=== PATIENT | female | born 1935 | race Caucasian/White ===

== ENCOUNTER 2016-08-30 08:39 | Inpatient (IN) | payer OTHER ==
[2016-08-05 13:52] VITALS: BMI 28.0
--- NOTE | 2016-08-05 14:31 | PAT Medication Instructions ---
Service Date Aug 05, 2016. Current Home Medication List Acetaminophen (Tylenol), 1,000 MG PO Q8 PRN for Pain Ascorbic Acid (Vitamin C *), 500 MG PO QPM Aspirin (Aspirin Ec), 81 MG PO QAM Biotin (Biotin), 1 CAP PO QAM PRN for prn Calcium/Vitamin D ([place] 500 Plus D), 1 TAB PO QPM Cholecalciferol (Vitamin D), 2,000 INTER.UNIT PO QAM Fish Oil ([place]-3), 1 CAP PO QAM Losartan Potassium (Cozaar), 25 MG PO QPM Metoprolol Succinate (Toprol Xl), 25 MG PO QAM Nitroglycerin (Nitrostat), 0.4 MG UT PRN Omeprazole (Prilosec), 20 MG PO QPM Ranitidine (Zantac), 150 MG PO HS Rosuvastatin Calcium (Crestor), 30 MG PO HS Medication Instructions For Your Scheduled Surgery - Continue as directed: Nitroglycerin (Nitrostat), 0.4 MG UT PRN - Hold the following medications 2 weeks prior to surgery: Fish Oil ([place]-3), 1 CAP PO QAM Biotin (Biotin), 1 CAP PO QAM PRN for prn - Hold the following medications the morning of surgery: Cholecalciferol (Vitamin D), 2,000 INTER.UNIT PO QAM - Take the following medications the morning of surgery with a sip of water: Metoprolol Succinate (Toprol Xl), 25 MG PO QAM Aspirin (Aspirin Ec), 81 MG PO QAM Acetaminophen (Tylenol), 1,000 MG PO Q8 PRN for Pain (may take if needed up to 4 hours prior to surgery) - Take the following medications as scheduled the night before surgery: Omeprazole (Prilosec), 20 MG PO QPM Ranitidine (Zantac), 150 MG PO HS Rosuvastatin Calcium (Crestor), 30 MG PO HS Calcium/Vitamin D ([place] 500 Plus D), 1 TAB PO QPM Ascorbic Acid (Vitamin C *), 500 MG PO QPM Acetaminophen (Tylenol), 1,000 MG PO Q8 PRN for Pain - Do not take the following medications the night before surgery: Losartan Potassium (Cozaar), 25 MG PO QPM If you have any questions please call us at [phone] (Bridgett Beebe PA-C ) or [phone] or [phone]
[2016-08-05 14:43] LABS: BASO % 0.6 %; BASO ABS # 0.04 K/uL (0-0.2); COMPLETE YES; EOS % 2.3 %; HEMATOCRIT 39.1 % (37-47); IG% 0.1 %; LYMPH % 23.9 %; LYMPH ABS # 1.64 K/uL (1.2-3.4); MEAN CELL VOLUME 90.5 fL (80-100); MEAN CORPUSCULAR HEMOGLOBIN 29.9 pg (25-34); MONO % 7.3 %; NEUT % 65.8 %; PLATELET COUNT 185 K/uL (130-400); RED BLOOD COUNT 4.32 M/uL (4.2-5.4); WHITE BLOOD COUNT 6.87 K/uL (4.8-10.8)
--- NOTE | 2016-08-05 15:02 | DIAGNOSTIC IMAGING REPORT ---
CHEST PREADMISSION(PA/LAT) CLINICAL HISTORY: Preoperative chest COMPARISON STUDY: 08/09/2015 FINDINGS: The cardiac and mediastinal contours remain stable. There are postsurgical changes of midline sternotomy. There is aortic tortuosity. There is no overt failure. There is no lobar consolidation. There is mild interstitial thickening. The patient is hyperinflated.[ IMPRESSION: Hyperinflation and mild interstitial thickening. No evidence of acute parenchymal consolidation. Electronically signed by: Cullen Jameson M.D. 08/05/2016 3:00 PM Dictated Date/Time: 08/05/2016 2:59 PM
[2016-08-05 15:06] LABS: INR 1.1 (0.9-1.1); PARTIAL THROMBOPLASTIN RATIO 1.1; PROTHROMBIN TIME (PATIENT) 11.6 SECONDS (9.0-12.0)
[2016-08-05 15:11] LABS: BUN/CREATININE RATIO 16.7 (10-20); CALCIUM 8.7 mg/dl (8.5-10.1); CREATININE 0.73 mg/dl (0.60-1.20); POTASSIUM 3.6 mmol/L (3.5-5.1)
--- NOTE | 2016-08-23 00:58 | HISTORY & PHYSICAL EXAMINATION ---
DATE OF ADMISSION: 08/30/2016 CHIEF COMPLAINT: Right hip and leg pain. HISTORY OF PRESENT ILLNESS: The patient is a 81-year-old very active female who is well known to me from a previous knee replacement surgery done in July of last year on the left knee. She has a remote history of right knee replacement done [place] [address] Monet. She sustained a fracture of her distal femur, had a retrograde nail placed in 2006. She has gone on to heal the fracture. Over the past several years, she has developed increased pain and discomfort in the right leg. She has got pain around the distal hardware as well as up around her groin. She is having more and more difficulty walking. She has got bilateral groin and thigh pain. She is having difficulty maintaining an active lifestyle. Her x-rays revealed advanced right hip degenerative joint disease and she would like to have her hip replaced. Unfortunately, we are going to need to take this nail out to do a hip replacement. PAST MEDICAL HISTORY: Significant for: 1. Coronary artery disease status post [place]. 2. Hypertension. 3. Gastroesophageal reflux disease. 4. Mild obesity, BMI 28.5. PAST SURGICAL HISTORY: Includes: 1. Open heart surgery done at [facility]. 2. Right knee replacement done on 10/17/2005. 3. Right retrograde IM nail done on 10/15/2006. 4. Left total hip replacement done 08/13/[address] Monet. 5. Left total knee replacement done by myself 08/22/2015. ALLERGIES: SULFA. CURRENT MEDICINES: Include: 1. Ranitidine 150 mg. 2. Crestor 10 mg. 3. Pantoprazole 40 mg a day. 4. Chlorthalidone 12.5 mg a day. 5. Losartan 50 mg a day. 6. Metoprolol 25 mg a day. 7. Omeprazole 20 mg a day. 8. Vitamin D. 9. Fish oil. 10. Calcium. 11. Aspirin 81 mg a day. SOCIAL HISTORY: A 81-year-old white female. The patient lives by herself. She does not smoke. FAMILY HISTORY: Noncontributory. REVIEW OF SYSTEMS: Negative for diabetes, neurologic problems, vascular problems, bleeding disorders. Denies any chest pain, no shortness of breath. No history of DVT or PE. She did have cardiac bypass surgery done 11 years ago and had no problems from this. PHYSICAL EXAMINATION: GENERAL: Reveals a pleasant elderly female. Looks to be in good health. HEENT: Benign. NECK: Supple, no lymphadenopathy. LUNGS: Clear to auscultation. HEART: Regular rate and rhythm. ABDOMEN: Soft, nontender, nondistended. EXTREMITIES: Grossly neurovascularly intact except as follows: Examination of the right lower extremity reveals the patient walks with the use of a cane. Her leg lengths clinically appear pretty equal. She has got stiffness and pain with hip internal rotation. She does have some tenderness laterally over the IT band distally in the area of the helical blade. No significant knee effusion. She has pain with hip motion. X-RAYS: X-rays of the right hip and femur were reviewed, showed advanced right hip DJD. Fairly concentric disease with significant osteophytes of the femoral head and acetabulum. She has got a retrograde nail in place with a healed femur fracture. No signs of loosening of the total knee replacement. ASSESSMENT: A 81-year-old white female status post multiple joint replacements with advanced right hip degenerative joint disease after previous total knee replacement on that side and subsequent retrograde nail for fracture. Her fracture has healed. I do think the majority of her symptoms are coming from her hip arthritis as well as due to the prominent hardware distally around this nail. PLAN: We talked about treatment. She would like to have her hip replaced. We are going to take her to the operating room and do an IM nail removal through the knee joint. We will have to close this up and then reposition her and do a total hip replacement. Risks and benefits of this procedure were explained to the patient including but not limited to DVT, PE, , infection, neurological injury, vascular injury, bleeding problem, pain, limited range of motion, stiffness, failure to relieve her symptoms, incomplete relief of symptoms, need for further surgery in the future, fracture, leg length inequality, nerve palsy, dislocation, etc. The patient understands and desires to proceed. Informed consent was obtained. As far as discharge plans, I believe she is planning to be discharged to home. She is going to have some family come and stay with her, similar to what she did with her knee replacement a year ago. She will use [facility]. I will see her back 2 weeks postop. DAWSOND
[2016-08-30] VITALS (8 sets, daily range): BP systolic 107–172; BP diastolic 54–82; PULSE 63–74; TEMP 35.4–36.7; O2SAT 95–100; Ht 162.6 cm; Wt 75.3 kg
[~2016-08-30] VITALS: Ht 162.6 cm; Wt 75.3 kg
[~2016-08-30 08:39] MED LIST: ACET-1256 PO; ACETAMINOPHEN 500 MG TAB PO SCH; ASCA500 PO; ASPI81TA28 PO; BIOT1CAP8 PO; BUPIVACAINE 0.5 % 5 MG/1 ML PF 10ML VIAL ONE; CALC500C70 PO; CEFAZOLIN 2000 MG/60 ML D5W 60 ML IV SCH; CHOL100010 PO; FAMOTIDINE 20 MG TAB PO SCH; GABAPENTIN 300 MG CAP PO SCH; LACTATED RINGER'S 1000ML 1,000 ML IV SCH; LOSA50TA6 PO; METO25TA3 PO; METOCLOPRAMIDE HCL 10 MG TAB PO SCH; NTRGSL/4 UT; OMEG10007 PO; PRLSR20 PO; ROSU20TA PO; SCOPOLAMINE 1.5 MG TDSY TD SCH; TRANEXAMIC ACID INJ 1,000 MG in SODIUM CHLORIDE 0.9% 100ML 100 ML IV SCH; ZNTT/150 PO
[2016-08-30] MEDS: LACTATED RINGER'S 1000ML 1,000 ML IV SCH ×2 (09:30→16:34)
[2016-08-30] MEDS ORDERED: MIDAZOLAM HCL 1 MG/ML 2ML VIAL ONE (09:47)
[2016-08-30] MEDS ORDERED: MoRPHine SULFATE PF 1 MG/ML 10 ML AMP/VIAL ONE (09:47)
--- NOTE | 2016-08-30 10:58 | History & Physical Bridge Note ---
H&P Re-Evaluation Bridge Note: I have examined the patient, reviewed the History & Physical and in the interval since the performance of the History & Physical I have noted the following changes of clinical significance: No changes noted
[2016-08-30] MEDS ORDERED: PROPOFOL IV EMULSION 10 MG/ML 20 ML VIAL IV ONE ×3 (12:22→14:09)
[2016-08-30] MEDS ORDERED: PHENYLEPHRINE HCL INJ 10 MG/ML VIAL ONE (12:41)
[2016-08-30] MEDS ORDERED: EpHEDrine SULFATE INJ 50 MG/ML AMP ONE (12:41)
--- NOTE | 2016-08-30 13:42 | DIAGNOSTIC IMAGING REPORT ---
INTRAOPERATIVE RIGHT FEMUR SINGLE VIEW CLINICAL HISTORY: Hardware removal COMPARISON: Outside radiograph dated July 29, 2016 DISCUSSION: 7 seconds of fluoroscopic time was utilized. A single fluoroscopic spot image was obtained. This demonstrates an intramedullary right femoral tessy IMPRESSION: Intraoperative localizing radiograph as described above. Electronically signed by: Cullen Jaemson M.D. 08/30/2016 1:41 PM Dictated Date/Time: 08/30/2016 1:39 PM
[2016-08-30] MEDS ORDERED: BUPIVACAINE/EPINEPHRINE 0.5% MPF 1:200,000 30 ML VIAL INJ ONE (14:50)
[2016-08-30] MEDS ORDERED: BACITRACIN 50000 UNIT VIAL IR ONE (14:50)
--- NOTE | 2016-08-30 15:07 | [facility] Post Operative Brief Note ---
Immediate Operative Summary Operative Date Aug 30, 2016. Pre-Operative Diagnosis Advanced Right Hip Degenerative Joint Disease, Symptomatic Hardware Right Femur Post-Operative Diagnosis Advanced Right Hip Degenerative Joint Disease, Symptomatic Hardware Right Femur Procedure(s) Performed Right Total Hip Arthroplasty-Uncemented, Right Femur Hardware Removal Surgeon Dr. Awad Do All Operator Surgeon(s) Daniel Serrano PA-C Estimated Blood Loss 300ml Findings Right Hip DJD + Sx Hardware Fluids (cc crystalloids) 1700 cc Specimens A: Explanted Hardware Right Femur B: Right Femoral Head Anesthesia Spinal Complication(s) None Disposition Recovery Room / PACU
[2016-08-30] MEDS ORDERED: MoRPHine SULFATE 2 MG/ML CARP IV PRN (15:15)
[2016-08-30] MEDS ORDERED: EpHEDrine SULFATE INJ 50 MG/ML AMP IV PRN ×2 (15:15→16:15)
[2016-08-30] MEDS ORDERED: NITROGLYCERIN 0.4 MG SL PER TAB CHARGE UT PRN (15:15)
[2016-08-30] MEDS ORDERED: NALOXONE HCL 0.4 MG/1 ML VIAL/CARP IV PRN ×2 (15:15→16:15)
[2016-08-30] MEDS ORDERED: PROMETHAZINE HCL INJ 12.5 MG in SODIUM CHLORIDE 0.9% 50ML 50 ML IV PRN ×2 (15:15→21:45)
[2016-08-30] MEDS ORDERED: BISACODYL 10 MG SUPP PR PRN (15:15)
[2016-08-30] MEDS ORDERED: ZOLPIDEM TARTRATE 5 MG TAB PO PRN (15:15)
[2016-08-30] MEDS ORDERED: MAGNESIUM HYDROXIDE SUSP 30 ML UDC PO PRN (15:15)
[2016-08-30] MEDS ORDERED: TRAMADOL HCL 50 MG TAB PO PRN (15:15)
[2016-08-30] MEDS ORDERED: DiphenhydrAMINE HCL 50 MG/ML VIAL IV PRN ×2 (15:15→16:15)
[2016-08-30] MEDS ORDERED: ALUMINUM/MAGNESIUM/SIMETH (MAALOX MAX) 30 ML UDC PO PRN (15:15)
[2016-08-30] MEDS ORDERED: NON-FORMULARY MEDICATION (Biotin 1 CAP) PO PRN (15:15)
[2016-08-30] MEDS ORDERED: FLUMAZENIL 0.1 MG/1 ML 10 ML VIAL IV PRN (15:15)
[2016-08-30] MEDS ORDERED: ONDANSETRON INJ 2 MG/ML 2 ML VIAL IV PRN ×2 (15:15→21:45)
[2016-08-30] MEDS ORDERED: ATROPINE SULFATE 0.1 MG/ML 5ML SYR IV PRN (15:15)
[2016-08-30] MEDS ORDERED: HydrALAZINE HCL 20 MG/ML VIAL ONE (15:26)
[2016-08-30 15:31] LABS: HEMATOCRIT 36.3 % (37-47)
[2016-08-30] MEDS ORDERED: HydrALAZINE HCL 20 MG/ML VIAL IV. PRN ×2 (15:45→16:15)
[2016-08-30] MEDS ORDERED: LACTATED RINGER'S 1000ML 500 ML IV PRN (16:02)
[2016-08-30] MEDS ORDERED: NALOXONE HCL INJ 0.08 MG in SYRINGE 1.8 ML IV PRN (16:02)
[2016-08-30] MEDS ORDERED: SODIUM CHLORIDE 0.9% 1000ML 1,000 ML IV PRN (16:02)
[2016-08-30] MEDS ORDERED: NALOXONE HCL INJ 1 MG in SODIUM CHLORIDE 0.9% 1000ML 1,000 ML IV PRN (16:02)
[2016-08-30] MEDS ORDERED: NALBUPHINE HCL INJ 10 MG/ML AMP IV PRN (16:15)
[2016-08-30] MEDS ORDERED: DC INTRASPINAL MORPHINE SCH (16:15)
[2016-08-30] MEDS ORDERED: MoRPHine SULFATE PF 1 MG/ML 10 ML AMP/VIAL EPI PRN ×2 (16:15→21:45)
[2016-08-30] MEDS ORDERED: NO NARCOTICS OR SEDATIVES SCH (16:15)
--- NOTE | 2016-08-30 16:26 | DIAGNOSTIC IMAGING REPORT ---
AP PELVIS, CROSSTABLE LATERAL RIGHT HIP History: Right total hip arthroplasty. Degenerative arthritis. Postop. FINDINGS: The patient is status post a right total hip arthroplasty. The hardware is intact. No fracture or dislocation. Skin magdy are in place. Evidence for an old left total hip arthroplasty IMPRESSION: Right total hip arthroplasty. No evidence for hardware complication Electronically signed by: Noam Finch M.D. 08/30/2016 4:25 PM Dictated Date/Time: 08/30/2016 4:24 PM
--- NOTE | 2016-08-30 16:57 | Anesthesiology Progress Note ---
Anesthesia Post Op Note Date & Time Aug 30, 2016 at 16:57 Vital Signs Pain Intensity: 0 Vital Signs Past 12 Hours Date Time Temp Pulse Resp B/P Pulse Ox O2 Delivery O2 Flow Rate FiO2 08/30/16 16:30 61 11 152/58 94 Nasal Cannula 2 161/50 08/30/16 16:20 63 14 135/57 96 Nasal Cannula 2 157/50 08/30/16 16:10 63 20 176/74 94 Nasal Cannula 2 184/60 08/30/16 16:00 58 14 182/74 95 Nasal Cannula 2 184/61 08/30/16 15:50 58 14 185/73 85 Nasal Cannula 2 193/62 08/30/16 15:40 59 23 186/81 91 Nasal Cannula 2 189/66 08/30/16 15:30 64 16 201/86 95 Nasal Cannula 2 214/84 08/30/16 15:20 59 19 203/92 96 Nasal Cannula 2 08/30/16 15:11 36.0 56 10 184/80 96 Nasal Cannula 2 08/30/16 09:09 36.5 67 20 172/82 97 Room Air Notes Mental Status: alert / awake / arousable, participated in evaluation Pt Amnestic to Procedure: Yes Nausea / Vomiting: adequately controlled Pain: adequately controlled Airway Patency, RR, SpO2: stable & adequate BP & HR: stable & adequate Hydration State: stable & adequate Neuraxial Anesthesia: was administered, sensory block is resolving Anesthetic Complications: no major complications apparent
[2016-08-30] MEDS: D5W AND 1/2NSS + 20MEQ KCL 1,000 ML IV SCH (19:07)
[2016-08-30] MEDS: FERROUS GLUCONATE 324 MG TAB PO SCH (19:07)
--- NOTE | 2016-08-30 19:23 | Medical Consult ---
Consultation Date of Consultation: Aug 30, 2016. Attending Physician: Yobani Awad M.D. Reason for Consultation: Medical Management History of Present Illness Ms. Martinez is a 81 y/o female with PMHx of CAD with AL and S/P CABG x 4 (1998) , AAA and B/L Iliac Aneurysms, GERD, HLD, and HTN who is S/P R SONYA. Hospitalists consulted for medical management. Patient is drowsy but easily alert to verbal stimuli. Only complaint is of fatigue and intermittent dizziness since her was complete. She denies pain at the surgical site. Has not passed gas. She reports she follows regularly with database technician. Per notes, patient with significant hypertension during procedure and BPs rather variable. Byers catheter in place. She denies fever/chills, CP, SOB, N/V, abdominal pain, constipation/diarrhea. Family History Hypertension Social History Smoking Status: Former Smoker Smokeless Tobacco Use: No Alcohol Use: none Drug Use: none Marital Status: Allergies Coded Allergies: Lisinopril (Unverified Adverse Reaction, Unknown, NAUSEA VOMITING, 08/30/16) Sulfasalazine (Verified Adverse Reaction, Unknown, NAUSEA-COULDN'T EAT, 08/30/16) Current Inpatient Medications Current Inpatient Medications Medications (Trade) Dose Ordered Sig/Eliceo Route Start Time Stop Time Status Last Admin Dose Admin Miscellaneous 1 ea 1 ea Q72H N/A 09/02/16 06:00 09/02/16 06:01 Tranexamic Acid/ Sodium Chloride (Cyklokapron Inj/ Nss 100ml) 110 ml @ 660 mls/hr TODAY@0600 IV 08/30/16 06:00 08/30/16 23:59 08/30/16 11:28 660 MLS/HR Naloxone HCl (Narcan Inj) 0.2 mg Q2M PRN IV 08/30/16 15:15 08/30/16 20:15 Flumazenil 0.2 mg 0.2 mg Q2M PRN IV 08/30/16 15:15 08/30/16 20:15 Promethazine HCl/ Sodium Chloride (Phenergan Inj/ Nss 50ml) 50.5 ml @ 202 mls/hr ONE PRN IV 08/30/16 15:15 08/30/16 20:15 Ephedrine Sulfate (EpHEDrine SULFATE INJ) 5 mg Q5M PRN IV 08/30/16 15:15 08/30/16 20:15 Atropine Sulfate 0.5 mg 0.5 mg Q1M PRN IV 08/30/16 15:15 08/30/16 20:15 Potassium Chloride/Dextrose/ Sod Cl (D5W And 1/2nss + 20meq KCl) 1,000 ml @ 100 mls/hr Q10H IV 08/30/16 18:30 08/31/16 15:06 08/30/16 19:07 100 MLS/HR Ketorolac Tromethamine (Toradol Inj) 15 mg Q6H IV. 08/31/16 07:00 09/02/16 01:01 Morphine Sulfate (MoRPHine SULFATE INJ) 2 mg Q1H PRN IV 08/30/16 15:15 09/13/16 15:14 Future hold Acetaminophen (Tylenol Tab) 1,000 mg Q8H PO 08/30/16 22:00 09/29/16 15:14 Magnesium Hydroxide (Milk Of Magnesia Susp) 30 ml Q6H PRN PO 08/30/16 15:15 09/29/16 15:14 Bisacodyl (Dulcolax Supp) 10 mg DAILY PRN ND 08/30/16 15:15 09/29/16 15:14 Docusate Sodium (coLACE CAP) 100 mg BID PO 08/30/16 21:00 09/29/16 20:59 Diphenhydramine HCl (Benadryl Cap) 25 mg Q8H PRN PO 08/30/16 15:15 09/29/16 15:14 Future hold Diphenhydramine HCl (Benadryl Inj) 25 mg Q8H PRN IV 08/30/16 15:15 09/29/16 15:14 Future hold Al Hydrox/Mg Hydrox/Simethicone (Maalox Max Susp) 15 ml Q4H PRN PO 08/30/16 15:15 09/29/16 15:14 Zolpidem Tartrate (Ambien Tab) 5 mg HSZ PRN PO 08/30/16 15:15 09/29/16 15:14 Future hold Multivitamins (Multivitamin Tab) 1 tab QAM PO 08/31/16 09:00 09/30/16 08:59 Ondansetron HCl (Zofran Inj) 4 mg Q6H PRN IV 08/30/16 15:15 09/29/16 15:14 Future hold Metoclopramide HCl (Reglan Inj) 10 mg Q6H PRN IV 08/30/16 15:15 09/29/16 15:14 Future hold Ferrous Gluconate (Ferrous Gluconate Tab) 324 mg TIDM PO 08/30/16 18:00 09/29/16 17:59 08/30/16 19:07 324 MG Aspirin (Ecotrin Tab) 325 mg BID PO 08/30/16 21:00 09/29/16 20:59 Tramadol HCl 1 TABLET FOR PAIN RATING... Q4H PRN PO 08/30/16 15:15 09/29/16 15:14 Future hold Cefazolin Sodium 1000 mg/Dextrose 55 ml @ 100 mls/hr Q8H IV 08/30/16 20:00 08/31/16 04:32 Tranexamic Acid/ Sodium Chloride (Cyklokapron Inj/ Nss 100ml) 110 ml @ 660 mls/hr ONE ONCE IV 08/30/16 21:00 08/30/16 21:09 Ascorbic Acid (Vitamin C Tab) 500 mg QPM PO 08/30/16 21:00 09/29/16 20:59 Calcium/Vitamin D (Caltrate Plus Tab) 1 tab QPM PO 08/30/16 21:00 09/29/16 20:59 Cholecalciferol (Vitamin D Tab) 2,000 inter.unit QAM PO 08/31/16 09:00 09/30/16 08:59 Losartan Potassium (coZAAR TAB) 25 mg QPM PO 08/30/16 21:00 09/29/16 20:59 Metoprolol Succinate (Toprol Xl Tab) 25 mg QAM PO 08/31/16 09:00 09/30/16 08:59 Nitroglycerin (Nitrostat Tab) 0.4 mg UD PRN UT 08/30/16 15:15 09/29/16 15:14 Ranitidine HCl (zANTac TAB) 150 mg HS PO 08/30/16 21:00 09/29/16 20:59 Rosuvastatin Calcium (Crestor Tab) 30 mg HS PO 08/30/16 21:00 09/29/16 20:59 Pantoprazole Sodium (Protonix Tab) 40 mg QPM PO 08/30/16 21:00 09/29/16 20:59 Naloxone HCl (Narcan Inj) 0.1 mg UD PRN IV 08/30/16 16:15 08/31/16 06:30 Diphenhydramine HCl (Benadryl Inj) 25 mg Q6H PRN IV 08/30/16 16:15 08/31/16 06:30 Nalbuphine HCl 5 mg 5 mg Q10M PRN IV 08/30/16 16:15 08/31/16 06:30 Naloxone HCl/ Sodium Chloride (Narcan Inj/Nss 1000ml) 1,002.5 ml @ 50 mls/hr Q20H3M PRN IV 08/30/16 16:02 08/31/16 06:30 Miscellaneous Information 1 ea 1 ea UD N/A 08/30/16 16:15 08/31/16 06:30 Naloxone HCl 0.08 mg/Syringe 2 ml @ 1 mls/min Q2M PRN IV 08/30/16 16:02 08/31/16 06:30 Lactated Ringer's (Lr 1000ml) 500 ml @ 999 mls/hr Q31M PRN IV 08/30/16 16:02 08/31/16 06:30 Ephedrine Sulfate (EpHEDrine SULFATE INJ) 10 mg Q5M PRN IV 08/30/16 16:15 08/31/16 06:30 Morphine Sulfate TODAY PRN EPI 08/30/16 16:15 08/31/16 06:30 Sodium Chloride (Nss 1000ml) 1,000 ml @ 15 mls/hr Q24H PRN IV 08/30/16 16:02 08/31/16 06:30 Hydralazine HCl (HydrALAZINE INJ) 4 mg UD PRN IV. 08/30/16 16:15 08/30/16 20:15 Miscellaneous Information (Dc Intraspinal Morphine) 0.2 ea TODAY@0630 N/A 08/31/16 06:30 08/31/16 06:31 Review of Systems Constitutional: + fatigue, No chills, No fever Eyes: No worsening of vision ENT: No nasal symptoms, No sore throat, No trouble swallowing Respiratory: No cough, No shortness of breath Cardiovascular: No chest pain, No palpitations Abdomen: No constipation, No diarrhea, No nausea, No pain, No vomiting Neurologic: No numbness/tingling, No weakness Hematologic / Lymphatic: No abnormal bleeding/bruising Integumentary: No rash Physical Exam Date Time Temp Pulse Resp B/P Pulse Ox O2 Delivery O2 Flow Rate FiO2 08/30/16 18:15 36.1 66 18 142/66 98 Nasal Cannula 2.0 08/30/16 17:45 35.4 68 16 133/64 95 Nasal Cannula 3.0 08/30/16 17:41 96 Nasal Cannula 3.0 08/30/16 17:34 95 Nasal Cannula 3.0 08/30/16 17:34 36.5 16 168/64 95 Nasal Cannula 3.0 08/30/16 17:00 64 15 141/54 96 Nasal Cannula 2 Arterial Line 08/30/16 16:45 36.3 61 17 150/62 96 Nasal Cannula 2 Arterial Line 08/30/16 16:30 61 11 152/58 94 Nasal Cannula 2 161/50 08/30/16 16:20 63 14 135/57 96 Nasal Cannula 2 157/50 08/30/16 16:10 63 20 176/74 94 Nasal Cannula 2 184/60 08/30/16 16:00 58 14 182/74 95 Nasal Cannula 2 184/61 08/30/16 15:50 58 14 185/73 85 Nasal Cannula 2 193/62 08/30/16 15:40 59 23 186/81 91 Nasal Cannula 2 189/66 08/30/16 15:30 64 16 201/86 95 Nasal Cannula 2 214/84 08/30/16 15:20 59 19 203/92 96 Nasal Cannula 2 08/30/16 15:11 36.0 56 10 184/80 96 Nasal Cannula 2 08/30/16 09:09 36.5 67 20 172/82 97 Room Air General Appearance: WD/WN, no apparent distress Head: normocephalic, atraumatic Eyes: PERRL, sclerae normal ENT: hearing grossly normal Neck: supple, no JVD, trachea midline Respiratory/Chest: lungs clear, normal breath sounds, no respiratory distress, no accessory muscle use Cardiovascular: regular rate, rhythm, no gallop, no murmur Abdomen/GI: normal bowel sounds, non tender, soft Extremities/Musculoskelatal: no pedal edema, + pertinent finding (R leg with surgical dressing at hip and leg in SG wrap that is clean/dry/intact) Neurologic/Psych: no motor/sensory deficits (lower extremities bilat), alert, oriented x 3 Skin: normal color, warm/dry Laboratory Results Last 24 Hours Test 08/30/16 09:39 08/30/16 15:22 08/30/16 16:06 Bedside Glucose 83 mg/dl 145 mg/dl Hemoglobin 11.8 g/dL Hematocrit 36.3 % Assessment & Plan Ms. Martinez is a 81 y/o female with PMHx of CAD with AL and S/P CABG x 4 (1998) , AAA and B/L Iliac Aneurysms, GERD, HLD, and HTN who is S/P R SONYA. S/P R SONYA: POD #0 - Pain Management, IVF, DVT prophylaxis, PT/OT per primary - DVT Prophylaxis - ASA 325 mg BID HTN/CAD with AL and S/P CABG x 4: - ASA per primary for DVT proph - Metoprolol 25 mg daily - Losartan 50 mg daily - Nitro 0.4 mg SL PRN GERD: - Ranitidine 150 mg daily - Pantoprazole 40 mg daily HLD: - Crestor 30 mg daily Assessment and Plan Attending Addendum: I have physically seen and examined this patient, have directed their medical care, have supervised the PA's activity, and agree with the H&P as noted above, with the following changes: NONE. The patient is seen postoperatively right total arthroplasty by Dr. Awad earlier today, is medically stable. She reports her pain is adequately controlled. The patient denies chest pain, palpitations, shortness of breath, cough, lower extremity swelling, vision change, hearing change, sore throat, fevers, chills, sweats, weight change, fatigue, nausea, vomiting, abdominal pain, pelvic pain, blood in urine or stool, dysuria, urinary frequency or urgency, lightheadedness , dizziness, headache, memory loss, rash, abnormal bruising or bleeding, night sweats, or allergy symptoms. The review of systems is otherwise negative other than for that already noted above, and at least 10 systems have been reviewed. The patient is awake, well-developed and adequately nourished, alert and oriented 3, normocephalic and atraumatic, lying in bed and in no acute distress. HEENT--PERRL, EOMI, mucous membranes and oropharynx moist. Neck--supple, no JVD or bruits, thyroid normal, trachea midline, no adenopathy. Heart--normal S1 and S2, no extra beats, no murmurs, rubs or gallops. Lungs--clear bilaterally with good air movement, no respiratory distress, no accessory muscle use. Abdomen--normal bowel sounds and soft, nontender and nondistended, no hernias or masses, no organomegaly. Extremities--no cyanosis, clubbing or edema. There are good distal pulses b/l. Dermatologic--normal skin turgor, normal color, warm and dry, no abnormal lymph nodes, no rash. Neurologic--cranial nerves II through XII grossly intact, motor and sensory examination normal. Rheumatologic--right hip wrapped. Psychiatric--normal affect. Assessment and Plan: Status post right total hip arthroplasty--seen postoperatively is medically stable. CAD/hypertension/history of AL/status post CABG--blood pressure was transiently elevated temperature procedure. Under better control at this point. Continue her usual metoprolol succinate dosing. If her pressure would increase again would give additional metoprolol succinate 25 mg by mouth at that time.
[2016-08-30] MEDS ORDERED: TRANEXAMIC ACID INJ 1,000 MG in SODIUM CHLORIDE 0.9% 100ML 100 ML IV ONE (21:00)
[2016-08-30] MEDS: CEFAZOLIN IV 1,000 MG in DEXTROSE 5% 50ML 50 ML IV SCH (21:09)
[2016-08-30] MEDS: DOCUSATE SODIUM 100 MG CAP PO SCH (21:10)
[2016-08-30] MEDS: CALCIUM 600MG + VIT D 400 IU TAB PO SCH (21:10)
[2016-08-30] MEDS: LOSARTAN POTASSIUM 25 MG TAB PO SCH (21:11)
[2016-08-30] MEDS: ASPIRIN 325 MG ECTAB PO SCH (21:12)
[2016-08-30] MEDS: ROSUVASTATIN CALCIUM 10 MG TAB PO SCH (21:12)
[2016-08-30] MEDS: ASCORBIC ACID 500 MG TAB PO SCH (21:13)
[2016-08-30] MEDS: PANTOprazole SOD 40 MG TAB PO SCH (21:13)
[2016-08-30] MEDS: ACETAMINOPHEN 500 MG TAB PO SCH (21:14)
[2016-08-30] MEDS: RANITIDINE HCL 150 MG TAB PO SCH (21:14)
[2016-08-30] MEDS ORDERED: METOCLOPRAMIDE HCL INJ 20 MG in SODIUM CHLORIDE 0.9% 50ML 50 ML IV PRN (21:45)
[2016-08-31] VITALS (16 sets, daily range): BP systolic 103–114; BP diastolic 52–63; PULSE 69–81; TEMP 36.3–37; O2SAT 91–100
[2016-08-31] MEDS: D5W AND 1/2NSS + 20MEQ KCL 1,000 ML IV SCH ×2 (03:37→13:26)
[2016-08-31] MEDS: CEFAZOLIN IV 1,000 MG in DEXTROSE 5% 50ML 50 ML IV SCH (03:37)
[2016-08-31] MEDS: KETOROLAC TROMETHAMINE 15 MG/ML VIAL IV. SCH ×3 (06:07→20:41)
[2016-08-31] MEDS: ACETAMINOPHEN 500 MG TAB PO SCH ×3 (06:07→20:53)
[2016-08-31 06:13] LABS: BASO % 0.1 %; BASO ABS # 0.01 K/uL (0-0.2); COMPLETE YES; EOS % 0.2 %; HEMATOCRIT 32.6 % (37-47); IG% 0.1 %; LYMPH % 8.2 %; LYMPH ABS # 0.74 K/uL (1.2-3.4); MEAN CELL VOLUME 91.8 fL (80-100); MEAN CORPUSCULAR HEMOGLOBIN 29.3 pg (25-34); MEAN CORPUSCULAR HGB CONC 31.9 g/dl (32-36); MEAN PLATELET VOLUME 10.5 fL (7.4-10.4); MONO % 7.9 %; NEUT % 83.5 %; PLATELET COUNT 144 K/uL (130-400); RED BLOOD COUNT 3.55 M/uL (4.2-5.4); WHITE BLOOD COUNT 8.99 K/uL (4.8-10.8)
[2016-08-31] MEDS ORDERED: DC INTRASPINAL MORPHINE SCH (06:30)
[2016-08-31 06:31] LABS: BUN/CREATININE RATIO 12.2 (10-20); CREATININE 0.81 mg/dl (0.60-1.20); POTASSIUM 4.3 mmol/L (3.5-5.1)
--- NOTE | 2016-08-31 08:35 | PROGRESS NOTE ---
DATE: 08/31/2016 DATE: 08/31/2016. SUBJECTIVE: A 81-year-old white female postop day 1 from right femur IM nail removal and total hip replacement. She is doing pretty well. Mostly just kind of having pain in her knee cap area. She has gotten up and around and walked and doing reasonably well. No chest pain or shortness of breath. Not feeling dizzy or lightheaded. OBJECTIVE: VITAL SIGNS: Temperature is 36.6. Vital signs stable. PHYSICAL EXAMINATION: GENERAL: Reveals a pleasant elderly female. She is sitting up in bed, looks pretty comfortable. LUNGS: Clear to auscultation. HEART: Has a regular rate and rhythm. ABDOMEN: Soft, nontender, nondistended. EXTREMITY EXAMINATION: Grossly neurovascularly intact except as follows: Examination of the right lower extremity reveals the dressing to be clean, dry and intact. Just a trace bit of bloody drainage around her knee area. She can dorsiflex and plantarflex her foot appropriately. She is neurologically intact. Hip is located. LABORATORY DATA: Hemoglobin 10.4, hematocrit 32.6. Electrolytes are stable. ASSESSMENT: A 81-year-old white female postop day 1 from right femur retrograde IM nail removal and total hip replacement. She is doing quite well considering the significance of her surgery. Pain is controlled. PLAN: 1. DVT prophylaxis including thigh-high TEDs, SCDs, and aspirin twice a day. 2. PT/OT. Weightbearing as tolerated. Right total hip protocol. We will also work on knee motion. 3. Pain control. Doing pretty well with current pain regimen. 4. Disposition. She is hoping to be discharged to home. She has got family that is going to come and stay with her and help. She will benefit from some home health.
[2016-08-31] MEDS ORDERED: PANTOprazole SOD 40 MG TAB PO SCH (09:00)
[2016-08-31] MEDS: CHOLECALCIFEROL 1000 INTER.UNIT TAB PO SCH (09:19)
[2016-08-31] MEDS: MULTIVITAMIN TAB PO SCH (09:20)
[2016-08-31] MEDS: ASPIRIN 325 MG ECTAB PO SCH ×2 (09:20→20:43)
[2016-08-31] MEDS: DOCUSATE SODIUM 100 MG CAP PO SCH ×2 (09:20→20:43)
[2016-08-31] MEDS: METOPROLOL SUCC 25MG EXT REL TAB PO SCH (09:20)
[2016-08-31] MEDS: FERROUS GLUCONATE 324 MG TAB PO SCH ×3 (09:20→18:30)
[2016-08-31] MEDS: ONDANSETRON INJ 2 MG/ML 2 ML VIAL IV PRN (10:05)
[2016-08-31] MEDS: METOCLOPRAMIDE HCL INJ 5 MG/ML 2 ML VIAL IV PRN (13:25)
[2016-08-31] MEDS: CALCIUM 600MG + VIT D 400 IU TAB PO SCH (20:41)
[2016-08-31] MEDS: PANTOprazole SOD 40 MG TAB PO SCH (20:42)
[2016-08-31] MEDS: ASCORBIC ACID 500 MG TAB PO SCH (20:42)
[2016-08-31] MEDS: ROSUVASTATIN CALCIUM 10 MG TAB PO SCH (20:43)
[2016-08-31] MEDS: LOSARTAN POTASSIUM 25 MG TAB PO SCH (20:48)
[2016-08-31] MEDS: RANITIDINE HCL 150 MG TAB PO SCH (20:49)
[2016-09-01] MEDS: KETOROLAC TROMETHAMINE 15 MG/ML VIAL IV. SCH ×4 (00:56→18:37)
[2016-09-01] MEDS: ACETAMINOPHEN 500 MG TAB PO SCH ×3 (05:11→21:33)
[2016-09-01 07:09] VITALS: BP 119/65; PULSE 73; TEMP 36.8; O2SAT 93
--- NOTE | 2016-09-01 08:25 | PROGRESS NOTE ---
DATE: 09/01/2016 SUBJECTIVE: A 81-year-old white female postop day 2 from a right femur IM nail removal and total hip replacement. She is doing pretty well. She is doing better today. Pain has improved. Still has some knee pain. No chest pain or shortness of breath. Not feeling dizzy or lightheaded. Did have some nausea yesterday, but improved today. OBJECTIVE: VITAL SIGNS: Temperature 36.8. Vital signs stable. PHYSICAL EXAMINATION: GENERAL: Reveals a healthy, pleasant elderly female. Today she was in the bathroom cleaning up when I saw her today. LUNGS: Clear to auscultation. HEART: Has a regular rate and rhythm. ABDOMEN: Soft, nontender, nondistended. EXTREMITIES: Grossly neurovascularly intact except as follows: Examination of the right hip and leg reveals all incisions to be well approximated. There is some bloody drainage from the anterior knee incision. Her knee bends well. She can do a straight leg raise. Calf is soft and supple. She is neurologically intact. ASSESSMENT: A 81-year-old white female postoperative day 2 from intramedullary nail removal through the knee and total hip replacement. She is doing quite well considering everything. A little bit of bloody drainage, which is normal. PLAN: 1. DVT prophylaxis including thigh-high TEDs, SCDs, and aspirin twice a day. 2. PT/OT. Weightbearing as tolerated. Right total hip and total knee protocol. 3. Pain control, doing well with current pain regimen. 4. Routine wound care. 5. Disposition: She is planning to be discharged to home with some home health once medically stable. We need to observe her today and hopefully get her home tomorrow if things look good.
[2016-09-01] MEDS: FERROUS GLUCONATE 324 MG TAB PO SCH ×3 (08:30→17:48)
[2016-09-01 09:28] VITALS: BP 116/72; PULSE 77
[2016-09-01] MEDS: METOPROLOL SUCC 25MG EXT REL TAB PO SCH (09:33)
[2016-09-01] MEDS: ASPIRIN 325 MG ECTAB PO SCH ×2 (09:33→21:32)
[2016-09-01] MEDS: CHOLECALCIFEROL 1000 INTER.UNIT TAB PO SCH (09:33)
[2016-09-01] MEDS: MULTIVITAMIN TAB PO SCH (09:33)
[2016-09-01] MEDS: DOCUSATE SODIUM 100 MG CAP PO SCH ×2 (09:33→21:32)
[2016-09-01] MEDS ORDERED: ULT50X PO (13:59)
[2016-09-01] MEDS ORDERED: ASPEC325 PO (13:59)
[2016-09-01] MEDS ORDERED: ACET-1138 PO (13:59)
[2016-09-01] MEDS ORDERED: FRRG PO (13:59)
--- NOTE | 2016-09-01 14:02 | Discharge Instructions ---
Discharge Instructions Admission Reason for Admission: Right Hip Degenerative Joint Disease, Bursitis Discharge Discharge Diagnosis / Problem: Right HIp Replacement; IM Nail removal right femur Discharge Goals Goal(s): Decrease discomfort, Improve function, Increase independence, Improve disease control, Therapeutic intervention Activity Recommendations Activity Limitations: per Instructions/Follow-up section Weightbearing Status: Right weightbearing . Instructions / Follow-Up Instructions / Follow-Up ACTIVITY RECOMMENDATIONS: Physical Therapy: * Aggressive physical therapy is not usually needed. You will learn to take care of yourself safely and walk. * Follow the "Hip Precautions Instructions." * In some cases, the social worker psychiatric at the hospital will arrange to have a therapist come to your house for the first couple of weeks to help you learn these skills. * You need to practice on your own or with the help of a family member as needed. * When you learn these skills, most of the therapy can be done on your own. Home Exercise: * You were shown a series of exercises in the hospital. Do these exercises three to four times each day including the exercises you were shown in physical therapy. Walking: * Get up and walk several times each day. For the first four weeks, try not to stand or walk for more than one hour at a time. If you do stand or walk for more than one hour, you will not hurt anything, but your leg will likely swell. * As you feel comfortable, you may change from the walker or crutches to a cane and then to independent walking. MEDICATIONS: New Medicine: * You will likely be taking one or more of these medicines: 1. Tramadol - Take, as directed, when you need it, every four to six hours to control your pain. 2. Iron Sulfate - Take three times each day for the month after surgery to help you replace the blood lost during surgery. 3. Aspirin - Thins your blood to lessen the chance of forming a blood clot. * The most common side effects of pain medicine and iron are nausea and constipation. If nausea or constipation is too much of a problem or if you have any questions about your new medicines or doses, call [facility] at [phone]. We will try to help you manage these issues. VERY IMPORTANT TO READ AND REVIEW" Pain: * The immediate post-operative period after hip replacement surgery is often quite painful. * You are given a prescription for pain medicine. You should take it, as directed, when you need it, especially before physical therapy and before going to bed. Pain that interferes with sleep is very common and can last several months. * You will likely need pain medicine for the first two to four weeks. It will not stop all of the pain. The pain will lessen and as you feel better, you may change to milder pain medicine such as Tylenol. * The most common side effects of pain medicine are nausea and constipation, so don't take more than you need. SPECIAL CARE INSTRUCTIONS: TEDs/Elastic Stockings: * The white elastic stockings help limit swelling and prevent blood clots from forming in your legs. The more you wear them, the more they work. * Wear them for six weeks. Prevention of Infection: * Take antibiotics one hour before any dental cleaning, dental work, urological procedure, gastrointestinal procedure or any invasive surgery in order to prevent your new joint from getting infected. * You may get the antibiotics from the doctor performing the procedure or you may call our office at before and we will call in a prescription to the pharmacy of your choice. Things to Watch For: * Drainage from the incision site that occurs more than one week after your surgery. * Severely increased leg pain or swelling. * Increased redness at the incision site. * Fever above 102 degrees Fahrenheit. * Unusual chest pain or shortness of breath. * Unusual pain or burning with urination. Call [facility] at with any of the above problems or if you have any questions about your medicines or recovery. FOLLOW UP VISIT: Make an appointment to see your doctor for approximately two weeks after surgery for a progress check and staple removal by calling the office at . Current Hospital Diet Patient's current hospital diet: Regular Diet Discharge Diet Recommended Diet: Regular Diet Procedures Procedures Performed: Right Total Hip Arthroplasty-Uncemented, Right Femur Hardware Removal Pending Studies Studies pending at discharge: no Medical Emergencies . Who to Call and When: Medical Emergencies: If at any time you feel your situation is an emergency, please call [phone] immediately. . Non-Emergent Contact Non-Emergency issues call your: Surgeon . "Provider Documentation" section prepared by Yobani Awad. VTE Core Measure Inpt VTE Proph given/why not?: Other Anticoagulation, T.E.D. Stockings, SCD's
[2016-09-01 15:21] VITALS: BP 111/56; PULSE 79; TEMP 36.9; O2SAT 95
[2016-09-01] MEDS: ONDANSETRON INJ 2 MG/ML 2 ML VIAL IV PRN (19:51)
[2016-09-01 21:29] VITALS: BP 169/72; PULSE 86
[2016-09-01] MEDS: LOSARTAN POTASSIUM 25 MG TAB PO SCH (21:31)
[2016-09-01] MEDS: ROSUVASTATIN CALCIUM 10 MG TAB PO SCH (21:31)
[2016-09-01] MEDS: PANTOprazole SOD 40 MG TAB PO SCH (21:32)
[2016-09-01] MEDS: ASCORBIC ACID 500 MG TAB PO SCH (21:32)
[2016-09-01] MEDS: CALCIUM 600MG + VIT D 400 IU TAB PO SCH (21:32)
[2016-09-01] MEDS: RANITIDINE HCL 150 MG TAB PO SCH (21:32)
[2016-09-01] MEDS: METOCLOPRAMIDE HCL INJ 5 MG/ML 2 ML VIAL IV PRN (21:35)
[2016-09-01 23:01] VITALS: BP 143/75; PULSE 85; TEMP 36.8; O2SAT 91
[2016-09-02] MEDS: KETOROLAC TROMETHAMINE 15 MG/ML VIAL IV. SCH (01:55)
[2016-09-02] MEDS: ACETAMINOPHEN 500 MG TAB PO SCH (05:52)
[2016-09-02 06:25] VITALS: BP 131/72; PULSE 77; TEMP 36.9; O2SAT 96
--- NOTE | 2016-09-02 07:01 | OPERATIVE REPORT ---
DATE OF OPERATION: 08/30/2016 SURGEON: Yobani Awad MD. CHILI MAKER: JAVY Dhillon. PREOPERATIVE DIAGNOSES: 1. Right hip degenerative joint disease. 2. Symptomatic retained hardware in the right femur status post previous retrograde intramedullary nailing. POSTOPERATIVE DIAGNOSES: Same. PROCEDURE PERFORMED: 1. Right femoral shaft IM nail removal/hardware removal. 2. Right uncemented total hip arthroplasty. COMPLICATIONS: None. ESTIMATED BLOOD LOSS: 300 mL FLUID REPLACEMENT: 1700 mL crystalloid fluid replacement. ANESTHESIA: Spinal. DRAINS: None. SPECIMENS: Right femoral head sent for pathology. OPERATIVE INDICATIONS: The patient is a 81-year-old fairly active, spry female who has had a long history of orthopedic problems. She has had both of her knees replaced and her left hip replaced. She sustained a fall after her right knee replacement and underwent a retrograde nailing about 9 years ago. This hardware has always bothered her, particularly on the lateral side of the knee. Over the years, she developed increased pain, discomfort and significant arthritis in her right hip. It has become more debilitated and she elected to proceed with hip replacement. The hardware was in the way of placing the hip replacement and in addition it was symptomatic, so we elected to remove it. OPERATIVE FINDINGS: Operative findings were advanced right hip DJD. She had extensive grade 4 disease throughout her hip joint. She had osteophytes anterior and posteriorly around the acetabulum. A very stiff hip. She had eburnated acetabulum as well as femoral head. From the hardware standpoint, the IM nail was sticking out in the intercondylar notch area. The helical blade was very prominent on the IT band. OPERATIVE PROCEDURE: The patient was taken to the operating room and placed on the operating table in supine position. All contact areas were appropriately padded. IV antibiotics were provided by anesthesia team. A spinal anesthetic had been implemented in the holding area. Byers catheter was placed in sterile fashion. A bump was placed under the right hip. The right hip and leg were then prepped and draped in usual sterile fashion. Attention was first drawn to the hardware removal. A longitudinal incision was made over the knee using the distal portion of the incision for the knee replacement. Sharp dissection was carried through the subcutaneous tissues down to the level of the extensor mechanism. A medial parapatellar arthrotomy incision was made. I did have to dissect subperiosteally to adequately expose the distal femur and mobilize the patella to get desired exposure. The IM nail was identified. I then used a screwdriver to remove the end cap. I then threaded in the extraction device. I then went to removing the distal interlocking screws laterally. About a 5 cm incision was made laterally in the area of the distal interlocking devices. Sharp dissection was carried out through the subcutaneous tissues down to the level of the IT band. The IT band was incised longitudinally. I then identified the helical blade. The extraction device was threaded into the helical blade and it was removed by hand without difficulty. I then identified the distal interlocking screw. I cleaned it off all soft tissues and removed this as well. Attention was then drawn to the proximal interlocking screw. Fluoroscopy was brought in. I identified the location of the proximal interlocking screw. Incision was made. I bluntly dissected through the quad muscle and then cleaned the screw off all soft tissues. I removed the screw without incident. I then used the slaphammer device to remove the IM nail through the intercondylar notch area without difficulty. Great care was taken throughout the procedure to protect the polyethylene. Once this was complete, I irrigated all wounds extensively. I did inject locally with about 30 mL of 0.5% Marcaine with epinephrine. The extensor mechanism was then closed with #1 Vicryl suture in a [id number]-on-wefta fashion. The IT band was closed with #1 Vicryl suture in a running fashion. The subcutaneous tissues of all wounds were then closed with 2-0 Dexon suture in a buried interrupted fashion. Skin was closed with 3-0 nylon suture in a horizontal mattress fashion. The drapes were then taken down and attention then drawn to hip replacement. The patient was then placed in the left lateral decubitus position. An axillary roll was placed. Stulberg hip positioner was used for positioning. The right hip was then reprepped and redraped with entire new setup. A posterolateral approach to the hip was then performed through a curvilinear incision centered over the greater trochanter. Sharp dissection was carried through the subcutaneous tissues down to the level of the IT band and gluteal fascia. The IT band and gluteal fascia were incised longitudinally in line with the skin incision. The underlying greater trochanteric bursa was excised. The piriformis and external rotators were tagged and taken off the posterior aspect of the femur. Posterior capsulotomy was then performed leaving a large flap for later repair. The hip was very stiff hip with extensive osteophytes around the acetabulum. 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 I did a complete capsular release. I extended the incision to get rid of all of the soft tissues that may have been hindering the dislocation. I then very carefully dislocated the hip without difficulty. Femoral neck osteotomy cut was made with the final cut about 5 mm above the lesser trochanter. Femoral head was removed and sent for pathology. The femur was retracted anteriorly. Attention was then drawn to the acetabulum. The acetabulum labrum was excised. There were extensive osteophytes around the acetabulum. I then began reaming the acetabulum beginning with a 47 and progressing up to a 53. A 54 mm Biomet G7 acetabular shell was then placed in about 40 degrees of lateral opening and 20 degrees of anteversion. It was fixed with a single 35 mm 6.5 cancellous screw. A large osteophyte anteriorly was removed. I did initially place a screw posteriorly, but I could not get it to sit below the cup and there was very poor purchase, so we discarded it. A trial liner was placed. Attention was then drawn to the femur. The proximal femur was entered with cookie cutter, followed by canal finder and lateralizing reamer. Sequential reaming of the femur was then performed beginning with a size 10 and progressing up to a 16. I then broached beginning with a size 12 small and progressing up to 16.5 large broach. The calcar reamer was used to smoothen off the calcar. We got good fit. I trialed the hip and the -2/36 mm articular ball provided full stability and full extension and external rotation, flexion to 90 degrees, internal rotation to 60 degrees. I did end up placing a gallo very inferior and posterior to maximize stability in flexion. Of note, the leg lengths seemed appropriate. I was fully aware that her neck length on the other side was a -3.5. Attention was then drawn toward placing these components. All trial components were removed. An apex hole eliminator was placed. Highly cross-linked polyethylene liner with a gallo placed inferior and posterior was placed. I then placed the 16.5 mm DePuy 8-inch Solution stem. I did ream part way down the canal with 16.5 reamer as it was extremely tight initially. We used an 8-inch stem due to the interlocking screw and I wanted to make sure we bypassed this with the implant isthmus fixation. This did sit down well with the implant ending up being about 1 mm proud. A -2/36 mm metal articular ball was placed. Hip was located and once again found to be stable. Attention was then drawn toward closing. The wound was irrigated with copious amounts of pulsatile lavage solution. I did inject locally with an additional 30 mL of 0.5% Marcaine with epinephrine. The posterior capsule and external rotators were repaired through drill holes and the posterior trochanter with #2 Ti-Cron suture. The IT band and gluteal fascia were then closed with #1 PDS suture in running fashion. The subcutaneous tissues were then closed with 2 layers with the deep layer with #1 Vicryl suture and the superficial layer with 2-0 Dexon suture in a buried interrupted fashion. The skin was closed with skin magdy. Leg was then cleaned and dried, and a sterile dressing composed of Xeroform, 4 x 4's, sterile ABD pad, and foam tape was applied. I then did place Xeroform over the incisions around the knee site, followed by 4 x 4's, followed by ABD pad and sterile cast padding and Wilmer bandage. The patient was then transferred to the recovery room in stable condition. The patient tolerated the procedure well with no complications. All needle and sponge counts were correct at the end of the operation. I attest to the content of the Intraoperative Record and any orders documented therein. Any exceptions are noted below. JESÚS
[2016-09-02] MEDS: FERROUS GLUCONATE 324 MG TAB PO SCH (07:28)
[2016-09-02] MEDS: DOCUSATE SODIUM 100 MG CAP PO SCH (07:29)
[2016-09-02] MEDS: ASPIRIN 325 MG ECTAB PO SCH (07:29)
[2016-09-02] MEDS: CHOLECALCIFEROL 1000 INTER.UNIT TAB PO SCH (07:29)
[2016-09-02] MEDS: MULTIVITAMIN TAB PO SCH (07:29)
[2016-09-02] MEDS: METOPROLOL SUCC 25MG EXT REL TAB PO SCH (07:29)
--- NOTE | 2016-09-02 07:39 | Anesthesiology Progress Note ---
Anesthesia Post Op Note Date & Time Sep 02, 2016 at 07:39 Vital Signs Pain Intensity: 0.0 Vital Signs Past 12 Hours Date Time Temp Pulse Resp B/P Pulse Ox O2 Delivery O2 Flow Rate FiO2 09/02/16 06:25 36.9 77 18 131/72 96 Room Air 09/01/16 23:01 36.8 85 18 143/75 91 Room Air 09/01/16 21:29 86 169/72 09/01/16 19:50 Room Air Notes Mental Status: alert / awake / arousable, participated in evaluation Pt Amnestic to Procedure: Yes Nausea / Vomiting: adequately controlled Pain: adequately controlled Airway Patency, RR, SpO2: stable & adequate BP & HR: stable & adequate Hydration State: stable & adequate Neuraxial Anesthesia: was administered, sensory block resolved Anesthetic Complications: no major complications apparent
[2016-09-02 08:12] VITALS: BP 140/70; PULSE 77; TEMP 36.9; O2SAT 95
[2016-09-02 08:30] VITALS: O2SAT 95
--- NOTE | 2016-09-02 08:37 | PROGRESS NOTE ---
DATE: 09/02/2016 SUBJECTIVE: This is a 81-year-old white female postop day #3 from right femoral nail removal and total hip replacement. She is doing well. She is not complaining of any significant pain today. No chest pain or shortness of breath. Not feeling dizzy or lightheaded. OBJECTIVE: VITAL SIGNS: Temperature 36.9. Vital signs stable. GENERAL: Physical examination reveals a pleasant elderly female. She is sitting up in bed and looks comfortable. LUNGS: Clear to auscultation. HEART: Regular rate and rhythm. ABDOMEN: Soft, nontender, and nondistended. EXTREMITIES: Grossly neurovascularly intact except as follows. Examination of the right lower extremity reveals all incisions to be well approximated. Just a trace bit of bloody drainage around the knee incision. She can do a straight leg raise. She is neurologically intact. ASSESSMENT: This is a 81-year-old white female postop day #3 from right femur IM nail removal and total hip replacement, doing well. Pain is improved. PLAN: 1. DVT prophylaxis including thigh-high TEDs, SCDs, and aspirin twice a day. 2. PT/OT. She can weightbear as tolerated. Right total hip protocol. 3. Pain control, doing pretty well with current pain regimen. We are going to limit narcotics to avoid issues with confusion as much as possible. 4. Disposition: Plan to discharge to home with some home health today if does okay in therapy. MTDD
[2016-10-28] MEDS ORDERED: ASPI81TA28 PO (18:16)
[2016-12-27] MEDS ORDERED: CEPH500C2 PO (08:55)
[2016-12-27] MEDS ORDERED: ASPI325T39 PO (08:55)
[2016-12-27] MEDS ORDERED: BIOTCAP2 PO (08:55)
[2017-03-06] MEDS ORDERED: MISCCAP80 PO (07:35)
[2017-03-06] MEDS ORDERED: CPR500 PO (07:35)
== END 2016-09-02 09:33 | disposition home health service (06) | DRG 470 ==
LOC: ENRESERVDT → ENRESERVTM → C.ACU 08:39 → C.3E 09:05
PROVIDERS: ADMIT Orthopaedic Surgery Sports Medicine; ATTEND Orthopaedic Surgery Sports Medicine
PROC: 0SR90JA Replacement of Right Hip Joint with Synthetic Substitute, Uncemented, Open Approach (ICD-10-PCS; principal; 2016-08-30 11:00)
PROC: 0SP904Z Removal of Internal Fixation Device from Right Hip Joint, Open Approach (ICD-10-PCS; 2016-08-30 11:00)
DX: M16.11 Unilateral primary osteoarthritis, right hip (principal); K21.9 Gastro-esophageal reflux disease without esophagitis; I25.10 Atherosclerotic heart disease of native coronary artery without angina pectoris; I25.2 Old myocardial infarction; E66.9 Obesity, unspecified; Z68.28 Body mass index [BMI] 28.0-28.9, adult; Z88.2 Allergy status to sulfonamides; Z79.82 Long term (current) use of aspirin; I10 Essential (primary) hypertension; E78.5 Hyperlipidemia, unspecified; Z96.653 Presence of artificial knee joint, bilateral; Z96.642 Presence of left artificial hip joint; Z95.1 Presence of aortocoronary bypass graft; Z87.891 Personal history of nicotine dependence

== ENCOUNTER → 2016-09-19 | Outpatient (CLI) | payer OTHER ==
[~2016-09-19] MED LIST changes: +ACET-1138 PO; -ACETAMINOPHEN 500 MG TAB PO SCH; +ASPEC325 PO; +ASPI325T39 PO; +BIOTCAP2 PO; -BUPIVACAINE 0.5 % 5 MG/1 ML PF 10ML VIAL ONE; -CEFAZOLIN 2000 MG/60 ML D5W 60 ML IV SCH; +CEPH-571 PO; +CEPH500C2 PO; +CPR500 PO; -FAMOTIDINE 20 MG TAB PO SCH; +FRRG PO; -GABAPENTIN 300 MG CAP PO SCH; +KFL500HP PO; -LACTATED RINGER'S 1000ML 1,000 ML IV SCH; -METOCLOPRAMIDE HCL 10 MG TAB PO SCH; +MISCCAP80 PO; -SCOPOLAMINE 1.5 MG TDSY TD SCH; +TRAM-453 PO; -TRANEXAMIC ACID INJ 1,000 MG in SODIUM CHLORIDE 0.9% 100ML 100 ML IV SCH; +ULT50X PO
[2016-09-19 17:43] LABS: ALB/GLOB RATIO 0.7 (0.9-2); ALT/SGPT 11 U/L (12-78); AST/SGOT 11 U/L (15-37); BLOOD UREA NITROGEN 6 mg/dl (7-18); BUN/CREATININE RATIO 7.4 (10-20); CALCIUM 8.6 mg/dl (8.5-10.1); CARBON DIOXIDE 31 mmol/L (21-32); CHLORIDE 100 mmol/L (98-107); CHOLESTEROL 91 mg/dl (0-200); CHOLESTEROL/HDL RATIO 2.6; CREATININE 0.79 mg/dl (0.60-1.20); GLUCOSE 101 mg/dl (70-99); HDL CHOLESTEROL 35 mg/dl; LDL CHOLESTEROL CALCULATED 40 mg/dl; POTASSIUM 3.4 mmol/L (3.5-5.1); SODIUM 139 mmol/L (136-145); TRIGLYCERIDES 80 mg/dl (0-150); VERY LOW DENSITY LIPOPROT CALC 16 mg/dl
[2016-09-19 17:52] LABS: ALKALINE PHOSPHATASE 110 U/L (45-117); THYROID STIMULATING HORMONE 0.762 uIu/ml (0.300-4.500)
[2016-09-19 18:25] LABS: BASO % 0.5 %; BASO ABS # 0.04 K/uL (0-0.2); COMPLETE YES; EOS % 1.2 %; HEMATOCRIT 33.5 % (37-47); LYMPH % 15.4 %; LYMPH ABS # 1.14 K/uL (1.2-3.4); MEAN CELL VOLUME 91.5 fL (80-100); MEAN CORPUSCULAR HGB CONC 31.6 g/dl (32-36); MEAN PLATELET VOLUME 9.6 fL (7.4-10.4); MONO % 9.7 %; NEUT % 73.2 %; PLATELET COUNT 399 K/uL (130-400); RED BLOOD COUNT 3.66 M/uL (4.2-5.4); WHITE BLOOD COUNT 7.42 K/uL (4.8-10.8)
[2016-09-20 06:13] LABS: ESTIMATED AVERAGE GLUCOSE 126 mg/dl; HA1C FLAG Normal (Normal)
--- NOTE | 2016-09-25 10:43 | CODING QUERY MEDICAL NECESSITY ---
SUPPORTING DIAGNOSIS NEEDED A supporting diagnosis is required for the test/procedure performed on this patient in order for us to be reimbursed by the patient's insurance. Please provide a supporting diagnosis for the following test/procedure listed below next to the test name along with your signature. *If there is no additional diagnosis for this patient that would support the following test/procedure please document that below next to the test/procedure. Test(s)/Procedure(s) that require a supporting diagnosis: DOS 09/19 * Hba1c DIAGNOSIS: * Vitamin D DIAGNOSIS: * TSH DIAGNOSIS: * Lipids DIAGNOSIS: Provider Signature: Date: Thank you Tracie Munoz Health Information Management Once completed, please kindly fax back to [phone] For questions please call [phone]
== END | disposition home or self-care (01) ==
LOC: C.LABBC 13:43
PROVIDERS: ATTEND Internal Medicine
DX: M85.80 Other specified disorders of bone density and structure, unspecified site (principal); E11.9 Type 2 diabetes mellitus without complications; I10 Essential (primary) hypertension; E78.5 Hyperlipidemia, unspecified

== ENCOUNTER → 2016-09-26 | Outpatient (CLI) | payer OTHER ==
[2016-09-26 14:41] LABS: URINE APPEARANCE CLEAR (CLEAR); URINE BILIRUBIN NEG (NEG); URINE COLOR YELLOW; URINE EPITHELIAL CELL AUTO >30 /lpf (0-5); URINE NITRITE NEG (NEG); URINE PH 6.5 (4.5-7.5); URINE SPECIFIC GRAVITY 1.017 (1.000-1.030); UROBILINOGEN NEG (NEG)
[2016-09-26 14:45] LABS: MANUAL MICROSCOPIC REQUIRED? NO; REVIEW REQ? YES
== END | disposition home or self-care (01) ==
LOC: C.LABBC 11:52
PROVIDERS: ATTEND Internal Medicine
DX: N39.0 Urinary tract infection, site not specified (principal)

== ENCOUNTER → 2016-10-25 | Outpatient (CLI) | payer OTHER ==
[2016-10-25 14:56] LABS: BASO % 0.3 %; BASO ABS # 0.02 K/uL (0-0.2); COMPLETE YES; EOS % 3.7 %; HEMATOCRIT 39.1 % (37-47); IG% 0.1 %; LYMPH % 27.8 %; LYMPH ABS # 1.89 K/uL (1.2-3.4); MEAN CELL VOLUME 87.5 fL (80-100); MEAN CORPUSCULAR HEMOGLOBIN 27.3 pg (25-34); MEAN CORPUSCULAR HGB CONC 31.2 g/dl (32-36); MEAN PLATELET VOLUME 10.4 fL (7.4-10.4); MONO % 9.6 %; NEUT % 58.5 %; PLATELET COUNT 259 K/uL (130-400); RED BLOOD COUNT 4.47 M/uL (4.2-5.4)
== END | disposition home or self-care (01) ==
LOC: C.LABBC 11:16
PROVIDERS: ATTEND Orthopaedic Surgery Sports Medicine
DX: Z01.812 Encounter for preprocedural laboratory examination (principal)

== ENCOUNTER 2016-10-29 08:24 | Day surgery (SDC) | payer OTHER ==
--- NOTE | 2016-10-28 02:29 | HISTORY & PHYSICAL EXAMINATION ---
DATE OF ADMISSION: 10/29/2016 CHIEF COMPLAINT: Persistent right knee drainage after knee and hip surgery. HISTORY OF PRESENT ILLNESS: The patient is a 81-year-old female who is a long-term patient of mine, who is now 2 months out from right femur hardware removal through the knee and subsequent total hip replacement, done all at the same time. She has done quite well from this but she has had some persistent drainage from the anterior aspect of her right knee wound. We talked to her over the past month about trying to go back and wash this out and close it, but she has really refused. She has now accepted the fact that it is not going to stop. She has got some small punctate areas on the front of her knee that drained some serous fluid. She has no significant pain. No fevers. No redness. No purulent drainage. PAST MEDICAL HISTORY: Significant for: 1. Coronary artery disease status post [place]. 2. Hypertension. 3. Gastroesophageal reflux disease. PAST SURGICAL HISTORY: Previous surgeries include: 1. Open heart surgery done at [facility]. 2. Right knee replacement done 10/17/2005. 3. Right retrograde IM nail, done for a distal femur fracture 10/15/2006. 4. Left total hip replacement done 08/13/2006. 5. Left total knee replacement done 08/22/2014. 6. Right femur IM nail removal and subsequent total hip replacement done 08/30/2016. ALLERGIES: SULFA. CURRENT MEDICINES: Include: 1. Ranitidine 150 mg once a day. 2. Crestor 10 mg a day. 3. Pantoprazole 40 mg a day. 4. Chlorthalidone 12.5 mg a day. 5. Losartan 50 mg. 6. Metoprolol 25 mg. 7. Omeprazole 20 mg a day. 8. Vitamin D. 9. Fish oil. 10. Calcium. 11. Aspirin 81 mg a day. 12. Keflex 500 mg 3 times a day. SOCIAL HISTORY: A 81-year-old white female. She is . Her is quite ill. He is on hospice care and this is driving a lot of her decisions right now. She does not smoke. FAMILY HISTORY: Noncontributory. REVIEW OF SYSTEMS: Negative for diabetes, neurologic problems, vascular problems, bleeding disorders. Denies any chest pain or shortness of breath. No history of DVT or PE. She had coronary artery bypass surgery 11 years ago without any residual symptoms. PHYSICAL EXAMINATION: GENERAL: This is a pleasant elderly female. She looks quite healthy. HEENT: Benign. NECK: Supple. No lymphadenopathy. LUNGS: Clear to auscultation. HEART: Has a regular rate and rhythm. ABDOMEN: Soft, nontender, nondistended. EXTREMITIES: Grossly neurovascularly intact except as follows. Examination of the right lower extremity reveals the patient walks quite well. Examination of her hip wound is completely benign. She has got no pain with hip motion. Examination of the right knee reveals fairly minimal swelling. She does have a little bit of fluid in the prepatellar bursa with 2 small punctate areas in the upper part of the wound which continued to drain some serous fluid. It is all very yellow serous fluid. There is no major significant knee effusion. Range of motion is 0-110. She has got good straight leg raise. LABORATORY DATA: All the laboratory results reveal a white blood cell count of 6.80. Her hemoglobin is 12.2. Hematocrit is 39.1. C-reactive protein is less than 0.29. Sed rate is 13. ASSESSMENT: A 81-year-old white female, now 2 months out from right femur hardware removal through the knee and total hip replacement with persistent draining right knee wound. This really just looks like bursitis which has a bit of a sinus tract. I think it is unlikely this communicates with the knee joint, especially considering the benign nature of this, the appearance of the fluid, the normal sed rate and C-reactive protein just 2 months after major surgery. Unfortunately, I do not think this is going to heal up without surgical intervention either. PLAN: We talked to the patient once again and she has finally consented to proceed with open excision of these tracts and closure and I\T\D. The only way she would do this is if we did as an outpatient. She is caring for her who is on hospice care and apparently could pass away any day. We will do that. We will likely put her on some antibiotics for about 2 weeks postop and hopefully, we can get this to heal up. I do not think it communicates the knee joint but that is always a possibility. The risks and benefits of I\T\D and closure were explained to the patient and she understands and desires to proceed. Informed consent was obtained. I may put her in a knee immobilizer for the first 2 weeks afterwards to get the wound healed as she is not really compliant as far as limited knee motion. JESÚS
[2016-10-28 17:46] VITALS: BMI 28.0
[~2016-10-29] VITALS: Ht 162.6 cm; Wt 75.3 kg
[~2016-10-29 08:24] MED LIST changes: -ACET-1256 PO; -ASPEC325 PO; -ASPI325T39 PO; +ATROPINE SULFATE 0.1 MG/ML 5ML SYR IV PRN; -BIOT1CAP8 PO; -BIOTCAP2 PO; +BUPIVACAINE 0.25% 30 ML VIAL ONE; +BUPIVACAINE 0.5 % 5 MG/1 ML PF 10ML VIAL ONE; +CEFAZOLIN 2000 MG/60 ML D5W 60 ML IV SCH; -CEPH-571 PO; -CEPH500C2 PO; -CPR500 PO; +EpHEDrine SULFATE INJ 50 MG/ML AMP IV PRN; +HYDROmorphone INJ 1 MG/ML SYR IV PRN; -KFL500HP PO; +LACTATED RINGER'S 1000ML 1,000 ML IV SCH; +LACTATED RINGER'S 1000ML IV SCH; -MISCCAP80 PO; +ONDANSETRON INJ 2 MG/ML 2 ML VIAL IV PRN; +SCOPOLAMINE 1.5 MG TDSY TD SCH; -TRAM-453 PO; -ULT50X PO
[2016-10-29] MEDS ORDERED: ACET-1256 PO (09:02)
[2016-10-29] MEDS ORDERED: ASPI325T39 PO ×2 (09:04→12:09)
[2016-10-29] MEDS ORDERED: KFL500HP PO (09:09)
[2016-10-29 09:17] VITALS: BP 174/73; PULSE 71; TEMP 36.8; O2SAT 94; Ht 162.6 cm; Wt 75.3 kg
[2016-10-29] MEDS: BACITRACIN 50000 UNIT VIAL ONE ×2 (09:52→11:59)
[2016-10-29] MEDS ORDERED: FENTANYL CITRATE INJ 50 MCG/1 ML 2 ML VIAL ONE (09:56)
[2016-10-29] MEDS ORDERED: MIDAZOLAM HCL 1 MG/ML 2ML VIAL ONE (09:56)
[2016-10-29] MEDS ORDERED: PROPOFOL IV EMULSION 10 MG/ML 20 ML VIAL IV ONE (10:00)
[2016-10-29] MEDS ORDERED: NURSING VERBAL MED ORDER ONE (10:00)
[2016-10-29] MEDS ORDERED: LIDOCAINE HCL 2% 2 ML VIAL (20MG/ML) ONE (10:00)
[2016-10-29] MEDS ORDERED: ONDANSETRON INJ 2 MG/ML 2 ML VIAL ONE (10:00)
[2016-10-29] MEDS ORDERED: EpHEDrine SULFATE 50MG/5ML SYR ONE (11:27)
[2016-10-29] MEDS ORDERED: DEXAMETHASONE SOD INJ 4 MG/ML VIAL ONE (11:27)
[2016-10-29] MEDS ORDERED: SODIUM CHLORIDE 0.9% 1000ML 1,000 ML IV SCH (12:02)
[2016-10-29] MEDS ORDERED: TRAM-453 PO (12:09)
[2016-10-29] MEDS ORDERED: CEPH-571 PO (12:09)
--- NOTE | 2016-10-29 12:11 | Discharge Instructions ---
Discharge Instructions Date of Service Oct 29, 2016. Admission Reason for Admission: Right Knee Infection Discharge Discharge Diagnosis / Problem: RIGHT KNEE, DRAINING WOUND Discharge Goals Goal(s): Therapeutic intervention Activity Recommendations Activity Limitations: per Instructions/Follow-up section Weightbearing Status: Right weightbearing (as tolerated) . Instructions / Follow-Up Instructions / Follow-Up MEDICATIONS: * Resume previous medications unless instructed otherwise by your surgeon. * Always take pain medication on a full stomach or with food to avoid upset stomach. * Do not drink alcohol or drive while taking narcotics. * Ibuprofen or Tylenol may be taken if narcotic not needed. SPECIAL CARE INSTRUCTIONS: __ None __ Keep extremity elevated and iced x 48 hours; apply ice 20-30 minutes 8-10 times/day. May remove at night. __ Crutches __ May discard when able _X_ Brace MUCH POSSIBLE. LIMIT KNEE BENDING __ 24 hrs/day __ Remove at night _X_ Dressing __ Maintain until seen in office, may shower with plastic over site _X_ Remove dressings in 3 days and then may shower __ Cover incisions with band-aids after showering __ Do not remove steri-strips Call physician if chills or temperature rises above 102 degrees or pain unrelieved by prescribed pain medications. Office [phone] follow up in 2 weeks Current Hospital Diet Patient's current hospital diet: Discharge Diet Recommended Diet: Regular Diet Procedures Procedures Performed: Incision and Drainage Right Total Knee Replacement Pending Studies Studies pending at discharge: no Laboratory Results Hemoglobin A1c Test 09/19/16 13:45 Range/Units Estimated Average Glucose 126 mg/dl Hemoglobin A1c 6.0 H 4.5-5.6 % Lipid Panel Test 09/19/16 13:45 Range/Units Triglycerides Level 80 0-150 mg/dl Cholesterol Level 91 0-200 mg/dl HDL Cholesterol 35 mg/dl Cholesterol/HDL Ratio 2.6 LDL Cholesterol, Calculated 40 mg/dl Medical Emergencies . Who to Call and When: Medical Emergencies: If at any time you feel your situation is an emergency, please call 911 immediately. . Non-Emergent Contact Non-Emergency issues call your: Primary Care Provider, Surgeon . "Provider Documentation" section prepared by Daniel Serrano. VTE Core Measure Inpt VTE Proph given/why not?: Other Anticoagulation (aspirin 325mg bid )
[2016-10-29] MEDS ORDERED: TRAMADOL HCL 50 MG TAB PO PRN (12:15)
[2016-10-29] MEDS: FENTANYL CITRATE INJ 50 MCG/1 ML 2 ML VIAL IV PRN ×2 (12:23→12:30)
--- NOTE | 2016-10-29 12:43 | Anesthesiology Progress Note ---
Anesthesia Post Op Note Date & Time Oct 29, 2016 at 12:43 Vital Signs Pain Intensity: 3 Vital Signs Past 12 Hours Date Time Temp Pulse Resp B/P Pulse Ox O2 Delivery O2 Flow Rate FiO2 10/29/16 12:40 66 14 168/80 95 Nasal Cannula 2 10/29/16 12:30 68 14 162/95 94 Nasal Cannula 2 10/29/16 12:20 71 16 152/97 100 Mask 10 10/29/16 12:10 70 12 172/70 100 Mask 10 10/29/16 12:02 36.4 72 16 149/106 100 Mask 10 10/29/16 09:17 36.8 71 20 174/73 94 Room Air Notes Mental Status: alert / awake / arousable, participated in evaluation Pt Amnestic to Procedure: Yes Nausea / Vomiting: adequately controlled Pain: adequately controlled Airway Patency, RR, SpO2: stable & adequate BP & HR: stable & adequate Hydration State: stable & adequate Anesthetic Complications: no major complications apparent
[2016-10-29 12:55] VITALS: BP 187/76; PULSE 69; TEMP 36.9; O2SAT 99
[2016-10-29 13:25] VITALS: BP 142/65; PULSE 64; TEMP 36.7; O2SAT 92
[2016-10-29 14:00] VITALS: BP 132/62; PULSE 69; TEMP 36.7; O2SAT 93
[2016-10-29 14:55] VITALS: BP 155/70; PULSE 68; TEMP 36.6; O2SAT 92
[2016-10-29] MEDS ORDERED: CEFAZOLIN 1000MG/55 ML D5W 55 ML IV SCH (15:00)
--- NOTE | 2016-10-29 15:58 | [facility] Post Operative Brief Note ---
Immediate Operative Summary Operative Date Oct 29, 2016. Pre-Operative Diagnosis Draining pre-patellar burstitis Post-Operative Diagnosis same with communication to knee joint Procedure(s) Performed Incision and Drainage Right Total Knee Replacement Surgeon Dr Yobani Awad Food Services Director Surgeon(s) Tommy Umaña Pa-C Estimated Blood Loss 20ml Findings Draining knee wound with communication to knee joint. Specimens none Anesthesia General Complication(s) None Disposition Recovery Room / PACU
[2016-10-29] MEDS ORDERED: CHECK SCOPOLAMINE PATCH PLACEMENT SCH (16:00)
--- NOTE | 2016-10-30 00:08 | OPERATIVE REPORT ---
DATE OF OPERATION: 10/29/2016 SURGEON: Yobani Awad MD DE ICER ELEMENT WINDER: JAVY Dhillon. PREOPERATIVE DIAGNOSIS: Right draining knee wound/prepatellar bursitis, status post IM nail removal. POSTOPERATIVE DIAGNOSIS: Right draining prepatellar/knee wound, status post IM nailing with communication to the knee joint. PROCEDURE PERFORMED: Irrigation and debridement of right prepatellar bursa and knee joint. COMPLICATIONS: None. ESTIMATED BLOOD LOSS: 20 mL. FLUID REPLACEMENT: 800 mL fluid replacement. TOURNIQUET TIME: 60 minutes at 300 mmHg. ANESTHESIA: General. SPECIMENS: None. OPERATIVE INDICATIONS: The patient is a 81-year-old white female who is now 2 months out from a retrograde IM nail removal and subsequent total hip replacement done at the same time for severe hip arthritis after a previous IM nailing. She did well but always had some chronic swelling and a little bit of drainage from this knee wound. It decreased weekly, but over the past month has not changed. We have talked to her on several occasions about taking her back and washing this out but she has really refused to do that due to her being terminally ill and on hospice care. In light of this, we have been watching this. It has been decreasing in amount but persistent. There were some small pinpoint areas of the superior aspect of the wound, too specifically, which drained some serous fluid. It looked to be just coming from the prepatellar bursa. We did a workup which showed a normal sed rate of 13 and C-reactive protein < 0.29 as well as a normal white blood cell count. I do not think there was not any significant risk of infection and I felt this was just a draining prepatellar bursa wound. The patient has now resigned to the fact that it was not going to close up on its own and has elected to proceed with surgical treatment. Of note, her just last evening and she was once again adamant about not staying overnight and attending to his needs. OPERATIVE FINDINGS: Operative findings revealed a benign appearing prepatellar bursa with some very benign appearing serous fluid. On further extensive evaluation over the medial side of the wound, there was some slight dehiscence of the parapatellar arthrotomy incision and some communication with the knee joint. There was no purulence, but just benign appearing serous fluid. No cultures were obtained and no specimen was obtained as I did not think there was much of a risk of infection on initial presentation and the fact that this was open and likely any specimen would be a contaminated culture wound. OPERATIVE PROCEDURE: The patient taken to the operating room, identified and placed on the operating table in supine position. All contact areas were appropriately padded. IV antibiotics were provided by the anesthesia team. A general anesthetic was implemented. A right thigh tourniquet was then placed and the right lower extremity was then prepped and draped in the usual sterile fashion. The right leg was elevated but not exsanguinated. The tourniquet was placed at 300 mmHg. I then ellipsed the 2 pinpoint areas of open drainage from the anterior knee incision and extended this distally. There was one further area distally, where it looked like there was some suture reaction and I excised this as well. I opened this up and it was a very benign appearing serous fluid and there was actually not much present to the point that I almost canceled her surgery today. I irrigated this and on further exploration medially, I did find an area where there was dehiscence of the medial capsular incision and with the knee joint. In light of this, we opened up the entire incision and I irrigated extensively. I used a rongeur to debride the prepatellar bursa as well as a curette. I did irrigate inside the knee joint itself without making a much larger incision. I then irrigated the entire wound including the knee joint with Hibiclens in 3 separate instillations. The fluid was left in the knee joint for a total of 2 minutes each time. I then irrigated extensively. I did place two #1 Vicryl sutures through the medial parapatellar arthrotomy incision. The tourniquet was then let down for a tourniquet time of 16 minutes. Hemostasis was assured with use of electrocautery. I then closed the skin with 3-0 nylon sutures in a vertical mattress fashion. The knee was then cleaned and dried and a sterile dressing composed of Xeroform, 4 x 4's, ABD pad, and Wilmer bandage and knee immobilizer were applied. The patient was then brought out of general anesthesia and transferred to the recovery room in stable condition. The patient tolerated the procedure well with no complication. ADDENDUM: I did not do a large open incision in this patient, although there clearly is high likelihood there is some degree of infection despite the benign appearance. I had promised her that she would be able to go home tonight and attend to her 's needs. Although not optimal, I felt this was the only appropriate way to go at this point and we will have to observe her over time and see how this wound heals. I think there is significant likelihood we might have to come back and wash this out or do alternative treatments. I attest to the content of the Intraoperative Record and any orders documented therein. Any exceptions are noted below. JESÚS
[2016-12-27] MEDS ORDERED: BIOTCAP2 PO (08:55)
[2016-12-27] MEDS ORDERED: ASPI325T39 PO (08:55)
[2016-12-27] MEDS ORDERED: CEPH500C2 PO (08:55)
[2017-03-06] MEDS ORDERED: CPR500 PO (07:35)
[2017-03-06] MEDS ORDERED: MISCCAP80 PO (07:35)
== END 2016-10-29 15:05 | disposition home or self-care (01) ==
LOC: C.ACU 08:24
PROVIDERS: ATTEND Orthopaedic Surgery Sports Medicine
DX: M70.41 Prepatellar bursitis, right knee (principal); T81.32XA Disruption of internal operation (surgical) wound, not elsewhere classified, initial encounter; Y83.8 Other surgical procedures as the cause of abnormal reaction of the patient, or of later complication, without mention of misadventure at the time of the procedure; I25.10 Atherosclerotic heart disease of native coronary artery without angina pectoris; I10 Essential (primary) hypertension; I25.2 Old myocardial infarction; Z96.642 Presence of left artificial hip joint

== ENCOUNTER → 2017-01-14 | Day surgery (SDC) | payer OTHER ==
[2016-12-27 08:57] VITALS: Ht 162.6 cm; Wt 72.3 kg
[~2017-01-14] VITALS: Ht 162.6 cm; Wt 72.3 kg
[~2017-01-14] MED LIST changes: +500ML BSS 0.3ML EPI 1:1000PF IRRIG ONE; -ACET-1138 PO; +ACET-1256 PO; +ACETAMINOPHEN 325 MG TAB PO PRN; +AMVISC PLUS 0.8ML SYRINGE INT OCU ONE; +ASPI325T39 PO; -ASPI81TA28 PO; +BIOTCAP2 PO; +BSS FLUSH ONE; -BUPIVACAINE 0.25% 30 ML VIAL ONE; -BUPIVACAINE 0.5 % 5 MG/1 ML PF 10ML VIAL ONE; -CEFAZOLIN 2000 MG/60 ML D5W 60 ML IV SCH; +CEPH500C2 PO; +CPR500 PO; -EpHEDrine SULFATE INJ 50 MG/ML AMP IV PRN; +EpINEphrine INJ 1MG/ML AMP 1 MG/ML AMP ONE; -FRRG PO; -HYDROmorphone INJ 1 MG/ML SYR IV PRN; -LACTATED RINGER'S 1000ML 1,000 ML IV SCH; +LACTATED RINGER'S 1000ML 500 ML IV SCH; -LACTATED RINGER'S 1000ML IV SCH; +LIDOCAINE 3.5% OPH GEL PER APPLICATION CHARGE ONE; +LIDOCAINE HCL 1% MPF 2 ML VIAL ONE; +MIDAZOLAM HCL 1 MG/ML 2ML VIAL ONE; +MISCCAP80 PO; +OCUCOAT 1 ML SOLN IO ONE; -ONDANSETRON INJ 2 MG/ML 2 ML VIAL IV PRN; +PHENYLEPHRINE HCL 2.5% OP SOLN PER DROP CHARGE OPL SCH; +POVIDONE-IODINE OP SOLN 30 ML BTL ONE; +PROPARACAINE 0.5% OP SOLN PER DROP CHARGE OPL SCH; -SCOPOLAMINE 1.5 MG TDSY TD SCH; +TOBRAMYCIN/DEXAMETHASONE OPH OINT PER APPLN CHARGE ONE
[2017-01-14] MEDS: TROPICAMIDE 1% OP SOLN PER DROP CHARGE OPL SCH ×2 (06:57→07:02)
[2017-01-14] MEDS: CYCLOPENTOLATE HCL 1% OP SOLN PER DROP CHARGE OPL SCH ×2 (06:58→07:03)
[2017-01-14] MEDS: KETOROLAC 0.5% OP SOLN PER DROP CHARGE OPL SCH ×2 (06:59→07:04)
[2017-01-14] MEDS: GATIFLOXACIN OP SOLN PER DROP CHARGE OPL SCH ×2 (07:00→07:10)
--- NOTE | 2017-01-14 08:11 | Discharge Instructions-SurgCtr ---
Discharge Instructions Date of Service Jan 14, 2017. Visit Reason for Visit: Cataract Left Eye Discharge Discharge Diagnosis / Problem: cataract Discharge Goals Goal(s): Improve function Activity Recommendations Activity Limitations: per Instructions/Follow-up section Anesthesia . Post Anesthesia Instructions: If you have had General Anesthesia or IV Sedation: * Do not drive today. * Resume driving when surgeon permits. * Do not make important decisions or sign legal documents today. * Call surgeon for: 1. Temperature elevations greater than 101 degrees F. 2. Uncontrollable pain. 3. Excessive bleeding. 4. Persistent nausea and vomiting. 5. Medication intolerance (nausea, vomiting or rash). * For nausea and vomiting use only clear liquids such as: tea, soda, bouillon until nausea subsides, then gradually increase diet as tolerated. * If you have any concerns or questions, call your surgeon's office. If physician is unavailable and it is an emergency, call 911 or go to the nearest emergency room. . Instructions / Follow-Up Instructions / Follow-Up ACTIVITY RECOMMENDATIONS: * No strenuous lifting, jogging or running for 4 days * No swimming or yard work for 1 week. * Limited bending is permitted, such as putting on shoes. RETURN TO SCHOOL/WORK: No work until seen by physician in office. MEDICATIONS: Resume previous medications unless instructed otherwise by your surgeon. This includes eye drops for glaucoma. Zymaxid/Gatifloxacin (amaro cap) - one drop every 2 hours until bedtime Nevanac/Ilevro/Prolensa/Ketorolac (peraels cap) - one drop every 4 hours until bedtime Prednisolone (white/pink cap, SHAKE WELL) - one drop every 2 hours until bedtime Starting tomorrow - all 3 drops every 4 hours until seen in the office Optive drops - as needed for discomfort SPECIAL CARE INSTRUCTIONS: * Wear eyeshield when sleeping, for four nights. * You may wear your own glasses or sunglasses while awake. * You may read or watch TV * You may shower and wash your face, but be gentle around the eye and pat dry. * Blurry vision and mild irritation are normal. * Call office if pain is more severe or vision becomes dark at . FOLLOW UP VISIT: Follow-up with Dr Edmonds tomorrow. Diet Recommendations Home Diet: resume previous diet Procedures Procedures Performed: Left Cataract Phacoemulsification With Intraocular Lens Implant Pending Studies Studies pending at discharge: no Medical Emergencies . Who to Call and When: Medical Emergencies: If at any time you feel your situation is an emergency, please call 911 immediately. . Non-Emergent Contact Non-Emergency issues call your: Marketing Manager . . "Provider Documentation" section prepared by Alejandro Edmonds. .
--- NOTE | 2017-01-14 08:12 | [facility] Operative Report ---
Operative Report Date of Service Jan 14, 2017. Operative Report 1. PREOPERATIVE DIAGNOSIS: Cataract of the left eye. 2. POSTOPERATIVE DIAGNOSIS: Same. 3. PROCEDURE: Phacoemulsification with intraocular lens implantation of the left eye. SURGEON: Dr. Alejandro Edmonds. ANESTHESIA: Topical Lidocaine gel, 1% Non- Preserved intracameral Lidocaine, and monitored intravenous sedation. INDICATIONS FOR THE PROCEDURE: The patient is a 81 - year-old female with a history of cataract of the left eye causing significant visual impairment. The details of the proposed procedure were explained to the patient who asked appropriate questions and following discussion of all risks, benefits and alternatives agreed to have the procedure done. 4. OPERATION AND FINDINGS: DESCRIPTION OF PROCEDURE: After informed consent was obtained, the patient was brought to the Operating Room at the [facility]. The patient was placed in a supine position and then the left eye was prepped and draped in the usual sterile fashion for intraocular surgery. A drop of topical Lidocaine gel was placed in the operative eye. A wire lid speculum was then placed in the fornices. A corneal paracentesis was then created temporally. The Non-Preserved Lidocaine was then instilled into the anterior chamber. The anterior chamber was then pressurized with viscoelastic. A 2.0 mm clear corneal incision was then created temporally. A cystotome was inserted into the anterior chamber and used to create a tear in the anterior lens capsule. This capsular tear was then used to create a small flap and the flap was dragged in a counterclockwise direction in order to create a continuous curvilinear capsulorrhexis. Hydrodissection was accomplished with balanced salt solution. Phacoemulsification of the lens nucleus was then performed in a standard [id number] technique. The phaco time was 25 seconds with an average power of 15 %. The remaining cortical material was removed using irrigation aspiration. The capsular bag was then filled with viscoelastic. A [employer]ch [employer] Lomb MI60L +22.0 diopters lens was then loaded into the injector and injected into the capsular bag. The remaining viscoelastic was removed with the irrigation aspiration handpiece. The wound was hydrated and then checked and found to be watertight. The intraocular pressure was checked and found to be adequate. The wire lid speculum was removed and the patient's face was cleaned and dried. TobraDex ointment was placed in the inferior fornix. The patient was discharged to the Recovery Room having tolerated the procedure well. There were no complications. The patient will be seen tomorrow in the office for follow-up. I attest to the content of the Intraoperative Record and any orders documented therein. Any exceptions are noted below.
[2017-01-14 08:13] VITALS: TEMP 36.7
[2017-01-14 08:40] VITALS: BP 152/69; PULSE 66; O2SAT 95
--- NOTE | 2017-01-14 09:05 | Anesthesia Progress Nt - [facility] ---
Anesthesia Post Op Note Date & Time Jan 14, 2017 at 09:05 Vital Signs Pain Intensity: 0 Vital Signs Past 12 Hours Date Time Temp Pulse Resp B/P (MAP) Pulse Ox O2 Delivery O2 Flow Rate FiO2 01/14/17 08:40 66 20 152/69 (96) 95 Room Air 01/14/17 08:13 36.7 62 16 165/72 (103) 100 Room Air 01/14/17 06:48 36.7 67 16 181/80 (113) 96 Room Air Notes Mental Status: alert / awake / arousable, participated in evaluation Pt Amnestic to Procedure: Yes Nausea / Vomiting: adequately controlled Pain: adequately controlled Airway Patency, RR, SpO2: stable & adequate BP & HR: stable & adequate Hydration State: stable & adequate Anesthetic Complications: no major complications apparent
== END | disposition home or self-care (01) ==
LOC: X.SURG 06:24
PROVIDERS: ATTEND Ophthalmology
DX: H26.9 Unspecified cataract (principal); I25.10 Atherosclerotic heart disease of native coronary artery without angina pectoris; Z95.1 Presence of aortocoronary bypass graft; I71.4 Abdominal aortic aneurysm, without rupture; I72.3 Aneurysm of iliac artery; I65.29 Occlusion and stenosis of unspecified carotid artery; I10 Essential (primary) hypertension; E78.5 Hyperlipidemia, unspecified; E11.9 Type 2 diabetes mellitus without complications; K21.9 Gastro-esophageal reflux disease without esophagitis; I47.1 Supraventricular tachycardia; M85.80 Other specified disorders of bone density and structure, unspecified site; Z87.891 Personal history of nicotine dependence; Z79.82 Long term (current) use of aspirin; Z79.899 Other long term (current) drug therapy

== ENCOUNTER → 2017-02-17 | Outpatient (CLI) | payer OTHER ==
[~2017-02-17] MED LIST changes: -500ML BSS 0.3ML EPI 1:1000PF IRRIG ONE; -ACETAMINOPHEN 325 MG TAB PO PRN; -AMVISC PLUS 0.8ML SYRINGE INT OCU ONE; -ATROPINE SULFATE 0.1 MG/ML 5ML SYR IV PRN; -BSS FLUSH ONE; -EpINEphrine INJ 1MG/ML AMP 1 MG/ML AMP ONE; -LACTATED RINGER'S 1000ML 500 ML IV SCH; -LIDOCAINE 3.5% OPH GEL PER APPLICATION CHARGE ONE; -LIDOCAINE HCL 1% MPF 2 ML VIAL ONE; -MIDAZOLAM HCL 1 MG/ML 2ML VIAL ONE; -OCUCOAT 1 ML SOLN IO ONE; -PHENYLEPHRINE HCL 2.5% OP SOLN PER DROP CHARGE OPL SCH; -POVIDONE-IODINE OP SOLN 30 ML BTL ONE; -PROPARACAINE 0.5% OP SOLN PER DROP CHARGE OPL SCH; -TOBRAMYCIN/DEXAMETHASONE OPH OINT PER APPLN CHARGE ONE
[2017-02-17 11:11] LABS: HEMATOCRIT 39.3 % (37-47); MEAN CELL VOLUME 86.4 fL (80-100); MEAN CORPUSCULAR HEMOGLOBIN 26.6 pg (25-34); MEAN CORPUSCULAR HGB CONC 30.8 g/dl (32-36); PLATELET COUNT 254 K/uL (130-400); RED BLOOD COUNT 4.55 M/uL (4.2-5.4)
== END | disposition home or self-care (01) ==
LOC: C.LABBC 08:38
PROVIDERS: ATTEND Orthopaedic Surgery Sports Medicine
DX: T81.31XD Disruption of external operation (surgical) wound, not elsewhere classified, subsequent encounter (principal); X58.XXXA Exposure to other specified factors, initial encounter

== ENCOUNTER → 2017-03-13 | Outpatient (CLI) | payer OTHER ==
[~2017-03-13] MED LIST changes: -CEPH500C2 PO
[2017-03-13 11:18] LABS: BASO % 0.2 %; BASO ABS # 0.02 K/uL (0-0.2); EOS % 1.3 %; IG% 0.4 %; LYMPH % 19.6 %; LYMPH ABS # 1.62 K/uL (1.2-3.4); MEAN CELL VOLUME 83.9 fL (80-100); MEAN CORPUSCULAR HEMOGLOBIN 27.4 pg (25-34); MEAN PLATELET VOLUME 9.1 fL (7.4-10.4); MONO % 7.8 %; NEUT % 70.7 %; PLATELET COUNT 335 K/uL (130-400); RED BLOOD COUNT 4.41 M/uL (4.2-5.4); WHITE BLOOD COUNT 8.25 K/uL (4.8-10.8)
[2017-03-13 12:55] LABS: COMPLETE YES; MEAN CORPUSCULAR HGB CONC 32.7 g/dl (32-36)
== END | disposition home or self-care (01) ==
LOC: C.LABBC 10:12
PROVIDERS: ATTEND Orthopaedic Surgery
DX: M25.569 Pain in unspecified knee (principal); Z96.659 Presence of unspecified artificial knee joint

== ENCOUNTER → 2017-04-29 | Day surgery (SDC) | payer OTHER ==
[2017-03-06 07:36] VITALS: Ht 162.6 cm; Wt 72.3 kg
[~2017-04-29] VITALS: Ht 162.6 cm; Wt 72.3 kg
[~2017-04-29] MED LIST changes: +CYCLOPENTOLATE HCL 1% OP SOLN PER DROP CHARGE OPR SCH; +GATIFLOXACIN OP SOLN PER DROP CHARGE OPR SCH; +KETOROLAC 0.5% OP SOLN PER DROP CHARGE OPR SCH; +LACTATED RINGER'S 1000ML 500 ML IV SCH; +PHENYLEPHRINE HCL 2.5% OP SOLN PER DROP CHARGE OPR SCH; +PROPARACAINE 0.5% OP SOLN PER DROP CHARGE OPR SCH; +SODIUM CHLORIDE 0.9% 500ML IV SCH; +TROPICAMIDE 1% OP SOLN PER DROP CHARGE OPR SCH
== END | disposition home or self-care (01) ==
LOC: EDSTATUS 09:00 → C.PAT 15:46
PROVIDERS: ATTEND Ophthalmology
DX: H26.9 Unspecified cataract (principal); Z53.9 Procedure and treatment not carried out, unspecified reason

== ENCOUNTER → 2017-07-17 | Outpatient (CLI) | payer OTHER ==
[~2017-07-17] MED LIST changes: -CYCLOPENTOLATE HCL 1% OP SOLN PER DROP CHARGE OPR SCH; -GATIFLOXACIN OP SOLN PER DROP CHARGE OPR SCH; -KETOROLAC 0.5% OP SOLN PER DROP CHARGE OPR SCH; -LACTATED RINGER'S 1000ML 500 ML IV SCH; -PHENYLEPHRINE HCL 2.5% OP SOLN PER DROP CHARGE OPR SCH; -PROPARACAINE 0.5% OP SOLN PER DROP CHARGE OPR SCH; -SODIUM CHLORIDE 0.9% 500ML IV SCH; -TROPICAMIDE 1% OP SOLN PER DROP CHARGE OPR SCH
[2017-07-17 11:18] LABS: BASO % 0.3 %; BASO ABS # 0.03 K/uL (0-0.2); COMPLETE YES; EOS % 1.2 %; HEMATOCRIT 32.5 % (37-47); IG% 0.3 %; LYMPH ABS # 1.15 K/uL (1.2-3.4); MEAN CELL VOLUME 82.9 fL (80-100); MEAN CORPUSCULAR HGB CONC 30.2 g/dl (32-36); MEAN PLATELET VOLUME 9.2 fL (7.4-10.4); MONO % 9.6 %; NEUT % 78.6 %; PLATELET COUNT 436 K/uL (130-400); RED BLOOD COUNT 3.92 M/uL (4.2-5.4)
[2017-07-17 13:50] LABS: BLOOD UREA NITROGEN 8 mg/dl (7-18); BUN/CREATININE RATIO 10.2 (10-20); C-REACTIVE PROTEIN 3.96 mg/dl (0-0.29); CALCIUM 8.3 mg/dl (8.5-10.1); CARBON DIOXIDE 30 mmol/L (21-32); CHLORIDE 96 mmol/L (98-107); CREATININE 0.76 mg/dl (0.60-1.20); GLUCOSE 109 mg/dl (70-99); POTASSIUM 3.2 mmol/L (3.5-5.1); SODIUM 133 mmol/L (136-145)
== END ==
LOC: C.LABBC 09:08
PROVIDERS: ATTEND Internal Medicine Interventional Cardiology
DX: E78.5 Hyperlipidemia, unspecified (principal)

== ENCOUNTER → 2017-08-19 | Outpatient (CLI) | payer OTHER ==
[2017-08-19 14:24] LABS: HEMATOCRIT 33.9 % (37-47); HEMOGLOBIN 10.4 g/dL (12.0-16.0); MEAN CELL VOLUME 82.9 fL (80-100); MEAN CORPUSCULAR HEMOGLOBIN 25.4 pg (25-34); MEAN CORPUSCULAR HGB CONC 30.7 g/dl (32-36); MEAN PLATELET VOLUME 9.4 fL (7.4-10.4); PLATELET COUNT 334 K/uL (130-400); RED CELL DISTRIBUTION WIDTH CV 18.2 % (11.5-14.5); RED CELL DISTRIBUTION WIDTH SD 55.3 fL (36.4-46.3); WHITE BLOOD COUNT 6.87 K/uL (4.8-10.8)
[2017-08-19 15:18] LABS: BLOOD UREA NITROGEN 11 mg/dl (7-18); CALCIUM 8.8 mg/dl (8.5-10.1); CARBON DIOXIDE 30 mmol/L (21-32); CREATININE 0.81 mg/dl (0.60-1.20); GLUCOSE 99 mg/dl (70-99); POTASSIUM 3.3 mmol/L (3.5-5.1); SODIUM 134 mmol/L (136-145)
== END | disposition home or self-care (01) ==
LOC: C.LABBC 11:23
PROVIDERS: ATTEND Family Medicine Adult Medicine
DX: T84.59XA Infection and inflammatory reaction due to other internal joint prosthesis, initial encounter (principal); Z79.2 Long term (current) use of antibiotics; X58.XXXA Exposure to other specified factors, initial encounter

== ENCOUNTER → 2017-08-26 | Outpatient (CLI) | payer OTHER ==
[2017-08-26 16:57] LABS: BASO % 0.6 %; BASO ABS # 0.04 K/uL (0-0.2); EOS % 2.3 %; EOS ABS # 0.16 K/uL (0-0.5); HEMATOCRIT 35.6 % (37-47); HEMOGLOBIN 10.8 g/dL (12.0-16.0); IG# 0.01 K/uL (0.00-0.02); LYMPH % 19.6 %; LYMPH ABS # 1.39 K/uL (1.2-3.4); MEAN CORPUSCULAR HEMOGLOBIN 25.5 pg (25-34); MEAN CORPUSCULAR HGB CONC 30.3 g/dl (32-36); MEAN PLATELET VOLUME 9.6 fL (7.4-10.4); MONO % 9.2 %; MONO ABS # 0.65 K/uL (0.11-0.59); NEUT % 68.2 %; NEUT ABS # 4.83 K/uL (1.4-6.5); PLATELET COUNT 375 K/uL (130-400); RED CELL DISTRIBUTION WIDTH CV 18.5 % (11.5-14.5); RED CELL DISTRIBUTION WIDTH SD 56.7 fL (36.4-46.3); WHITE BLOOD COUNT 7.08 K/uL (4.8-10.8)
[2017-08-26 17:12] LABS: BLOOD UREA NITROGEN 14 mg/dl (7-18); CALCIUM 9.1 mg/dl (8.5-10.1); CARBON DIOXIDE 31 mmol/L (21-32); CREATININE 0.79 mg/dl (0.60-1.20); GLUCOSE 162 mg/dl (70-99); POTASSIUM 3.9 mmol/L (3.5-5.1); SODIUM 135 mmol/L (136-145)
== END | disposition home or self-care (01) ==
LOC: C.LABBC 14:51
PROVIDERS: ATTEND Family Medicine Adult Medicine
DX: T84.59XA Infection and inflammatory reaction due to other internal joint prosthesis, initial encounter (principal); Y84.9 Medical procedure, unspecified as the cause of abnormal reaction of the patient, or of later complication, without mention of misadventure at the time of the procedure; Z79.2 Long term (current) use of antibiotics

== ENCOUNTER → 2017-09-19 | Outpatient (CLI) | payer OTHER ==
[~2017-09-19] MED LIST changes: -METO25TA3 PO; +METO25TA4 PO; +RANI150T85 PO; -ZNTT/150 PO
--- NOTE | 2017-09-19 13:54 | DIAGNOSTIC IMAGING REPORT ---
RIGHT KNEE CT CT DOSE: HISTORY: RT KNEE EVAL FOR DRAINAGE CATHETER TECHNIQUE: Multiaxial CT images of the right knee were performed and reformatted in the sagittal and coronal plane without the use of contrast. A dose lowering technique was utilized adhering to the principles of ALARA. COMPARISON: None. FINDINGS: There is a right total knee arthroplasty. The hardware appears intact. No acute fracture or dislocation. Old, healed distal right femur fracture. Lucency within the shaft of the distal femur consistent with removal of a prior intramedullary tessy. There is a 5.3 x 5.0 x 3.2 cm gas and fluid collection within the proximal pretibial soft tissues. This abuts the anterior surface of the proximal tibia. This is consistent with an abscess. There is also focal area of cortical destruction within the anterior cortex of the medial tibial plateau best seen on axial image 163. The area of erosion measures 1.7 cm. Therefore, this is consistent with an osteomyelitis. The abscess collection extends to this area of osteomyelitis. Additional areas of periprosthetic lucency at the medial tibial plateau likely due to extension of the infection. There is also a 1.2 cm focus of periprosthetic lucency at the lateral tibial plateau. Moderate to large joint effusion. IMPRESSION: 1. A 5.3 x 5.0 x 3.2 cm abscess within the proximal pretibial soft tissues. 2. Focal area of cortical destruction at the anterior aspect of the medial tibial plateau. The abscess abuts this area of cortical erosion, therefore, this is consistent with osteomyelitis. Additional areas of periprosthetic lucency at the medial and lateral tibial plateau are also likely secondary to an infection of the hardware/osteomyelitis. 3. Moderate to large joint effusion. This is concerning for a septic joint effusion. 4. These finds were called/faxed to the referring physician's office. Electronically signed by: Noam Finch M.D. 09/19/2017 1:52 PM Dictated Date/Time: 09/19/2017 1:40 PM
--- NOTE | 2017-10-10 10:49 | CODING QUERY NO DIAGNOSIS ---
TREATMENT RENDERED WITHOUT A DIAGNOSIS To promote full compliance with coding requirements relating to patient care, physician participation is requested in all cases of sustainability project manager uncertainty. Please assist us with providing a diagnosis/symptom for the test(s) below: A diagnosis/symptom was not documented on your Order. A valid diagnosis/symptom is required to bill all insurances. Please remember that we are unable to code a diagnosis of rule out, probable, possible, questionable, or suspected. Tests/Procedure(s) that require a diagnosis: * CT LOWER EXTREMITY DIAGNOSIS: * DOS: 09/19/17 * Invalid diagnosis code provided on order. Provider Signature: Date: Thank you Karina Mcgregor Health Information Management Once completed, please kindly fax back to [phone] For questions please call [phone]
== END | disposition home or self-care (01) ==
LOC: C.CTS 13:15
PROVIDERS: ATTEND Internal Medicine Infectious Disease
DX: T84.59XA Infection and inflammatory reaction due to other internal joint prosthesis, initial encounter (principal); M86.661 Other chronic osteomyelitis, right tibia and fibula; X58.XXXA Exposure to other specified factors, initial encounter

== ENCOUNTER → 2017-10-10 | Outpatient (CLI) | payer OTHER ==
[2017-10-10 16:55] LABS: BASO % 0.5 %; BASO ABS # 0.04 K/uL (0-0.2); EOS % 2.3 %; EOS ABS # 0.17 K/uL (0-0.5); HEMATOCRIT 35.3 % (37-47); HEMOGLOBIN 10.6 g/dL (12.0-16.0); IG# 0.01 K/uL (0.00-0.02); LYMPH % 19.6 %; LYMPH ABS # 1.44 K/uL (1.2-3.4); MEAN CELL VOLUME 84.2 fL (80-100); MEAN CORPUSCULAR HEMOGLOBIN 25.3 pg (25-34); MEAN PLATELET VOLUME 9.7 fL (7.4-10.4); MONO % 7.5 %; MONO ABS # 0.55 K/uL (0.11-0.59); NEUT ABS # 5.15 K/uL (1.4-6.5); PLATELET COUNT 434 K/uL (130-400); RED CELL DISTRIBUTION WIDTH CV 18.1 % (11.5-14.5); RED CELL DISTRIBUTION WIDTH SD 56.1 fL (36.4-46.3); WHITE BLOOD COUNT 7.36 K/uL (4.8-10.8)
[2017-10-10 17:11] LABS: BLOOD UREA NITROGEN 14 mg/dl (7-18); CALCIUM 8.8 mg/dl (8.5-10.1); CARBON DIOXIDE 28 mmol/L (21-32); CREATININE 0.79 mg/dl (0.60-1.20); GLUCOSE 125 mg/dl (70-99); SODIUM 133 mmol/L (136-145)
== END | disposition home or self-care (01) ==
LOC: C.LABBC 13:35
PROVIDERS: ATTEND Family Medicine Adult Medicine
DX: T84.59XA Infection and inflammatory reaction due to other internal joint prosthesis, initial encounter (principal); A49.01 Methicillin susceptible Staphylococcus aureus infection, unspecified site; X58.XXXA Exposure to other specified factors, initial encounter; D64.9 Anemia, unspecified; E87.6 Hypokalemia

== ENCOUNTER → 2017-11-07 | Outpatient (CLI) | payer OTHER ==
[~2017-11-07] MED LIST changes: +ASCO1CAP3 PO; +FERR1TAB23 PO; +POTA-639 PO; +TRAM-10 PO
[2017-11-07 13:43] LABS: BASO % 0.3 %; BASO ABS # 0.02 K/uL (0-0.2); EOS ABS # 0.15 K/uL (0-0.5); HEMATOCRIT 36.5 % (37-47); HEMOGLOBIN 11.2 g/dL (12.0-16.0); IG# 0.02 K/uL (0.00-0.02); LYMPH ABS # 1.77 K/uL (1.2-3.4); MEAN CELL VOLUME 84.7 fL (80-100); MEAN CORPUSCULAR HGB CONC 30.7 g/dl (32-36); MEAN PLATELET VOLUME 9.4 fL (7.4-10.4); MONO % 6.9 %; MONO ABS # 0.51 K/uL (0.11-0.59); NEUT % 66.5 %; NEUT ABS # 4.91 K/uL (1.4-6.5); PLATELET COUNT 413 K/uL (130-400); RED CELL DISTRIBUTION WIDTH CV 17.1 % (11.5-14.5); RED CELL DISTRIBUTION WIDTH SD 53.2 fL (36.4-46.3); WHITE BLOOD COUNT 7.38 K/uL (4.8-10.8)
[2017-11-07 14:01] LABS: BLOOD UREA NITROGEN 16 mg/dl (7-18); CARBON DIOXIDE 27 mmol/L (21-32); CREATININE 0.96 mg/dl (0.60-1.20); GLUCOSE 154 mg/dl (70-99); POTASSIUM 4.6 mmol/L (3.5-5.1); SODIUM 135 mmol/L (136-145)
--- NOTE | 2017-11-28 09:11 | CODING QUERY NO DIAGNOSIS ---
TREATMENT RENDERED WITHOUT A DIAGNOSIS To promote full compliance with coding requirements relating to patient care, physician participation is requested in all cases of clinical coder uncertainty. Please assist us with providing a diagnosis/symptom for the test(s) below: A diagnosis/symptom was not documented on your Order. A valid diagnosis/symptom is required to bill all insurances. Please remember that we are unable to code a diagnosis of rule out, probable, possible, questionable, or suspected. Tests that require a diagnosis: * CBC W/AUTO DIFF DIAGNOSIS: * SED RATE AUTOMATED DIAGNOSIS: * C-REACTIVE PROTEIN DIAGNOSIS: * BMP DIAGNOSIS: DATE OF SERVICE: 11/07/17 Provider Signature: Date: Thank you Tr Charles [facility] Information Management Once completed, please kindly fax back to [phone] For questions please call [phone]
== END | disposition home or self-care (01) ==
LOC: C.LABBC 11:01
PROVIDERS: ATTEND Orthopaedic Surgery
DX: Z96.651 Presence of right artificial knee joint (principal)

== ENCOUNTER → 2017-12-01 | Outpatient (CLI) | payer OTHER ==
[~2017-12-01] MED LIST changes: -ASCO1CAP3 PO; -FERR1TAB23 PO; -POTA-639 PO; -TRAM-10 PO
--- NOTE | 2017-12-01 17:25 | DIAGNOSTIC IMAGING REPORT ---
STERNUM MIN 2 VIEWS CLINICAL HISTORY: R29.6 Fall in elderly patient trauma. Pain. COMPARISON STUDY: 08/05/2016 FINDINGS: Findings of a prior median sternotomy. No evidence for acute bony pathology. Alignment is anatomic. Lungs are grossly clear. IMPRESSION: Stable postoperative changes of the sternum consistent with a prior median sternotomy. No acute posttraumatic abnormality. The above report was generated using voice recognition software. It may contain grammatical, syntax or spelling errors. Electronically signed by: Hernandez Childs M.D. 12/01/2017 5:24 PM Dictated Date/Time: 12/01/2017 5:23 PM
--- NOTE | 2017-12-01 17:26 | DIAGNOSTIC IMAGING REPORT ---
R HIP UNILATERAL 2 VIEWS HISTORY: 82 years-old Female R29.6 Fall in elderly patient acute right hip pain status post fall COMPARISON: Pelvis and right upper radiograph 08/30/2016 TECHNIQUE: 2 views of the right hip FINDINGS: Right hip arthroplasty in satisfactory alignment. The bones appear moderately demineralized. Heterotopic ossifications about the right hip are noted. No acute fracture or dislocation. Arterial calcifications are noted. Moderate stool volume of the rectosigmoid. IMPRESSION: No acute fracture or dislocation. The above report was generated using voice recognition software. It may contain grammatical, syntax or spelling errors. Electronically signed by: Salvador Callejas M.D. 12/01/2017 5:25 PM Dictated Date/Time: 12/01/2017 5:23 PM
--- NOTE | 2017-12-01 17:28 | DIAGNOSTIC IMAGING REPORT ---
R RIBS UNILATERAL WITH PA CHEST CLINICAL HISTORY: R29.6 Fall in elderly patient trauma. Pain. COMPARISON STUDY: None FINDINGS: Nondisplaced cortical fracture anterior right seventh and eighth ribs. All remaining ribs are unremarkable. No evidence of pneumothorax. IMPRESSION: Nondisplaced cortical fractures right seventh and eighth ribs. No evidence for pneumothorax. The above report was generated using voice recognition software. It may contain grammatical, syntax or spelling errors. Electronically signed by: Hernandez Childs M.D. 12/01/2017 5:27 PM Dictated Date/Time: 12/01/2017 5:24 PM
== END | disposition home or self-care (01) ==
LOC: C.RAD 16:23
PROVIDERS: ATTEND Family Medicine Adult Medicine
DX: R29.6 Repeated falls (principal); S22.41XA Multiple fractures of ribs, right side, initial encounter for closed fracture; W19.XXXA Unspecified fall, initial encounter

== ENCOUNTER → 2018-02-23 | Outpatient (CLI) | payer OTHER ==
[~2018-02-23] MED LIST changes: -ASCA500 PO; +ASCO1CAP3 PO; -BIOTCAP2 PO; -CALC500C70 PO; -CHOL100010 PO; +CIPR1TAB11 PO; -CPR500 PO; +FERR1TAB23 PO; -OMEG10007 PO; +POTA-639 PO; +TRAM-10 PO
== END | disposition home or self-care (01) ==
LOC: C.MAMM 10:58
PROVIDERS: ATTEND Physician Assistant Medical
DX: M81.0 Age-related osteoporosis without current pathological fracture (principal)

== ENCOUNTER 2018-11-05 15:54 | Inpatient (IN) ==
[2018-11-05 17:16] LABS: Basophils # (auto) 0.01 K/uL (0-0.2); Basophils % (auto) 0.1 %; Eosinophils % (auto) 1.2 %; Hematocrit (blood only) 41.2 % (37-47); Hemoglobin 13.2 g/dL (12.0-16.0); Immature Granulocytes # (auto) 0.01 K/uL (0.00-0.02); Immature Granulocytes % (auto) 0.1 %; Lymphocytes # (auto) 1.86 K/uL (1.2-3.4); Lymphocytes % (auto) 21.7 %; Mean Corpuscular Volume 86.6 fL (80-100); Mean Platelet Volume 9.5 fL (7.4-10.4); Monocytes # (auto) 0.69 K/uL (0.11-0.59); Monocytes % (auto) 8.1 %; Neutrophils # (auto) 5.89 K/uL (1.4-6.5); Neutrophils % (auto) 68.8 %; Platelet Count 275 K/uL (130-400); RDW Coefficient of Variation 15.8 % (11.5-14.5); Red Blood Count 4.76 M/uL (4.2-5.4); White Blood Count 8.56 K/uL (4.8-10.8)
[2018-11-05 17:36] LABS: Albumin Level 3.2 gm/dl (3.4-5.0); BUN Creatinine Ratio 12.2 (10-20); Calcium 8.6 mg/dl (8.5-10.1); Creatinine Clr Calc Pharmacy 42.6 ml/min; Est GFR (African American) 65.9; Est GFR (Non-African American) 56.9; Potassium 3.7 mmol/L (3.5-5.1)
--- NOTE | 2018-11-05 17:43 | XRay Report ---
XR chest 1V portable CLINICAL HISTORY: Atypical chest pain COMPARISON STUDY: 11/05/2018 FINDINGS: The cardiac and mediastinal contours remain stable. There are postsurgical changes of a mid line sternotomy. There is aortic tortuosity/ectasia. There is no failure. There is no lobar consolida tion. There are minor basilar atelectatic changes. Underlying emphysema is suspected.[ IMPRESSION: Minor basilar atelectatic change. No acute findings. Electronically signed by: Cullen Jameson M.D. 11/05/2018 5:41 PM
[2018-11-05 18:02] LABS: Albumin Globulin Ratio 0.7 (0.9-2); Bilirubin,Total 0.4 mg/dl (0.2-1); Globulin 4.3 gm/dl (2.5-4.0); Total Protein 7.5 gm/dl (6.4-8.2); Troponin I 0.199 ng/ml (0-0.045)
[2018-11-05] MEDS ORDERED: ASPIRIN CHEW 324 MG PO STA (18:09)
[2018-11-05] MEDS ORDERED: ASPIRIN 81 MG CHEW ONE (18:14)
--- NOTE | 2018-11-05 19:25 | History & Physical Report ---
Date of Service November 05, 2018 Assessment & Plan (1) Atypical chest pain: Patient has known history coronary disease with revascularization carries risk factors. She typically takes Crestor metoprolol losartan and aspirin. She is loaded with full 325 aspirin on presentation. She does have elevation of troponin however no acute current of injury on her EKG or signs of ischemia. She will have troponins trended as well as EKGs be on a heart monitor and have an echocardiogram. She will cardiology consultation. She is not seen about any cardiology in the past but has seen what sounds to be [facility] cardiology for 1 visit but does not wish to return to them and wishes to keep her care to [facility] system she sees Dr. Sandeep Lerma. 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 Awad as an outpatient (3) Hypothyroidism: Patient will be on Synthroid 25 mg a day. 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 (5) DVT prophylaxis: Heparin will be used utilized for DVT prevention History of Present Illness Primary Care Provider: Sandeep Lerma MD [place] an 83-year-old female who 1 day prior to admission developed an hour of substernal chest pain rating to her mid shoulder blades. This was at rest. It was associate with lightheadedness type of feeling. It may radiate slightly towards her right shoulder. She had no associated nausea. After the pain abated she then walked to the restroom and she noted she was profoundly short of breath but did not note this prior to that. She then rested throughout the day called her primary care provider who saw her today she had complete resolution of all of her symptoms today and had no reproduction of dyspnea on exertion but laboratory work by her outpatient provider showed a troponin is be 0.2. She is recommended to be referred to the ER where she was seen she had no acute changes on her EKG and her troponin was confirmed to be 0.199. She is recommended for intake to the consideration of this being unstable angina. Patient is a previous history of revascularization many years ago and she is quit smoking also many years ago. She also is known to have a abdominal aortic aneurysms which are being watched. Patient denotes taking all of her typical medications which include a beta- sebastien and an ARB She is being treated for chronic knee infection for many prosthesis, followed by Dr. Awad, who is on Keflex therapy daily. She also is on chronic suppressive therapy for C. difficile with vancomycin twice a day. Her knee drains purulent material every day. She has been resistant to undergo yet another surgery on her knee which she would need to have an antibiotic spacer and then after a few months the prosthesis replaced Allergies Allergy/AdvReac Type Severity Reaction Status Date / Time lisinopril AdvReac Unknown NAUSEA Verified 11/05/18 18:07 VOMITING sulfasalazine AdvReac Unknown NAUSEA-COULDN'T Verified 11/05/18 18:07 EAT Home Medications Home Medications Medication Instructions Recorded Confirmed Type ascorbic acid (vitamin C) [Vitamin 500 mg PO DAILY 11/05/18 11/05/18 History C] aspirin 81 mg PO DAILY 11/05/18 11/05/18 History cephalexin 500 mg PO TID 11/05/18 11/05/18 History cholecalciferol (vitamin D3) 1,000 unit PO DAILY 11/05/18 11/05/18 History [Vitamin D3] levothyroxine 25 mcg PO DAILY 11/05/18 11/05/18 History losartan 50 mg PO DAILY 11/05/18 11/05/18 History metoprolol succinate 25 mg PO DAILY 11/05/18 11/05/18 History omeprazole 20 mg PO DAILY 11/05/18 11/05/18 History ranitidine HCl 150 mg PO DAILY 11/05/18 11/05/18 History rosuvastatin 30 mg PO DAILY 11/05/18 11/05/18 History tolterodine 2 mg PO DAILY 11/05/18 11/05/18 History vancomycin 125 mg PO BID 11/05/18 11/05/18 History Past Med/Surg History Medical History Abdominal aneurysm Heart attack Chronic infection of knee Clostridium 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 Hypertension Surgical History History of quadruple bypass History of knee surgery Social History Preferred Language: Setswana Communication Ability: Effective Merchandise Director Required: No Beliefs That Will Affect Care: None Current Living Situation: Family Current Living Situation Comment: with Yunier reid Other Information That Helps Us Care for You: No Feels Safe at Home: Yes Safety Concerns: Feels Safe At This Time Smoking Status: Former smoker Hx Alcohol Use: No Hx Substance Use: No Review of Systems ROS: well nourished well developed. No double vision blurry vision No problems with speech or swallowing No palpitations, patient had chest pain as mentioned in HPI No Wheezing dyspnea on exertion as mentioned in HPI No abdominal pain nausea vomiting diarrhea changes in appetite or weight No burning urine urine frequency or changes in color No focal joint pain or muscle pain No skin rashes or oral lesions No unusual bruising or bleeding No focused back pain or numbness or loss of strength No changes in memory or confusion Physical Exam Vital Signs (Past 24 Hours): Last Vital Signs Temp 36.6 C 11/05/18 15:57 Pulse 83 11/05/18 17:42 Resp 17 11/05/18 17:42 BP 134/71 11/05/18 17:42 Pulse Ox 96 11/05/18 17:42 The patient appeared well nourished and normally developed. Vital signs as documented. She is in absolutely no distress today Head exam is unremarkable. normocephalic, atraumatic Neck is without jugular venous distension, thyromegaly, or lymphademopathy Lungs are clear to auscultation and percussion. Cardiac exam reveals Rhythm is regular. Right upper sternal border murmur is heard consistent with a likely aortic murmur Abdominal exam reveals normal bowel sounds, no masses, no organomegaly no abdominal bruits or pulsatile masses Extremities are nonedematous and both pedal pulses are present Neurologic exam is A&Ox3, no focal deficits, strength is equal bilateral Psychologically seems neither anxious or depressed Skin is warm Dry without bruises or lesions Results & Data ECG Additional Comments: Normal sinus rhythm without any ST or T wave changes that are new
[2018-11-05] MEDS ORDERED: MoRPHine SULFATE 2 MG/ML CARP IV PRN (19:39)
[2018-11-05] MEDS ORDERED: NITROGLYCERIN SL 0.4 MG/TAB TAB SL PRN (19:39)
[2018-11-05] MEDS ORDERED: ACETAMINOPHEN 325 MG TAB PO PRN (19:39)
[2018-11-05] MEDS ORDERED: ONDANSETRON INJ 2 MG/ML 2 ML VIAL IV PRN (19:39)
[2018-11-05 20:23] LABS: INR 1.1 (0.9-1.1)
[2018-11-05] MEDS: cephALEXin 500 MG CAP PO SCH (21:11)
[2018-11-05] MEDS: RASPBERRY SYRUP 5 ML UDP PO SCH (21:12)
[2018-11-05] MEDS: VANCOMYCIN HCL 125 MG/2.5ML SOLN PO SCH (21:12)
[2018-11-05] MEDS ORDERED: TOLTERODINE TARTRATE LA 2 MG CAPCR PO SCH (21:30)
[2018-11-05] MEDS ORDERED: ROSUVASTATIN CALCIUM 10 MG TAB PO SCH (21:30)
[2018-11-05] MEDS: HEPARIN SOD 5,000 UNIT/0.5 ML VIAL SQ SCH (22:15)
--- NOTE | 2018-11-06 00:48 | Emergency Department Note ---
Entered by Tasha Yepez acting as a scribe for History of Present Illness General Chief complaint: Cardiac Assessment Stated complaint: CHEST PAIN YESTERDAY FOR 1 HOUR- CARDIAC HX Time Seen by Provider: 11/05/18 16:57 Source: patient Mode of arrival: ambulatory Limitations: no limitations History of Present Illness Provider complaint: chest pain Onset (ago): day(s) (yesterday) Location: chest and right Radiation: other (right shoulder) Pain Consistency: + other (episode) Maximum Pain Intensity: 0 Quality: + other (pressure) Associated symptoms: + shortness of breath and + other (lightheaded); no cough, no diaphoresis, no fever/chills and no nausea/vomiting The patient is an 83 year old white female with a history of an MA, abdominal aneurysms, knee surgery and a quadruple bypass who presents to the ER with complaints of an episode of chest pain that occurred at 1000 yesterday. The patient reports that the pain is located on the right side of her chest and radiated to her right shoulder. She describes the pain as a �pressure� and states that she did have an associated shortness of breath as well. She notes that the episode lasted an hour. She reports that she does take a daily 81 mg aspirin but denies taking any Plavix. She states that the episode occurred while walking but that walking did not exacerbate the pressure. She denies any nausea or vomiting but notes she was lightheaded. She denies any diaphoresis. She also denies missing any medication doses. She denies a history of blood clots. She admits to being a former smoker. She denies any coughs, fevers or chills. She states that she was evaluated by her PCP earlier today where she had blood work done and was referred to the ER. Home Medications Home Medications Medication Instructions Recorded Confirmed Type ascorbic acid (vitamin C) [Vitamin 500 mg PO DAILY 11/05/18 11/05/18 History C] aspirin 81 mg PO DAILY 11/05/18 11/05/18 History cephalexin 500 mg PO TID 11/05/18 11/05/18 History cholecalciferol (vitamin D3) 1,000 unit PO DAILY 11/05/18 11/05/18 History [Vitamin D3] levothyroxine 25 mcg PO DAILY 11/05/18 11/05/18 History losartan 50 mg PO DAILY 11/05/18 11/05/18 History metoprolol succinate 25 mg PO DAILY 11/05/18 11/05/18 History omeprazole 20 mg PO DAILY 11/05/18 11/05/18 History ranitidine HCl 150 mg PO DAILY 11/05/18 11/05/18 History rosuvastatin 30 mg PO DAILY 11/05/18 11/05/18 History tolterodine 2 mg PO DAILY 11/05/18 11/05/18 History vancomycin 125 mg PO BID 11/05/18 11/05/18 History Allergies Allergy/AdvReac Type Severity Reaction Status Date / Time lisinopril AdvReac Unknown NAUSEA Verified 11/05/18 18:07 VOMITING sulfasalazine AdvReac Unknown NAUSEA-COULDN'T Verified 11/05/18 18:07 EAT Past Med/Surg History Medical History Abdominal aneurysm Heart attack Chronic infection of knee Clostridium 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 Hypertension Surgical History History of quadruple bypass History of knee surgery Social History Preferred Language: Slovak Communication Ability: Effective Floor Polisher Required: No Beliefs That Will Affect Care: None Current Living Situation: Family Current Living Situation Comment: with dtr, Yunier Other Information That Helps Us Care for You: No Feels Safe at Home: Yes Safety Concerns: Feels Safe At This Time Smoking Status: Former smoker Hx Alcohol Use: No Hx Substance Use: No Review of Systems See HPI for pertinent positives & negatives. and A total of 10 systems reviewed and were otherwise negative Physical Exam Vital Signs Vital Signs - 24 hr 11/05/18 15:57 11/05/18 17:04 11/05/18 17:09 Temperature 36.6 C Temperature Source Oral Sepsis Recent Fever Within 48 Hours No Sepsis New/Unexplained Change in Mental Status No Sepsis Action Taken by Nursing No Action Required Pulse Rate 99 H 103 H Pulse Rate from SpO2 Sensor 84 Respiratory Rate 17 19 Respiratory Effort / Characteristics Respiratory Depth Blood Pressure 114/65 155/80 H Blood Pressure [Right Arm] Blood Pressure Mean 81 105 Blood Pressure Mean [Right Arm] Blood Pressure Position Sitting Pulse Oximetry 95 97 97 Oxygen Delivery Method Room Air Room Air Oxygen Delivery Method [Right Hand] 11/05/18 17:17 11/05/18 17:30 11/05/18 17:31 Temperature Temperature Source Sepsis Recent Fever Within 48 Hours Sepsis New/Unexplained Change in Mental Status Sepsis Action Taken by Nursing Pulse Rate 93 H 82 83 Pulse Rate from SpO2 Sensor 90 84 82 Respiratory Rate 34 H 18 15 Respiratory Effort / Characteristics Respiratory Depth Blood Pressure 146/117 H Blood Pressure [Right Arm] Blood Pressure Mean 126 Blood Pressure Mean [Right Arm] Blood Pressure Position Pulse Oximetry 96 97 96 Oxygen Delivery Method Oxygen Delivery Method [Right Hand] 11/05/18 17:42 11/05/18 19:10 11/05/18 20:00 Temperature Temperature Source Sepsis Recent Fever Within 48 Hours Sepsis New/Unexplained Change in Mental Status Sepsis Action Taken by Nursing Pulse Rate 83 Pulse Rate from SpO2 Sensor 82 Respiratory Rate 17 Respiratory Effort / Characteristics Respiratory Depth Blood Pressure 134/71 Blood Pressure [Right Arm] Blood Pressure Mean 92 Blood Pressure Mean [Right Arm] Blood Pressure Position Pulse Oximetry 96 Oxygen Delivery Method Room Air Oxygen Delivery Method [Right Hand] Room Air 11/05/18 23:08 Temperature 36.8 C Temperature Source Oral Sepsis Recent Fever Within 48 Hours Sepsis New/Unexplained Change in Mental Status Sepsis Action Taken by Nursing Pulse Rate Pulse Rate from SpO2 Sensor Respiratory Rate 18 Respiratory Effort / Characteristics Non-Labored Spontaneous Respiratory Depth Normal Blood Pressure Blood Pressure [Right Arm] 150/72 H Blood Pressure Mean Blood Pressure Mean [Right Arm] 98 Blood Pressure Position Pulse Oximetry 96 Oxygen Delivery Method Room Air Oxygen Delivery Method [Right Hand] GENERAL: Well appearing, well nourished, NAD, non-toxic. EYE EXAM: Normal conjunctiva. PERRL, no anisocoria and EOM's grossly intact w/o pain. OROPHARYNX: Moist MM. NECK: Supple, no nuchal rigidity, no adenopathy, non-tender. No signs of meningismus. CHEST: Midline sternotomy scar over the chest. LUNGS: Clear to auscultation. Normal chest wall mechanics. HEART: NSR, no MRG. ABDOMEN: Abdomen soft, non-tender, normo-active bowel sounds, no masses, no rebound or guarding. BACK: No CVA TTP. SKIN: No rashes and no bruising. UPPER EXTREMITIES: Upper extremities are grossly normal. LOWER EXTREMITIES: No pitting edema. No calf pain. Negative Marcia's sign. NEURO EXAM: A and O x3. GCS 15. Moves all 4 extremities on command w/o issue. Course 1708: Past medical records reviewed. The patient was evaluated in room A11B, and a complete history and physical examination were performed. 1824: I reviewed the patient's case with Dr. Vines - [facility] Hospitalist. He will evaluate the patient for further management. Administered Medications Cephalexin HCl (Keflex) 500 mg PO TID JOSE Stop: 12/05/18 20:59 Last Admin: 11/05/18 21:11 Dose: 500 mg Documented by: [id number] Heparin Sodium (Porcine) (Heparin Sodium (Porcine)) 5,000 units SQ Q12 JOSE Stop: 12/05/18 21:44 Last Admin: 11/05/18 22:15 Dose: 5,000 units Documented by: [id number] Cosigned by: [id number] Ranitidine HCl (Zantac) 150 mg PO HS JOSE Stop: 12/05/18 21:29 Last Admin: 11/05/18 21:44 Dose: 150 mg Documented by: [id number] Raspberry (Raspberry) 5 ml PO BID JOSE Stop: 11/19/18 20:59 Last Admin: 11/05/18 21:12 Dose: 5 ml Documented by: [id number] Rosuvastatin Calcium (Crestor) 30 mg PO HS JOSE Stop: 12/05/18 21:29 Last Admin: 11/05/18 21:44 Dose: 30 mg Documented by: [id number] Tolterodine Tartrate (Detrol La) 2 mg PO HS JOSE Stop: 12/05/18 21:29 Last Admin: 11/05/18 21:44 Dose: 2 mg Documented by: [id number] Vancomycin HCl (Vancomycin Hcl) 125 mg PO BID JOSE Stop: 11/15/18 20:59 Last Admin: 11/05/18 21:12 Dose: 125 mg Documented by: [id number] Discontinued Medications Aspirin (Aspirin) 324 mg PO NOW STA Stop: 11/05/18 18:10 Last Admin: 11/05/18 18:17 Dose: 324 mg Documented by: [id number] Aspirin (Aspirin Chew) Confirm Administered Dose 324 mg .ROUTE .STK-MED ONE Stop: 11/05/18 18:15 Last Admin: 11/05/18 18:17 Dose: Not Given Documented by: [id number] Medical Decision Making Medical Records Attestation: I reviewed the patient's medical records. Home Medications Current Medication List: was personally reviewed by me Laboratory Data Attestation: I reviewed the patient's lab results. Result diagrams: 11/05/18 17:06 11/05/18 17:06 Lab Results 11/05/18 11/05/18 11/05/18 Range/Units 17:06 17:06 17:06 WBC 8.56 (4.8-10.8) K/uL RBC 4.76 (4.2-5.4) M/uL Hgb 13.2 (12.0-16.0) g/dL Hct 41.2 (37-47) % MCV 86.6 (80-100) fL MCH 27.7 (25-34) pg MCHC 32.0 (32-36) g/dL RDW Std Deviation 51.0 H (36.4-46.3) fL RDW Coeff of Elif 15.8 H (11.5-14.5) % Plt Count 275 (130-400) K/uL MPV 9.5 (7.4-10.4) fL Immature Gran % (Auto) 0.1 % Neut % (Auto) 68.8 % Lymph % (Auto) 21.7 % [place] % (Auto) 8.1 % Eos % (Auto) 1.2 % Baso % (Auto) 0.1 % Immature Gran # (Auto) 0.01 (0.00-0.02) K/uL Neut # (Auto) 5.89 (1.4-6.5) K/uL Lymph # (Auto) 1.86 (1.2-3.4) K/uL [place] # (Auto) 0.69 H (0.11-0.59) K/uL Eos # (Auto) 0.10 (0-0.5) K/uL Baso # (Auto) 0.01 (0-0.2) K/uL PT 11.0 (9.0-12.0) Seconds INR 1.1 (0.9-1.1) Sodium 134 L (136-145) mmol/L Potassium 3.7 (3.5-5.1) mmol/L Chloride 101 (98-107) mmol/L Carbon Dioxide 28 (21-32) mmol/L Anion Gap 5.0 (3-11) BUN 12 (7-18) mg/dl Creatinine 0.94 (0.6-1.2) mg/dl Est Cr Clr Drug Dosing 42.6 ml/min Est GFR ( Amer) 65.9 Est GFR (Non-Af Amer) 56.9 BUN/Creatinine Ratio 12.2 (10-20) Glucose 95 (70-99) mg/dl Calcium 8.6 (8.5-10.1) mg/dl Phosphorus 3.0 (2.5-4.9) mg/dl Magnesium 2.0 (1.8-2.4) mg/dl Total Bilirubin 0.4 (0.2-1) mg/dl AST 14 L (15-37) U/L ALT 12 (12-78) U/L Alkaline Phosphatase 82 (45-117) U/L Troponin I 0.199 H* (0-0.045) ng/ml Total Protein 7.5 (6.4-8.2) gm/dl Albumin 3.2 L (3.4-5.0) gm/dl Globulin 4.3 H (2.5-4.0) gm/dl Albumin/Globulin Ratio 0.7 L (0.9-2) Lipase 170 (73-393) U/L Imaging Data Radiologist's Impression: Radiology results as stated below per my review and the radiologist's interpretation: XR chest 1V portable CLINICAL HISTORY: Atypical chest pain COMPARISON STUDY: 11/05/2018 FINDINGS: The cardiac and mediastinal contours remain stable. There are postsurgical changes of a midline sternotomy. There is aortic tortuosity /ectasia. There is no failure. There is no lobar consolidation. There are minor basilar atelectatic changes. Underlying emphysema is suspected.[ IMPRESSION: Minor basilar atelectatic change. No acute findings. Electronically signed by: Cullen Jameson M.D. 11/05/2018 5:41 PM ECG Data Attestation: I personally reviewed and interpreted this ECG as follows: Indication: chest pain Rate (beats per minute): 83 Rhythm: normal sinus Findings: + other (wide QRS), + LBBB, + Q waves (Anterior) and + T-wave inversion (high lateral) Comparison ECG Date: from (05-AUG-2016) Change: the following changes noted (ST depressions in inferior leads have improved) Blood Pressure Blood Pressure Findings: Normal blood pressure Blood Pressure Disposition: did not require urgent referral MDM Narrative The patient is an 83 year old white female with a history of an MA, abdominal aneurysms, knee surgery and a quadruple bypass who presents to the ER with complaints of an episode of chest pain that occurred at 1000 yesterday. Differential diagnosis includes but is not limited to: GERD, esophageal spasm, cholecystitis, acute coronary syndrome, myocardial infarction, pericarditis, pulmonary embolus, aortic dissection, pneumonia, pneumothorax, and musculoskeletal, and shingles. Patient was seen and evaluated the bedside. The patient states that she did have an episode of chest pain lasting 1 hour yesterday that was right-sided pressure-like with radiation to the right shoulder blade. Patient did a blood work completed along with EKG troponin and chest x-ray. Chest x-ray unremarkable. The patient does have a cardiac history significant for quadruple bypass approximately 20 years prior the patient is a former smoker last smoked prior to her CABG over 20 years ago. Patient has no acute complaints of chest pain. The patient did later relate that she did have blood work completed at an outpatient appointments and was referred here for an elevated troponin. Patient was given the rest of a full dose aspirin. The patient again has had no active chest pain and compared to her old EKG I do not notice any acute ischemic changes. In light of the patient's lack of current chest pain or EKG changes I do not believe that she requires emergent catheterization of the heart at this time. I did speak with the on-call hospitalist who agreed to further evaluate treat the patient. Patient was admitted to the medicine service. Impression & Plan Atypical chest pain Discharge Plan Visit Data *Final* Discharge Date/Time: 11/05/18 19:10 Chief Complaint: Cardiac Assessment Stated Complaint: CHEST PAIN YESTERDAY FOR 1 HOUR- CARDIAC HX ED Provider: Mendez Robles Discharge Problem: Atypical chest pain Patient Disposition: Admitted As Inpatient Discharge Instructions Interventions: ED Discharge Assessment Last Done: 11/05/18 19:10 The scribe's documentation has been prepared under my direction and personally reviewed by me in its entirety. I confirm that the note above accurately re flects all work, treatment, procedures, and medical decision making performed by me.
[2018-11-06] MEDS ORDERED: LEVOTHYROXINE SODIUM 25 MCG TABLET PO SCH (06:30)
[2018-11-06 07:18] LABS: BUN Creatinine Ratio 12.1 (10-20); Calcium 8.2 mg/dl (8.5-10.1); Creatinine Clr Calc Pharmacy 48.1 ml/min; Est GFR (African American) 76.6; Est GFR (Non-African American) 66.1; Potassium 3.8 mmol/L (3.5-5.1)
[2018-11-06 07:28] LABS: Troponin I 0.2 ng/ml (0-0.045)
[2018-11-06] MEDS ORDERED: LOSARTAN POTASSIUM 50 MG TAB PO SCH (09:00)
[2018-11-06] MEDS ORDERED: ASPIRIN 325 MG ECTAB PO SCH (09:00)
[2018-11-06] MEDS ORDERED: METOPROLOL SUCC 25MG EXT REL TAB PO SCH (09:00)
[2018-11-06] MEDS ORDERED: ROSUVASTATIN CALCIUM 10 MG TAB PO SCH (09:00)
[2018-11-06] MEDS ORDERED: TOLTERODINE TARTRATE LA 2 MG CAPCR PO SCH (09:00)
[2018-11-06] MEDS ORDERED: PANTOprazole 40 MG TAB PO SCH (09:00)
[2018-11-06] MEDS: HEPARIN SOD 5,000 UNIT/0.5 ML VIAL SQ SCH (09:14)
[2018-11-06] MEDS: cephALEXin 500 MG CAP PO SCH ×2 (09:15→14:42)
[2018-11-06] MEDS: VANCOMYCIN HCL 125 MG/2.5ML SOLN PO SCH (09:16)
[2018-11-06] MEDS: RASPBERRY SYRUP 5 ML UDP PO SCH (09:16)
--- NOTE | 2018-11-06 13:16 | Cardiology Consultation ---
Date of Consultation November 06, 2018 Assessment & Plan (1) Atypical chest pain: She has not had angina in the past. She does have minimally elevated troponins but did not rule in for myocardial infarction. Her chest pain in general however is atypical be in that it was on the right side and has not persisted despite exerting herself. No obvious wall motion abnormalities on echo however RV systolic function is a bit reduced. Consider formal evaluation for pulmonary embolus given smoldering troponin levels and right-sided chest discomfort with dyspnea with exertion. This was discussed with Dr. Tam of the hospitalist service. If no pulmonary embolism, would recommend outpatient myocardial perfusion study as this study is not available until next week and she has not had symptoms for 48 hours. In case CAD is playing a role, metoprolol succinate was increased to 50 mg daily. (2) Elevated troponin: Etiology uncertain. She did not rule in for myocardial infarction. Levels are holding steady rather than dropping. Consider workup for pulmonary embolism as above. Otherwise, outpatient myocardial perfusion study as she has been asymptomatic. Metoprolol succinate has been adjusted. Would avoid cardiac catheterization unless she becomes hemodynamically unstable or has evidence of STEMI or large ME given the fact that she has chronically infected right knee with purulent fluid draining. (3) CAD (coronary artery disease), [place] coronary artery: Multivessel CAD status post CABG x4 in 1998. Symptoms as above, not definitively angina. Continue aspirin, but 81 mg is sufficient from a cardiac perspective. Continue high-intensity statin therapy and beta-sebastien. (4) Dyspnea on exertion: She appears euvolemic. Symptoms have completely resolved. Plan as above. Disposition: She would like to follow-up in the cardiology office. Cardiology office will contact her with time and date appointment. If no pulmonary embolism, myocardial perfusion study can be done as an outpatient. Plan of care discussed with primary hospitalist, Dr. Tam. Thank you for allowing me to participate in the care of your patient. Please call for any other questions or concerns. Sincerely, Ariel Norris M.D. History of Present Illness Reason for Consultation: Chest pain with elevated troponin. Question stress test. Requesting Physician: Dr. Booth Attending Physician: Mehdi Paulson History of Present Illness Mrs. Martinez is a very pleasant 83-year-old female with a history significant for CAD status post CABG x4 in 1998, dyslipidemia, hypertension, AAA and bilateral iliac artery aneurysms (followed by Dr. Osborne), and chronic left knee infection who presented to [facility] with right-sided chest pressure. In 1998, she underwent cardiac catheterization after being told that she had a myocardial infarction. She had not had any anginal symptoms. This was arranged from the outpatient setting. She eventually underwent CABG x4 in 1998 at [facility], consisting of WHELAN to LAD, left radial artery to OM1 and sequentially to OM2, and JONATAN to mid RCA. She has not required cardiac catheterization since then. Although she does not exercise, she is very active. She was feeling her usual self 2 days ago while sitting on a couch. She had just finished a cup of tea and developed a right-sided chest pressure that radiated to her right back. There was no other radiation. There was no associated shortness of breath at that time. She continued to rest and her pain eventually subsided after approximately 1 hour. She then went into her bedroom to fix up her room and upon completion was walking down the hallway and noted dyspnea. She once again rested and her symptoms eventually resolved. She did not have any shortness of breath at rest, orthopnea, or PND. She also felt nausea at some point that afternoon. When she woke up yesterday, she felt well and was able to perform her usual activities but she checked with her PCP who advised herTo come to the emergency department given her symptoms and troponin level of 0.2. She remains symptom free. She denies syncope, near-syncope, palpitations, edema. She does have bilateral lower extremity varicose veins and used to wear support stockings but no longer does so. She has a chronic right knee infection which drains purulent fluid on a daily basis. She denies melena, hematochezia, hematuria, fevers, diarrhea, vomiting, or stroke-like symptoms. Review of systems: As above. Review of systems otherwise negative/unremarkable. Social history: She smokes approximately 40 pack years but quit in 1998. Rare alcohol. No drugs. . Her daughter lives with her. She has 2 daughters and 1 son. She has grandchildren and great grandchildren. She is unaccompanied. Family history: Father had CAD diagnosed at the age of 67. Brother with CAD at the age of 80. Another brother with CAD. Daughter had ME and CABG at age of 39. Allergies Allergy/AdvReac Type Severity Reaction Status Date / Time lisinopril AdvReac Unknown NAUSEA Verified 11/05/18 18:07 VOMITING sulfasalazine AdvReac Unknown NAUSEA-COULDN'T Verified 11/05/18 18:07 EAT Home Medications Home Medications Medication Instructions Recorded Confirmed Type ascorbic acid (vitamin C) [Vitamin 500 mg PO DAILY 11/05/18 11/05/18 History C] aspirin 81 mg PO DAILY 11/05/18 11/05/18 History cephalexin 500 mg PO TID 11/05/18 11/05/18 History cholecalciferol (vitamin D3) 1,000 unit PO DAILY 11/05/18 11/05/18 History [Vitamin D3] levothyroxine 25 mcg PO DAILY 11/05/18 11/05/18 History losartan 50 mg PO DAILY 11/05/18 11/05/18 History metoprolol succinate 25 mg PO DAILY 11/05/18 11/05/18 History omeprazole 20 mg PO DAILY 11/05/18 11/05/18 History ranitidine HCl 150 mg PO DAILY 11/05/18 11/05/18 History rosuvastatin 30 mg PO DAILY 11/05/18 11/05/18 History tolterodine 2 mg PO DAILY 11/05/18 11/05/18 History vancomycin 125 mg PO BID 11/05/18 11/05/18 History Patient History Medical History Abdominal aneurysm Heart attack Chronic infection of knee Clostridium 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 Hypertension Surgical History History of quadruple bypass History of knee surgery Social History Preferred Language: Italian Communication Ability: Effective Scientific Laboratory Supervisor Required: No Beliefs That Will Affect Care: None Current Living Situation: Family Current Living Situation Comment: with Yunier reid Other Information That Helps Us Care for You: No Feels Safe at Home: Yes Safety Concerns: Feels Safe At This Time Smoking Status: Former smoker Hx Alcohol Use: No Hx Substance Use: No Physical Exam Vital Signs (Past 24 Hours): Last Vital Signs Temp 36.6 C 11/06/18 12:01 Pulse 73 11/06/18 12:01 Resp 16 11/06/18 12:01 BP 106/68 11/06/18 12:01 Pulse Ox 97 11/06/18 12:01 Physical Exam: Gen.: No acute distress. Alert and oriented. HEENT: Anicteric sclera. Neck: No JVD. No bruits. Normal carotid upstrokes bilaterally. Cardiac: PMI was nondisplaced. No ventricular heave. Regular. Normal S1-S2. No murmurs, rubs, or gallops. Pulmonary: Clear to auscultation bilaterally without wheezes, rales, or rhonchi. Abdomen: Soft, nontender, nondistended, with normoactive bowel sounds. No bruits noted. Extremities: 2+ right radial pulse. Left radial artery status post resection. 1+ posterior tibialis pulses bilaterally. No edema or cyanosis. Bilateral lower extremity varicose veins. Psychiatric: Affect appears appropriate. Chest: Nontender to palpation. Results & Data Laboratory Results Laboratory Results - last 24 hr 11/05/18 11/05/18 11/05/18 17:06 17:06 17:06 WBC 8.56 RBC 4.76 Hgb 13.2 Hct 41.2 MCV 86.6 MCH 27.7 MCHC 32.0 RDW Std Deviation 51.0 H RDW Coeff of Elif 15.8 H Plt Count 275 MPV 9.5 Immature Gran % (Auto) 0.1 Neut % (Auto) 68.8 Lymph % (Auto) 21.7 Dent % (Auto) 8.1 Eos % (Auto) 1.2 Baso % (Auto) 0.1 Immature Gran # (Auto) 0.01 Neut # (Auto) 5.89 Lymph # (Auto) 1.86 Dent # (Auto) 0.69 H Eos # (Auto) 0.10 Baso # (Auto) 0.01 PT 11.0 INR 1.1 Sodium 134 L Potassium 3.7 Chloride 101 Carbon Dioxide 28 Anion Gap 5.0 BUN 12 Creatinine 0.94 Est Cr Clr Drug Dosing 42.6 Est GFR ( Amer) 65.9 Est GFR (Non-Af Amer) 56.9 BUN/Creatinine Ratio 12.2 Glucose 95 Calcium 8.6 Phosphorus 3.0 Magnesium 2.0 Total Bilirubin 0.4 AST 14 L ALT 12 Alkaline Phosphatase 82 Troponin I 0.199 H* Total Protein 7.5 Albumin 3.2 L Globulin 4.3 H Albumin/Globulin Ratio 0.7 L Lipase 170 11/06/18 11/06/18 00:33 06:17 WBC RBC Hgb Hct MCV MCH MCHC RDW Std Deviation RDW Coeff of Elif Plt Count MPV Immature Gran % (Auto) Neut % (Auto) Lymph % (Auto) Dent % (Auto) Eos % (Auto) Baso % (Auto) Immature Gran # (Auto) Neut # (Auto) Lymph # (Auto) Dent # (Auto) Eos # (Auto) Baso # (Auto) PT INR Sodium 138 Potassium 3.8 Chloride 104 Carbon Dioxide 30 Anion Gap 4.0 BUN 10 Creatinine 0.83 Est Cr Clr Drug Dosing 48.1 Est GFR ( Amer) 76.6 Est GFR (Non-Af Amer) 66.1 BUN/Creatinine Ratio 12.1 Glucose 81 Calcium 8.2 L Phosphorus Magnesium Total Bilirubin AST ALT Alkaline Phosphatase Troponin I 0.215 H* 0.200 H* Total Protein Albumin Globulin Albumin/Globulin Ratio Lipase Diagnostic Findings Telemetry personally reviewed: Sinus rhythm. No arrhythmia. ECGs personally reviewed: ECG 11/05/2018: SinusRhythm 83 bpm. LBBB. ECG 11/06/2018: Sinus rhythm 69 bpm. LBBB. Echo 11/06/2018: Normal LV size with low-normal systolic function. Estimated EF 50-55%. Normal wall motion. Moderate LVH. Mildly reduced RV systolic function. Sclerotic aortic valve. Mild MR. RVSP 24. Medications Administered Current Inpatient Medications Acetaminophen (Tylenol) 650 mg PO Q4H PRN PRN Reason: Pain or Fever Stop: 12/05/18 19:38 Aspirin (Ecotrin) 325 mg PO QAM [facility] Stop: 12/06/18 08:59 Last Admin: 11/06/18 09:13 Dose: 325 mg Documented by: Cephalexin HCl (Keflex) 500 mg PO TID [facility] Stop: 12/05/18 20:59 Last Admin: 11/06/18 09:15 Dose: 500 mg Documented by: Heparin Sodium (Porcine) (Heparin Sodium (Porcine)) 5,000 units SQ Q12 [facility] Stop: 12/05/18 21:44 Last Admin: 11/06/18 09:14 Dose: 5,000 units Documented by: Levothyroxine Sodium (Synthroid) 25 mcg PO DAILYBB [facility] Stop: 12/06/18 06:29 Last Admin: 11/06/18 05:56 Dose: 25 mcg Documented by: Losartan Potassium (Cozaar) 50 mg PO DAILY [facility] Stop: 12/06/18 08:59 Last Admin: 11/06/18 09:13 Dose: 50 mg Documented by: Metoprolol Succinate (Toprol Xl) 50 mg PO DAILY [facility] Stop: 12/07/18 08:59 Morphine Sulfate (Morphine Sulfate) 2 mg IV Q30M PRN PRN Reason: Chest Pain Stop: 11/19/18 19:38 Nitroglycerin (Nitrostat) 0.4 mg SL UD PRN PRN Reason: Chest Pain Stop: 12/05/18 19:38 Ondansetron HCl (Zofran) 4 mg IV Q6H PRN PRN Reason: Nausea Stop: 12/05/18 19:38 Pantoprazole Sodium (Protonix) 40 mg PO DAILY [facility] Stop: 12/06/18 08:59 Last Admin: 11/06/18 09:16 Dose: 40 mg Documented by: Ranitidine HCl (Zantac) 150 mg PO [facility] Stop: 12/05/18 21:29 Last Admin: 11/05/18 21:44 Dose: 150 mg Documented by: Raspberry (Raspberry) 5 ml PO BID [facility] Stop: 11/19/18 20:59 Last Admin: 11/06/18 09:16 Dose: 5 ml Documented by: Rosuvastatin Calcium (Crestor) 30 mg PO [facility] Stop: 12/05/18 21:29 Last Admin: 11/05/18 21:44 Dose: 30 mg Documented by: Tolterodine Tartrate (Detrol La) 2 mg PO [facility] Stop: 12/05/18 21:29 Last Admin: 11/05/18 21:44 Dose: 2 mg Documented by: Vancomycin HCl (Vancomycin Hcl) 125 mg PO BID [facility] Stop: 11/15/18 20:59 Last Admin: 11/06/18 09:16 Dose: 125 mg Documented by:
[2018-11-07] MEDS ORDERED: METOPROLOL SUCC 50MG EXT REL TAB PO SCH (09:00)
--- NOTE | 2018-11-13 11:17 | Discharge Summary ---
Date of Service November 06, 2018 Admission HPI Per Admitting Provider Godfrey an 83-year-old female who 1 day prior to admission developed an hour of substernal chest pain rating to her mid shoulder blades. This was at rest. It was associate with lightheadedness type of feeling. It may radiate slightly towards her right shoulder. She had no associated nausea. After the pain abated she then walked to the restroom and she noted she was profoundly short of breath but did not note this prior to that. She then rested throughout the day called her primary care provider who saw her today she had complete resolution of all of her symptoms today and had no reproduction of dyspnea on exertion but laboratory work by her outpatient provider showed a troponin is be 0.2. She is recommended to be referred to the ER where she was seen she had no acute changes on her EKG and her troponin was confirmed to be 0.199. She is recommended for intake to the consideration of this being unstable angina. Patient is a previous history of revascularization many years ago and she is quit smoking also many years ago. She also is known to have a abdominal aortic aneurysms which are being watched. Patient denotes taking all of her typical medications which include a beta- sebastien and an ARB She is being treated for chronic knee infection for many prosthesis, followed by Dr. Awad, who is on Keflex therapy daily. She also is on chronic suppressive therapy for C. difficile with vancomycin twice a day. Her knee drains purulent material every day. She has been resistant to undergo yet another surgery on her knee which she would need to have an antibiotic spacer and then after a few months the prosthesis replaced Principal Diagnosis Chest pain Discharge Exam The patient appeared well nourished and normally developed. Vital signs as documented. No distress Head exam is unremarkable. normocephalic, atraumatic Neck is without jugular venous distension, thyromegaly, or lymphademopathy Lungs are clear to auscultation and percussion. Cardiac exam reveals Rhythm is regular. Right upper sternal border murmur is heard. Abdominal exam reveals normal bowel sounds, no masses, no organomegaly no abdominal bruits or pulsatile masses Extremities are nonedematous and both pedal pulses are present Neurologic exam is A&Ox3, no focal deficits, strength is equal bilateral Skin is warm Dry without bruises or lesions Discharge Data Allergies Allergy/AdvReac Type Severity Reaction Status Date / Time lisinopril AdvReac Unknown NAUSEA Verified 11/09/18 03:28 VOMITING sulfasalazine AdvReac Unknown NAUSEA-COULDN'T Verified 11/09/18 03:28 EAT Consultations 11/05/18 18:32 ED Decision to Admit Stat 11/05/18 19:56 Consult Cardiology Routine Hospital Course (1) Atypical chest pain: Patient has known history coronary disease with revascularization carries risk factors. She typically takes Crestor metoprolol losartan and aspirin. She is loaded with full 325 aspirin on presentation. She does have elevation of troponin however no acute current of injury on her EKG or signs of ischemia. She will have troponins trended as well as EKGs be on a heart monitor and have an echocardiogram. She will cardiology consultation. She is not seen about any cardiology in the past but has seen what sounds to be [facility] cardiology for 1 visit but does not wish to return to them and wishes to keep her care to [facility] system she sees Dr. Sandeep Lerma. D/W Cardiology: No angina in the past. Minimally elevated troponins but did not rule in for myocardial infarction. Her chest pain in general however is atypical. Cardio asked about a possible pulmonary embolus workup: but patient presentation makes this unlikely. no need for further workup. Will have patient f/u with PCP. medication adjustments noted on discharge instructions (2) Chronic infection of knee: Patient is a chronic infection of her knee with purulent drainage daily she will remain on Keflex as ordered by Dr. Awad as an outpatient (3) Hypothyroidism: Patient will be on Synthroid 25 mg a day. 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 (5) DVT prophylaxis: Heparin will be used utilized for DVT prevention Total Time Total Time Spent Total Time Spent (In Minutes): 32 Total Time Includes: Examination of the Patient, Discharge Planning and Medication Reconciliation Discharge Plan Discharge Items Patient Disposition: Home - Self-Care Reason For Visit: CHEST PAIN,ELEVATED TROPONIN Discharge Diagnosis: Chest pain Discharge Goals: Decrease discomfort Activity: Resume your previous activity Non-emergency contact: Primary Care Provider Call non-emergency contact if: your symptoms worsen Follow-up/Referrals: Sandeep Lerma MD [Primary Care Provider] - Diet: Heart Healthy Addtl Provider Instructions: myocardial perfusion study can be done as an outpatient. Will have you followup with [facility] and PCP Prescriptions: New nitroglycerin [Nitrostat] 0.4 mg Tablet, Sublingual 0.4 mg sublingual UD PRN (Reason: chest pain) Qty: 10 RF: 0 Continued tolterodine 2 mg capsule,extended release 24hr 2 mg PO DAILY RF: 0 vancomycin 125 mg capsule 125 mg PO BID RF: 0 levothyroxine 25 mcg tablet 25 mcg PO DAILY RF: 0 cephalexin 500 mg capsule 500 mg PO TID RF: 0 omeprazole 20 mg capsule,delayed release(DR/EC) 20 mg PO DAILY RF: 0 rosuvastatin 20 mg tablet 30 mg PO DAILY RF: 0 losartan 50 mg tablet 50 mg PO DAILY RF: 0 aspirin 81 mg Tablet,Delayed Release (Dr/Ec) 81 mg PO DAILY RF: 0 ascorbic acid (vitamin C) [Vitamin C] 500 mg Tablet 500 mg PO DAILY RF: 0 ranitidine HCl 150 mg Tablet 150 mg PO DAILY RF: 0 cholecalciferol (vitamin D3) [Vitamin D3] 1,000 unit Capsule 1,000 unit PO DAILY RF: 0 No Action metoprolol succinate 50 mg Tablet Extended Release 24 Hr 50 mg PO DAILY Qty: 30 RF: 0 isosorbide mononitrate 30 mg Tablet Extended Release 24 Hr 30 mg PO QAM Qty: 30 RF: 0 Stand-Alone Forms: [facility] Discharge Orders: Discharge Order (Routine); Ordered 11/06/18 Ordered By: Mehdi Paulson Admission Data Admit Date/Time: 11/05/18 18:37 Attending Provider: Mehdi Paulson Admit Provider: Dale Booth Primary Care Provider: Sandeep Lerma Other Providers: Maik Norris Service: Telemetry Other Interventions: Discharge Summary Assessment (RN) Last Done: 11/06/18 17:56 DC Date/Time DO NOT enter until pt leaves facility: 11/06/18 18:19
== END 2018-11-06 18:19 | disposition home or self-care (01) | DRG 303 ==
LOC: ED 15:54 → SUATTDRO 18:37 → 2S 18:37

== ENCOUNTER 2018-11-09 03:15 | Inpatient (IN) ==
[2018-11-09 03:43] LABS: Basophils # (auto) 0.03 K/uL (0-0.2); Basophils % (auto) 0.4 %; Eosinophils # (auto) 0.31 K/uL (0-0.5); Eosinophils % (auto) 3.9 %; Hematocrit (blood only) 39.6 % (37-47); Hemoglobin 12.7 g/dL (12.0-16.0); Immature Granulocytes # (auto) 0.01 K/uL (0.00-0.02); Immature Granulocytes % (auto) 0.1 %; Lymphocytes % (auto) 29.2 %; Mean Corpuscular Hgb Conc 32.1 g/dL (32-36); Mean Corpuscular Volume 85.5 fL (80-100); Mean Platelet Volume 9.5 fL (7.4-10.4); Monocytes # (auto) 0.61 K/uL (0.11-0.59); Monocytes % (auto) 7.8 %; Neutrophils # (auto) 4.61 K/uL (1.4-6.5); Neutrophils % (auto) 58.6 %; Platelet Count 256 K/uL (130-400); RDW Coefficient of Variation 15.9 % (11.5-14.5); RDW Standard Deviation 49.7 fL (36.4-46.3); Red Blood Count 4.63 M/uL (4.2-5.4); White Blood Count 7.87 K/uL (4.8-10.8)
[2018-11-09 03:55] LABS: INR 1.1 (0.9-1.1); Prothrombin Time 11.1 Seconds (9.0-12.0)
[2018-11-09 04:11] LABS: Albumin Level 2.7 gm/dl (3.4-5.0); BUN Creatinine Ratio 16.6 (10-20); Calcium 8.5 mg/dl (8.5-10.1); Creatinine Clr Calc Pharmacy 40.4 ml/min; Est GFR (African American) 61.9; Est GFR (Non-African American) 53.4; Potassium 4.4 mmol/L (3.5-5.1)
[2018-11-09 04:25] LABS: Albumin Globulin Ratio 0.6 (0.9-2); Bilirubin,Total 0.2 mg/dl (0.2-1); Globulin 4.2 gm/dl (2.5-4.0); Total Protein 6.9 gm/dl (6.4-8.2); Troponin I 0.437 ng/ml (0-0.045)
[2018-11-09] MEDS ORDERED: Heparin IV Standard *NO* Bolus IV ONE ×2 (04:31→06:21)
[2018-11-09] MEDS ORDERED: HEPARIN 25000 UNIT/500 ML D5W IV ONE (04:54)
--- NOTE | 2018-11-09 05:21 | History & Physical Report ---
Date of Service November 09, 2018 Assessment & Plan (1) Chest pain: Patient with atypical description of chest pain. Concern for waking her from sleep, troponin elevated from prior. EKG with axis change when compared to prior. Presently no CP -Admit to PCU -Trend troponin -Continue ASA, Metoprolol, Losartan, Crestor -Heparin gtt -Cardiology consultation - appreciate assistance with this case -Continue Omeprazole - ?GI component as well (2) Elevated troponin: As above. (3) Hypertension: Blood pressure well controlled -Continue metoprolol -Continue Losartan -Continue to monitor (4) Hyperlipidemia: Chronic. -Continue Crestor (5) Hypothyroid: Chronic. -Continue Synthroid (6) Clostridium 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: -Continue PO Vancomycin -Enteric precautions (7) Chronic infection of knee: No evidence of sepsis. Presence of infection may preclude cardiac cath -Continue Keflex (8) Abdominal aneurysm: Being followed by Dr. Osborne F/E/N - Heplock. Monitor electrolytes and replete as needed. NPO for now Ppx - Heparin gtt Code - Full Dispo - Admit to PCU History of Present Illness Chief Complaint: CP Primary Care Provider: Sandeep Lerma MD Genny Martinez is an 83yo female with history of CAD s/p CABG x 4V in 1998 (at [facility], consisting of WHELAN to LAD, left radial artery to OM1 and sequentially to OM2, and JONATAN to mid RCA) , AAA and bilateral iliac artery aneurysms on surveillance with Dr. Osborne, [facility], HTN and chronic right knee infection. She was recently admitted to [facility] with right sided chest pressure. Patient with mild elevation in troponin during that hospital stay. Not strongly believed to be ACS. She was discharged home in stable condition with instruction to followup for an outpatient myocardial perfusion study. Patient returns today with central chest burning that woke her from sleep at 02:05. This feeling was similar to before, however, now more intense. 7/10 in severity. Associated with palpitations. She took Nitro x 3 with improvement to 0/10. No SOB, diaphoresis or sweating. Patient had some minor lightheadedness while in the ER. Presently CP free. ER Course: Heparin gtt Allergies Allergy/AdvReac Type Severity Reaction Status Date / Time lisinopril AdvReac Unknown NAUSEA Verified 11/09/18 03:28 VOMITING sulfasalazine AdvReac Unknown NAUSEA-COULDN'T Verified 11/09/18 03:28 EAT Home Medications Home Medications Medication Instructions Recorded Confirmed Type ascorbic acid (vitamin C) [Vitamin 500 mg PO DAILY 11/05/18 11/09/18 History C] aspirin 81 mg PO DAILY 11/05/18 11/09/18 History cephalexin 500 mg PO TID 11/05/18 11/09/18 History cholecalciferol (vitamin D3) 1,000 unit PO DAILY 11/05/18 11/09/18 History [Vitamin D3] levothyroxine 25 mcg PO DAILY 11/05/18 11/09/18 History losartan 50 mg PO DAILY 11/05/18 11/09/18 History metoprolol succinate 25 mg PO DAILY 11/05/18 11/09/18 History omeprazole 20 mg PO DAILY 11/05/18 11/09/18 History ranitidine HCl 150 mg PO DAILY 11/05/18 11/09/18 History rosuvastatin 30 mg PO DAILY 11/05/18 11/09/18 History tolterodine 2 mg PO DAILY 11/05/18 11/09/18 History vancomycin 125 mg PO BID 11/05/18 11/09/18 History nitroglycerin [Nitrostat] 0.4 mg SUBLINGUAL UD PRN #10 tab 11/06/18 11/09/18 Rx Past Med/Surg History Medical History Abdominal aneurysm Heart attack CAD (coronary artery disease) Hypothyroid Chronic infection of knee Clostridium 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 Hypertension Surgical History History of quadruple bypass History of knee surgery Family History Other Family history non-contributory Social History Preferred Language: Prydeinig Beliefs That Will Affect Care: None Current Living Situation: Family Current Living Situation Comment: with dtr, Yunier Feels Safe at Home: Yes Smoking Status: Former smoker Hx Alcohol Use: No Hx Substance Use: No Review of Systems All systems reviewed & are unremarkable except as noted in HPI & below Physical Exam Vital Signs (Past 24 Hours): Last Vital Signs Temp 36.6 C 11/09/18 03:21 Pulse 71 11/09/18 05:01 Resp 16 11/09/18 05:01 BP 100/63 11/09/18 05:01 Pulse Ox 97 11/09/18 05:01 Physical Exam: General: patient resting comfortably, NAD, non-toxic in appearance, AA&O x 4 Skin: warm, dry, intact, no rashes or lesions HEENT: NC/AT, PERRL, EOMI, anicteric sclera, conjunctiva without injection, external ear normal to inspection and nontender, nares patent, moist mucus membranes, dentition intact, no oropharyngeal lesions, neck supple, trachea midline, no LAD, no thyromegaly, no JVD Heart: +S1/S2, regular, no m/r/g Lungs: equal air entry bilaterally, no rales/rhonchi/wheezes Abd: +BS, soft, NT/ND, no masses/organomegaly/ascites Ext: warm, 2+ pulses in UE/LE bilaterally, no clubbing/cyanosis or edema, right knee with well healed surgical scar, open area on medial and lateral aspect of the knee with yellow purulent drainage Neuro: nonfocal, patient AA&O x 4, speech intact, no facial droop, moving all extremities on command with equal strength 5/5 Results & Data Laboratory Results Lab Results 11/09/18 11/09/18 11/09/18 Range/Units 03:33 03:33 03:33 WBC 7.87 (4.8-10.8) K/uL RBC 4.63 (4.2-5.4) M/uL Hgb 12.7 (12.0-16.0) g/dL Hct 39.6 (37-47) % MCV 85.5 (80-100) fL MCH 27.4 (25-34) pg MCHC 32.1 (32-36) g/dL RDW Std Deviation 49.7 H (36.4-46.3) fL RDW Coeff of Elif 15.9 H (11.5-14.5) % Plt Count 256 (130-400) K/uL MPV 9.5 (7.4-10.4) fL Immature Gran % (Auto) 0.1 % Neut % (Auto) 58.6 % Lymph % (Auto) 29.2 % [place] % (Auto) 7.8 % Eos % (Auto) 3.9 % Baso % (Auto) 0.4 % Immature Gran # (Auto) 0.01 (0.00-0.02) K/uL Neut # (Auto) 4.61 (1.4-6.5) K/uL Lymph # (Auto) 2.30 (1.2-3.4) K/uL [place] # (Auto) 0.61 H (0.11-0.59) K/uL Eos # (Auto) 0.31 (0-0.5) K/uL Baso # (Auto) 0.03 (0-0.2) K/uL PT 11.1 (9.0-12.0) Seconds INR 1.1 (0.9-1.1) APTT 28.0 (21.0-31.0) Seconds PTT Ratio 1.0 Sodium 136 (136-145) mmol/L Potassium 4.4 (3.5-5.1) mmol/L Chloride 104 (98-107) mmol/L Carbon Dioxide 29 (21-32) mmol/L Anion Gap 3.0 (3-11) BUN 16 (7-18) mg/dl Creatinine 0.99 (0.6-1.2) mg/dl Est Cr Clr Drug Dosing 40.4 ml/min Est GFR ( Amer) 61.9 Est GFR (Non-Af Amer) 53.4 BUN/Creatinine Ratio 16.6 (10-20) Glucose 113 H (70-99) mg/dl Calcium 8.5 (8.5-10.1) mg/dl Total Bilirubin 0.2 (0.2-1) mg/dl AST 14 L (15-37) U/L ALT 10 L (12-78) U/L Alkaline Phosphatase 90 (45-117) U/L Troponin I 0.437 H* (0-0.045) ng/ml Total Protein 6.9 (6.4-8.2) gm/dl Albumin 2.7 L (3.4-5.0) gm/dl Globulin 4.2 H (2.5-4.0) gm/dl Albumin/Globulin Ratio 0.6 L (0.9-2) Diagnostic Findings CXR - s/p sternotomy. No acute process ECG Additional Comments: The study shows NSR at 84bpm, normal axis, LBBB which was present before, QTc prolonged at 501, no acute ST-T wave changes Code Status & VTE Plan Code Status FULL VTE Prophylaxis Plan VTE Prophylaxis will be ordered: Yes (1) Hypothyroid Hypothyroidism type: acquired Qualified Code(s): E03.9 - Hypothyroidism, unspecified (2) Hypertension Hypertension type: essential hypertension Qualified Code(s): I10 - Essential (primary) hypertension (3) Chest pain Chest pain type: unspecified Qualified Code(s): R07.9 - Chest pain, unspecified (4) Hyperlipidemia Hyperlipidemia type: unspecified Qualified Code(s): E78.5 - Hyperlipidemia, unspecified
[2018-11-09] MEDS ORDERED: DOCUSATE SODIUM 100 MG CAP PO PRN (06:21)
[2018-11-09] MEDS ORDERED: ONDANSETRON INJ 2 MG/ML 2 ML VIAL IV PRN (06:21)
[2018-11-09] MEDS ORDERED: ACETAMINOPHEN 325 MG TAB PO PRN (06:21)
[2018-11-09] MEDS ORDERED: POLYETHYLENE (MIRALAX) 17 GM PACK PO PRN (06:21)
[2018-11-09] MEDS ORDERED: NITROGLYCERIN SL 0.4 MG/TAB TAB SL PRN (06:21)
[2018-11-09] MEDS ORDERED: ALUMINUM/MAGNESIUM SUSP 30 ML UDC PO PRN (06:21)
--- NOTE | 2018-11-09 06:48 | Emergency Department Note ---
Entered by Neal Ziegler acting as a scribe for Amaris Yen DO History of Present Illness General Chief complaint: Chest Pain Stated complaint: CHEST PAIN AROUND 2AM-TOOK 3 NITRO Time Seen by Provider: 11/09/18 03:37 Source: patient History of Present Illness Onset (ago): hour(s) 2 Location: chest Pain Consistency: + intermittent Quality: + burning Exacerbated By: + medication (nitro) Associated symptoms: + denies other symptoms (sweating, abdominal pain); no nausea/vomiting and no shortness of breath The patient is an 83 year old female who presents to the Emergency Room with complaints of now resolved burning to her chest that occurred 2 hours ago. The patient states she woke in the night to a burning sensation in her chest. She reports she had a similar episode a few days ago that caused her to stay in the hospital, and this episode is sharper then her past one. The patient notes she was admitted overnight for observation when she developed her symptoms last. She states she found nitro tablets at home and took three of them. The patient reports this alleviated most of her symptoms but she still feels slightly off. She notes a history of open heart surgery, and the past few days is the first time she had chest pain since her surgery. The patient states she also denies nausea, vomiting, sweating, abdominal pain, and SOB. Home Medications Home Medications Medication Instructions Recorded Confirmed Type ascorbic acid (vitamin C) [Vitamin 500 mg PO DAILY 11/05/18 11/09/18 History C] aspirin 81 mg PO DAILY 11/05/18 11/09/18 History cephalexin 500 mg PO TID 11/05/18 11/09/18 History cholecalciferol (vitamin D3) 1,000 unit PO DAILY 11/05/18 11/09/18 History [Vitamin D3] levothyroxine 25 mcg PO DAILY 11/05/18 11/09/18 History losartan 50 mg PO DAILY 11/05/18 11/09/18 History metoprolol succinate 25 mg PO DAILY 11/05/18 11/09/18 History omeprazole 20 mg PO DAILY 11/05/18 11/09/18 History ranitidine HCl 150 mg PO DAILY 11/05/18 11/09/18 History rosuvastatin 30 mg PO DAILY 11/05/18 11/09/18 History tolterodine 2 mg PO DAILY 11/05/18 11/09/18 History vancomycin 125 mg PO BID 11/05/18 11/09/18 History nitroglycerin [Nitrostat] 0.4 mg SUBLINGUAL UD PRN #10 tab 11/06/18 11/09/18 Rx Allergies Allergy/AdvReac Type Severity Reaction Status Date / Time lisinopril AdvReac Unknown NAUSEA Verified 11/09/18 03:28 VOMITING sulfasalazine AdvReac Unknown NAUSEA-COULDN'T Verified 11/09/18 03:28 EAT Past Med/Surg History Medical History Abdominal aneurysm Heart attack Chronic infection of knee Clostridium 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 Hypertension Surgical History History of quadruple bypass History of knee surgery Family History Other Family history non-contributory Social History Preferred Language: [place] Beliefs That Will Affect Care: None Current Living Situation: Family Current Living Situation Comment: with dtr, [place] Feels Safe at Home: Yes Smoking Status: Former smoker Hx Alcohol Use: No Hx Substance Use: No Review of Systems See HPI for pertinent positives & negatives. and A total of 10 systems reviewed and were otherwise negative Physical Exam Vital Signs Vital Signs - 24 hr 11/09/18 03:21 11/09/18 03:25 11/09/18 03:31 Temperature 36.6 C Temperature Source Oral Sepsis Recent Fever Within 48 Hours No Sepsis Action Taken by Nursing No Action Required Pulse Rate 78 79 81 Pulse Rate from SpO2 Sensor 79 81 Respiratory Rate 18 20 20 Respiratory Effort / Characteristics Respiratory Depth Normal Respiratory Pattern Blood Pressure 167/101 H 144/86 H 90/64 L Blood Pressure [Left Arm] Blood Pressure Mean 123 105 72 Blood Pressure Mean [Left Arm] Blood Pressure Position [Left Arm] Pulse Oximetry 95 98 96 Oxygen Delivery Method Room Air 11/09/18 03:37 11/09/18 03:43 11/09/18 04:01 Temperature Temperature Source Sepsis Recent Fever Within 48 Hours Sepsis Action Taken by Nursing Pulse Rate 79 73 Pulse Rate from SpO2 Sensor 72 Respiratory Rate 20 17 Respiratory Effort / Characteristics Non-Labored Spontaneous Respiratory Depth Normal Respiratory Pattern Blood Pressure 112/68 Blood Pressure [Left Arm] Blood Pressure Mean 82 Blood Pressure Mean [Left Arm] Blood Pressure Position [Left Arm] Pulse Oximetry 95 96 Oxygen Delivery Method Room Air 11/09/18 04:30 11/09/18 05:01 11/09/18 05:30 Temperature Temperature Source Sepsis Recent Fever Within 48 Hours Sepsis Action Taken by Nursing Pulse Rate 69 71 68 Pulse Rate from SpO2 Sensor 69 72 67 Respiratory Rate 15 16 24 Respiratory Effort / Characteristics Respiratory Depth Respiratory Pattern Blood Pressure 142/71 H 100/63 117/65 Blood Pressure [Left Arm] Blood Pressure Mean 94 75 82 Blood Pressure Mean [Left Arm] Blood Pressure Position [Left Arm] Pulse Oximetry 96 97 95 Oxygen Delivery Method Room Air 11/09/18 06:21 Temperature 36.6 C Temperature Source Oral Sepsis Recent Fever Within 48 Hours Sepsis Action Taken by Nursing Pulse Rate Pulse Rate from SpO2 Sensor Respiratory Rate 18 Respiratory Effort / Characteristics Non-Labored Respiratory Depth Normal Respiratory Pattern Regular Blood Pressure Blood Pressure [Left Arm] 122/72 Blood Pressure Mean Blood Pressure Mean [Left Arm] 88 Blood Pressure Position [Left Arm] Sitting Pulse Oximetry 93 Oxygen Delivery Method Room Air HEENT: Head - normocephalic and atraumatic Pupils are equal, round, and reactive to light. Extraocular eye muscles are intact, and sclera are anicteric. Nose - moist nasal mucosa without discharge. Mouth - moist buccal mucosa. Oropharynx is nonerythematous and there is no tonsillar exudate or edema noted. Neck: Supple; no JVD, nuchal rigidity, cervical lymphadenopathy. Heart: Regular rate and rhythm. There is a normal S1 and S2 with no murmurs, clicks, or gallops appreciated. Lungs: Clear to auscultation bilaterally with no wheezes, rales, or rhonchi. Abdomen: Soft, completely nontender, nondistended, with good bowel sounds. There are no palpable pulsatile masses or hepatosplenomegaly. There is no guarding, rigidity, or rebound noted. Extremities: No evidence of cyanosis, clubbing, or edema. There are easily palpable peripheral pulses. Wound on the right proximal gagnon. Skin: warm and dry with good turgor and no rashes. Course 0344: The patient was evaluated in room A11B. A complete history and physical examination were performed. Nursing notes and previous electronic medical records were reviewed. IV lock was established and labs were drawn as above. A twelve-lead EKG was obtained as described above. The patient was observed on the cardiac cath technologist and pulse oximeter. A chest x-ray was performed. 0401: The patient's daughter informed me the patient's troponin was elevated last time she was here which was just a couple of days ago. I also discussed the findings with her. She verbalized agreement to a hospitalist evaluation and the treatment plan. The patient will be evaluated for further management and care. 0430: I reviewed the patient's case with Dr. Awad, [facility] Hospitalist. She will evaluate the patient for further management. 0431: Ordered Heparin Sodium/Dextrose 1 ea IV 0500: Heparin Sodium/Dextrose 25,000 units in 500 mls @ 21 mls/hr IV Administered Medications Discontinued Medications Heparin Sodium/Dextrose () 1 ea IV ONE ONE; Protocol Stop: 11/09/18 04:32 Last Admin: 11/09/18 05:00 Dose: Not Given Documented by: [id number] Heparin Sodium/Dextrose (Heparin Sodium/Dextrose) Confirm Administered Dose 25,000 units IV .STK-MED ONE Stop: 11/09/18 04:55 Last Admin: 11/09/18 04:59 Dose: 1,050 units Documented by: [id number] Cosigned by: [id number] Medical Decision Making Differential Diagnosis Differential Diagnosis includes:ACS, STEMI, GERD Medical Records Attestation: I reviewed the patient's medical records. Home Medications Current Medication List: was personally reviewed by me Laboratory Data Attestation: I reviewed the patient's lab results. Result diagrams: 11/09/18 03:33 11/09/18 03:33 Lab Results 11/09/18 11/09/18 11/09/18 Range/Units 03:33 03:33 03:33 WBC 7.87 (4.8-10.8) K/uL RBC 4.63 (4.2-5.4) M/uL Hgb 12.7 (12.0-16.0) g/dL Hct 39.6 (37-47) % MCV 85.5 (80-100) fL MCH 27.4 (25-34) pg MCHC 32.1 (32-36) g/dL RDW Std Deviation 49.7 H (36.4-46.3) fL RDW Coeff of Elif 15.9 H (11.5-14.5) % Plt Count 256 (130-400) K/uL MPV 9.5 (7.4-10.4) fL Immature Gran % (Auto) 0.1 % Neut % (Auto) 58.6 % Lymph % (Auto) 29.2 % [place] % (Auto) 7.8 % Eos % (Auto) 3.9 % Baso % (Auto) 0.4 % Immature Gran # (Auto) 0.01 (0.00-0.02) K/uL Neut # (Auto) 4.61 (1.4-6.5) K/uL Lymph # (Auto) 2.30 (1.2-3.4) K/uL [place] # (Auto) 0.61 H (0.11-0.59) K/uL Eos # (Auto) 0.31 (0-0.5) K/uL Baso # (Auto) 0.03 (0-0.2) K/uL PT 11.1 (9.0-12.0) Seconds INR 1.1 (0.9-1.1) APTT 28.0 (21.0-31.0) Seconds PTT Ratio 1.0 Sodium 136 (136-145) mmol/L Potassium 4.4 (3.5-5.1) mmol/L Chloride 104 (98-107) mmol/L Carbon Dioxide 29 (21-32) mmol/L Anion Gap 3.0 (3-11) BUN 16 (7-18) mg/dl Creatinine 0.99 (0.6-1.2) mg/dl Est Cr Clr Drug Dosing 40.4 ml/min Est GFR ( Amer) 61.9 Est GFR (Non-Af Amer) 53.4 BUN/Creatinine Ratio 16.6 (10-20) Glucose 113 H (70-99) mg/dl Calcium 8.5 (8.5-10.1) mg/dl Total Bilirubin 0.2 (0.2-1) mg/dl AST 14 L (15-37) U/L ALT 10 L (12-78) U/L Alkaline Phosphatase 90 (45-117) U/L Troponin I 0.437 H* (0-0.045) ng/ml Total Protein 6.9 (6.4-8.2) gm/dl Albumin 2.7 L (3.4-5.0) gm/dl Globulin 4.2 H (2.5-4.0) gm/dl Albumin/Globulin Ratio 0.6 L (0.9-2) Imaging Data Attestation: I personally reviewed and interpreted this imaging study as follows: My Impression: XR chest 1V portable: when compared to 11/05/18, the x-ray is unchanged. Sternotomy wires are in place. No cardiomegaly. ECG Data Attestation: I personally reviewed and interpreted this ECG as follows: Indication: chest pain Rate (beats per minute): 84 Rhythm: normal sinus Findings: + T-wave inversion (Inferiorly and laterally); no PAC, no PVC and no ectopy Comparison ECG Date: from (11/06/18) Change: the following changes noted (TWI are new) Blood Pressure Blood Pressure Findings: Normal blood pressure Blood Pressure Disposition: did not require urgent referral MDM Narrative The patient is an 83 year old female who presents to the Emergency Room with complaints of now resolved burning to her chest that occurred 2 hours ago. The patient had just been admitted to the hospital earlier this week with an episode of chest pain and shortness of breath. At that time, she was evaluated by cardiology. This persistently elevated troponin that was not elevating were decreasing. They were not convinced that she had suffered a myocardial infarction. 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 The patient felt well at the time of discharge but unfortunately awoke this morning with a burning sensation in her chest that was relieved with nitroglycerin. The patient does have an elevated troponin. She was treated w ith IV heparin drip. The chest pain did not return while she was here in the emergency department. I discussed the case with the [facility] Hospitalist and they will evaluate for further management. Impression & Plan Acute non-ST elevation myocardial infarction (NSTEMI) Critical Care Time I have personally spent greater than 45 minutes of critical care time in the direct management of this patient. This includes bedside care, interpretation of diagnostic studies, and testing, discussion with consultants, patient, and family members, and other required patient management activities. This 45 minutes is in excess of all separately billable procedures. Critical Care Time: Yes Total Critical Care Time: 45 Discharge Plan Visit Data *Final* Discharge Date/Time: 11/09/18 05:35 Chief Complaint: Chest Pain Stated Complaint: CHEST PAIN AROUND 2AM-TOOK 3 NITRO ED Provider: Amaris Yen Discharge Problem: Acute non-ST elevation myocardial infarction (NSTEMI) Patient Disposition: Admitted As Inpatient Discharge Instructions Interventions: ED Discharge Assessment Last Done: 11/09/18 05:35 The scribe's documentation has been prepared under my direction and personally reviewed by me in its entirety. I confirm that the note above accurately reflects all work, treatment, procedures, and medical decision making performed by me.
[2018-11-09] MEDS: Heparin Adult STANDARD Wt-Based Dextrose 5% 25,000 units/500 mL IV SCH ×2 (06:51→13:42)
--- NOTE | 2018-11-09 07:16 | XRay Report ---
SINGLE VIEW CHEST CLINICAL HISTORY: Atypical chest pain. FINDINGS: An AP, portable, upright chest radiograph is compared to study dated 11/05/2018. The examina tion is degraded by portable technique and patient rotation. The patient is status post midline dixon otomy. The heart is enlarged and there is atherosclerotic calcification of the thoracic aorta. The pu lmonary vasculature is noncongested. Emphysematous change and chronic interstitial thickening are sim ilar to previous. There is mild bibasilar scarring/atelectasis. No airspace consolidation or large pl eural effusion is identified. No pneumothorax is seen. The skeletal structures are osteopenic. The [facility] thorax is grossly intact. IMPRESSION: Cardiomegaly and emphysema with no acute cardiopulmonary abnormality. Electronically signed by: Yoan Buenrostro M.D. 11/09/2018 7:14 AM
[2018-11-09 07:22] LABS: Magnesium 2.2 mg/dl (1.8-2.4); Phosphorus 3.3 mg/dl (2.5-4.9); Troponin I 0.401 ng/ml (0-0.045)
[2018-11-09] MEDS: cephALEXin 500 MG CAP PO SCH ×3 (08:13→20:07)
[2018-11-09] MEDS: RASPBERRY SYRUP 5 ML UDP PO SCH ×2 (08:14→20:07)
[2018-11-09] MEDS: VANCOMYCIN HCL 125 MG/2.5ML SOLN PO SCH ×2 (08:14→20:07)
[2018-11-09] MEDS: TOLTERODINE TARTRATE LA 2 MG CAPCR PO SCH (08:15)
[2018-11-09] MEDS: ASPIRIN 81 MG ECTAB PO SCH (08:15)
[2018-11-09] MEDS: ROSUVASTATIN CALCIUM 20 MG TAB PO SCH (08:15)
[2018-11-09] MEDS: LOSARTAN POTASSIUM 50 MG TAB PO SCH (08:15)
[2018-11-09] MEDS: LEVOTHYROXINE SODIUM 25 MCG TABLET PO SCH (08:15)
[2018-11-09] MEDS: PANTOprazole 40 MG TAB PO SCH (08:16)
[2018-11-09] MEDS ORDERED: METOPROLOL SUCC 25MG EXT REL TAB PO SCH (09:00)
[2018-11-09] MEDS ORDERED: OPTIRAY 320 125ml IV PRN (10:55)
[2018-11-09] MEDS: ISOSORBIDE MONO EXTENDED REL 30 MG TABCR PO SCH (11:08)
--- NOTE | 2018-11-09 11:28 | CT Scan Report ---
CHEST CTA for PULMONARY ARTERIES CT DOSE: 315.77 mGy.cm HISTORY: Atypical chest pain. Short of breath. TECHNIQUE: Multiaxial CT images of the chest were performed following the intravenous administration of contrast to evaluate the pulmonary arteries. Maximal intensity projection images were also obtaine d. A dose lowering technique was utilized adhering to the principles of ALARA. COMPARISON STUDY: None. FINDINGS: The heart is mildly enlarged. No pleural or pericardial effusions. Small saccular aneurysm at the inferior aspect of the aortic arch measuring 9 mm. Otherwise, the thoracic aorta is normal in caliber with no evidence for dissection. Mild calcified plaque within the aortic arch. The majority o f the bilateral lower lobe and right middle lobe segmental and subsegmental pulmonary arteries are no ndiagnostic due to the respiratory motion artifact. Remaining pulmonary arteries show no filling defe cts to suggest pulmonary embolus. The visualized liver and spleen are unremarkable. No mediastinal or hilar lymphadenopathy. Normal esophagus. There are poststernotomy changes. No pneumothorax. The cent ral airways are patent. There is respiratory motion artifact which partially secures the lungs. Mild emphysema. A few bibasilar linear densities favor scarring or atelectasis. No focal lung consolidatio ns to suggest pneumonia. Linear and irregular densities within the right middle lobe and right upper lobe anteriorly also favors scarring. IMPRESSION: 1. No evidence for pulmonary embolus with limitations as described above. 2. Mild emphysema. 3. Mild cardiomegaly. 4. Poststernotomy changes. 5. A few scarlike densities seen anteriorly within the right middle lobe and right upper lobe. 6. 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 Electronically signed by: Noam Finch M.D. 11/09/2018 11:27 AM
--- NOTE | 2018-11-09 13:36 | Cardiology Consultation ---
Date of Consultation November 09, 2018 Assessment & Plan (1) Chest pain: Her pain is atypical that it occurs on the right side, however she does have low level troponin elevation. Troponin elevation is not diagnostic of myocardial infarction. After discussion with Interventional Cardiology, it was recommended that with her chest pain, documented CAD, and elevated troponin, medical therapy be optimized given her chronic right knee infection with purulent drainage. Unfortunately, her medications were not adjusted on discharge and therefore she did not fail medical therapy. Once again recommend increasing metoprolol succinate to 50 mg daily. Recommend also initiating isosorbide mononitrate 30 mg daily. We discussed this together that we may need to continue to titrate medications to see if we can improve her quality of life. (2) Elevated troponin: Mildly elevated troponin levels but not diagnostic of myocardial infarction. Continue aspirin 81 mg daily. Optimize medical therapy as above. Would avoid PCI given chronic right knee pain, unless symptoms are refractory to medical therapy or she has hemodynamic instability due to ischemic heart disease. (3) CAD (coronary artery disease), [place] coronary artery: Multivessel CAD status post CABG x4 in 1998. Her right-sided chest discomfort may represent angina. Continue aspirin 81 mg daily. Continue high- intensity statin therapy. Titrate beta-sebastien and initiate nitrate therapy as above. Medical therapy recommended at this time given chronic right knee infection with purulent drainage. Recommend outpatient myocardial perfusion s cherelledy, but would first like to optimize medical therapy to improve her symptoms. It would not be unlikely to find that 1 or more of her prior grafts have failed since 1998. (4) Dyspnea on exertion: This may be related to ischemic heart disease. Titrating medications as above. She appears euvolemic. (5) Hypertension: Blood pressure has been reasonably controlled. Titrating medications as above. Disposition: Plan of care communicated with Dr. Obed Bang of the primary hospitalist service. I will be away from the hospital tomorrow. Please contact Dr. Knapp, covering sketch maker, for any questions or concerns. History of Present Illness Reason for Consultation: Chest pain Requesting Physician: Dr. Lavon Awad Attending Physician: Pawel Valdivia DO History of Present Illness Mrs. Martinez is a very pleasant 83-year-old female with a history significant for CAD status post CABG x4 in 1998, dyslipidemia, hypertension, AAA and bilateral iliac artery aneurysms (followed by Dr. Osborne), and chronic left knee infection who presented to [facility] with right-sided chest pressure. In 1998, she underwent cardiac catheterization after being told that she had a myocardial infarction. She had not had any anginal symptoms. This was arranged from the outpatient setting. She eventually underwent CABG x4 in 1998 at [facility], consisting of WHELAN to LAD, left radial artery to OM1 and sequentially to OM2, and JONATAN to mid RCA. She has not required cardiac catheterization since then. She was recently hospitalized on 11/05/2018 to 11/06/2018 with right-sided chest pain. She had troponins approximately 0.2 that appeared to linger near that level. It was recommended that her metoprolol be increased from 25 mg once daily to metoprolol succinate 50 mg once daily. Medical therapy was recommended for her atypical chest discomfort which may represent angina given the fact that she has chronic right knee infection with purulent drainage. An outpatient myocardial perfusion study was being arranged for the cardiology office. Unfortunately, on discharge, her metoprolol succinate was not adjusted and therefore she did not take the increased dose. She was awakened at approximately 2:00 a.m. this morning with right-sided chest discomfort. It was more severe than her most recent episode. She took 3 nitroglycerin tablets and her pain subsided, lasting in total approximately 20- 25 minutes. Her troponin was found to be 0.437. She has not had any further chest discomfort. She denies shortness of breath, syncope, near-syncope, palpitations, edema. The chest pain did not radiate. Since her discharge on 11/06/2018, she had been active throughout her house and did not have recurrent symptoms until 2:00 a.m. this morning while laying in bed. She does recall prior to her last hospitalization that she was dyspnea with exertion while cleaning up her yd. Review of systems: As above. Review of systems otherwise negative/unremarkable. Social history: She smokes approximately 40 pack years but quit in 1998. Rare alcohol. No drugs. . Her daughter lives with her. She has 2 daughters and 1 son. She has grandchildren and great grandchildren. She is unaccompanied. Family history: Father had CAD diagnosed at the age of 67. Brother with CAD at the age of 80. Another brother with CAD. Daughter had [place] and CABG at age of 39. Allergies Allergy/AdvReac Type Severity Reaction Status Date / Time lisinopril AdvReac Unknown NAUSEA Verified 11/09/18 03:28 VOMITING sulfasalazine AdvReac Unknown NAUSEA-COULDN'T Verified 11/09/18 03:28 EAT Home Medications Home Medications Medication Instructions Recorded Confirmed Type ascorbic acid (vitamin C) [Vitamin 500 mg PO DAILY 11/05/18 11/09/18 History C] aspirin 81 mg PO DAILY 11/05/18 11/09/18 History cephalexin 500 mg PO TID 11/05/18 11/09/18 History cholecalciferol (vitamin D3) 1,000 unit PO DAILY 11/05/18 11/09/18 History [Vitamin D3] levothyroxine 25 mcg PO DAILY 11/05/18 11/09/18 History losartan 50 mg PO DAILY 11/05/18 11/09/18 History metoprolol succinate 25 mg PO DAILY 11/05/18 11/09/18 History omeprazole 20 mg PO DAILY 11/05/18 11/09/18 History ranitidine HCl 150 mg PO DAILY 11/05/18 11/09/18 History rosuvastatin 30 mg PO DAILY 11/05/18 11/09/18 History tolterodine 2 mg PO DAILY 11/05/18 11/09/18 History vancomycin 125 mg PO BID 11/05/18 11/09/18 History nitroglycerin [Nitrostat] 0.4 mg SUBLINGUAL UD PRN #10 tab 11/06/18 11/09/18 Rx Patient History Medical History Abdominal aneurysm Heart attack CAD (coronary artery disease) Hypothyroid Chronic infection of knee Clostridium 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 Hypertension Surgical History History of quadruple bypass History of knee surgery Family History Other Family history non-contributory Social History Preferred Language: Somali Communication Ability: Effective Vamp Creaser Required: No Beliefs That Will Affect Care: None Current Living Situation: Family Current Living Situation Comment: with [email or web address] Other Information That Helps Us Care for You: No Feels Safe at Home: Yes Safety Concerns: Feels Safe At This Time Smoking Status: Former smoker Hx Alcohol Use: No Hx Substance Use: No Physical Exam Vital Signs (Past 24 Hours): Last Vital Signs Temp 36.5 C 11/09/18 11:21 Pulse 71 11/09/18 11:21 Resp 16 11/09/18 11:21 BP 144/69 H 11/09/18 11:21 Pulse Ox 97 11/09/18 11:21 Physical Exam: Gen.: No acute distress. Alert and oriented. HEENT: Anicteric sclera. Neck: No JVD. No bruits. Normal carotid upstrokes bilaterally. Cardiac: PMI was nondisplaced. No ventricular heave. Regular. Normal S1-S2. 1/6 systolic ejection murmur at right upper sternal border. No rubs, or gallops. Pulmonary: Clear to auscultation bilaterally without wheezes, rales, or rhonchi. Abdomen: Soft, nontender, nondistended, with normoactive bowel sounds. No bruits noted. Extremities: 2+ right radial pulse. Left radial artery status post resection. 1+ posterior tibialis pulses bilaterally. No edema or cyanosis. Bilateral lower extremity varicose veins. Psychiatric: Affect appears appropriate. Chest: Nontender to palpation. Results & Data Laboratory Results Laboratory Results - last 24 hr 11/09/18 11/09/18 11/09/18 03:33 03:33 03:33 WBC 7.87 RBC 4.63 Hgb 12.7 Hct 39.6 MCV 85.5 MCH 27.4 MCHC 32.1 RDW Std Deviation 49.7 H RDW Coeff of Elif 15.9 H Plt Count 256 MPV 9.5 Immature Gran % (Auto) 0.1 Neut % (Auto) 58.6 Lymph % (Auto) 29.2 [place] % (Auto) 7.8 Eos % (Auto) 3.9 Baso % (Auto) 0.4 Immature Gran # (Auto) 0.01 Neut # (Auto) 4.61 Lymph # (Auto) 2.30 [place] # (Auto) 0.61 H Eos # (Auto) 0.31 Baso # (Auto) 0.03 PT 11.1 INR 1.1 APTT 28.0 PTT Ratio 1.0 Sodium 136 Potassium 4.4 Chloride 104 Carbon Dioxide 29 Anion Gap 3.0 BUN 16 Creatinine 0.99 Est Cr Clr Drug Dosing 40.4 Est GFR ( Amer) 61.9 Est GFR (Non-Af Amer) 53.4 BUN/Creatinine Ratio 16.6 Glucose 113 H Calcium 8.5 Phosphorus Magnesium Total Bilirubin 0.2 AST 14 L ALT 10 L Alkaline Phosphatase 90 Troponin I 0.437 H* Total Protein 6.9 Albumin 2.7 L Globulin 4.2 H Albumin/Globulin Ratio 0.6 L 11/09/18 06:34 WBC RBC Hgb Hct MCV MCH MCHC RDW Std Deviation RDW Coeff of Elif Plt Count MPV Immature Gran % (Auto) Neut % (Auto) Lymph % (Auto) [place] % (Auto) Eos % (Auto) Baso % (Auto) Immature Gran # (Auto) Neut # (Auto) Lymph # (Auto) [place] # (Auto) Eos # (Auto) Baso # (Auto) PT INR APTT PTT Ratio Sodium Potassium Chloride Carbon Dioxide Anion Gap BUN Creatinine Est Cr Clr Drug Dosing Est GFR ( Amer) Est GFR (Non-Af Amer) BUN/Creatinine Ratio Glucose Calcium Phosphorus 3.3 Magnesium 2.2 Total Bilirubin AST ALT Alkaline Phosphatase Troponin I 0.401 H* Total Protein Albumin Globulin Albumin/Globulin Ratio Diagnostic Findings telemetry personally reviewed: No arrhythmia. Sinus rhythm. ECG personally reviewed: ECG 11/09/2018: NSR 84 bpm. LBBB. Echo 11/06/2018: Normal LV size, low-normal systolic function. EF 50-55%. No definite wall motion abnormalities. Moderate concentric LVH. Mildly reduced RV systolic function. Sclerotic aortic valve. Mild MR. RVSP 24. CTA 11/09/2018: No PE, however majority of bilateral lobe and right middle lobe segmental and subsegmental pulmonary arteries are nondiagnostic due to respiratory motion artifact. Mild emphysema. Medications Administered Current Inpatient Medications Acetaminophen (Tylenol) 650 mg PO Q4H PRN PRN Reason: Pain or Fever Stop: 12/09/18 06:20 Al Hydrox/Mg Hydrox/Simethicone (Maalox) 15 ml PO Q6H PRN PRN Reason: Heartburn Stop: 12/09/18 06:20 Aspirin (Ecotrin Ectab) 81 mg PO DAILY [facility] Stop: 12/09/18 08:59 Last Admin: 11/09/18 08:15 Dose: 81 mg Documented by: Cephalexin HCl (Keflex) 500 mg PO TID [facility]; Protocol Stop: 12/21/18 08:59 Last Admin: 11/09/18 13:36 Dose: 500 mg Documented by: Docusate Sodium (Colace) 100 mg PO BID PRN PRN Reason: Constipation Stop: 12/09/18 06:20 Heparin Sodium/Dextrose (Heparin Sodium/Dextrose) 25,000 units in 500 mls @ 21 mls/hr IV .[id number] [facility]; Protocol Stop: 12/09/18 04:59 Last Admin: 11/09/18 06:51 Dose: Not Given Documented by: Ioversol (Optiray 320 125ml) 120 ml IV ONCE PRN PRN Reason: Interaction Checking Stop: 11/13/18 10:54 Last Admin: 11/09/18 10:57 Dose: 120 ml Documented by: Isosorbide Mononitrate (Imdur Extended Rel) 30 mg PO QAM [facility] Stop: 12/09/18 09:59 Last Admin: 11/09/18 11:08 Dose: 30 mg Documented by: Levothyroxine Sodium (Synthroid) 25 mcg PO DAILYBB [facility] Stop: 12/09/18 06:29 Last Admin: 11/09/18 08:15 Dose: 25 mcg Documented by: Losartan Potassium (Cozaar) 50 mg PO DAILY [facility] Stop: 12/09/18 08:59 Last Admin: 11/09/18 08:15 Dose: 50 mg Documented by: Metoprolol Succinate (Toprol Xl) 50 mg PO DAILY [facility] Stop: 12/10/18 08:59 Nitroglycerin (Nitrostat) 0.4 mg SL UD PRN PRN Reason: chest pain Stop: 12/09/18 06:20 Ondansetron HCl (Zofran) 4 mg IV Q6H PRN PRN Reason: Nausea Stop: 12/09/18 06:20 Pantoprazole Sodium (Protonix) 40 mg PO DAILY [facility] Stop: 12/09/18 08:59 Last Admin: 11/09/18 08:16 Dose: 40 mg Documented by: Polyethylene Glycol (Miralax Powder Packet) 17 gm PO DAILY PRN PRN Reason: Constipation Stop: 12/09/18 06:20 Ranitidine HCl (Zantac) 150 mg PO DAILY [facility] Stop: 12/09/18 08:59 Last Admin: 11/09/18 08:14 Dose: 150 mg Documented by: Raspberry (Raspberry) 5 ml PO BID [facility] Stop: 11/23/18 08:59 Last Admin: 11/09/18 08:14 Dose: 5 ml Documented by: Rosuvastatin Calcium (Crestor) 30 mg PO DAILY [facility] Stop: 12/09/18 08:59 Last Admin: 11/09/18 08:15 Dose: 30 mg Documented by: Tolterodine Tartrate (Detrol La) 2 mg PO DAILY [facility] Stop: 12/09/18 08:59 Last Admin: 11/09/18 08:15 Dose: 2 mg Documented by: Vancomycin HCl (Vancomycin Hcl) 125 mg PO BID [facility]; Protocol Stop: 12/09/18 08:59 Last Admin: 11/09/18 08:14 Dose: 125 mg Documented by: (1) Chest pain Chest pain type: unspecified Qualified Code(s): R07.9 - Chest pain, unspecified
[2018-11-09 13:37] LABS: Partial Thromboplastin Ratio 2.1
--- NOTE | 2018-11-09 16:03 | Family Medicine Progress Note ---
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 Concern for waking her from sleep, troponin elevated from prior. EKG with axis change when compared to riki or. Resolved with nitro x 3 (at home). Chest pain in the setting of elevated troponin and h/o CAD -Multivessel CAD status post CABG x4 in 1998 -anginal v GERD v PE (in setting of elev d dimer) -15Apr: CT for PE neg for embolus -Monitored on tele, no events. Hemodynamically stable -troponin elevated from previous admission: 0.2 --> 0.437 on adm, then 0.401 -Continue ASA, Losartan, Crestor -Heparin gtt -Cardiology consultation - medical management given smoldering RKA infection -increase metoprolol to 50mg daily, add isosorbide mononitrate 30mg dailly. -Continue Omeprazole - ?GI component as well -myocardial perfusion study in AM #Hypertension: -Blood pressure well controlled -Continue metoprolol -Continue Losartan -Continue to monitor #Hyperlipidemia: -Continue Crestor #Hypothyroid: -Continue Synthroid #Clostridium 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: -Continue PO Vancomycin -Enteric precautions #Chronic infection of knee: -No evidence of sepsis however infection precludes cardiac cath. ?Contributory to heart strain/myocardial demand? -Gram stain, culture pending -Continue Keflex, wound care #Abdominal aneurysm: - 15Apr chest CT: 9 mm saccular aneurysm at the inferior aspect of the aortic ar ch -Being followed by Dr. Osborne #Overactive bladder -continue tolteridine FEN/GI: Heplock. Monitor electrolytes and replete as needed. NPO after midnite await nuclear stress tomorrow. DVT ppx: heparin gtt CODE STATUS: FULL DISPO: Tele (2) Hyperlipidemia: (3) Hypertension: (4) Dyspnea on exertion: (5) CAD (coronary artery disease), [place] coronary artery: (6) Elevated troponin: (7) DVT prophylaxis: (8) Hypothyroidism: (9) Chronic infection of knee: (10) Atypical chest pain: (11) History of quadruple bypass: (12) History of knee surgery: (13) Abdominal aneurysm: Supervising Physician Co-Signing Physician Notes I personally examined the patient and verified all logan points of history and exam, discussed case, and agree with decision making with Dr Bang. Burning substernal that woke her from sleep. No other notable symptoms Vitals noted, in general she is awake and alert no distress. HEENT normocephalic atraumatic mucous members moist. Breathing is unlabored no accessory muscle use good effort. Skin shows no rashes no pallor or icterus Chest painher symptoms seem most characteristic of GERD. That certainly would not explain her troponin, but given her long-standing coronary disease it is possible that she runs with a mild degree of troponin elevation. CT chest to rule out PE, nuclear medicine stress test to assess for unstable angina. If both of these are negative, then modifications commiserate with GERD management. CT chest shows PE, anticoagulated. If nuc med stress test shows reversible defect, then likely med modification for coronary disease, as a cath would likely be of last resort given her chronic knee infection. Otherwise as above Subjective Seen at bedside this am. Comfortable, denies any chest pain this AM or since admission. States she tolerates ambulation with no difficulty or chest pain. States her right knee infection is stable, no increase in pain, denies fevers or chills. Review of Systems All systems reviewed & are unremarkable except as noted in HPI & below Physical Exam Vital Signs (Past 24 Hours): Last Vital Signs Temp 36.5 C 11/09/18 15:28 Pulse 72 11/09/18 15:28 Resp 18 11/09/18 15:28 BP 99/57 L 11/09/18 15:28 Pulse Ox 94 11/09/18 15:28 Physical Exam: Vitals noted as above and within normal limits . GENERAL: Awake, alert to person, place, and time, nontoxic-appearing, in no distress HENT: Normocephalic, atraumatic. Mucus membranes appear moist. EYES: Normal conjunctiva. Sclera non-icteric. EOMI. NECK: Supple. Full range of motion. RESPIRATORY: Clear to auscultation. Normal work of breathing. CARDIAC: Regular rate, normal rhythm. Extremities warm and well perfused, 2+ radial pulses bilaterally; 2+ posterior tibialis pulses bilaterally. CHEST: post sternotomy scar. Nontender to palpation. ABDOMEN: Soft, non-distended. No tenderness to palpation in all four quadrants. No rebound or guarding. No masses. Bowel sounds are normal. LOWER EXTREMITIES: Inspection of legs reveal RLE >> LLE, TKA scars in tact, on right knee arthroscopy incisional sites draining yellow, foul smelling fluid. They are non-tender. No edema. No discoloration. NEURO: No focal gross focal motor deficits noted. Sensation in tact. CN II-XII grossly in tact. SKIN: Rash not present. No jaundice noted. Significant lesions as above. PSYCH: Appropriate mood and affect. Cooperative. Exam as done by Glenna Bang MD, Drug Abuse Counselor. Results & Data Laboratory Results 11/09/18 11/09/18 11/09/18 Range/Units 13:03 06:34 03:33 WBC (4.8-10.8) K/uL RBC (4.2-5.4) M/uL Hgb (12.0-16.0) g/dL Hct (37-47) % MCV (80-100) fL MCH (25-34) pg MCHC (32-36) g/dL RDW Std Deviation (36.4-46.3) fL RDW Coeff of Elif (11.5-14.5) % Plt Count (130-400) K/uL MPV (7.4-10.4) fL Immature Gran % (Auto) % Neut % (Auto) % Lymph % (Auto) % [place] % (Auto) % Eos % (Auto) % Baso % (Auto) % Immature Gran # (Auto) (0.00-0.02) K/uL Neut # (Auto) (1.4-6.5) K/uL Lymph # (Auto) (1.2-3.4) K/uL [place] # (Auto) (0.11-0.59) K/uL Eos # (Auto) (0-0.5) K/uL Baso # (Auto) (0-0.2) K/uL PT (9.0-12.0) Seconds INR (0.9-1.1) APTT 56.0 H* (21.0-31.0) Seconds PTT Ratio 2.1 Sodium 136 (136-145) mmol/L Potassium 4.4 (3.5-5.1) mmol/L Chloride 104 (98-107) mmol/L Carbon Dioxide 29 (21-32) mmol/L Anion Gap 3.0 (3-11) BUN 16 (7-18) mg/dl Creatinine 0.99 (0.6-1.2) mg/dl Est Cr Clr Drug Dosing 40.4 ml/min Est GFR ( Amer) 61.9 Est GFR (Non-Af Amer) 53.4 BUN/Creatinine Ratio 16.6 (10-20) Glucose 113 H (70-99) mg/dl Calcium 8.5 (8.5-10.1) mg/dl Phosphorus 3.3 (2.5-4.9) mg/dl Magnesium 2.2 (1.8-2.4) mg/dl Total Bilirubin 0.2 (0.2-1) mg/dl AST 14 L (15-37) U/L ALT 10 L (12-78) U/L Alkaline Phosphatase 90 (45-117) U/L Troponin I 0.401 H* 0.437 H* (0-0.045) ng/ml Total Protein 6.9 (6.4-8.2) gm/dl Albumin 2.7 L (3.4-5.0) gm/dl Globulin 4.2 H (2.5-4.0) gm/dl Albumin/Globulin Ratio 0.6 L (0.9-2) 11/09/18 11/09/18 Range/Units 03:33 03:33 WBC 7.87 (4.8-10.8) K/uL RBC 4.63 (4.2-5.4) M/uL Hgb 12.7 (12.0-16.0) g/dL Hct 39.6 (37-47) % MCV 85.5 (80-100) fL MCH 27.4 (25-34) pg MCHC 32.1 (32-36) g/dL RDW Std Deviation 49.7 H (36.4-46.3) fL RDW Coeff of Elif 15.9 H (11.5-14.5) % Plt Count 256 (130-400) K/uL MPV 9.5 (7.4-10.4) fL Immature Gran % (Auto) 0.1 % Neut % (Auto) 58.6 % Lymph % (Auto) 29.2 % [place] % (Auto) 7.8 % Eos % (Auto) 3.9 % Baso % (Auto) 0.4 % Immature Gran # (Auto) 0.01 (0.00-0.02) K/uL Neut # (Auto) 4.61 (1.4-6.5) K/uL Lymph # (Auto) 2.30 (1.2-3.4) K/uL [place] # (Auto) 0.61 H (0.11-0.59) K/uL Eos # (Auto) 0.31 (0-0.5) K/uL Baso # (Auto) 0.03 (0-0.2) K/uL PT 11.1 (9.0-12.0) Seconds INR 1.1 (0.9-1.1) APTT 28.0 (21.0-31.0) Seconds PTT Ratio 1.0 Sodium (136-145) mmol/L Potassium (3.5-5.1) mmol/L Chloride (98-107) mmol/L Carbon Dioxide (21-32) mmol/L Anion Gap (3-11) BUN (7-18) mg/dl Creatinine (0.6-1.2) mg/dl Est Cr Clr Drug Dosing ml/min Est GFR ( Amer) Est GFR (Non-Af Amer) BUN/Creatinine Ratio (10-20) Glucose (70-99) mg/dl Calcium (8.5-10.1) mg/dl Phosphorus (2.5-4.9) mg/dl Magnesium (1.8-2.4) mg/dl Total Bilirubin (0.2-1) mg/dl AST (15-37) U/L ALT (12-78) U/L Alkaline Phosphatase (45-117) U/L Troponin I (0-0.045) ng/ml Total Protein (6.4-8.2) gm/dl Albumin (3.4-5.0) gm/dl Globulin (2.5-4.0) gm/dl Albumin/Globulin Ratio (0.9-2) Medications Administered Current Inpatient Medications Acetaminophen (Tylenol) 650 mg PO Q4H PRN PRN Reason: Pain or Fever Stop: 12/09/18 06:20 Al Hydrox/Mg Hydrox/Simethicone (Maalox) 15 ml PO Q6H PRN PRN Reason: Heartburn Stop: 12/09/18 06:20 Aspirin (Ecotrin Ectab) 81 mg PO DAILY [facility] Stop: 12/09/18 08:59 Last Admin: 11/09/18 08:15 Dose: 81 mg Documented by: Cephalexin HCl (Keflex) 500 mg PO TID [facility]; Protocol Stop: 12/21/18 08:59 Last Admin: 11/09/18 13:36 Dose: 500 mg Documented by: Docusate Sodium (Colace) 100 mg PO BID PRN PRN Reason: Constipation Stop: 12/09/18 06:20 Heparin Sodium/Dextrose (Heparin Sodium/Dextrose) 25,000 units in 500 mls @ 21 mls/hr IV .[id number] [facility]; Protocol Stop: 12/09/18 04:59 Last Titration: 11/09/18 15:02 Dose: 1,050 units/hr, 21 mls/hr Documented by: Ioversol (Optiray 320 125ml) 120 ml IV ONCE PRN PRN Reason: Interaction Checking Stop: 11/13/18 10:54 Last Admin: 11/09/18 10:57 Dose: 120 ml Documented by: Isosorbide Mononitrate (Imdur Extended Rel) 30 mg PO QAM [facility] Stop: 12/09/18 09:59 Last Admin: 11/09/18 11:08 Dose: 30 mg Documented by: [facility]: 12/09/18 06:29 Last Admin: 11/09/18 08:15 Dose: 25 mcg Documented by: Losartan Potassium (Cozaar) 50 mg PO DAILY [facility] Stop: 12/09/18 08:59 Last Admin: 11/09/18 08:15 Dose: 50 mg Documented by: Metoprolol Succinate (Toprol Xl) 50 mg PO DAILY [facility] Stop: 12/10/18 08:59 Nitroglycerin (Nitrostat) 0.4 mg SL UD PRN PRN Reason: chest pain Stop: 12/09/18 06:20 Ondansetron HCl (Zofran) 4 mg IV Q6H PRN PRN Reason: Nausea Stop: 12/09/18 06:20 Pantoprazole Sodium (Protonix) 40 mg PO DAILY [facility] Stop: 12/09/18 08:59 Last Admin: 11/09/18 08:16 Dose: 40 mg Documented by: Polyethylene Glycol (Miralax Powder Packet) 17 gm PO DAILY PRN PRN Reason: Constipation Stop: 12/09/18 06:20 Ranitidine HCl (Zantac) 150 mg PO DAILY [facility] Stop: 12/09/18 08:59 Last Admin: 11/09/18 08:14 Dose: 150 mg Documented by: Raspberry (Raspberry) 5 ml PO BID [facility] Stop: 11/23/18 08:59 Last Admin: 11/09/18 08:14 Dose: 5 ml Documented by: Rosuvastatin Calcium (Crestor) 30 mg PO DAILY [facility] Stop: 12/09/18 08:59 Last Admin: 11/09/18 08:15 Dose: 30 mg Documented by: Tolterodine Tartrate (Detrol La) 2 mg PO DAILY [facility] Stop: 12/09/18 08:59 Last Admin: 11/09/18 08:15 Dose: 2 mg Documented by: Vancomycin HCl (Vancomycin Hcl) 125 mg PO BID [facility]; Protocol Stop: 12/09/18 08:59 Last Admin: 11/09/18 08:14 Dose: 125 mg Documented by: (1) Hyperlipidemia Hyperlipidemia type: unspecified Qualified Code(s): E78.5 - Hyperlipidemia, unspecified (2) Chest pain Chest pain type: unspecified Qualified Code(s): R07.9 - Chest pain, unspecified
[2018-11-10] MEDS: Heparin Adult STANDARD Wt-Based Dextrose 5% 25,000 units/500 mL IV SCH (00:39)
[2018-11-10] MEDS: LEVOTHYROXINE SODIUM 25 MCG TABLET PO SCH (06:32)
[2018-11-10 06:36] LABS: Basophils # (auto) 0.04 K/uL (0-0.2); Basophils % (auto) 0.6 %; Eosinophils # (auto) 0.24 K/uL (0-0.5); Eosinophils % (auto) 3.8 %; Hematocrit (blood only) 37.9 % (37-47); Hemoglobin 11.8 g/dL (12.0-16.0); Immature Granulocytes # (auto) 0.01 K/uL (0.00-0.02); Immature Granulocytes % (auto) 0.2 %; Lymphocytes # (auto) 2.06 K/uL (1.2-3.4); Lymphocytes % (auto) 32.8 %; Mean Corpuscular Hgb Conc 31.1 g/dL (32-36); Mean Corpuscular Volume 87.1 fL (80-100); Mean Platelet Volume 9.7 fL (7.4-10.4); Monocytes # (auto) 0.56 K/uL (0.11-0.59); Monocytes % (auto) 8.9 %; Neutrophils # (auto) 3.37 K/uL (1.4-6.5); Neutrophils % (auto) 53.7 %; Platelet Count 245 K/uL (130-400); RDW Standard Deviation 51.6 fL (36.4-46.3); Red Blood Count 4.35 M/uL (4.2-5.4); White Blood Count 6.28 K/uL (4.8-10.8)
[2018-11-10 06:57] LABS: Partial Thromboplastin Ratio 2.3
[2018-11-10 07:02] LABS: Calcium 8.2 mg/dl (8.5-10.1); Creatinine Clr Calc Pharmacy 41.5 ml/min; Est GFR (African American) 63.5; Est GFR (Non-African American) 54.8; Potassium 3.9 mmol/L (3.5-5.1)
[2018-11-10 07:06] LABS: Partial Thromboplastin Time 61.9 Seconds (21.0-31.0)
[2018-11-10 07:08] LABS: Troponin I 0.436 ng/ml (0-0.045)
[2018-11-10] MEDS ORDERED: METOPROLOL SUCC 50MG EXT REL TAB PO SCH (09:00)
[2018-11-10] MEDS ORDERED: REGADENOSON 0.4 MG/5 ML SYR IV ONE (10:02)
[2018-11-10] MEDS: PANTOprazole 40 MG TAB PO SCH (13:12)
[2018-11-10] MEDS: LOSARTAN POTASSIUM 50 MG TAB PO SCH (13:12)
[2018-11-10] MEDS: ISOSORBIDE MONO EXTENDED REL 30 MG TABCR PO SCH (13:12)
[2018-11-10] MEDS: ROSUVASTATIN CALCIUM 20 MG TAB PO SCH (13:13)
[2018-11-10] MEDS: TOLTERODINE TARTRATE LA 2 MG CAPCR PO SCH (13:14)
[2018-11-10] MEDS: ASPIRIN 81 MG ECTAB PO SCH (13:14)
[2018-11-10] MEDS: cephALEXin 500 MG CAP PO SCH ×2 (13:15→13:16)
[2018-11-10] MEDS: RASPBERRY SYRUP 5 ML UDP PO SCH (13:15)
[2018-11-10] MEDS: VANCOMYCIN HCL 125 MG/2.5ML SOLN PO SCH (13:15)
--- NOTE | 2018-11-10 18:09 | Discharge Summary ---
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 Osborne, HLP, HTN and chronic right knee infection. She was recently admitted to [facility] with right sided chest pressure. Patient with mild elevation in troponin during that hospital stay. Not strongly believed to be ACS. She was discharged home in stable condition with instruction to followup for an outpatient myocardial perfusion study. Patient returns today with central chest burning that woke her from sleep at 02:05. This feeling was similar to before, however, now more intense. 7/10 in severity. Associated with palpitations. She took Nitro x 3 with improvement to 0/10. No SOB, diaphoresis or sweating. Patient had some minor lightheadedness while in the ER. Presently CP free. ER Course: Heparin gtt Principal Diagnosis chest burning Discharge Exam Vitals noted as above and within normal limits . GENERAL: Awake, alert to person, place, and time, nontoxic-appearing, in no distress HENT: Normocephalic, atraumatic. Mucus membranes appear moist. EYES: Normal conjunctiva. Sclera non-icteric. EOMI. NECK: Supple. Full range of motion. RESPIRATORY: Clear to auscultation. Normal work of breathing. CARDIAC: Regular rate, normal rhythm. Extremities warm and well perfused, 2+ radial pulses bilaterally; 2+ posterior tibialis pulses bilaterally. CHEST: post sternotomy scar. Nontender to palpation. ABDOMEN: Soft, non-distended. No tenderness to palpation in all four quadrants. No rebound or guarding. No masses. Bowel sounds are normal. LOWER EXTREMITIES: Inspection of legs reveal RLE >> LLE, TKA scars in tact, on right knee arthroscopy incisional sites draining yellow, foul smelling fluid. They are non-tender. No edema. No discoloration. NEURO: No focal gross focal motor deficits noted. Sensation in tact. CN II-XII grossly in tact. SKIN: Rash not present. No jaundice noted. Significant lesions as above. PSYCH: Appropriate mood and affect. Cooperative. Exam as done by Glenna Bang MD, [facility] [employer]. 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 Concern for waking her from sleep, troponin elevated from prior. EKG with axis change when compared to prior. Resolved with nitro x 3 (at home). Given recurrence of symptoms, plan for nuclear stress test to be performed during this admission, however pretest probability is albeit low. Pt is also not a candidate for non urgent cardiac catheterization given ongoing right knee infection. See below. Chest pain in the setting of elevated troponin and h/o CAD -PMH sig for: Multivessel CAD status post CABG x4 in 1998 -anginal v GERD v PE (in setting of elev d dimer) -15Apr: CT for PE negative for embolus -Monitored on tele, no events. Hemodynamically stable -troponin elevated from previous admission: 0.2 --> 0.437 on adm, then 0.401 -Continue home ASA, Losartan, Crestor -Heparin gtt while here -Appreciate Cardiology recs - pt is not a candidate for cardiac catheterization at this time, optimize medical management given smoldering RKA infection -increase metoprolol to 50mg daily, add isosorbide mononitrate 30mg dailly. -Continue Omeprazole - ?GI component as well -myocardial perfusion study -- still awaiting official read, however will not change current management at this time, as above. To be followed up by cardiology in outpatient setting. #Hypertension: -Blood pressure well controlled -Continue metoprolol (as above) -Continue Losartan -Continue to monitor #Hyperlipidemia: -Continue Crestor #Hypothyroid: -Continue Synthroid #Clostridium 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: -Continue PO Vancomycin -Enteric precautions #Chronic infection of knee: -No evidence of sepsis however infection precludes cardiac cath. ?Contributory to heart strain/myocardial demand? -Gram stain, culture growing expected staph -Continue Keflex, wound care #Abdominal aneurysm: - 15Apr chest CT: 9 mm saccular aneurysm at the inferior aspect of the aortic arch -Being followed by Dr. Osborne #Overactive bladder -continue tolteridine (2) Hyperlipidemia: (3) Hypertension: (4) Dyspnea on exertion: (5) CAD (coronary artery disease), [place] coronary artery: (6) Elevated troponin: (7) DVT prophylaxis: (8) Hypothyroidism: (9) Chronic infection of knee: (10) Atypical chest pain: (11) History of quadruple bypass: (12) History of knee surgery: (13) Abdominal aneurysm: Total Time Total Time Spent Total Time Spent (In Minutes): Greater than 30 Discharge Plan Discharge Items Patient Disposition: Home - Self-Care Reason For Visit: CHEST PAIN Discharge Diagnosis: chest pain - see below Discharge Goals: Diagnostic testing Activity: Resume your previous activity Non-emergency contact: Primary Care Provider and Business Coordinator Call non-emergency contact if: you have any medication questions and your symptoms worsen Follow-up/Referrals: Sandeep Lerma MD [Primary Care Provider] - Diet: Regular and See below Addtl Provider Instructions: chest burning -your symptoms are most consistent with reflux/indigestion - especially with the way it was a burning sensation that woke you from sleep, and you haven't noticed new/worse shortness of breath with walking/exertion, or new/excess fatigue. because of the mild troponin elevation and your prior history of coronary disease we certainly felt it prudent to rule out "big and bad" issues that could cause your symptoms: -the CT of your chest showed no evidence of blood clots -your overall picture did not fit with a heart attack -the stress test is still waiting on being read by cardiology - but the main point of that would be to look for any major areas of compromised blood flow that could require intervention --> which is fairly unlikely. ---> once we've gotten the results of your stress test back, if it does not show any large areas of compromised blood flow, then we can pretty safely attribute your chest burning to reflux (both because that's what those symptoms fit the best with, and because we'll have effectively ruled out the other serious and concerning things that could potentially cause this picture), then if you have symptoms again, we'd recommend trying management for reflux (TUMS) prior to considering nitroglycerin (of course, if the symptoms were new/different or failed to get better, it would be quite reasonable to get checked out). if you're needing TUMS a lot, or the reflux isn't improving over a few weeks time, then it would definitely be worth talking more with Dr Lerma about management. ---> with a prior bypass surgery, it's pretty common to see small areas of compromised blood flow on stress testing, so if we're calling to let you know that, definitely don't be alarmed. mild troponin elevation -troponin is an enzyme that is pretty specific to heart muscle, and the fact that yours was (albeit quite mildly) elevated during the last two times to the hospital was why we definitely felt the need to evaluate symptoms more in depth. Dr Norris did think that with your prior heart history, and persistently mild elevation of troponin, that overall we could help your situation by taking strain off your heart more with adjustments in heart medications: -we've increased your metoprolol to 50mg daily - this will slow heart rate down and take workload off your heart in this way. more than likely you won't notice anything with the increase in the dose - but if you were, it would most likely be feeling weak/lightheaded or sluggish/fatigued. -we've also added isosorbide - a nitrate medicine that dilates blood vessels to help take strain off your heart. this can sometimes make people feel more lightheaded when they first stand up (so stay near the bed or chair when you first stand up until you're sure that's not happening to you) and to a lesser degree, sometimes people can get swelling in their feet/ankles. if this were to happen, hold off on taking the med until you talk more with Dr Lerma or Dr Norris. Prescriptions: New metoprolol succinate 50 mg Tablet Extended Release 24 Hr 50 mg PO DAILY Qty: 30 RF: 0 isosorbide mononitrate 30 mg Tablet Extended Release 24 Hr 30 mg PO QAM Qty: 30 RF: 0 Continued tolterodine 2 mg capsule,extended release 24hr 2 mg PO DAILY RF: 0 vancomycin 125 mg capsule 125 mg PO BID RF: 0 levothyroxine 25 mcg tablet 25 mcg PO DAILY RF: 0 cephalexin 500 mg capsule 500 mg PO TID RF: 0 omeprazole 20 mg capsule,delayed release(DR/EC) 20 mg PO DAILY RF: 0 rosuvastatin 20 mg tablet 30 mg PO DAILY RF: 0 losartan 50 mg tablet 50 mg PO DAILY RF: 0 aspirin 81 mg Tablet,Delayed Release (Dr/Ec) 81 mg PO DAILY RF: 0 ascorbic acid (vitamin C) [Vitamin C] 500 mg Tablet 500 mg PO DAILY RF: 0 ranitidine HCl 150 mg Tablet 150 mg PO DAILY RF: 0 cholecalciferol (vitamin D3) [Vitamin D3] 1,000 unit Capsule 1,000 unit PO DAILY RF: 0 nitroglycerin [Nitrostat] 0.4 mg Tablet, Sublingual 0.4 mg sublingual UD PRN (Reason: chest pain) Qty: 10 RF: 0 Discontinued metoprolol succinate 25 mg tablet extended release 24 hr 25 mg PO DAILY RF: 0 Stand-Alone Forms: Pending Sale To [facility] Discharge Orders: Discharge Order (Routine); Ordered 11/10/18 Ordered By: Pawel Valdivia Admission Data Admit Date/Time: 11/09/18 04:56 Attending Provider: Pawel Valdivia Admit Provider: Juana Awad Primary Care Provider: Sandeep Lerma Other Providers: Juana Awad ; Elvin Krishnamurthy ; Mack Lora ; Jr Matos ; Kael Knapp ; Robbin Keyes Jr ; Maik Norris ; Candida Sosa ; Latasha Dykes ; Mao Cam ; Mao English ; Arthur Mendez ; Mitesh Kevin Jennifer M. ; Jess Real Service: Telemetry Other Interventions: Discharge Summary Assessment (RN) Last Done: 11/10/18 19:33 DC Date/Time DO NOT enter until pt leaves facility: 11/10/18 19:15 Supervising Physician Co-Signing Physician Notes I personally examined the patient and verified all logan points of history and exam, discussed case, and agree with decision making with Dr Bang. Feeling better. No further burning. CT was negative. Stress test still pending interpretation. Cardiology input noted and appreciated. Extensive discussion with patient and over the phone with daughter, explaining the most likely that her symptoms are reflux related, that the stress test was not likely to be a significant life changing test as much as a route aide that hopefully would allow her to feel more reassured that she is not having angina she did not show significant areas of reversible ischemia. Given that she would be high risk for heart cath with her active knee infection, most likely even with a degree of reversible ischemia but management would be the most appropriate course of action anyway. They expressed understanding of this. Vitals noted, in general she is awake and alert pleasant no distress. HEENT normal cephalic atraumatic mucous members moist. Breathing is unlabored no accessory muscle use. Skin shows no rashes no pallor or icterus. Chest burningmost likely indigestion. She is already on a PPI and an H2. Discussed diet modifications, calcium carbonate as needed, follow-up with PCP. Certainly if this persists or does not resolve then an EGD could possibly be warranted but this seems unlikely, and certainly not warranted at this time. Coronary artery disease/elevated troponinnot entirely clear the etiology of her troponin elevation. Certainly she does not show anything consistent with an HI or unstable angina, unless her stress test comes back showing significant areas of reversible ischemia. Cardiology input appreciated, and meds were adjusted to take strain off of heart further, and she will have outpatient follow-up. Chronic knee infectionfinal culture and sensitivities are pending, ongoing suppressive cephalexin for now, the rest as per outpatient therapy. Stable for discharge to home. Resident Activity Tracking Resident Involvement: Resident Care Provided Care Provided: Adult Hospital Medicine
--- NOTE | 2018-11-11 17:09 | Myocardial Perfusion Study ---
Date of Service November 11, 2018 Myocardial Perfusion Study [facility] Myocardial Perfusion Study Report One day nuclear medicine technetium 99m Cardiolite myocardial perfusion scan Clinical history: This stress test is being performed chest pain syndrome in a patient with known coronary artery disease Comparison: None Technique: For the stress portion of the study, 33.4 mCi of technetium 99m Cardiolite IV was injected at 11:25 a.m. on November 10, 2018. Thirty minutes following the injection, imaging of the heart was performed in multiple projections. For the rest portion of the study, 10.9 mCi of technetium 99m Cardiolite was injected IV at 9:40 a.m. on November 10, 2018. One hour following the injection, imaging of the heart was performed in the same projections. Lexiscan administration: For the stress portion of the study, the patient received 0.4 mg of Lexiscan injected intravenously. The patient did not experience Lexiscan induced chest discomfort. There were no EKG changes. Following the study, patient is hemodynamically stable without complaints. Findings: The short axis, vertical long axis, and horizontal long axis images were reviewed in detail. There was normal myocardial perfusion at both stress and rest thus excluding a prior myocardial infarction or evidence of stress induced myocardial ischemia. The left ventricle demonstrates normal systolic function without wall motion abnormalities. The left ventricular ejection fraction is 58 %. Conclusions: 1. No scintigraphic evidence of a prior myocardial infarction or stress-induced myocardial ischemia. 2. No Lexiscan induced chest pain. 3. No Lexiscan induced EKG changes. 4. Normal left ventricular systolic function without wall motion abnormality. Left ventricular ejection fraction is 58 %.
== END 2018-11-10 19:15 | disposition home or self-care (01) | DRG 313 ==
LOC: ED 03:15 → SUATTDRO 04:56 → 2S 04:56

== ENCOUNTER 2020-08-15 10:35 | Inpatient (IN) ==
[2020-08-15] MEDS ORDERED: ACETAMINOPHEN 1,000 MG/100 ML VIAL IV STA (11:23)
[2020-08-15] MEDS ORDERED: DEXAMETHASONE SOD PHOSPHATE 10 MG in SYRINGE 0 ML IV STA (11:23)
[2020-08-15] MEDS ORDERED: ALBUT/IPRATROP 3MG/0.5MG NEB 3 ML VIAL NEB STA (11:23)
[2020-08-15] MEDS ORDERED: guaiFENesin 600 MG TABCR PO STA (11:23)
[2020-08-15] MEDS ORDERED: DEXAMETHASONE SOD INJ 10 MG/ML VIAL ONE (11:30)
[2020-08-15] MEDS ORDERED: FAMOTIDINE 20MG IV PUSH 20 MG/5 ML SYR IV STA (11:31)
[2020-08-15] MEDS ORDERED: ONDANSETRON INJ 2 MG/ML 2 ML VIAL IV STA (11:31)
[2020-08-15] MEDS ORDERED: ONDANSETRON INJ 2 MG/ML 2 ML VIAL ONE (11:31)
[2020-08-15 12:04] LABS: Base Excess VBG 2.5 mEq/L; Oxygen Saturation VBG 72.6 %; pH VBG 7.4 (7.36-7.41)
[2020-08-15 12:11] LABS: Basophils # (auto) 0.01 K/uL (0-0.2); Basophils % (auto) 0.1 %; Eosinophils # (auto) 0.01 K/uL (0-0.5); Eosinophils % (auto) 0.1 %; Hematocrit (blood only) 30.2 % (37-47); Hemoglobin 9.5 g/dL (12.0-16.0); Immature Granulocytes # (auto) 0.03 K/uL (0.00-0.02); Immature Granulocytes % (auto) 0.3 %; Lymphocytes # (auto) 0.81 K/uL (1.2-3.4); Lymphocytes % (auto) 9.1 %; Mean Corpuscular Hemoglobin 26.4 pg (25-34); Mean Corpuscular Hgb Conc 31.5 g/dL (32-36); Mean Corpuscular Volume 83.9 fL (80-100); Mean Platelet Volume 9.9 fL (7.4-10.4); Monocytes # (auto) 0.52 K/uL (0.11-0.59); Monocytes % (auto) 5.8 %; Neutrophils # (auto) 7.53 K/uL (1.4-6.5); Neutrophils % (auto) 84.6 %; Platelet Count 244 K/uL (130-400); RDW Coefficient of Variation 16.6 % (11.5-14.5); RDW Standard Deviation 50.7 fL (36.4-46.3); White Blood Count 8.91 K/uL (4.8-10.8)
--- NOTE | 2020-08-15 12:20 | Emergency Department Note ---
Impression & Plan Hypoxia, Acute exacerbation of CHF (congestive heart failure), Volume overload, Acute UTI ED Provider Note NAME: ERINN MALIN AGE: 85 SEX: F ARRIVES VIA: Ambulance INFORMANT: Patient, ED PROVIDER(S): Andres Chappell MD CHIEF COMPLAINT: Shortness of breath. PLAN: Disposition: Admit MEDICAL DECISION MAKING: The patient is a pleasant 85-year-old woman with a past medical history of COPD, iliac artery aneurysm and AAA, left bundle branch block, ulcerative colitis, hypertension, hyperlipidemia, CAD,, chronic right knee infection who is status post TKA removal with placement of antibiotic spacer approximately 1 week ago at [facility] who presents emergency department accompanied by her daughter with symptoms of nausea intermittent abdominal pain and shortness of breath over the past 48 hours where the patient reports improvement in symptoms when she moves her bowels but then her shortness of breath will recur. They deny fevers, chills, cough, congestion, diarrhea or constipation or urinary symptoms. She has a right Ropivicaine peripheral nerve block catheter and infusion pump. She receives 2g Ancef TID at home since her surgery. The patient is uncomfortable but no acute distress, afebrile with respiratory rate in the mid 20s with mild increased work of breathing and otherwise with stable vital signs. She was placed on nasal cannula by EMS for her mild work of breathing. Mild JVD. Diminished breath sounds at bases with scant intermittent wheeze. She does have 1+ bilateral lower extremity edema right greater than left. EKG with left bundle branch block, no sgarbossa criteria. Chest x-ray with pulmonary edema and bilateral pleural effusions with nonspecific bibasilar densities noted. WBC and platelets within normal limits. H/H 9.5/30.2 decreased from prior although in the setting of recent surgery. VBG unremarkable. Chemistry without metabolic acidosis. Lactate 1.8, within normal limits. Electrolytes without significant abnormalities. Troponin is elevated at 1.9 increased from previous suspected chronic elevations 0.2-0.4. BNP is also elevated at 25K consistent with the patient's overloaded status on exam. Procalcitonin is undetectable. Lipase is not elevated. UA with suspicion for infection with WBCs, positive leuk esterase and nitrite positive with minimal epithelial cells. COVID-19 PCR was negative. Flu and RSV PCR also negative. CTA of the chest was performed and was negative for PE though does redemonstrate previously seen bilateral pleural effusions with septal edema noted as well as dependent airspace opacities. CT of the abdomen pelvis comments on distended gallbladder with nonspecific gallbladder wall thickening and edema as well as mucosal hyperemia as well as pericholecystic stranding and fluid though likely related to suspected CHF and volume overload acute cholecystitis is not excluded. Also seen is a 4 mm calcification identified in the region of the ampulla which could be within the distal common bile duct or possibly the pancreatic duct. Choledocholithiasis is not excluded. However, given the patient's nonobstructive LFTs this is thought to be less likely. Note is also made of enlarged liver that is edematous with periportal edema that again is likely related to the patient's CHF with associated congestive hepatopathy. Note is made of moderate to severe left-sided hydronephrosis that is decreased from May 2020. Dilation of the abdominal aorta and iliac arteries are unchanged. Upon reevaluation the patient's abdomen was reexamined and there is no discrete tenderness of the upper abdomen/right upper quadrant. Formal gallbladder ultrasound was performed for further characterization. Tender gallbladder again noted with thickened and edematous wall and while sludge is appreciated there are no shadowing stones. Pericholecystic fluid is nonspecific and sonographic Charles sign was absent. Clinical suspicion is low particularly given upon reevaluation after creation of diuresis where she did urinate approximately 1400 cc the patient's shortness of breath did improve as well as her work of breathing her nausea and abdominal symptoms had resolved. CHF likely primary etiology to the patient's shortness of breath in setting of her recent surgery, in the setting of her CHF with systolic dysfunction with EF of 25%. Patient was initially given dose of Zosyn empirically for possibility of PNA given basilar densities and recent hospitalization and while gallbladder was further evaluated. Will also treat suspected UTI. Patient and daughter at bedside are agreeable with plan for admission. Case was discussed with Dr. Woo, [facility] hospitalist, who will evaluate the patient for admission. Triage Nursing notes reviewed and agree them. Additional history obtained from daughter at bedside. Prior medical records reviewed Vital Signs: reviewed and remarkable for hypoxia. Differential diagnosis: Reactive airway disease, pneumonia, pneumothorax, COPD, CHF, infections, cardiac ischemia, pulmonary embolism, musculoskeletal, gastrointestinal, as well as other pathologies. ER treatment provided: See below. Diagnostics interpreted by me: ECG: Normal sinus rhythm, 93 bpm, no ectopy. Left bundle branch block, no sgarbossa criteria. Similar to 11/09/2018. Cardiac Monitoring: An order for continuous cardiac monitoring was placed and demonstrated Normal sinus rhythm, 93 bpm, no ectopy. Laboratory studies: See below Imaging studies: XR chest 1V portable HISTORY: SEPSIS COMPARISON: Chest 12/17/2018. FINDINGS: No pneumothorax. There are small bilateral pleural effusions. There is perihilar interstitial/vascular thickening with bibasilar airspace opacities. The heart is enlarged. There are poststernotomy changes. A right PICC terminates at the distal SVC. IMPRESSION: 1. Cardiomegaly, pulmonary edema, and small bilateral pleural effusions. 2. Bibasilar densities are nonspecific but favor atelectasis. A superimposed pneumonia cannot be excluded. ACT 112: Negative or not required by law. CT ANGIOGRAM OF THE CHEST CLINICAL HISTORY: Shortness of breath. Recent surgery. Possible pulmonary embolism. COMPARISON STUDY: 11/09/2018, chest x-ray dated 08/15/2020 TECHNIQUE: Following the IV administration of mL of Optiray-320, CT angiogram of the thorax was performed from the thoracic inlet to the lung bases utilizing the pulmonary embolus protocol. Images are reviewed in the axial, sagittal, and coronal planes. IV contrast was administered without complication. MIP imaging was performed. A dose lowering technique was utilized adhering to the principles of ALARA. CT DOSE: FINDINGS: There is a 3 mm upper pole right renal calculus. There is reflux of contrast into the inferior vena cava and hepatic veins. There is a minimally enlarged precarinal lymph node, unchanged from the prior study. The heart is enlarged with coronary artery calcifications. There is a stable subcentimeter aneurysm arising from the undersurface of the aortic arch. There were no pulmonary artery filling defects to indicate acute pulmonary embolism. There are moderate bilateral pleural effusions. There are dependent airspace opacities, statistically representing compressive atelectatic change. There is mild pulmonary emphysema. There is mild interlobular septal edema. IMPRESSION: 1. No evidence of acute pulmonary embolism 2. Cardiomegaly with moderate bilateral pleural effusions and mild septal edema 3. Mild emphysema 4. Dependent airspace opacities likely representing compressive atelectatic change ACT 112: Negative or not required by law. --- CT SCAN OF THE ABDOMEN AND PELVIS WITH IV CONTRAST CLINICAL HISTORY: Generalized abdominal pain. Nausea. Dyspnea. COMPARISON STUDY: Abdominal CT dated 05/31/2020. TECHNIQUE: Following the IV administration of 120 cc of Optiray 320, CT scan of the abdomen and pelvis is performed from the lung bases to the proximal femora. Images are reviewed in the axial, sagittal, and coronal planes. IV contrast was administered without complication. A dose lowering technique was utilized adhering to the principles of ALARA. Examination is degraded by motion artifact, as well as by streak artifact from the arms which could not be elevated above the abdomen. CT DOSE: 1811.94 mGy.cm FINDINGS: Lung bases: Midline sternotomy wires are noted. The heart is enlarged and without pericardial effusion. The coronary arteries are densely calcified. There are small to moderate pleural effusions with associated consolidation. Liver: The contrast-enhanced liver is enlarged, measuring 20.3 cm in length. The liver is heterogeneous in attenuation. There is no intrahepatic biliary ductal dilatation. The Main portal veins are patent. Periportal edema is observed. The hepatic veins are not opacified. A focus of nonmasslike enhancement in the subcapsular left lobe seen on image #138 likely represents shunt vascularity. Gallbladder: The gallbladder is distended. The gallbladder wall is thickened and edematous with mucosal hyperemia. There is pericholecystic stranding and fluid. A 4 mm calcification is seen near the ampulla on image #203. A distal common bile duct stone is not excluded. Spleen: Normal in size and attenuation. Pancreas: Moderately atrophic and grossly unremarkable. Adrenal glands: Unremarkable. Kidneys: The contrast enhanced kidneys are atrophic. There is moderate to severe left-sided hydronephrosis. The left ureter is normal in caliber and this may represent a UPJ type obstruction. There is no right-sided hydronephrosis. The kidneys enhance symmetrically. There are least 2 nonobstructing right renal calculi which measure up to 4 mm. Abdominal vasculature: There is advanced atherosclerotic calcification of the abdominal aorta. There is diffuse aneurysmal dilatation of the abdominal aorta which measures up to 3.4 cm in diameter. There are bilobed iliac artery aneurysms which measure up to 3.9 cm on the right and 3.0 cm on the left. There is intervertebral dilatation of the internal iliac arteries which measure up to 1.5 cm. Bowel: There is no bowel obstruction. The appendix is not visualized. Peritoneum: There is no intraperitoneal free air. There is a small volume of abdominopelvic ascites. Lymphadenopathy: None. Pelvic viscera: Evaluation of the pelvis is significantly degraded by streak artifact from bilateral hip arthroplasties. The bladder, uterus, and adnexa are grossly unremarkable but not well evaluated. Skeletal structures: The skeletal structures are osteopenic. There is moderate to advanced lumbosacral spondylosis and mild scoliosis. No lytic or blastic lesions are seen. Bilateral hip arthroplasties are in place. Soft tissues: There is body wall edema. IMPRESSION: 1. Cardiomegaly with small to moderate bilateral pleural effusions. These are new from 05/31/2020. 2. Dense bibasilar consolidation likely represent atelectasis. Correlate clin ically for evidence of superimposed pneumonia. 3. The gallbladder is distended. There is nonspecific gallbladder wall thickening and edema as well as mucosal hyperemia. There is pericholecystic stranding and fluid. Although some of this may be related to fluid status, acute cholecystitis is not excluded. Correlation with clinical and laboratory findings well be required. If clinically warranted ultrasound could be considered for further assessment of the gallbladder. 4. There is a 4 mm calcification identified in the region of the ampulla which could be within the distal common bile duct or possibly the pancreatic duct. Choledocholithiasis is not excluded. 5. The liver is enlarged and edematous with periportal edema. This may be related to congestive hepatopathy. 6. There is a small volume of abdominopelvic ascites as well as anasarca of the body wall. 7. There is moderate to severe left-sided hydronephrosis. This has decreased from 05/31/2020 and likely represents a UPJ type obstruction. 8. Right-sided nephrolithiasis. 9. Diffuse aneurysmal dilatation of the abdominal aorta as well as iliac artery aneurysms are similar to previous. 10. Additional findings as above. ACT 112: Negative or not required by law. --- ULTRASOUND RIGHT UPPER QUADRANT ABDOMEN CLINICAL HISTORY: Nausea and vomiting. Generalized abdominal pain.. COMPARISON STUDY: Abdominal CT performed the same day 08/15/2020. TECHNIQUE: Real-time, grayscale, and color flow sonography of the right upper quadrant of the abdomen was performed. Images are reviewed in the transverse and longitudinal planes. FINDINGS: Liver: The liver is enlarged, measuring over 18.5 cm in length. Echotexture is heterogeneous. There is no intrahepatic biliary ductal dilatation. The main portal vein is patent. Gallbladder: The gallbladder is distended. The gallbladder wall is thickened and edematous measuring up to 6 mm. Intraluminal sludge is noted. No shadowing gallstones are identified. There is pericholecystic fluid. A sonographic Charles's sign is reportedly absent. The common bile duct is not well-visualized. Pancreas: Atrophic and not well visualized. Right kidney: Survey images of the right kidney demonstrate cortical atrophy. Echotexture is normal. There is mild fullness of the collecting system without hydronephrosis. Ascites: There is a small volume of upper abdominal ascites. Pleural spaces: There is a right pleural effusion. IMPRESSION: 1. The gallbladder is distended, with a thickened and edematous wall. There is intraluminal sludge with no shadowing stones identified. There is nonspecific pericholecystic fluid and a sonographic Charles's sign is reportedly absent. Findings are equivocal for acute cholecystitis which is not excluded. If there is strong clinical concern for acute cholecystitis a nuclear hepatobiliary scan could be considered to assess for patency of the cystic duct. 2. Nonvisualization of the common bile duct. 3. There is a small volume of upper abdominal ascites and a right pleural effusion. 4. The liver is enlarged and heterogeneous. Consultation(s): Case was discussed with Dr. Woo, [facility] hospitalist, who will evaluate the pat ient for admission. HPI: The patient is a pleasant 85-year-old woman with a past medical history of COPD, iliac artery aneurysm and AAA, left bundle branch block, ulcerative colitis, hypertension, hyperlipidemia, CAD,, chronic right knee infection who is status post TKA removal with placement of antibiotic spacer approximately 1 week ago at [facility] who presents emergency department accompanied by her daughter with symptoms of nausea intermittent abdominal pain and shortness of breath over the past 48 hours where the patient reports improvement in sympto ms when she moves her bowels but then her shortness of breath will recur. They deny fevers, chills, cough, congestion, diarrhea or constipation or urinary symptoms. She has a right Ropivicaine peripheral nerve block catheter and infusion pump. She receives 2g Ancef TID at home since her surgery. ROS: See above HPI for pertinent positives & negatives. A total of 10 systems reviewed and were otherwise negative. PAST MEDICAL HISTORY:See Below PAST SURGICAL HISTORY:See Below FAMILY HISTORY:See Below SOCIAL HISTORY:See Below HOME MEDICATIONS:See Below ALLERGIES:See Below VITALS:See Below PHYSICAL EXAMINATION: GENERAL: Awake, alert, acute on chronically ill-appearing, in no distress HENT: Normocephalic, atraumatic. Oropharynx unremarkable. EYES: Normal conjunctiva. Sclera non-icteric. NECK: Supple. No nuchal rigidity. FROM. Mild JVD. RESPIRATORY: Diminished breath sounds at the bases with a scant intermittent wheeze. CARDIAC: Regular rate, normal rhythm. Extremities warm and well perfused. Pulses equal. ABDOMEN: Soft, non-distended. No tenderness to palpation. No rebound or guarding. No masses. RECTAL: Deferred. MUSCULOSKELETAL: Chest examination reveals no tenderness. The back is symmetrical on inspection without obvious abnormality. There is no CVA tenderness to palpation. No joint edema. LOWER EXTREMITIES: Calves are equal size bilaterally and non-tender. 1+ bilateral lower extremity edema R>L. No discoloration, edema, warmth or tenderness. NEURO: Normal sensorium. No sensory or motor deficits noted. SKIN: No rash or jaundice noted. ED COURSE: Critical Care: I have personally spent greater than 35 minutes of critical care time in the direct management of this patient. This includes bedside care, interpretation of diagnostic studies, and testing, discussion with consultants, patient, and family members, and other required patient management activities. This 35 minutes is in excess of all separately billable procedures. Andres Chappell MD Past Med/Surg History Medical History Abdominal aneurysm Acute non-ST elevation myocardial infarction (NSTEMI) Atypical chest pain CAD (coronary artery disease) Chronic infection of knee Clostridium 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 Dyspnea on exertion GERD (gastroesophageal reflux disease) Heart attack Hypertension Hypothyroid Peripheral arterial disease Surgical History H/O colonoscopy H/O esophagogastroduodenoscopy History of knee surgery History of open reduction and internal fixation (ORIF) procedure right proximal femur 2006 History of quadruple bypass History of total hip replacement Hx of tonsillectomy Family History Mother Leukemia Brother Aortic aneurysm Father Aortic aneurysm Stroke syndrome Tuberculosis Daughter Coronary heart disease Heart problem Grandfather Tuberculosis Uncle Tuberculosis Denies family history of Ovarian cancer Prostate cancer Breast cancer Lung cancer Colorectal cancer Social History Smoking Status: Former smoker Age Started Using Tobacco: 19; Age Quit Using Tobacco: 64; packs per day: 1; Years Smoked: 45; Cigarettes Per Day: 20; Second Hand Exposure: No; Do You Dip or Chew Tobacco: No; Tobacco Cessation Education Requested by Patient: No Hx Alcohol Use: No Hx Substance Use: No Preferred Language: Serbian Communication Ability: Effective Visual Impairment: Diminished Hearing Ability: Hard of Hearing Stogie Packer Required: No Beliefs That Will Affect Care: None marital status: / Current Living Situation: Alone Current Living Situation Comment: daughter near by current occupational status: retired Other Information That Helps Us Care for You: No Feels Safe at Home: Yes Safety Concerns: Feels Safe At This Time Childhood Exposure to Second-Hand Smoke: Yes caffeine: Yes Dental Care, Regularly: No Physical Activity Frequency: Does not Exercise Seatbelt Use: always Sunscreen Use: No Assistive Devices: Glasses Allergies Allergies Allergy/AdvReac Type Severity Reaction Status Date / Time potassium chloride AdvReac Intermediate Vomiting Unverified 08/15/20 12:53 Sulfa (Sulfonamide AdvReac Intermediate NAUSEA/VOMI Verified 08/03/20 09:06 Antibiotics) TING sulfamethoxazole AdvReac Intermediate Vomiting Unverified 08/15/20 12:53 [From Bactrim] trimethoprim [From Bactrim] AdvReac Intermediate Vomiting Unverified 08/15/20 12:53 lisinopril AdvReac Unknown NAUSEA Verified 08/03/20 09:06 VOMITING sulfasalazine AdvReac Unknown NAUSEA-COULDN'T Verified 08/03/20 09:06 EAT Home Meds Home Medications Medication Instructions Recorded Confirmed cholecalciferol (vitamin D3) 1,000 unit PO DAILY 11/05/18 08/15/20 [Vitamin D3] ascorbic acid (vitamin C) 1,000 mg 1 gm PO DAILY tab 12/30/19 08/15/20 tablet tramadol 50 mg tablet 50 mg PO Q8H PRN 12/30/19 08/15/20 aspirin 81 mg tablet,delayed 81 mg PO BID tab 08/03/20 08/15/20 release acetaminophen [Tylenol Extra 1,000 mg PO TID PRN 08/15/20 08/15/20 Strength] isosorbide mononitrate 30 mg PO BID 08/15/20 08/15/20 metoprolol succinate [Toprol XL] 25 mg PO DAILY 08/15/20 08/15/20 ropivacaine (PF) 0 mg UD 08/15/20 08/15/20 rosuvastatin 30 mg PO HS 08/15/20 08/15/20 vancomycin 125 mg PO BID 08/15/20 08/15/20 Previous Rx's Medication Instructions Recorded nitroglycerin 0.4 mg sublingual 0.4 mg SUBLINGUAL UD PRN #25 tabs 05/19/19 tablet tolterodine 4 mg capsule,extended 4 mg PO DAILY #90 cap 11/09/19 release 24 hr losartan 25 mg tablet 25 mg PO DAILY #90 tab 11/30/19 tiotropium bromide 2.5 2 puffs INH DAILY #12 gm 02/09/20 mcg/actuation mist for inhalation pantoprazole 40 mg tablet,delayed 40 mg PO DAILY #90 tab 03/24/20 release Results & Data (ED) Vital Signs Vital Signs - 24 hr 08/15/20 10:48 08/15/20 11:24 08/15/20 11:30 Temperature 36.4 C L Temperature Source Oral Pulse Rate 83 82 Pulse Rate [Apical] Pulse Rate from SpO2 Sensor 85 Respiratory Rate 18 30 H Respiratory Effort / Characteristics Blood Pressure 149/85 H 150/76 H Blood Pressure [Left Arm] Blood Pressure Mean 106 98 Blood Pressure Mean [Left Arm] Pulse Oximetry 95 100 100 Oxygen Delivery Method Room Air Nasal Cannula Nasal Cannula Nebulizer Oxygen Flow Rate 0 1 Sepsis Recent Fever Within 48 Hours No Sepsis New/Unexplained Change in Mental Status No Sepsis Action Taken by Nursing No Action Required Oxygen Flow Rate - Titration 2 Pulse Oximetry Post Tiitration 96 08/15/20 11:46 08/15/20 12:00 08/15/20 12:30 Temperature Temperature Source Pulse Rate 84 84 Pulse Rate [Apical] 84 Pulse Rate from SpO2 Sensor 85 84 Respiratory Rate 19 25 H 24 Respiratory Effort / Characteristics Non-Labored Spontaneous Blood Pressure 134/87 145/78 H Blood Pressure [Left Arm] Blood Pressure Mean 108 100 Blood Pressure Mean [Left Arm] Pulse Oximetry 97 96 95 Oxygen Delivery Method Room Air Nasal Cannula Nasal Cannula Oxygen Flow Rate 2 2 Sepsis Recent Fever Within 48 Hours Sepsis New/Unexplained Change in Mental Status Sepsis Action Taken by Nursing Oxygen Flow Rate - Titration Pulse Oximetry Post Tiitration 08/15/20 13:15 08/15/20 13:30 08/15/20 14:00 Temperature Temperature Source Pulse Rate 83 80 84 Pulse Rate [Apical] Pulse Rate from SpO2 Sensor 84 82 79 Respiratory Rate 25 H 17 18 Respiratory Effort / Characteristics Blood Pressure 129/78 145/74 H 141/87 H Blood Pressure [Left Arm] Blood Pressure Mean 108 94 107 Blood Pressure Mean [Left Arm] Pulse Oximetry 96 91 94 Oxygen Delivery Method Nasal Cannula Nasal Cannula Nasal Cannula Oxygen Flow Rate 2 2 2 Sepsis Recent Fever Within 48 Hours Sepsis New/Unexplained Change in Mental Status Sepsis Action Taken by Nursing Oxygen Flow Rate - Titration Pulse Oximetry Post Tiitration 08/15/20 14:30 08/15/20 15:00 08/15/20 15:18 Temperature Temperature Source Pulse Rate 80 81 81 Pulse Rate [Apical] Pulse Rate from SpO2 Sensor 80 81 80 Respiratory Rate 20 19 19 Respiratory Effort / Characteristics Blood Pressure 143/80 H 142/86 H 142/86 H Blood Pressure [Left Arm] Blood Pressure Mean 89 108 108 Blood Pressure Mean [Left Arm] Pulse Oximetry 97 94 Oxygen Delivery Method Oxygen Flow Rate Sepsis Recent Fever Within 48 Hours Sepsis New/Unexplained Change in Mental Status Sepsis Action Taken by Nursing Oxygen Flow Rate - Titration Pulse Oximetry Post Tiitration 08/15/20 15:30 08/15/20 15:49 08/15/20 16:00 Temperature Temperature Source Pulse Rate 78 80 Pulse Rate [Apical] 78 Pulse Rate from SpO2 Sensor 78 81 Respiratory Rate 23 24 27 H Respiratory Effort / Characteristics Blood Pressure 137/84 133/78 Blood Pressure [Left Arm] 137/84 Blood Pressure Mean 94 93 Blood Pressure Mean [Left Arm] 101 Pulse Oximetry 94 95 94 Oxygen Delivery Method Room Air Oxygen Flow Rate Sepsis Recent Fever Within 48 Hours Sepsis New/Unexplained Change in Mental Status Sepsis Action Taken by Nursing Oxygen Flow Rate - Titration Pulse Oximetry Post Tiitration 08/15/20 16:54 08/15/20 17:00 08/15/20 17:30 Temperature Temperature Source Pulse Rate 79 79 Pulse Rate [Apical] Pulse Rate from SpO2 Sensor 79 79 79 Respiratory Rate 23 21 Respiratory Effort / Characteristics Blood Pressure 141/92 H 140/96 144/96 H Blood Pressure [Left Arm] Blood Pressure Mean 113 120 128 Blood Pressure Mean [Left Arm] Pulse Oximetry 100 100 99 Oxygen Delivery Method Oxygen Flow Rate Sepsis Recent Fever Within 48 Hours Sepsis New/Unexplained Change in Mental Status Sepsis Action Taken by Nursing Oxygen Flow Rate - Titration Pulse Oximetry Post Tiitration 08/15/20 18:00 08/15/20 18:30 08/15/20 19:00 Temperature Temperature Source Pulse Rate Pulse Rate [Apical] Pulse Rate from SpO2 Sensor 78 80 77 Respiratory Rate 22 Respiratory Effort / Characteristics Blood Pressure 145/88 H 157/88 H 134/80 Blood Pressure [Left Arm] Blood Pressure Mean 95 116 102 Blood Pressure Mean [Left Arm] Pulse Oximetry 100 93 99 Oxygen Delivery Method Nasal Cannula Oxygen Flow Rate 2 Sepsis Recent Fever Within 48 Hours Sepsis New/Unexplained Change in Mental Status Sepsis Action Taken by Nursing Oxygen Flow Rate - Titration Pulse Oximetry Post Tiitration Laboratory Data Attestation: I reviewed the patient's lab results. Result diagrams: 08/15/20 11:45 08/15/20 11:45 Lab Results 08/15/20 08/15/20 08/15/20 Range/Units 11:45 11:45 11:45 WBC 8.91 (4.8-10.8) K/uL RBC 3.60 L (4.2-5.4) M/uL Hgb 9.5 L (12.0-16.0) g/dL Hct 30.2 L (37-47) % MCV 83.9 (80-100) fL MCH 26.4 (25-34) pg MCHC 31.5 L (32-36) g/dL RDW Std Deviation 50.7 H (36.4-46.3) fL RDW Coeff of Elif 16.6 H (11.5-14.5) % Plt Count 244 (130-400) K/uL MPV 9.9 (7.4-10.4) fL Immature Gran % (Auto) 0.3 % Neut % (Auto) 84.6 % Lymph % (Auto) 9.1 % [place] % (Auto) 5.8 % Eos % (Auto) 0.1 % Baso % (Auto) 0.1 % Neut # (Auto) 7.53 H (1.4-6.5) K/uL Lymph # (Auto) 0.81 L (1.2-3.4) K/uL [place] # (Auto) 0.52 (0.11-0.59) K/uL Eos # (Auto) 0.01 (0-0.5) K/uL Baso # (Auto) 0.01 (0-0.2) K/uL Immature Gran # (Auto) 0.03 H (0.00-0.02) K/uL PT (9.0-12.0) Seconds INR (0.9-1.1) APTT (21.0-31.0) Seconds PTT Ratio VBG pH (7.36-7.41) VBG pCO2 (38-50) mmHg VBG pO2 mmHg VBG HCO3 mmol/L VBG O2 Saturation % VBG Base Excess mEq/L Barometric Pressure mm/Hg Sodium 136 (136-145) mmol/L Potassium 3.9 (3.5-5.1) mmol/L Chloride 101 (98-107) mmol/L Carbon Dioxide 27 (21-32) mmol/L Anion Gap 7.0 (3-11) BUN 13 (7-18) mg/dl Creatinine 0.77 (0.6-1.2) mg/dl Est Cr Clr Drug Dosing 68.0 ml/min Est GFR ( Amer) 82.8 Est GFR (Non-Af Amer) 71.4 BUN/Creatinine Ratio 17.4 (10-20) Glucose 117 H (70-99) mg/dl Lactate (0.4-2.0) mmol/L Calcium 8.3 L (8.5-10.1) mg/dl Phosphorus 2.6 (2.5-4.9) mg/dl Magnesium 1.8 (1.8-2.4) mg/dl Total Bilirubin 0.4 (0.2-1) mg/dl Direct Bilirubin 0.1 (0-0.2) mg/dl AST 21 (15-37) U/L ALT 6 L (12-78) U/L Alkaline Phosphatase 67 (45-117) U/L Troponin I 1.920 H* (0-0.045) ng/ml NT-Pro-B Natriuret Pep 02055 H (0-1800) pg/ml Total Protein 6.0 L (6.4-8.2) gm/dl Albumin 2.6 L (3.4-5.0) gm/dl Globulin 3.4 (2.5-4.0) gm/dl Albumin/Globulin Ratio 0.8 L (0.9-2) Lipase 56 L (73-393) U/L Procalcitonin < 0.05 (0-0.5) ng/ml Urine Color Urine Appearance (Clear) Urine pH (4.5-7.5) Ur Specific [place] (1.000-1.030) Urine Protein (Negative) Urine Glucose (UA) (Negative) Urine Ketones (Negative) Urine Blood (Negative) Urine Nitrite (Negative) Urine Bilirubin (Negative) Urine Urobilinogen (Negative) Ur Leukocyte Esterase (Negative) Urine WBC (Auto) (0-5) /hpf Urine RBC (Auto) (0-4) /hpf U Hyaline Cast (Auto) (0-5) /lpf U Epithel Cells (Auto) (0-5) /lpf Urine Bacteria (Auto) (Negative) Urine Yeast COVID-19 Eval Order SARS-CoV-2 (PCR) (Negative) Influenza Type A (PCR) (Neg) Influenza Type B (PCR) (Neg) RSV (RT-PCR) (Neg) 08/15/20 08/15/20 08/15/20 Range/Units 11:45 11:47 11:47 WBC (4.8-10.8) K/uL RBC (4.2-5.4) M/uL Hgb (12.0-16.0) g/dL Hct (37-47) % MCV (80-100) fL MCH (25-34) pg MCHC (32-36) g/dL RDW Std Deviation (36.4-46.3) fL RDW Coeff of Elif (11.5-14.5) % Plt Count (130-400) K/uL MPV (7.4-10.4) fL Immature Gran % (Auto) % Neut % (Auto) % Lymph % (Auto) % [place] % (Auto) % Eos % (Auto) % Baso % (Auto) % Neut # (Auto) (1.4-6.5) K/uL Lymph # (Auto) (1.2-3.4) K/uL [place] # (Auto) (0.11-0.59) K/uL Eos # (Auto) (0-0.5) K/uL Baso # (Auto) (0-0.2) K/uL Immature Gran # (Auto) (0.00-0.02) K/uL PT 13.2 H (9.0-12.0) Seconds INR 1.3 H (0.9-1.1) APTT 28.5 (21.0-31.0) Seconds PTT Ratio 1.0 VBG pH 7.40 (7.36-7.41) VBG pCO2 45 (38-50) mmHg VBG pO2 42 mmHg VBG HCO3 28 mmol/L VBG O2 Saturation 72.6 % VBG Base Excess 2.5 mEq/L Barometric Pressure 735.6 mm/Hg Sodium (136-145) mmol/L Potassium (3.5-5.1) mmol/L Chloride (98-107) mmol/L Carbon Dioxide (21-32) mmol/L Anion Gap (3-11) BUN (7-18) mg/dl Creatinine (0.6-1.2) mg/dl Est Cr Clr Drug Dosing ml/min Est GFR ( Amer) Est GFR (Non-Af Amer) BUN/Creatinine Ratio (10-20) Glucose (70-99) mg/dl Lactate 1.8 (0.4-2.0) mmol/L Calcium (8.5-10.1) mg/dl Phosphorus (2.5-4.9) mg/dl Magnesium (1.8-2.4) mg/dl Total Bilirubin (0.2-1) mg/dl Direct Bilirubin (0-0.2) mg/dl AST (15-37) U/L ALT (12-78) U/L Alkaline Phosphatase (45-117) U/L Troponin I (0-0.045) ng/ml NT-Pro-B Natriuret Pep (0-1800) pg/ml Total Protein (6.4-8.2) gm/dl Albumin (3.4-5.0) gm/dl Globulin (2.5-4.0) gm/dl Albumin/Globulin Ratio (0.9-2) Lipase (73-393) U/L Procalcitonin (0-0.5) ng/ml Urine Color Urine Appearance (Clear) Urine pH (4.5-7.5) Ur Specific [place] (1.000-1.030) Urine Protein (Negative) Urine Glucose (UA) (Negative) Urine Ketones (Negative) Urine Blood (Negative) Urine Nitrite (Negative) Urine Bilirubin (Negative) Urine Urobilinogen (Negative) Ur Leukocyte Esterase (Negative) Urine WBC (Auto) (0-5) /hpf Urine RBC (Auto) (0-4) /hpf U Hyaline Cast (Auto) (0-5) /lpf U Epithel Cells (Auto) (0-5) /lpf Urine Bacteria (Auto) (Negative) Urine Yeast COVID-19 Eval Order SARS-CoV-2 (PCR) (Negative) Influenza Type A (PCR) (Neg) Influenza Type B (PCR) (Neg) RSV (RT-PCR) (Neg) 08/15/20 08/15/20 08/15/20 Range/Units 12:25 12:25 15:50 WBC (4.8-10.8) K/uL RBC (4.2-5.4) M/uL Hgb (12.0-16.0) g/dL Hct (37-47) % MCV (80-100) fL MCH (25-34) pg MCHC (32-36) g/dL RDW Std Deviation (36.4-46.3) fL RDW Coeff of Elif (11.5-14.5) % Plt Count (130-400) K/uL MPV (7.4-10.4) fL Immature Gran % (Auto) % Neut % (Auto) % Lymph % (Auto) % [place] % (Auto) % Eos % (Auto) % Baso % (Auto) % Neut # (Auto) (1.4-6.5) K/uL Lymph # (Auto) (1.2-3.4) K/uL [place] # (Auto) (0.11-0.59) K/uL Eos # (Auto) (0-0.5) K/uL Baso # (Auto) (0-0.2) K/uL Immature Gran # (Auto) (0.00-0.02) K/uL PT (9.0-12.0) Seconds INR (0.9-1.1) APTT (21.0-31.0) Seconds PTT Ratio VBG pH (7.36-7.41) VBG pCO2 (38-50) mmHg VBG pO2 mmHg VBG HCO3 mmol/L VBG O2 Saturation % VBG Base Excess mEq/L Barometric Pressure mm/Hg Sodium (136-145) mmol/L Potassium (3.5-5.1) mmol/L Chloride (98-107) mmol/L Carbon Dioxide (21-32) mmol/L Anion Gap (3-11) BUN (7-18) mg/dl Creatinine (0.6-1.2) mg/dl Est Cr Clr Drug Dosing ml/min Est GFR ( Amer) Est GFR (Non-Af Amer) BUN/Creatinine Ratio (10-20) Glucose (70-99) mg/dl Lactate (0.4-2.0) mmol/L Calcium (8.5-10.1) mg/dl Phosphorus (2.5-4.9) mg/dl Magnesium (1.8-2.4) mg/dl Total Bilirubin (0.2-1) mg/dl Direct Bilirubin (0-0.2) mg/dl AST (15-37) U/L ALT (12-78) U/L Alkaline Phosphatase (45-117) U/L Troponin I (0-0.045) ng/ml NT-Pro-B Natriuret Pep (0-1800) pg/ml Total Protein (6.4-8.2) gm/dl Albumin (3.4-5.0) gm/dl Globulin (2.5-4.0) gm/dl Albumin/Globulin Ratio (0.9-2) Lipase (73-393) U/L Procalcitonin (0-0.5) ng/ml Urine Color Yellow Urine Appearance Cloudy A (Clear) Urine pH 6.0 (4.5-7.5) Ur Specific [place] > 1.045 H (1.000-1.030) Urine Protein 1+ H (Negative) Urine Glucose (UA) Negative (Negative) Urine Ketones 1+ H (Negative) Urine Blood 2+ H (Negative) Urine Nitrite Positive A (Negative) Urine Bilirubin Negative (Negative) Urine Urobilinogen Negative (Negative) Ur Leukocyte Esterase 2+ H (Negative) Urine WBC (Auto) >30 H (0-5) /hpf Urine RBC (Auto) 5-10 H (0-4) /hpf U Hyaline Cast (Auto) 0 (0-5) /lpf U Epithel Cells (Auto) 5-10 H (0-5) /lpf Urine Bacteria (Auto) Negative (Negative) Urine Yeast Not Reportable COVID-19 Eval Order CovFluRsv at [facility] SARS-CoV-2 (PCR) NEGATIVE (Negative) Influenza Type A (PCR) Negative (Neg) Influenza Type B (PCR) Negative (Neg) RSV (RT-PCR) Negative (Neg) Administered Medications Aspirin (Aspirin 81 Mg Ectab) 81 mg PO BID JOSE Stop: 09/14/20 20:59 Last Admin: 08/15/20 22:10 Dose: 81 mg Documented by: [id number] Heparin Sodium (Beef Lung) (Heparin 10 Unit/Ml 5 Ml Flush) 5 ml FLUSH PRN PRN PRN Reason: Flush Stop: 09/14/20 22:29 Last Admin: 08/16/20 00:19 Dose: 5 ml Documented by: [id number] Cefazolin Sodium (Ancef 2000mg) 2,000 mg in 15 mls @ 3.75 mls/min IV Q8H JOSE Stop: 09/15/20 00:00 Last Admin: 08/16/20 00:19 Dose: 3.75 mls/min Documented by: [id number] Isosorbide Mononitrate (Isosorbide [place] Extended Rel 30 Mg Tabcr) 30 mg PO BID JOSE Stop: 09/14/20 20:59 Last Admin: 08/15/20 22:10 Dose: 30 mg Documented by: [id number] Raspberry (Raspberry Syrup 5 Ml Udp) 5 ml PO BID JOSE Stop: 08/29/20 20:59 Last Admin: 08/15/20 22:09 Dose: 5 ml Documented by: [id number] Rosuvastatin Calcium (Rosuvastatin Calcium 10 Mg Tab) 30 mg PO HS JOSE Stop: 09/14/20 20:59 Last Admin: 08/15/20 22:10 Dose: 30 mg Documented by: [id number] Vancomycin HCl (Vancomycin Hcl 125 Mg/2.5ml Soln) 125 mg PO BID JOSE Stop: 08/25/20 20:59 Last Admin: 08/15/20 22:09 Dose: 125 mg Documented by: [id number] Discontinued Medications Albuterol (Albut/Ipratrop 3mg/0.5mg Neb 3 Ml Vial) 3 ml NEB NOW STA Stop: 08/15/20 11:24 Last Admin: 08/15/20 11:46 Dose: 3 ml Documented by: [id number] Dexamethasone (Dexamethasone Sod Inj 10 Mg/Ml Vial) Confirm Administered Dose 10 mg .ROUTE .STK-MED ONE Stop: 08/15/20 11:31 Last Admin: 08/15/20 11:55 Dose: 10 mg Documented by: [id number] Furosemide (Furosemide 40 Mg/4 Ml Vial) 20 mg IV NOW STA Stop: 08/15/20 15:12 Last Admin: 08/15/20 15:38 Dose: 20 mg Documented by: [id number] Guaifenesin (Guaifenesin 600 Mg Tabcr) 600 mg PO NOW STA Stop: 08/15/20 11:24 Last Admin: 08/15/20 11:59 Dose: 600 mg Documented by: [id number] Acetaminophen (Ofirmev) 1,000 mg in 100 mls @ 400 mls/hr IV NOW STA Stop: 08/15/20 11:37 Last Infusion: 08/15/20 12:15 Dose: 0 mls/hr Documented by: [id number] Admin: 08/15/20 11:57 Dose: 400 mls/hr Documented by: [id number] Dexamethasone Sodium Phosphate (10 mg/ Syringe) 2.5 mls @ 1 mls/min IV NOW STA Stop: 08/15/20 11:25 Last Admin: 08/15/20 11:57 Dose: Not Given Documented by: [id number] Famotidine (Pepcid 20mg Iv Push) 20 mg in 5 mls @ 2.5 mls/min IV NOW STA Stop: 08/15/20 11:32 Last Admin: 08/15/20 12:00 Dose: 2.5 mls/min Documented by: [id number] Piperacillin Sod/Tazobactam Sod (Zosyn) 4.5 gm in 120 mls @ 240 mls/hr IV NOW ONE Stop: 08/15/20 15:40 Last Infusion: 08/15/20 16:15 Dose: 0 mls/hr Documented by: [id number] Admin: 08/15/20 15:40 Dose: 240 mls/hr Documented by: [id number] Ioversol (Optiray 320 125ml) 120 ml IV ONCE ONE Stop: 08/15/20 12:55 Last Admin: 08/15/20 12:54 Dose: 120 ml Documented by: [id number] Ondansetron HCl (Ondansetron Inj 2 Mg/Ml 2 Ml Vial) 4 mg IV NOW STA Stop: 08/15/20 11:32 Last Admin: 08/15/20 11:53 Dose: Not Given Documented by: [id number] Ondansetron HCl (Ondansetron Inj 2 Mg/Ml 2 Ml Vial) Confirm Administered Dose 4 mg .ROUTE .STK-MED ONE Stop: 08/15/20 11:32 Last Admin: 08/15/20 11:53 Dose: 4 mg Documented by: [id number] Discharge Plan Visit Data Chief Complaint: Shortness of Breath/Dyspnea ED Provider: Andres Chappell Discharge Problem: Hypoxia, Acute exacerbation of CHF (congestive heart failure), Volume overload, Acute UTI Patient Disposition: Admitted As Inpatient Discharge Instructions Interventions: ED Discharge Assessment Last Done: 08/15/20 19:39 Discharge Problem: Acute exacerbation of CHF (congestive heart failure) Qualifiers: Heart failure type: systolic Qualified Code(s): I50.23 - Acute on chronic s ystolic (congestive) heart failure Volume overload Qualifiers: Hypervolemia type: unspecified Qualified Code(s): E87.70 - Fluid overload, unspecified
[2020-08-15 12:29] LABS: INR 1.3 (0.9-1.1); Partial Thromboplastin Time 28.5 Seconds (21.0-31.0); Prothrombin Time 13.2 Seconds (9.0-12.0)
[2020-08-15 12:31] LABS: Albumin Level 2.6 gm/dl (3.4-5.0); BUN Creatinine Ratio 17.4 (10-20); Bilirubin Direct 0.1 mg/dl (0-0.2); Calcium 8.3 mg/dl (8.5-10.1); Est GFR (African American) 82.8; Est GFR (Non-African American) 71.4; Magnesium 1.8 mg/dl (1.8-2.4); Potassium 3.9 mmol/L (3.5-5.1)
[2020-08-15 12:39] LABS: Albumin Globulin Ratio 0.8 (0.9-2); Bilirubin,Total 0.4 mg/dl (0.2-1); Globulin 3.4 gm/dl (2.5-4.0); Phosphorus 2.6 mg/dl (2.5-4.9); Troponin I 1.92 ng/ml (0-0.045)
--- NOTE | 2020-08-15 12:44 | XRay Report ---
XR chest 1V portable HISTORY: SEPSIS COMPARISON: Chest 12/17/2018. FINDINGS: No pneumothorax. There are small bilateral pleural effusions. There is perihilar interstiti al/vascular thickening with bibasilar airspace opacities. The heart is enlarged. There are poststerno joya changes. A right PICC terminates at the distal SVC. IMPRESSION: 1. Cardiomegaly, pulmonary edema, and small bilateral pleural effusions. 2. Bibasilar densities are nonspecific but favor atelectasis. A superimposed pneumonia cannot be excl uded. ACT 112: Negative or not required by law. Electronically signed by: Noam Finch M.D. 08/15/2020 12:42 PM
[2020-08-15] MEDS ORDERED: OPTIRAY 320 125ml IV ONE (12:54)
[2020-08-15 13:18] LABS: Influenza A virus by PCR Negative (Neg); Influenza B virus by PCR Negative (Neg); RSV by PCR Negative (Neg); SARS CoV2 RNA(COVID-19) InHosp NEGATIVE (Negative)
--- NOTE | 2020-08-15 13:18 | CT Scan Report ---
CT ANGIOGRAM OF THE CHEST CLINICAL HISTORY: Shortness of breath. Recent surgery. Possible pulmonary embolism. COMPARISON STUDY: 11/09/2018, chest x-ray dated 08/15/2020 TECHNIQUE: Following the IV administration of mL of Optiray-320, CT angiogram of the thorax was perfo rmed from the thoracic inlet to the lung bases utilizing the pulmonary embolus protocol. Images are r eviewed in the axial, sagittal, and coronal planes. IV contrast was administered without complication . MIP imaging was performed. A dose lowering technique was utilized adhering to the principles of [place]. CT DOSE: FINDINGS: There is a 3 mm upper pole right renal calculus. There is reflux of contrast into the inferior vena c nae and hepatic veins. There is a minimally enlarged precarinal lymph node, unchanged from the prior study. The heart is enlarged with coronary artery calcifications. There is a stable subcentimeter aneurysm arising from the undersurface of the aortic arch. There were no pulmonary artery filling defects to indicate acute pulmonary embolism. There are moderate bilateral pleural effusions. There are dependent airspace opacities, statistically representing compressive atelectatic change. There is mild pulmonary emphysema. There is mild interl obular septal edema. IMPRESSION: 1. No evidence of acute pulmonary embolism 2. Cardiomegaly with moderate bilateral pleural effusions and mild septal edema 3. Mild emphysema 4. Dependent airspace opacities likely representing compressive atelectatic change ACT 112: Negative or not required by law. Electronically signed by: Cullen Jameson M.D. 08/15/2020 1:17 PM
--- NOTE | 2020-08-15 13:35 | CT Scan Report ---
CT SCAN OF THE ABDOMEN AND PELVIS WITH IV CONTRAST CLINICAL HISTORY: Generalized abdominal pain. Nausea. Dyspnea. COMPARISON STUDY: Abdominal CT dated 05/31/2020. TECHNIQUE: Following the IV administration of 120 cc of Optiray 320, CT scan of the abdomen and pelv is is performed from the lung bases to the proximal femora. Images are reviewed in the axial, sagitta l, and coronal planes. IV contrast was administered without complication. A dose lowering technique w as utilized adhering to the principles of ALARA. Examination is degraded by motion artifact, as well as by streak artifact from the arms which could not be elevated above the abdomen. CT DOSE: 1811.94 mGy.cm FINDINGS: Lung bases: Midline sternotomy wires are noted. The heart is enlarged and without pericardial effusio n. The coronary arteries are densely calcified. There are small to moderate pleural effusions with as sociated consolidation. Liver: The contrast-enhanced liver is enlarged, measuring 20.3 cm in length. The liver is heterogeneo us in attenuation. There is no intrahepatic biliary ductal dilatation. The Main portal veins are stauffer nt. Periportal edema is observed. The hepatic veins are not opacified. A focus of nonmasslike enhance ment in the subcapsular left lobe seen on image #138 likely represents shunt vascularity. Gallbladder: The gallbladder is distended. The gallbladder wall is thickened and edematous with mucos al hyperemia. There is pericholecystic stranding and fluid. A 4 mm calcification is seen near the amp derek on image #203. A distal common bile duct stone is not excluded. Spleen: Normal in size and attenuation. Pancreas: Moderately atrophic and grossly unremarkable. Adrenal glands: Unremarkable. Kidneys: The contrast enhanced kidneys are atrophic. There is moderate to severe left-sided hydroneph rosis. The left ureter is normal in caliber and this may represent a UPJ type obstruction. There is n o right-sided hydronephrosis. The kidneys enhance symmetrically. There are least 2 nonobstructing rig ht renal calculi which measure up to 4 mm. Abdominal vasculature: There is advanced atherosclerotic calcification of the abdominal aorta. There is diffuse aneurysmal dilatation of the abdominal aorta which measures up to 3.4 cm in diameter. Ther e are bilobed iliac artery aneurysms which measure up to 3.9 cm on the right and 3.0 cm on the left. There is intervertebral dilatation of the internal iliac arteries which measure up to 1.5 cm. Bowel: There is no bowel obstruction. The appendix is not visualized. Peritoneum: There is no intraperitoneal free air. There is a small volume of abdominopelvic ascites. Lymphadenopathy: None. Pelvic viscera: Evaluation of the pelvis is significantly degraded by streak artifact from bilateral hip arthroplasties. The bladder, uterus, and adnexa are grossly unremarkable but not well evaluated. Skeletal structures: The skeletal structures are osteopenic. There is moderate to advanced lumbosacra l spondylosis and mild scoliosis. No lytic or blastic lesions are seen. Bilateral hip arthroplasties are in place. Soft tissues: There is body wall edema. IMPRESSION: 1. Cardiomegaly with small to moderate bilateral pleural effusions. These are new from 05/31/2020. 2. Dense bibasilar consolidation likely represent atelectasis. Correlate clinically for evidence of s uperimposed pneumonia. 3. The gallbladder is distended. There is nonspecific gallbladder wall thickening and edema as well a s mucosal hyperemia. There is pericholecystic stranding and fluid. Although some of this may be relat ed to fluid status, acute cholecystitis is not excluded. Correlation with clinical and laboratory fin dings well be required. If clinically warranted ultrasound could be considered for further assessment of the gallbladder. 4. There is a 4 mm calcification identified in the region of the ampulla which could be within the di stal common bile duct or possibly the pancreatic duct. Choledocholithiasis is not excluded. 5. The liver is enlarged and edematous with periportal edema. This may be related to congestive hepat opathy. 6. There is a small volume of abdominopelvic ascites as well as anasarca of the body wall. 7. There is moderate to severe left-sided hydronephrosis. This has decreased from 05/31/2020 and likel y represents a UPJ type obstruction. 8. Right-sided nephrolithiasis. 9. Diffuse aneurysmal dilatation of the abdominal aorta as well as iliac artery aneurysms are similar to previous. 10. Additional findings as above. ACT 112: Negative or not required by law. Electronically signed by: Yoan Buenrostro M.D. 08/15/2020 1:33 PM
[2020-08-15] MEDS ORDERED: FUROSEMIDE 40 MG/4 ML VIAL IV STA (15:11)
[2020-08-15] MEDS ORDERED: PIPERACILL/TAZOBAC CONSULT ACTIVE PRN (15:11)
[2020-08-15] MEDS ORDERED: PIPERACILLIN/TAZOBACTAM 4.5 GM/120 ML BAG IV ONE (15:11)
--- NOTE | 2020-08-15 16:49 | Ultrasound Report ---
ULTRASOUND RIGHT UPPER QUADRANT ABDOMEN CLINICAL HISTORY: Nausea and vomiting. Generalized abdominal pain.. COMPARISON STUDY: Abdominal CT performed the same day 08/15/2020. TECHNIQUE: Real-time, grayscale, and color flow sonography of the right upper quadrant of the abdomen was performed. Images are reviewed in the transverse and longitudinal planes. FINDINGS: Liver: The liver is enlarged, measuring over 18.5 cm in length. Echotexture is heterogeneous. There i s no intrahepatic biliary ductal dilatation. The main portal vein is patent. Gallbladder: The gallbladder is distended. The gallbladder wall is thickened and edematous measuring up to 6 mm. Intraluminal sludge is noted. No shadowing gallstones are identified. There is pericholec ystic fluid. A sonographic Charles's sign is reportedly absent. The common bile duct is not well-visua lized. Pancreas: Atrophic and not well visualized. Right kidney: Survey images of the right kidney demonstrate cortical atrophy. Echotexture is normal. There is mild fullness of the collecting system without hydronephrosis. Ascites: There is a small volume of upper abdominal ascites. Pleural spaces: There is a right pleural effusion. IMPRESSION: 1. The gallbladder is distended, with a thickened and edematous wall. There is intraluminal sludge wi th no shadowing stones identified. There is nonspecific pericholecystic fluid and a sonographic Silva y's sign is reportedly absent. Findings are equivocal for acute cholecystitis which is not excluded. If there is strong clinical concern for acute cholecystitis a nuclear hepatobiliary scan could be con sidered to assess for patency of the cystic duct. 2. Nonvisualization of the common bile duct. 3. There is a small volume of upper abdominal ascites and a right pleural effusion. 4. The liver is enlarged and heterogeneous. ACT 112: Negative or not required by law. Electronically signed by: Yoan Buenrostro M.D. 08/15/2020 4:48 PM
[2020-08-15 17:02] LABS: Appearance Urine Cloudy (Clear); Bacteria Urine Automated Negative (Negative); Bilirubin Urine Negative (Negative); Blood Urine 2+ (Negative); Color Urine Yellow; Glucose Urine UA Negative (Negative); Ketones Urine 1+ (Negative); Leukocyte Esterase Urine 2+ (Negative); Nitrite Urine Positive (Negative); Protein Urine 1+ (Negative); Specific Gravity Urine > 1.045 (1.000-1.030); Urobilinogen Urine Negative (Negative); WBC Urine Automated >30 /hpf (0-5)
[2020-08-15 17:16] LABS: Cast Urine Automated 0 /lpf (0-5)
--- NOTE | 2020-08-15 19:12 | History & Physical Report ---
Date of Service August 15, 2020 Assessment & Plan (1) Acute exacerbation of CHF (congestive heart failure): Appears to be volume overloaded after recent hospitalization (suspect she had IV fluids during this hospitalization). Mainly shortness of breath on exertion - not significantly hypoxic at rest in ER. I suspect she had this during her last hospitalization but never ambulated significantly. Will continue diuresis with Lasix 20mg IV daily. Strict I&Os. Daily weights. Low Na, Heart healthy diet. Byers cath placed in ER for fluid management. Should be removed as soon as feasible. TTE Consult cardiology (2) Ischemic cardiomyopathy: Continue metoprolol succinate 25mg PO daily Consider switching losaratan to Entresto - will defer this to her usual resolution manager. (3) Elevated troponin: Chronically elevated but above her baseline. No chest pain or shortness of breath at rest to suggest ACS although episode yesterday may represent this. Given no ongoing shortness of breath will defer heparin currently unless troponin uptrending. Suspect demand ischemia in setting of known CAD, CHF and exertion after operation. Reassuring Lexiscan just on Aug 04 showing no inducible ischemia. Continue metoprolol, ISMN, losartan, aspirin, rosuvastatin. Chronic LBBB. (4) Hypoxia: Mild - suspect secondary to volume overload as above Aim O2 sats > 94% (5) Volume overload: IV diuresis as above. (6) LBBB (left bundle branch block): Chronic, no change to above. (7) Infection of prosthetic right knee joint: s/p antibiotic spacer placed in [place] during last hospitalization Per discharge summary patient is to remain on IV cefazolin via PICC line Follow up blood cultures Continue SQ infusion of ropivavaine (8) Abnormal CT of the abdomen: I suspect her gall bladder findings are incidental and related to volume overload rather than acute cholecystitis given lack of symptoms for this. No RUQ pain prior to exam in ER. Will discontinue further Zosyn. HIDA scan to be considered if patient is to have more RUQ pain or increasing LFTs. (9) Normocytic anemia: Appears stable since surgery. Continue to monitor with CBC. (10) COPD (chronic obstructive pulmonary disease) with emphysema: No acute exacerbation suspected despite patient reporting mild improvement with nebulizer. No wheezing on exam. Continue to monitor for continued shortness of breath after adequate diuresis. (11) DVT prophylaxis: Lovenox 40mg SQ daily Admission and Anticipated Discharge Date Admission Date: Aug 15, 2020 History of Present Illness Chief Complaint: Shortness of breath Primary Care Provider: Sandeep Lerma MD Genny Martinez is an 85-year-old medically complex female who presents to the ER with shortness of breath and nausea. She was recently discharged from [facility] yesterday after right infected TKA removed and antibiotic spacer placed last week for MSSA. She has a PICC line in place and receiving IV cefazolin. She reports having some shortness of breath on exertion during her hospitalization on her final day yesterday while walking to the bathroom - she did not exert herself much prior to this post operatively. However on returning home around 7pm last night she had more significant shortness of breath on exertion with associated nausea that persisted even at rest - unable to tell me for how long. Worse on any exertion. Relieved with rest, nebulizers and bowel movements. No associated diaphoresis. She called a Healthcare provider at [facility] (unknown who exactly) with her symptoms and was advised to go to the ER. She denies any current shortness of breath at rest and never had any any chest pain. No palpitations, presyncope, syncope or claudication. She has a known history or coronary artery disease s/p CABG x4 in 1998, HTN, T2DM, AAA and bilateral iliac artery aneurysms followed by Dr Osborne. She does note occasional chest pain on exertion usually (being medically managed by her resolution manager) but reports she cannot have a catheterization until her right knee infection has been sorted out. In the ER her EKG showed LBBB which is chronic and troponin was elevated above her usual baseline. She underwent multiple imaging studies due to RUQ pain on exam (although patient not noticed prior to exam in ER) with thickened gallbladder - pain only on exam and not experienced otherwise. She reports her shortness of breath is much improved since coming to the ER with nebulizers and lasix given helping her shortness of breath. Byers catheter was placed due to patient lack of mobility with right antibiotic spacer in knee to measure accurate I&Os. She was referred to medicine for admission and ongoing management of hypoxia and CHF. Allergies Allergy/AdvReac Type Severity Reaction Status Date / Time potassium chloride AdvReac Intermediate Vomiting Unverified 08/15/20 12:53 Sulfa (Sulfonamide AdvReac Intermediate NAUSEA/VOMI Verified 08/03/20 09:06 Antibiotics) TING sulfamethoxazole AdvReac Intermediate Vomiting Unverified 08/15/20 12:53 [From Bactrim] trimethoprim [From Bactrim] AdvReac Intermediate Vomiting Unverified 08/15/20 12:53 lisinopril AdvReac Unknown NAUSEA Verified 08/03/20 09:06 VOMITING sulfasalazine AdvReac Unknown NAUSEA-COULDN'T Verified 08/03/20 09:06 EAT Home Medications Medication Instructions Recorded Confirmed Type cholecalciferol (vitamin D3) 1,000 unit PO DAILY 11/05/18 08/15/20 History [Vitamin D3] nitroglycerin 0.4 mg sublingual 0.4 mg SUBLINGUAL UD PRN #25 tabs 05/19/19 08/15/20 Rx tablet tolterodine 4 mg capsule,extended 4 mg PO DAILY #90 cap 11/09/19 08/15/20 Rx release 24 hr losartan 25 mg tablet 25 mg PO DAILY #90 tab 11/30/19 08/15/20 Rx ascorbic acid (vitamin C) 1,000 mg 1 gm PO DAILY tab 12/30/19 08/15/20 History tablet tramadol 50 mg tablet 50 mg PO Q8H PRN 12/30/19 08/15/20 History tiotropium bromide 2.5 2 puffs INH DAILY #12 gm 02/09/20 08/15/20 Rx mcg/actuation mist for inhalation pantoprazole 40 mg tablet,delayed 40 mg PO DAILY #90 tab 03/24/20 08/15/20 Rx release aspirin 81 mg tablet,delayed 81 mg PO BID tab 08/03/20 08/15/20 History release acetaminophen [Tylenol Extra 1,000 mg PO TID PRN 08/15/20 08/15/20 History Strength] isosorbide mononitrate 30 mg PO BID 08/15/20 08/15/20 History metoprolol succinate [Toprol XL] 25 mg PO DAILY 08/15/20 08/15/20 History ropivacaine (PF) 0 mg UD 08/15/20 08/15/20 History rosuvastatin 30 mg PO HS 08/15/20 08/15/20 History vancomycin 125 mg PO BID 08/15/20 08/15/20 History Past Med/Surg History Medical History Abdominal aneurysm Acute non-ST elevation myocardial infarction (NSTEMI) Atypical chest pain CAD (coronary artery disease) Chronic infection of knee Clostridium 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 Dyspnea on exertion GERD (gastroesophageal reflux disease) Heart attack Hypertension Hypothyroid Peripheral arterial disease Surgical History H/O colonoscopy H/O esophagogastroduodenoscopy History of knee surgery History of open reduction and internal fixation (ORIF) procedure right proximal femur 2006 History of quadruple bypass History of total hip replacement Hx of tonsillectomy Family History Mother Leukemia Brother Aortic aneurysm Father Aortic aneurysm Stroke syndrome Tuberculosis Daughter Coronary heart disease Heart problem Grandfather Tuberculosis Uncle Tuberculosis Denies family history of Ovarian cancer Prostate cancer Breast cancer Lung cancer Colorectal cancer Social History Smoking Status: Former smoker Age Started Using Tobacco: 19; Age Quit Using Tobacco: 64; packs per day: 1; Years Smoked: 45; Cigarettes Per Day: 20; Second Hand Exposure: No; Do You Dip or Chew Tobacco: No; Tobacco Cessation Education Requested by Patient: No Hx Alcohol Use: No Hx Substance Use: No Preferred Language: Macedonian Communication Ability: Effective Visual Impairment: Diminished Hearing Ability: Hard of Hearing Drawstring Knotter Required: No Beliefs That Will Affect Care: None marital status: / Current Living Situation: Alone Current Living Situation Comment: daughter near by current occupational status: retired Other Information That Helps Us Care for You: No Feels Safe at Home: Yes Safety Concerns: Feels Safe At This Time Childhood Exposure to Second-Hand Smoke: Yes caffeine: Yes Dental Care, Regularly: No Physical Activity Frequency: Does not Exercise Seatbelt Use: always Sunscreen Use: No Assistive Devices: Glasses Review of Systems Review of Systems: All systems reviewed & are unremarkable except as noted in HPI & below Physical Exam Constitutional: well developed and well nourished; no acute distress Eyes: + anicteric sclerae; normal pupil size ENMT: external ear and nose normal, oropharynx normal Neck: trachea midline, no thyromegaly Respiratory: normal respiratory effort and able to speak in complete sentences; no respiratory distress, no labored breathing, no retractions and does not use accessory muscles Auscultation: + diminished lung sounds (bibasal) and + crackles (fine bibasal); no rales, no rhonchi and no wheezes Cardiovascular: Rate/Rhythm: regular rate and regular rhythm Heart Sounds: no murmur Vessels: no JVD Extremities: normal capillary refill and + pedal edema (2+ R to thigh, 1+ L); no calf tenderness Gastrointestinal (Abdomen): Inspection/Auscultation: abdomen normal to inspection and normal bowel sounds; abdomen not distended Percussion/Palpation: + abdomen tender (epigastric, RUQ on deep palpation) and abdomen soft; no guarding and abdomen not rigid Musculoskeletal: SQ butterfly in place on right thigh with ropivacaine infusion Dressing over right knee C/D/I NV intact distal to operation site Neurologic: awake; not confused Speech / Cognition: normal speech Psychiatric: A+Ox3, euthymic affect Genitourinary: no CVA tenderness Results & Data Results & Data ([facility]) Vital Signs (Past 12 Hours) Vital Signs Temp Pulse Pulse Resp BP BP Pulse Ox 08/15/20 18:30 157/88 H 93 08/15/20 18:00 145/88 H 100 08/15/20 17:30 144/96 H 99 08/15/20 17:00 79 21 140/96 100 08/15/20 16:54 79 23 141/92 H 100 08/15/20 16:00 80 27 H 133/78 94 08/15/20 15:49 78 24 137/84 95 08/15/20 15:30 78 23 137/84 94 08/15/20 15:18 81 19 142/86 H 08/15/20 15:00 81 19 142/86 H 94 08/15/20 14:30 80 20 143/80 H 97 08/15/20 14:00 84 18 141/87 H 94 08/15/20 13:30 80 17 145/74 H 91 08/15/20 13:15 83 25 H 129/78 96 08/15/20 12:30 84 24 145/78 H 95 08/15/20 12:00 84 25 H 134/87 96 08/15/20 11:46 84 19 97 08/15/20 11:30 82 30 H 150/76 H 100 08/15/20 11:24 100 08/15/20 10:48 36.4 C L 83 18 149/85 H 95 Diagnostic Findings XR chest 1V portable IMPRESSION: 1. Cardiomegaly, pulmonary edema, and small bilateral pleural effusions. 2. Bibasilar densities are nonspecific but favor atelectasis. A superimposed pneumonia cannot be excluded. CT ANGIOGRAM OF THE CHEST IMPRESSION: 1. No evidence of acute pulmonary embolism 2. Cardiomegaly with moderate bilateral pleural effusions and mild septal edema 3. Mild emphysema 4. Dependent airspace opacities likely representing compressive atelectatic change CT SCAN OF THE ABDOMEN AND PELVIS WITH IV CONTRAST IMPRESSION: 1. Cardiomegaly with small to moderate bilateral pleural effusions. These are new from 05/31/2020. 2. Dense bibasilar consolidation likely represent atelectasis. Correlate clinically for evidence of superimposed pneumonia. 3. The gallbladder is distended. There is nonspecific gallbladder wall thickening and edema as well as mucosal hyperemia. There is pericholecystic stranding and fluid. Although some of this may be related to fluid status, acute cholecystitis is not excluded. Correlation with clinical and laboratory findings well be required. If clinically warranted ultrasound could be considered for further assessment of the gallbladder. 4. There is a 4 mm calcification identified in the region of the ampulla which could be within the distal common bile duct or possibly the pancreatic duct. Choledocholithiasis is not excluded. 5. The liver is enlarged and edematous with periportal edema. This may be related to congestive hepatopathy. 6. There is a small volume of abdominopelvic ascites as well as anasarca of the body wall. 7. There is moderate to severe left-sided hydronephrosis. This has decreased from 05/31/2020 and likely represents a UPJ type obstruction. 8. Right-sided nephrolithiasis. 9. Diffuse aneurysmal dilatation of the abdominal aorta as well as iliac artery aneurysms are similar to previous. 10. Additional findings as above. ULTRASOUND RIGHT UPPER QUADRANT ABDOMEN IMPRESSION: 1. The gallbladder is distended, with a thickened and edematous wall. There is intraluminal sludge with no shadowing stones identified. There is nonspecific pericholecystic fluid and a sonographic Charles's sign is reportedly absent. Findings are equivocal for acute cholecystitis which is not excluded. If there is strong clinical concern for acute cholecystitis a nuclear hepatobiliary scan could be considered to assess for patency of the cystic duct. 2. Nonvisualization of the common bile duct. 3. There is a small volume of upper abdominal ascites and a right pleural effusion. 4. The liver is enlarged and heterogeneous. Medications Administered ER Medications given: Lasix 20mg IV Famotidine 20mg IV Ondansetron 4mg IV Dexamethasone 10mg IV Duoneb 3ml Guaifenesin 600mg PO Acetaminophen 1000mg PO Zosyn 4.5g IV ECG Indication: SOB/dyspnea Rate (beats per minute): 93 Rhythm: normal sinus Findings: + LBBB Comparison ECG Date: from (November 09, 2018) Change: the following changes noted (QRS voltage criteria increased) Code Status & VTE Plan Code Status All treatment outside of a cardiac arrest VTE Prophylaxis Plan VTE Prophylaxis will be ordered: Yes PG Care Time/CCT Total # of Minutes Spent Total Time Spent with Patient: Total time spent is greater than 50% in coordination of care (as documented) at patient's floor/unit and/or counseling patient: Coding Level of Care Code 01767 OBS Care - Level 3 Diagnoses Acute exacerbation of CHF (congestive heart failure) I50.23 Heart failure type: systolic Ischemic cardiomyopathy I25.5 Elevated troponin R77.8 Hypoxia R09.02 Volume overload E87.70 Hypervolemia type: unspecified LBBB (left bundle branch block) I44.7 Infection of prosthetic right knee joint T84.53XA Abnormal CT of the abdomen R93.5 Normocytic anemia D64.9 COPD (chronic obstructive pulmonary disease) with emphysema J43.9 DVT prophylaxis Z29.9 (1) Acute exacerbation of CHF (congestive heart failure) Heart failure type: systolic Qualified Code(s): I50.23 - Acute on chronic systolic (congestive) heart failure (2) Volume overload Hypervolemia type: unspecified Qualified Code(s): E87.70 - Fluid overload, unspecified
[2020-08-15] MEDS ORDERED: NITROGLYCERIN SL 0.4 MG/TAB TAB SL PRN (20:53)
[2020-08-15] MEDS ORDERED: ALUMINUM/MAGNESIUM SUSP 30 ML UDC PO PRN (20:53)
[2020-08-15] MEDS ORDERED: ACETAMINOPHEN 325 MG TAB PO PRN (20:53)
[2020-08-15] MEDS ORDERED: POLYETHYLENE (MIRALAX) 17 GM PACK PO PRN (20:53)
[2020-08-15] MEDS ORDERED: ONDANSETRON INJ 2 MG/ML 2 ML VIAL IV PRN (20:53)
[2020-08-15] MEDS ORDERED: traMADol HCL 50 MG TABLET PO PRN (20:53)
[2020-08-15] MEDS ORDERED: ACETAMINOPHEN HOME PACK 500 MG TABLET PO PRN (20:53)
[2020-08-15] MEDS: RASPBERRY SYRUP 5 ML UDP PO SCH (22:09)
[2020-08-15] MEDS: VANCOMYCIN HCL 125 MG/2.5ML SOLN PO SCH (22:09)
[2020-08-15] MEDS: ASPIRIN 81 MG ECTAB PO SCH (22:10)
[2020-08-15] MEDS: ROSUVASTATIN CALCIUM 10 MG TAB PO SCH (22:10)
[2020-08-15] MEDS: ISOSORBIDE MONO EXTENDED REL 30 MG TABCR PO SCH (22:10)
[2020-08-16] MEDS ORDERED: ceFAZolin 2000MG 2,000 MG/15 ML SYR IV SCH
[2020-08-16 06:16] LABS: Basophils # (auto) 0.02 K/uL (0-0.2); Basophils % (auto) 0.3 %; Hematocrit (blood only) 29.8 % (37-47); Hemoglobin 9.4 g/dL (12.0-16.0); Immature Granulocytes # (auto) 0.01 K/uL (0.00-0.02); Immature Granulocytes % (auto) 0.2 %; Lymphocytes % (auto) 20.5 %; Mean Corpuscular Hemoglobin 26.6 pg (25-34); Mean Corpuscular Hgb Conc 31.5 g/dL (32-36); Mean Corpuscular Volume 84.4 fL (80-100); Monocytes % (auto) 8.5 %; Neutrophils # (auto) 4.13 K/uL (1.4-6.5); Neutrophils % (auto) 70.5 %; Platelet Count 251 K/uL (130-400); RDW Standard Deviation 51.6 fL (36.4-46.3); Red Blood Count 3.53 M/uL (4.2-5.4); White Blood Count 5.86 K/uL (4.8-10.8)
[2020-08-16 06:42] LABS: Alanine Aminotransferase 7 U/L (12-78); Albumin Level 2.5 gm/dl (3.4-5.0); Aspartate Aminotransferase 28 U/L (15-37); BUN Creatinine Ratio 17.4 (10-20); Blood Urea Nitrogen 15 mg/dl (7-18); Calcium 8.2 mg/dl (8.5-10.1); Carbon Dioxide 29 mmol/L (21-32); Chloride 102 mmol/L (98-107); Creatinine Clr Calc Pharmacy 51.1 ml/min; Est GFR (African American) 75.6; Est GFR (Non-African American) 65.2; Glucose 98 mg/dl (70-99); Potassium 4.2 mmol/L (3.5-5.1); Sodium 137 mmol/L (136-145)
--- NOTE | 2020-08-16 06:42 | Electrocardiogram Report ---
Test Reason : Blood Pressure : / mmHG Vent. Rate : 093 BPM Atrial Rate : 093 BPM P-R Int : 166 ms QRS Dur : 150 ms QT Int : 402 ms P-R-T Axes : 045 056 161 degrees QTc Int : 499 ms Normal sinus rhythm Possible Left atrial enlargement Left bundle branch block Abnormal ECG When compared with ECG of 09-NOV-2018 03:20, QRS voltage has decreased Confirmed by Maik Norris ([id number]) on 08/16/2020 6:42:36 AM Referred By: REFERRED SELF Confirmed By:Maik Norris
[2020-08-16 07:10] LABS: Albumin Globulin Ratio 0.8 (0.9-2); Alkaline Phosphatase 65 U/L (45-117); Bilirubin,Total 0.4 mg/dl (0.2-1); Globulin 3.2 gm/dl (2.5-4.0); NT Pro B Type Natriuretic Pept > 35000 pg/ml (0-1800); Total Protein 5.7 gm/dl (6.4-8.2)
[2020-08-16] MEDS ORDERED: FUROSEMIDE 40 MG/4 ML VIAL IV SCH (09:00)
[2020-08-16] MEDS ORDERED: LOSARTAN POTASSIUM 25 MG TAB PO SCH (09:00)
[2020-08-16] MEDS ORDERED: METOPROLOL SUCC 25MG EXT REL TAB PO SCH (09:00)
--- NOTE | 2020-08-16 09:16 | Hospitalist Progress Note ---
Date of Service August 16, 2020 Assessment & Plan Admission and Anticipated Discharge Date Admission Date: August 15, 2020 Results & Data Results & Data ([facility]) Vital Signs (Past 12 Hours) Vital Signs Temp Pulse Pulse Pulse Resp BP Pulse Ox 08/16/20 07:28 36.9 C 80 20 143/86 H 100 08/16/20 00:00 75 08/15/20 23:00 36.5 C 75 20 144/79 H 91 08/15/20 21:50 83 08/15/20 21:27 36.4 C L 83 20 157/89 H 93
[2020-08-16] MEDS: ISOSORBIDE MONO EXTENDED REL 30 MG TABCR PO SCH (09:32)
[2020-08-16] MEDS: ASCORBIC ACID 500 MG TAB PO SCH (09:32)
[2020-08-16] MEDS: CHOLECALCIFEROL 1,000 UNITS 25 MCG TAB PO SCH (09:32)
[2020-08-16] MEDS: ASPIRIN 81 MG ECTAB PO SCH ×2 (09:33→19:59)
[2020-08-16] MEDS: PANTOprazole 40 MG TAB PO SCH (09:33)
[2020-08-16] MEDS: TOLTERODINE TARTRATE LA 4 MG CAPCR PO SCH (09:33)
[2020-08-16] MEDS: ENOXAPARIN INJ 40 MG/0.4 ML SYR SQ SCH (09:34)
[2020-08-16] MEDS: UMECLIDINIUM BROMIDE 62.5MCG/BLISTER 7 PUFFS/INHALER INH SCH (09:34)
[2020-08-16] MEDS: RASPBERRY SYRUP 5 ML UDP PO SCH ×2 (09:35→20:10)
[2020-08-16] MEDS: FUROSEMIDE 20 MG in SYRINGE 0 ML IV SCH (09:35)
[2020-08-16] MEDS: VANCOMYCIN HCL 125 MG/2.5ML SOLN PO SCH ×2 (09:36→20:10)
[2020-08-16] MEDS: AMPICILLIN/SULBACTAM SOD 3,000 MG in 0.9 % SODIUM CHLORIDE 100 ML IV SCH ×2 (09:37→15:26)
--- NOTE | 2020-08-16 12:35 | Medical Student Progress Note ---
Date of Service August 16, 2020 Assessment & Plan (1) Acute exacerbation of CHF (congestive heart failure): - likely secondary to iatrogenic volume overload while receiving surgical care at [facility] - Nuclear stress test 08/07 revealed an EF 25% likely secondary to old infarct - BNP on admission > 35,000 - Continue on lassix 20mg IV - Continue strict I/Os, daily wts - Continue low Na, heart healthy diet Heart failure type: systolic Qualified Code(s): I50.23 - Acute on chronic systolic (congestive) heart failure (2) Elevated troponin: - chronically elevated, baseline . 4 -found to be 1.9, 4.1, 4.0 - currently not displaying any sx that suggest acute coronary syndrome-denies chest pain (only chest pressure), N/V, arm pain, jaw pain - likely secondary to demand ischemia in the setting of CAD, CHF, and post operative exertion; however, cannot fully r/o [place] - hx LBB on EKG, unchanged from prior EKG - reassuring nuclear stress test 08/07 shows no signs of ischemia - TTE: global hypokinesis with apical sparing, LV function unchanged from last echo 08/07 - Consulting Cardiology to further evaluate cath vs. medical therapy, note pending (3) Acute UTI: - U/A: + leukocytes, nitrites, bacteria - Urine culture + gram - bacilli - Pt is displaying no sx of UTI, denies f/u/d, likely to be asx bacteruria - Discontinue Ampicillin/Sulbactam 3g IV q6 (4) Abnormal CT of the abdomen: -Abd/ Pelvis CT revealed distended gallbladder with nonspecific gallbladder wall thickening, enlarged liver with periportal edema -RUQ U/S revealed thickened and edematous gallbladder wall w/ intraluminal sludge - Given the patient is not complaining of any abdominal pain, distended ga llbladder is likely a result of the periportal edema secondary to the acute CHF exacerbation. - Not concerned for acute cholecystitis given pt is asx, normal wbc, and denies RUQ pain (5) Chronic infection of knee: -Continue IV Cefazolin 2g IV q8 - Blood cx pending (6) Ischemic cardiomyopathy: -Continue metoprolol succinate 25mg qd - Continue aspirin 81mg qd - Continue nitroglycerin .4mg prn - Continue isosorbide mononitrate 30mg BID (7) Normocytic anemia: - Hgb 9.4 from 9.5 - likely due to blood loss from total knee replacement - Continue to monitor with CBC qd (8) COPD (chronic obstructive pulmonary disease) with emphysema: - Continue triotropium bromide 2.5 mcg (9) Hypertension: -discontinue home med losartan switch Entresto Hypertension type: essential hypertension Qualified Code(s): I10 - Essential (primary) hypertension (10) Hyperlipidemia: - Continue home med rosuvastatin 30mg Hyperlipidemia type: unspecified Qualified Code(s): E78.5 - Hyperlipidemia, unspecified (11) DVT prophylaxis: Admission and Anticipated Discharge Date Admission Date: August 15, 2020 Supervising Attestation I personally examined the patient and verified all logan points of history and exam, discussed case, and agree with decision making with Kim Zavala MS4 breathing feeling better than when she came in, but still not great - CH just going/coming back from bathroom. extensive discussions on CHF, CAD, etc. answered all questions to the best of my ability vitals noted nad heent nc at mmm breathing unlabored no accessory muscles good effort skin no rashes no pallor or icterus neuro no focal deficits ischemic cardiomyopathy w acute on chronic HFrEF and demand ischemia w essentially NSTEMI range troponin but clinical picture much more in line w demand ischemia -med management -considering cath -add entresto -education -otherwise as above Subjective Pt is a 85 yo F w/ a pmh of COPD, CAD s/p CABG (1998), Htn, hld presented with dyspnea, nausea, and abdominal pain admitted for acute CHF exacerbation. Pt was discharged from [facility] yesterday (08/15) for a R. infected TKR currently on IV cefazolin. When the patient returned home, she noticed she was short of breath even at rest. She had also been constipated at [facility] and had abdominal pain accompanied by nausea. Today, pt is doing well. Overnight, there were no acute events. Pt feels her shortness of breath may be better than yesterday, but still felt winded especially when she was getting in and out of the bed for testing. She has not ambulated yet. She is eating and drinking with no issues. She denies having any abdominal pain, just shortness of breath. She also has been experiencing chest pressure that has been going on for the month that is dull and intermittent. She denies new onset of chest pain, jaw pain, arm pain, palpitations. Review of Systems Constitutional: denies fever, chills, fatigue Eyes: denies changes in vision Ear, Nose, Mouth, Throat: denies jaw pain, neck pain Respiratory: denies cough, change in sputum Cardiovascular: Additional Comments: + dyspnea at rest, dyspnea on exertion; denies chest pain Gastrointestinal: denies abdominal pain, nausea, vomiting Genitourinary: denies urinary pain, frequency, urgency Musculoskeletal: + hip pain Neurologic: denies headache, dizziness, numbness, weakness Physical Exam Constitutional: well developed, well appearing sitting in the bed Eyes: PERRL, conjunctivae normal, anicteric sclerae ENMT: external ear and nose normal, oropharynx normal Neck: trachea midline, no thyromegaly Respiratory: bilateral fine crackles in the lower lung cuevas Cardiovascular: RRR, no murmur, no edema Gastrointestinal (Abdomen): normal bowel sounds, soft, nontender, no hepatosplenomegaly Musculoskeletal: no cyanosis or clubbing, extremities motor strength 5/5 no pretibial edema Neurologic: awake, alert, oriented X3 Genitourinary: no suprapubic tenderness Results & Data ([facility]) Vital Signs (Past 12 Hours) Vital Signs Temp Pulse Pulse Resp BP Pulse Ox 08/16/20 11:20 36.4 C L 77 20 121/72 97 08/16/20 07:30 71 08/16/20 07:28 36.9 C 80 20 143/86 H 100 Laboratory Results 11/09/18 11/09/18 11/09/18 Range/Units 13:03 06:34 03:33 WBC (4.8-10.8) K/uL RBC (4.2-5.4) M/uL Hgb (12.0-16.0) g/dL Hct (37-47) % MCV (80-100) fL MCH (25-34) pg MCHC (32-36) g/dL RDW Std Deviation (36.4-46.3) fL RDW Coeff of Elif (11.5-14.5) % Plt Count (130-400) K/uL MPV (7.4-10.4) fL Immature Gran % (Auto) % Neut % (Auto) % Lymph % (Auto) % [place] % (Auto) % Eos % (Auto) % Baso % (Auto) % Immature Gran # (Auto) (0.00-0.02) K/uL Neut # (Auto) (1.4-6.5) K/uL Lymph # (Auto) (1.2-3.4) K/uL [place] # (Auto) (0.11-0.59) K/uL Eos # (Auto) (0-0.5) K/uL Baso # (Auto) (0-0.2) K/uL PT (9.0-12.0) Seconds INR (0.9-1.1) APTT 56.0 H* (21.0-31.0) Seconds PTT Ratio 2.1 Sodium 136 (136-145) mmol/L Potassium 4.4 (3.5-5.1) mmol/L Chloride 104 (98-107) mmol/L Carbon Dioxide 29 (21-32) mmol/L Anion Gap 3.0 (3-11) BUN 16 (7-18) mg/dl Creatinine 0.99 (0.6-1.2) mg/dl Est Cr Clr Drug Dosing 40.4 ml/min Est GFR ( Amer) 61.9 Est GFR (Non-Af Amer) 53.4 BUN/Creatinine Ratio 16.6 (10-20) Glucose 113 H (70-99) mg/dl Calcium 8.5 (8.5-10.1) mg/dl Phosphorus 3.3 (2.5-4.9) mg/dl Magnesium 2.2 (1.8-2.4) mg/dl Total Bilirubin 0.2 (0.2-1) mg/dl AST 14 L (15-37) U/L ALT 10 L (12-78) U/L Alkaline Phosphatase 90 (45-117) U/L Troponin I 0.401 H* 0.437 H* (0-0.045) ng/ml Total Protein 6.9 (6.4-8.2) gm/dl Albumin 2.7 L (3.4-5.0) gm/dl Globulin 4.2 H (2.5-4.0) gm/dl Albumin/Globulin Ratio 0.6 L (0.9-2) 11/09/18 11/09/18 Range/Units 03:33 03:33 WBC 7.87 (4.8-10.8) K/uL RBC 4.63 (4.2-5.4) M/uL Hgb 12.7 (12.0-16.0) g/dL Hct 39.6 (37-47) % MCV 85.5 (80-100) fL MCH 27.4 (25-34) pg MCHC 32.1 (32-36) g/dL RDW Std Deviation 49.7 H (36.4-46.3) fL RDW Coeff of Elif 15.9 H (11.5-14.5) % Plt Count 256 (130-400) K/uL MPV 9.5 (7.4-10.4) fL Immature Gran % (Auto) 0.1 % Neut % (Auto) 58.6 % Lymph % (Auto) 29.2 % [place] % (Auto) 7.8 % Eos % (Auto) 3.9 % Baso % (Auto) 0.4 % Immature Gran # (Auto) 0.01 (0.00-0.02) K/uL Neut # (Auto) 4.61 (1.4-6.5) K/uL Lymph # (Auto) 2.30 (1.2-3.4) K/uL [place] # (Auto) 0.61 H (0.11-0.59) K/uL Eos # (Auto) 0.31 (0-0.5) K/uL Baso # (Auto) 0.03 (0-0.2) K/uL PT 11.1 (9.0-12.0) Seconds INR 1.1 (0.9-1.1) APTT 28.0 (21.0-31.0) Seconds PTT Ratio 1.0 Sodium (136-145) mmol/L Potassium (3.5-5.1) mmol/L Chloride (98-107) mmol/L Carbon Dioxide (21-32) mmol/L Anion Gap (3-11) BUN (7-18) mg/dl Creatinine (0.6-1.2) mg/dl Est Cr Clr Drug Dosing ml/min Est GFR ( Amer) Est GFR (Non-Af Amer) BUN/Creatinine Ratio (10-20) Glucose (70-99) mg/dl Calcium (8.5-10.1) mg/dl Phosphorus (2.5-4.9) mg/dl Magnesium (1.8-2.4) mg/dl Total Bilirubin (0.2-1) mg/dl AST (15-37) U/L ALT (12-78) U/L Alkaline Phosphatase (45-117) U/L Troponin I (0-0.045) ng/ml Total Protein (6.4-8.2) gm/dl Albumin (3.4-5.0) gm/dl Globulin (2.5-4.0) gm/dl Albumin/Globulin Ratio (0.9-2) Diagnostic Findings XR chest 1V portable IMPRESSION: 1. Cardiomegaly, pulmonary edema, and small bilateral pleural effusions. 2. Bibasilar densities are nonspecific but favor atelectasis. A superimposed pneumonia cannot be excluded. CT ANGIOGRAM OF THE CHEST IMPRESSION: 1. No evidence of acute pulmonary embolism 2. Cardiomegaly with moderate bilateral pleural effusions and mild septal edema 3. Mild emphysema 4. Dependent airspace opacities likely representing compressive atelectatic change CT SCAN OF THE ABDOMEN AND PELVIS WITH IV CONTRAST IMPRESSION: 1. Cardiomegaly with small to moderate bilateral pleural effusions. These are new from 05/31/2020. 2. Dense bibasilar consolidation likely represent atelectasis. Correlate clinically for evidence of superimposed pneumonia. 3. The gallbladder is distended. There is nonspecific gallbladder wall thickening and edema as well as mucosal hyperemia. There is pericholecystic stranding and fluid. Although some of this may be related to fluid status, acute cholecystitis is not excluded. Correlation with clinical and laboratory findings well be required. If clinically warranted ultrasound could be considered for further assessment of the gallbladder. 4. There is a 4 mm calcification identified in the region of the ampulla which could be within the distal common bile duct or possibly the pancreatic duct. Choledocholithiasis is not excluded. 5. The liver is enlarged and edematous with periportal edema. This may be related to congestive hepatopathy. 6. There is a small volume of abdominopelvic ascites as well as anasarca of the body wall. 7. There is moderate to severe left-sided hydronephrosis. This has decreased from 05/31/2020 and likely represents a UPJ type obstruction. 8. Right-sided nephrolithiasis. 9. Diffuse aneurysmal dilatation of the abdominal aorta as well as iliac artery aneurysms are similar to previous. 10. Additional findings as above. ULTRASOUND RIGHT UPPER QUADRANT ABDOMEN IMPRESSION: 1. The gallbladder is distended, with a thickened and edematous wall. There is intraluminal sludge with no shadowing stones identified. There is nonspecific pericholecystic fluid and a sonographic Charles's sign is reportedly absent. Findings are equivocal for acute cholecystitis which is not excluded. If there is strong clinical concern for acute cholecystitis a nuclear hepatobiliary scan could be considered to assess for patency of the cystic duct. 2. Nonvisualization of the common bile duct. 3. There is a small volume of upper abdominal ascites and a right pleural effusion. 4. The liver is enlarged and heterogeneous. Medications Administered ER Medications given: Lasix 20mg IV Famotidine 20mg IV Ondansetron 4mg IV Dexamethasone 10mg IV Duoneb 3ml Guaifenesin 600mg PO Acetaminophen 1000mg PO Zosyn 4.5g IV
--- NOTE | 2020-08-16 12:59 | XCELERA ---
[id number]
--- NOTE | 2020-08-16 15:52 | Urology Consultation ---
Date of Consultation August 16, 2020 History of Present Illness Attending Physician: Pawel Valdivia DO Allergies Allergy/AdvReac Type Severity Reaction Status Date / Time potassium chloride AdvReac Intermediate Vomiting Unverified 08/15/20 12:53 Sulfa (Sulfonamide AdvReac Intermediate NAUSEA/VOMI Verified 08/03/20 09:06 Antibiotics) TING sulfamethoxazole AdvReac Intermediate Vomiting Unverified 08/15/20 12:53 [From Bactrim] trimethoprim [From Bactrim] AdvReac Intermediate Vomiting Unverified 08/15/20 12:53 lisinopril AdvReac Unknown NAUSEA Verified 08/03/20 09:06 VOMITING sulfasalazine AdvReac Unknown NAUSEA-COULDN'T Verified 08/03/20 09:06 EAT Home Medications Medication Instructions Recorded Confirmed Type cholecalciferol (vitamin D3) 1,000 unit PO DAILY 11/05/18 08/15/20 History [Vitamin D3] nitroglycerin 0.4 mg sublingual 0.4 mg SUBLINGUAL UD PRN #25 tabs 05/19/19 08/15/20 Rx tablet tolterodine 4 mg capsule,extended 4 mg PO DAILY #90 cap 11/09/19 08/15/20 Rx release 24 hr losartan 25 mg tablet 25 mg PO DAILY #90 tab 11/30/19 08/15/20 Rx ascorbic acid (vitamin C) 1,000 mg 1 gm PO DAILY tab 12/30/19 08/15/20 History tablet tramadol 50 mg tablet 50 mg PO Q8H PRN 12/30/19 08/15/20 History tiotropium bromide 2.5 2 puffs INH DAILY #12 gm 02/09/20 08/15/20 Rx mcg/actuation mist for inhalation pantoprazole 40 mg tablet,delayed 40 mg PO DAILY #90 tab 03/24/20 08/15/20 Rx release aspirin 81 mg tablet,delayed 81 mg PO BID tab 08/03/20 08/15/20 History release acetaminophen [Tylenol Extra 1,000 mg PO TID PRN 08/15/20 08/15/20 History Strength] isosorbide mononitrate 30 mg PO BID 08/15/20 08/15/20 History metoprolol succinate [Toprol XL] 25 mg PO DAILY 08/15/20 08/15/20 History ropivacaine (PF) 0 mg UD 08/15/20 08/15/20 History rosuvastatin 30 mg PO HS 08/15/20 08/15/20 History vancomycin 125 mg PO BID 08/15/20 08/15/20 History Patient History Medical History Abdominal aneurysm Acute non-ST elevation myocardial infarction (NSTEMI) Atypical chest pain CAD (coronary artery disease) Chronic infection of knee Clostridium 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 Dyspnea on exertion GERD (gastroesophageal reflux disease) Heart attack Hypertension Hypothyroid Peripheral arterial disease Surgical History H/O colonoscopy H/O esophagogastroduodenoscopy History of knee surgery History of open reduction and internal fixation (ORIF) procedure right proximal femur 2006 History of quadruple bypass History of total hip replacement Hx of tonsillectomy Family History Mother Leukemia Brother Aortic aneurysm Father Aortic aneurysm Stroke syndrome Tuberculosis Daughter Coronary heart disease Heart problem Grandfather Tuberculosis Uncle Tuberculosis Denies family history of Ovarian cancer Prostate cancer Breast cancer Lung cancer Colorectal cancer Social History Smoking Status: Former smoker Age Started Using Tobacco: 19; Age Quit Using Tobacco: 64; packs per day: 1; Years Smoked: 45; Cigarettes Per Day: 20; Second Hand Exposure: No; Do You Dip or Chew Tobacco: No; Tobacco Cessation Education Requested by Patient: No Hx Alcohol Use: No Hx Substance Use: No Preferred Language: Polish Communication Ability: Effective Visual Impairment: Diminished Hearing Ability: Hard of Hearing Project Inspector Required: No Beliefs That Will Affect Care: None marital status: / Current Living Situation: Alone Current Living Situation Comment: daughter near by current occupational status: retired Other Information That Helps Us Care for You: No Feels Safe at Home: Yes Safety Concerns: Feels Safe At This Time Childhood Exposure to Second-Hand Smoke: Yes caffeine: Yes Dental Care, Regularly: No Physical Activity Frequency: Does not Exercise Seatbelt Use: always Sunscreen Use: No Assistive Devices: Glasses Results & Data ([facility]) Vital Signs (Past 12 Hours) Vital Signs Temp Pulse Pulse Resp BP Pulse Ox 08/16/20 14:45 36.6 C 79 20 134/73 97 08/16/20 11:20 36.4 C L 77 20 121/72 97 08/16/20 07:30 71 08/16/20 07:28 36.9 C 80 20 143/86 H 100 PG Care Time/CCT Total # of Minutes Spent Total Time Spent with Patient: Total time spent is greater than 50% in coordination of care (as documented) at patient's floor/unit and/or counseling patient: Coding
--- NOTE | 2020-08-16 17:07 | Cardiology Consultation ---
Date of Consultation August 16, 2020 Assessment & Plan (1) Non-ST elevation (NSTEMI) myocardial infarction: (2) Acute systolic CHF (congestive heart failure): (3) CAD (coronary artery disease), [place] coronary artery: (4) Hypertension: (5) Aneurysm of iliac artery: (6) S/P CABG (coronary artery bypass graft): ASSESSMENT/PLAN: 1. NSTEMI: Had exertional angina today walking from the restroom to her bed. Currently chest pain-free. We discussed her multivessel CAD and significantly reduced systolic function. We discussed and considered options such as cardiac catheterization, including risks and benefits. We also discussed medical therapy as part of her care. She wished to give further thought after discussing with her family. She asked me to speak with her daughter, Daina. I spoke with Daina and Daina's daughter, Wayne, via telephone. We had a lengthy discussion discussing her multiple medical issues and possible treatment strategies. For now, will continue with medical therapy well they continue to discuss. Continue aspirin. Recommend heparin or Lovenox if okay from a right knee surgical standpoint. If tolerates, will also consider adding Plavix for aggressive medical therapy, for 1 year. Continue beta-sebastien and high- intensity statin therapy. 2. CAD s/p CABG x 4 (1998): NSTEMI as above. Intermittent angina. For now, medical therapy. Increase metoprolol succinate to 50 mg daily. Increase isosorbide mononitrate to 60 mg twice daily. Continue high-intensity statin therapy. Aspirin. Heparin drip or Lovenox if no contraindication. If no significant bleeding (recent surgery), will also likely add Plavix. 3. Acute systolic CHF: She appears hypervolemic and symptoms consistent with hypervolemia. Continue intravenous diuretic. Diuresing well and symptoms are improving. Continue metoprolol succinate. Hospitalist service has appropriatel y added Entresto to her regimen in place of losartan. Will titrate these medications over time. Will enroll in Heart failure program. Low-sodium diet, daily weights, strict I&Os. 4. Hypertension: Blood pressure has been normotensive to mildly hypertensive. Adjusting medical therapy as above. 5. Dyslipidemia: Continue high-intensity statin therapy. 6. Bilateral iliac artery aneurysm: Followed by Dr. Osborne. 7. Disposition: Cardiology will continue to follow. Patient care discussed with Dr. aVldivia of the primary hospitalist service. Discussed patient care and treatment options with her daughter, Daina, and granddaughter, Wayne, for 31 minutes via telephone. In total, including telephone call, 70 minutes spent for today's visit, including coordinating care, reviewing records, and [id number] time. Highly complex medical issues. Thank you for allowing me to participate in the care of your patient. Please call for any other questions or concerns. Sincerely, Ariel Norris M.D. History of Present Illness Reason for Consultation: NSTEMI and CHF Requesting Physician: Dr. Woo Attending Physician: Pawel Valdivia, DO History of Present Illness Mrs. Martinez is a very pleasant 85-year-old female with a history significant for CAD status post CABG x4 in 1998, dyslipidemia, hypertension, AAA and bilateral iliac artery aneurysms (followed by Dr. Osborne), and chronic knee infection. In 1998, she underwent cardiac catheterization after being told that she had a myocardial infarction. She had not had any anginal symptoms. This was arranged from the outpatient setting. She eventually underwent CABG x4 in 1998 at [facility], consisting of WHELAN to LAD, left radial artery to OM1 and sequentially to OM2, and JONATAN to mid RCA. She has not required cardiac catheterization since then. She has had the following studies/procedures: 1. [place] [facility] [place] to LAD, left radial artery to OM1 and sequentially to OM2, JONATAN to mid RCA. 2. Echo 11/06/2018: Normal LV size. EF 50-55%. No regional wall motion abnormalities. Moderate LVH. Mildly reduced RV systolic function. Sclerotic aortic valve. Mild MR. RVSP 24. 3. Nuclear stress 11/11/2018: No ischemia or infarct. EF 58%. Normal wall motion. 4. Nuclear stress 08/04/2020: EF 26%. Fixed inferior and septal defects. No ischemia reported. 5. Echo 08/07/2020: EF 25-30%. Basal inferior and septal claros akinetic. Severe hypokinesis involving the mid to distal posterior septal and inferior claros. Moderately dilated left atrium. Moderate MR. 6. The echo 08/16/2020: Normal LV size with moderately to severely reduced systolic function. EF 30-35%. Akinesis of the inferolateral, base to mid inferior, base inferoseptal wall segments. Otherwise, global hypokinesis with relative sparing of the apex. Mild LVH. Mildly reduced RV systolic function. Mild left atrial dilation. Restricted posterior mitral leaflet with moderate MR. On 08/09/2020, she underwent right [place] [facility] [place]. She had hardware removed and has a spacer in place. She was then discharged for 6 weeks of IV antibiotics. According to her daughter, Daina, she may not require a second surgery depending on how she is doing at that time. She was discharged from [facility] on 08/14/2020 and admitted here on 08/15/2020 for chest pain and shortness of breath. She states that for the past few months or so she has been experiencing intermittent chest discomfort described as a substernal chest pressure. Initially, symptoms only occurred with exertion. [place] the way [place] [facility] [place] she had an episode while in the car. It was substernal chest pressure with shortness of breath. It lasted for approximately 2 minutes before subsiding. She then had recurrent episodes. She had an episode of chest pain earlier today after returning from the bathroom to her bed. Symptoms resolved within 3-5 minutes. There is no radiation of the pain. Her initial troponin was 1.92 but increased to 4.14 which was peak. She has had right lower extremity swelling, which is the leg with the chronic infection and recent surgery. She denies syncope, near-syncope, palpitations, or bleeding such as melena, hematochezia, or hematuria. She has been experiencing worsening shortness of breath, dyspnea with exertion, and orthopnea. Her breathing has improved with diuresis, and thus far has a net negative fluid balance of 2 L[address] She follows with [address] Osborne of vascular surgery for bilateral iliac artery aneurysms and intervention has been recommended but awaiting treatment of her infection. Her AAA measures 3.6 cm as of her last visit with Dr. Osborne on 06/20/2020. Her right iliac artery measured 4 cm and was bilobed, while the left common iliac artery was 3 cm. Review of systems: As above. Review of systems otherwise negative/unremarkable. Social history: She smokes approximately 40 pack years but quit in 1998. Rare alcohol. No drugs. . Her daughter lives with her. She has 2 daughters and 1 son, but 1 daughter in February of 2020 with cardiac issues and ICD. She has grandchildren and great grandchildren. She is unaccompanied. Family history: Father had CAD diagnosed at the age of 67. Brother with CAD at the age of 80. Another brother with CAD. Daughter had ID and CABG at age of 39 and in February of 2020. Allergies Allergy/AdvReac Type Severity Reaction Status Date / Time potassium chloride AdvReac Intermediate Vomiting Unverified 08/15/20 12:53 Sulfa (Sulfonamide AdvReac Intermediate NAUSEA/VOMI Verified 08/03/20 09:06 Antibiotics) TING sulfamethoxazole AdvReac Intermediate Vomiting Unverified 08/15/20 12:53 [From Bactrim] trimethoprim [From Bactrim] AdvReac Intermediate Vomiting Unverified 08/15/20 12:53 lisinopril AdvReac Unknown NAUSEA Verified 08/03/20 09:06 VOMITING sulfasalazine AdvReac Unknown NAUSEA-COULDN'T Verified 08/03/20 09:06 EAT Home Medications Medication Instructions Recorded Confirmed Type cholecalciferol (vitamin D3) 1,000 unit PO DAILY 11/05/18 08/15/20 History [Vitamin D3] nitroglycerin 0.4 mg sublingual 0.4 mg SUBLINGUAL UD PRN #25 tabs 05/19/19 08/15/20 Rx tablet tolterodine 4 mg capsule,extended 4 mg PO DAILY #90 cap 11/09/19 08/15/20 Rx release 24 hr losartan 25 mg tablet 25 mg PO DAILY #90 tab 11/30/19 08/15/20 Rx ascorbic acid (vitamin C) 1,000 mg 1 gm PO DAILY tab 12/30/19 08/15/20 History tablet tramadol 50 mg tablet 50 mg PO Q8H PRN 12/30/19 08/15/20 History tiotropium bromide 2.5 2 puffs INH DAILY #12 gm 02/09/20 08/15/20 Rx mcg/actuation mist for inhalation pantoprazole 40 mg tablet,delayed 40 mg PO DAILY #90 tab 03/24/20 08/15/20 Rx release aspirin 81 mg tablet,delayed 81 mg PO BID tab 08/03/20 08/15/20 History release acetaminophen [Tylenol Extra 1,000 mg PO TID PRN 08/15/20 08/15/20 History Strength] isosorbide mononitrate 30 mg PO BID 08/15/20 08/15/20 History metoprolol succinate [Toprol XL] 25 mg PO DAILY 08/15/20 08/15/20 History ropivacaine (PF) 0 mg UD 08/15/20 08/15/20 History rosuvastatin 30 mg PO HS 08/15/20 08/15/20 History vancomycin 125 mg PO BID 08/15/20 08/15/20 History Patient History Medical History Abdominal aneurysm Acute non-ST elevation myocardial infarction (NSTEMI) Atypical chest pain CAD (coronary artery disease) Chronic infection of knee Clostridium 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 Dyspnea on exertion GERD (gastroesophageal reflux disease) Heart attack Hypertension Hypothyroid Peripheral arterial disease Surgical History (Updated 08/16/20 @ 17:22 by Maik Norris MD) H/O colonoscopy H/O esophagogastroduodenoscopy History of knee surgery History of open reduction and internal fixation (ORIF) procedure right proximal femur 2006 History of quadruple bypass History of total hip replacement Hx of tonsillectomy S/P CABG (coronary artery bypass graft) Family History Mother Leukemia Brother Aortic aneurysm Father Aortic aneurysm Stroke syndrome Tuberculosis Daughter Coronary heart disease Heart problem Grandfather Tuberculosis Uncle Tuberculosis Denies family history of Ovarian cancer Prostate cancer Breast cancer Lung cancer Colorectal cancer Social History Smoking Status: Former smoker Age Started Using Tobacco: 19; Age Quit Using Tobacco: 64; packs per day: 1; Years Smoked: 45; Cigarettes Per Day: 20; Second Hand Exposure: No; Do You Dip or Chew Tobacco: No; Tobacco Cessation Education Requested by Patient: No Hx Alcohol Use: No Hx Substance Use: No Preferred Language: Montenegrin Communication Ability: Effective Visual Impairment: Diminished Hearing Ability: Hard of Hearing Folder Machine Adjuster Required: No Beliefs That Will Affect Care: None marital status: / Current Living Situation: Alone Current Living Situation Comment: daughter near by current occupational status: retired Other Information That Helps Us Care for You: No Feels Safe at Home: Yes Safety Concerns: Feels Safe At This Time Childhood Exposure to Second-Hand Smoke: Yes caffeine: Yes Dental Care, Regularly: No Physical Activity Frequency: Does not Exercise Seatbelt Use: always Sunscreen Use: No Assistive Devices: Oxygen - Continuous and Walker Physical Exam Physical Exam: Gen.: No acute distress. Alert and oriented. HEENT: Anicteric sclera. Neck: Elevated JVD and hepatic jugular reflux. No bruits. Normal carotid upstrokes bilaterally. Cardiac: PMI was nonpalpable. No ventricular heave. Regular rate and rhythm. Normal S1-S2. 1/6 systolic murmur. No rubs, or gallops. Pulmonary: Clear to auscultation bilaterally without wheezes, rales, or rhonchi. Abdomen: Soft, nontender, nondistended, with normoactive bowel sounds. No bruits noted. Extremities: 2+ right radial pulse. s/p left radial harvest. 2+ posterior tibialis pulses bilaterally. 1+ left lower extremity edema. One to 2+ right lower extremity edema. No cyanosis. Psychiatric: Affect appears appropriate. Results & Data ([facility]) Vital Signs (Past 12 Hours) Vital Signs Temp Pulse Pulse Resp BP Pulse Ox 08/16/20 14:45 36.6 C 79 20 134/73 97 08/16/20 11:20 36.4 C L 77 20 121/72 97 08/16/20 07:30 71 08/16/20 07:28 36.9 C 80 20 143/86 H 100 Intake & Output 08/14/20 08/15/20 08/16/20 08/17/20 06:59 06:59 06:59 06:59 Intake Total 420 / 420 736 / 736 Output Total 1800 / 1800 1401 / 1401 Balance -1380 / -1380 -665 / -665 Weight 158 lb 11.725 oz Laboratory Results Laboratory Results - last 24 hr 08/15/20 08/16/20 08/16/20 22:55 05:43 05:43 WBC 5.86 RBC 3.53 L Hgb 9.4 L Hct 29.8 L MCV 84.4 MCH 26.6 MCHC 31.5 L RDW Std Deviation 51.6 H RDW Coeff of Elif 17.0 H Plt Count 251 MPV 10.0 Immature Gran % (Auto) 0.2 Neut % (Auto) 70.5 Lymph % (Auto) 20.5 [place] % (Auto) 8.5 Eos % (Auto) 0.0 Baso % (Auto) 0.3 Neut # (Auto) 4.13 Lymph # (Auto) 1.20 [place] # (Auto) 0.50 Eos # (Auto) 0.00 Baso # (Auto) 0.02 Immature Gran # (Auto) 0.01 Sodium 137 Potassium 4.2 Chloride 102 Carbon Dioxide 29 Anion Gap 6.0 BUN 15 Creatinine 0.83 Est Cr Clr Drug Dosing 51.1 Est GFR ( Amer) 75.6 Est GFR (Non-Af Amer) 65.2 BUN/Creatinine Ratio 17.4 Glucose 98 Calcium 8.2 L Total Bilirubin 0.4 AST 28 ALT 7 L Alkaline Phosphatase 65 Troponin I 4.140 H* 4.050 H* NT-Pro-B Natriuret Pep > 15040 H Total Protein 5.7 L Albumin 2.5 L Globulin 3.2 Albumin/Globulin Ratio 0.8 L Diagnostic Findings Chart reviewed. Echo report reviewed as noted in HPI. ECG 08/15/2020 reviewed: Sinus rhythm 93 beats per minute. LBBB. CT abdomen/pelvis 08/15/2020: Small to moderate bilateral pleural effusions. Dense bibasilar consolidation likely represents atelectasis. Distended gallbladder the enlarged liver and edematous with periportal edema. Small volume abdominopelvic ascites. Moderate to severe left-sided hydronephrosis diffuse aneurysmal dilation of the abdominal aorta and iliac artery aneurysms similar to present. CTA chest 08/15/2020: No PE. Moderate bilateral pleural effusions. Mild emphysema. Medications Administered Current Inpatient Medications Acetaminophen (Acetaminophen 325 Mg Tab) 650 mg PO Q4H PRN PRN Reason: Pain or Fever Stop: 09/14/20 20:52 Al Hydrox/Mg Hydrox/Simethicone (Aluminum/Magnesium Susp 30 Ml Udc) 15 ml PO Q4H PRN PRN Reason: Dyspepsia Stop: 09/14/20 20:52 Ascorbic Acid (Ascorbic Acid 500 Mg Tab) 1,000 mg PO DAILY [facility] Stop: 09/15/20 08:59 Last Admin: 08/16/20 09:32 Dose: 1,000 mg Documented by: Aspirin (Aspirin 81 Mg Ectab) 81 mg PO BID JOSE Stop: 09/14/20 20:59 Last Admin: 08/16/20 09:33 Dose: 81 mg Documented by: Enoxaparin Sodium (Enoxaparin Inj 40 Mg/0.4 Ml Syr) 40 mg SQ QAM [facility] Stop: 09/15/20 08:59 Last Admin: 08/16/20 09:34 Dose: 40 mg Documented by: Heparin Sodium (Beef Lung) (Heparin 10 Unit/Ml 5 Ml Flush) 5 ml FLUSH PRN PRN PRN Reason: Flush Stop: 09/14/20 22:29 Last Admin: 08/16/20 10:30 Dose: 5 ml Documented by: Heparin Sodium (Beef Lung) (Heparin 10 Unit/Ml 5 Ml Flush) 5 ml FLUSH PRN PRN PRN Reason: Flush Stop: 09/14/20 22:30 Furosemide 20 mg/ Syringe 2 mls @ 4 mls/min IV QAM [facility] Stop: 09/15/20 08:59 Last Admin: 08/16/20 09:35 Dose: 4 mls/min Documented by: Isosorbide Mononitrate (Isosorbide [place] Extended Rel 30 Mg Tabcr) 30 mg PO BID [facility] Stop: 09/14/20 20:59 Last Admin: 08/16/20 09:32 Dose: 30 mg Documented by: Metoprolol Succinate (Metoprolol Succ 25mg Ext Rel Tab) 25 mg PO DAILY [facility] Stop: 09/15/20 08:59 Last Admin: 08/16/20 09:31 Dose: 25 mg Documented by: Nitroglycerin (Nitroglycerin Sl 0.4 Mg/Tab Tab) 0.4 mg SL UD PRN PRN Reason: chest pain Stop: 09/14/20 20:52 Ondansetron HCl (Ondansetron Inj 2 Mg/Ml 2 Ml Vial) 4 mg IV Q6H PRN PRN Reason: Nausea Stop: 09/14/20 20:52 Pantoprazole Sodium (Pantoprazole 40 Mg Tab) 40 mg PO DAILY [facility] Stop: 09/15/20 08:59 Last Admin: 08/16/20 09:33 Dose: 40 mg Documented by: Polyethylene Glycol (Polyethylene (Miralax) 17 Gm Pack) 17 gm PO DAILY PRN PRN Reason: Constipation Stop: 09/14/20 20:52 Raspberry (Raspberry Syrup 5 Ml Udp) 5 ml PO BID [facility] Stop: 08/29/20 20:59 Last Admin: 08/16/20 09:35 Dose: 5 ml Documented by: Rosuvastatin Calcium (Rosuvastatin Calcium 10 Mg Tab) 30 mg PO HS JOSE Stop: 09/14/20 20:59 Last Admin: 08/15/20 22:10 Dose: 30 mg Documented by: Sacubitril/Valsartan (Sacubitril-Valsartan 24-26 Mg Tab) 1 tab PO BID JOSE Stop: 09/15/20 20:59 Tolterodine Tartrate (Tolterodine Tartrate La 4 Mg Capcr) 4 mg PO DAILY JOSE Stop: 09/15/20 08:59 Last Admin: 08/16/20 09:33 Dose: 4 mg Documented by: Tramadol HCl (Tramadol Hcl 50 Mg Tablet) 50 mg PO Q8H PRN PRN Reason: pain Stop: 09/14/20 20:52 Umeclidinium [place] (Umeclidinium [place] 62.5mcg/Blister 7 Puffs/Inhaler) 1 puffs INH DAILY JOSE Stop: 09/15/20 08:59 Last Admin: 08/16/20 09:34 Dose: 1 puffs Documented by: Vancomycin HCl (Vancomycin Hcl 125 Mg/2.5ml Soln) 125 mg PO BID JOSE Stop: 08/25/20 20:59 Last Admin: 08/16/20 09:36 Dose: 125 mg Documented by: Vitamin D (Cholecalciferol 1,000 Units 25 Mcg Tab) 1,000 units PO DAILY JOSE Stop: 09/15/20 08:59 Last Admin: 08/16/20 09:32 Dose: 1,000 units Documented by: PG Care Time/CCT Total # of Minutes Spent Total Time Spent with Patient: Total time spent is greater than 50% in coordination of care (as documented) at patient's floor/unit and/or counseling patient: Coding Level of Care Code 35111 Initial Inpt Care Lvl 3 Diagnoses Non-ST elevation (NSTEMI) myocardial infarction I21.4 Acute systolic CHF (congestive heart failure) I50.21 CAD (coronary artery disease), [place] coronary artery I25.119 [place] vs. transplanted heart: [place] heart Associated angina: with unspecified angina Hypertension I10 Hypertension type: essential hypertension Aneurysm of iliac artery I72.3 S/P CABG (coronary artery bypass graft) Z95.1 (1) CAD (coronary artery disease), [place] coronary artery [place] vs. transplanted heart: [place] heart Associated angina: with unspecified angina Qualified Code(s): I25.119 - Atherosclerotic heart disease of [place] coronary artery with unspecified angina pectoris (2) Hypertension Hypertension type: essential hypertension Qualified Code(s): I10 - Essential (primary) hypertension
--- NOTE | 2020-08-16 17:25 | Billing Data ---
Date of Service August 16, 2020 Coding Level of Care Code 46984 Subseq Obs Care Lvl 3
[2020-08-16] MEDS: HEPARIN SODIUM/DEXTROSE 25,000 UNITS/500 ML BAG IV SCH (18:47)
[2020-08-16] MEDS: Heparin IV Low Dose *NO* Bolus IV SCH ×2 (19:47→19:48)
[2020-08-16] MEDS: SACUBITRIL-VALSARTAN 24-26 MG TAB PO SCH (19:59)
[2020-08-16] MEDS: ROSUVASTATIN CALCIUM 10 MG TAB PO SCH (20:01)
[2020-08-16] MEDS: ISOSORBIDE MONO EXTENDED REL 60 MG TABCR PO SCH (20:54)
[2020-08-17] MEDS ORDERED: MELATONIN 3 MG TAB PO PRN (00:56)
[2020-08-17 01:23] LABS: Partial Thromboplastin Ratio 1.6; Partial Thromboplastin Time 43.4 Seconds (21.0-31.0)
[2020-08-17 07:53] LABS: Partial Thromboplastin Ratio 1.7
[2020-08-17 07:55] LABS: Partial Thromboplastin Time 47.3 Seconds (21.0-31.0)
[2020-08-17] MEDS: ceFAZolin 2000MG 2,000 MG/15 ML SYR IV SCH ×3 (08:18→23:50)
[2020-08-17] MEDS: UMECLIDINIUM BROMIDE 62.5MCG/BLISTER 7 PUFFS/INHALER INH SCH (08:19)
[2020-08-17] MEDS: ASPIRIN 81 MG ECTAB PO SCH ×2 (08:19→20:15)
[2020-08-17] MEDS: ISOSORBIDE MONO EXTENDED REL 60 MG TABCR PO SCH ×2 (08:19→20:15)
[2020-08-17] MEDS: FUROSEMIDE 20 MG in SYRINGE 0 ML IV SCH (08:19)
[2020-08-17] MEDS: TOLTERODINE TARTRATE LA 4 MG CAPCR PO SCH (08:19)
[2020-08-17] MEDS: ASCORBIC ACID 500 MG TAB PO SCH (08:20)
[2020-08-17] MEDS: VANCOMYCIN HCL 125 MG/2.5ML SOLN PO SCH ×2 (08:20→20:13)
[2020-08-17] MEDS: PANTOprazole 40 MG TAB PO SCH (08:20)
[2020-08-17] MEDS: RASPBERRY SYRUP 5 ML UDP PO SCH ×2 (08:20→20:13)
[2020-08-17] MEDS: CHOLECALCIFEROL 1,000 UNITS 25 MCG TAB PO SCH (08:21)
[2020-08-17] MEDS: SACUBITRIL-VALSARTAN 24-26 MG TAB PO SCH ×2 (08:21→20:16)
[2020-08-17] MEDS: SPIRONOLACTONE 25 MG TAB PO SCH (08:22)
[2020-08-17] MEDS: METOPROLOL SUCC 50MG EXT REL TAB PO SCH (08:22)
[2020-08-17] MEDS ORDERED: GABAPENTIN 300 MG CAP PO SCH (09:00)
[2020-08-17] MEDS: ENOXAPARIN INJ 40 MG/0.4 ML SYR SQ SCH (10:51)
--- NOTE | 2020-08-17 11:14 | Heart Failure Progress Note ---
Date of Service August 17, 2020 Assessment & Plan (1) Acute systolic CHF (congestive heart failure): (2) Ischemic cardiomyopathy: (3) LBBB (left bundle branch block): (4) Non-ST elevation (NSTEMI) myocardial infarction: (5) CAD (coronary artery disease), [place] coronary artery: (6) S/P CABG (coronary artery bypass graft): We discussed the nature of heart failure and the goals of the program today. She is interested and agreeable to participation. Chest pain has improved today. She has opted for medical therapy rather than cardiac catheterization. She is still slightly hypervolemic on exam and requiring supplemental O2. Lower extremity edema is likely multifactorial given her recent surgery. Recommend continued diuresis. She hasn't had labs today. Continue to monitor kidney function and electrolytes. Recommend transitioning to PO diuretics for 24 hours prior to discharge. I&Os. Recommend daily STANDING weights. Low sodium diet, less than 2,000 mg daily. CHF teaching packet ordered. She has been initiated on appropriate guideline based medical therapy including Metoprolol 50 mg daily, Entresto 24/26 mg BID, Spironolactone 25 mg daily, and Isosorbide mononitrate 60 mg BID. Will continue to titrate as an outpatient as BP and heart rate allow. Anticipate close follow up with the heart failure program. This has been scheduled for 08/24/20 at 2:00 pm. Routine cardiology recommendations as per Dr. Norris. Admission and Anticipated Discharge Date Admission Date: August 15, 2020 Subjective Mrs. Martinez is a very pleasant 85-year-old female with a history significant for CAD status post CABG x4 in 1998, dyslipidemia, hypertension, AAA and bilateral iliac artery aneurysms (followed by Dr. Osborne), and chronic right TKA infection now s/p articulating antibiotic spacer [place] [facility] [place] . Dr. Norris is her primary sanitary napkin machine tender. Patient was referred to the [facility] heart failure program by Dr. Norris. Patient reports she's feeling well today. She has had no further chest pain. Her breathing has improved although she is still requiring supplemental O2. She also had some orthopnea overnight but was able to better tolerate laying on her left side. She has mild lower extremity edema, R>L, likely secondary to her recent TKA surgery. She denies pain at the surgical site. She has had Lasix 20 mg IV x 2 doses. She's net negative 2.8 L so far this admission. Yesterday's weight was on the standing scale, 158 lb. All others are bed scale and likely unreliable. Patient resides in [place]. She lives alone since her daughter in February 2020. She is independent with all of her activities and is able to drive herself to her appointments. She manages her own medications. Her daughter Daina is available to assist her as needed. Physical Exam Physical Exam: Gen.: No acute distress. Alert and oriented. HEENT: Anicteric sclera. Neck: JVD noted nursing home to the mandible sitting upright. No bruits. Normal carotid upstrokes bilaterally. Cardiac: PMI was nonpalpable. No ventricular heave. Regular rate and rhythm. Normal S1-S2. 1/6 systolic murmur. No rubs, or gallops. Pulmonary: Clear to auscultation bilaterally without wheezes, rales, or rhonchi. Abdomen: Soft, nontender, nondistended, with normoactive bowel sounds. No bruits noted. Extremities: 2+ right radial pulse. s/p left radial harvest. 2+ posterior tibialis pulses bilaterally. 1+ left lower extremity edema. 1-2+ right lower extremity edema. Multiple right knee incisions CDI, no drainage, erythema. No cyanosis. Psychiatric: Affect appears appropriate. Results & Data ([facility]) Vital Signs (Past 12 Hours) Vital Signs Temp Pulse Pulse Resp BP Pulse Ox 08/17/20 07:23 67 08/17/20 07:20 97.9 F 69 20 132/76 96 08/17/20 03:58 97.9 F 66 16 133/76 96 PG Care Time/CCT Total # of Minutes Spent Total Time Spent with Patient: Total time spent is greater than 50% in coordination of care (as documented) at patient's floor/unit and/or counseling patient: Heart Failure Data/Metrics Heart Failure Type: Systolic Ejection Fraction: 330-35% NYHA classification: II: Sx w/ usual activity Risk Stratification: B Dry Weight: 158 lb Evidenced Based Beta Sneha Therapy Beta Sneha Therapy: Yes Beta Sneha Name: Metoprolol Succinate Beta Sneha Target Therapy: Not at Target Therapy SG/ARB/ARNI Therapy SG/ARB Therapy: Yes (Entresto 24/26 mg BID) SG/ARB/ARNI Target Therapy: Not at Target Therapy Aldosterone Antagonist Therapy Aldosterone Antagonist Therapy: Yes (Spironolactone 25 mg daily) Coding Level of Care Code 01147 Subseq Hosp Care Lv 3 Diagnoses Acute systolic CHF (congestive heart failure) I50.21 Ischemic cardiomyopathy I25.5 LBBB (left bundle branch block) I44.7 Non-ST elevation (NSTEMI) myocardial infarction I21.4 CAD (coronary artery disease), [place] coronary artery I25.119 Associated angina: with unspecified angina [place] vs. transplanted heart: [place] heart S/P CABG (coronary artery bypass graft) Z95.1 (1) CAD (coronary artery disease), [place] coronary artery Associated angina: with unspecified angina [place] vs. transplanted heart: [place] heart Qualified Code(s): I25.119 - Atherosclerotic heart disease of [place] coronary artery with unspecified angina pectoris
--- NOTE | 2020-08-17 14:00 | Cardiology Progress Note ---
Date of Service August 17, 2020 Assessment & Plan (1) Non-ST elevation (NSTEMI) myocardial infarction: (2) Acute systolic CHF (congestive heart failure): (3) CAD (coronary artery disease), [place] coronary artery: (4) Hypertension: (5) Aneurysm of iliac artery: (6) S/P CABG (coronary artery bypass graft): ASSESSMENT/PLAN: 1. NSTEMI: She has decided upon medical therapy and has declined cardiac catheterization. Beta-sebastien and nitrate therapy have been titrated upward. No further angina. Continue aspirin, 81 mg once daily sufficient from a cardiac standpoint. Continue heparin drip for a total of 48 hours. Start Plavix 75 mg daily. Continue beta-sebastien, nitrate therapy, and high-intensity statin therapy. 2. CAD s/p CABG x 4 (1998): NSTEMI as above. No further angina after adjusting medical therapy. She has declined cardiac catheterization for now. Aggressive medical therapy recommended. Aspirin 81 mg daily, Plavix 75 mg daily, high- intensity statin therapy, beta-sebastien, nitrate therapy. 3. Acute systolic CHF: Still mildly hypervolemic but improving. Continue Lasix 20 mg IV daily. She is diuresing well. Continue metoprolol succinate. Continue Entresto in place of losartan. Titrate medications over time. Continue spironolactone. Enrolled in Heart failure program. Low-sodium diet, daily weights, strict I&Os. 4. Hypertension: Blood pressure normal today. Continue current regimen. 5. Dyslipidemia: Continue high-intensity statin therapy. 6. Bilateral iliac artery aneurysm: Followed by Dr. Osborne. 7. Disposition: Cardiology will continue to follow. Heart failure program. Admission and Anticipated Discharge Date Admission Date: August 15, 2020 Subjective She feels much better today. She denies shortness of breath at rest, orthopnea, and has noted improvement with dyspnea on exertion while walking to the restroom. She has not had any further chest discomfort. She and her family have decided against cardiac catheterization at this time and prefer medical therapy. She denies syncope, near-syncope, palpitations. No reported bleeding. She has met with Ling James of the heart failure program. Review of systems: As above. Physical Exam Physical Exam: Gen.: No acute distress. Alert and oriented. HEENT: Anicteric sclera. Neck: No significant JVD today. Cardiac: No ventricular heave. Regular rate and rhythm. Normal S1-S2. 1/6 systolic murmur. No rubs, or gallops. Pulmonary: Clear to auscultation bilaterally without wheezes, rales, or rhonchi. Abdomen: Soft, nontender, nondistended, with normoactive bowel sounds. No bruits noted. Extremities: 2+ right radial pulse. s/p left radial harvest. 2+ posterior tibialis pulses bilaterally. 1+ bilateral lower extremity edema. No cyanosis. Psychiatric: Affect appears appropriate. Results & Data ([facility]) Vital Signs (Past 12 Hours) Vital Signs Temp Pulse Pulse Resp BP Pulse Ox 08/17/20 11:41 36.4 C L 69 20 134/74 97 08/17/20 07:23 67 08/17/20 07:20 36.6 C 69 20 132/76 96 08/17/20 03:58 36.6 C 66 16 133/76 96 Intake & Output 08/15/20 08/16/20 08/17/20 08/18/20 06:59 06:59 06:59 06:59 Intake Total 420 / 420 1123.783 / 1123.783 75.467 / 75.467 Output Total 1800 / 1800 2551 / 2551 Balance -1380 / -1380 -1427.217 / -1427.217 75.467 / 75.467 Weight 158 lb 11.725 oz 159 lb 6.307 oz Laboratory Results Laboratory Results - last 24 hr 08/17/20 08/17/20 01:01 07:14 APTT 43.4 H 47.3 H* PTT Ratio 1.6 1.7 Diagnostic Findings Telemetry personally Reviewed: Sinus rhythm with nonsustained atrial tachycardia (11 beats this morning). Medications Administered Current Inpatient Medications Acetaminophen (Acetaminophen 325 Mg Tab) 650 mg PO Q4H PRN PRN Reason: Pain or Fever Stop: 09/14/20 20:52 Al Hydrox/Mg Hydrox/Simethicone (Aluminum/Magnesium Susp 30 Ml Udc) 15 ml PO Q4H PRN PRN Reason: Dyspepsia Stop: 09/14/20 20:52 Ascorbic Acid (Ascorbic Acid 500 Mg Tab) 1,000 mg PO DAILY JOSE Stop: 09/15/20 08:59 Last Admin: 08/17/20 08:20 Dose: 1,000 mg Documented by: Aspirin (Aspirin 81 Mg Ectab) 81 mg PO BID [facility] Stop: 09/14/20 20:59 Last Admin: 08/17/20 08:19 Dose: 81 mg Documented by: Enoxaparin Sodium (Enoxaparin Inj 40 Mg/0.4 Ml Syr) 40 mg SQ QAM JOSE Stop: 09/15/20 08:59 Last Admin: 08/17/20 10:51 Dose: Not Given Documented by: Heparin Sodium (Beef Lung) (Heparin 10 Unit/Ml 5 Ml Flush) 5 ml FLUSH PRN PRN PRN Reason: Flush Stop: 09/14/20 22:29 Last Admin: 08/16/20 10:30 Dose: 5 ml Documented by: Heparin Sodium (Beef Lung) (Heparin 10 Unit/Ml 5 Ml Flush) 5 ml FLUSH PRN PRN PRN Reason: Flush Stop: 09/14/20 22:30 Furosemide 20 mg/ Syringe 2 mls @ 4 mls/min IV QAM [facility] Stop: 09/15/20 08:59 Last Admin: 08/17/20 08:19 Dose: 4 mls/min Documented by: Heparin Sodium/Dextrose (Heparin Sodium/Dextrose) 25,000 units in 500 mls @ 16 mls/hr IV .Q24H [facility]; Protocol Stop: 09/15/20 18:29 Last Titration: 08/17/20 11:39 Dose: 800 units/hr, 16 mls/hr Documented by: Cefazolin Sodium (Ancef 2000mg) 2,000 mg in 15 mls @ 3.75 mls/min IV Q8H [facility] Stop: 09/20/20 07:59 Last Admin: 08/17/20 08:18 Dose: 3.75 mls/min Documented by: Isosorbide Mononitrate (Isosorbide [place] Extended Rel 60 Mg Tabcr) 60 mg PO BID [facility] Stop: 09/15/20 20:59 Last Admin: 08/17/20 08:19 Dose: 60 mg Documented by: Metoprolol Succinate (Metoprolol Succ 50mg Ext Rel Tab) 50 mg PO DAILY [facility] Stop: 09/16/20 08:59 Last Admin: 08/17/20 08:22 Dose: 50 mg Documented by: Nitroglycerin (Nitroglycerin Sl 0.4 Mg/Tab Tab) 0.4 mg SL UD PRN PRN Reason: chest pain Stop: 09/14/20 20:52 Ondansetron HCl (Ondansetron Inj 2 Mg/Ml 2 Ml Vial) 4 mg IV Q6H PRN PRN Reason: Nausea Stop: 09/14/20 20:52 Pantoprazole Sodium (Pantoprazole 40 Mg Tab) 40 mg PO DAILY JOSE Stop: 09/15/20 08:59 Last Admin: 08/17/20 08:20 Dose: 40 mg Documented by: Polyethylene Glycol (Polyethylene (Miralax) 17 Gm Pack) 17 gm PO DAILY PRN PRN Reason: Constipation Stop: 09/14/20 20:52 Raspberry (Raspberry Syrup 5 Ml Udp) 5 ml PO BID JOSE Stop: 08/29/20 20:59 Last Admin: 08/17/20 08:20 Dose: 5 ml Documented by: Rosuvastatin Calcium (Rosuvastatin Calcium 10 Mg Tab) 30 mg PO HS [facility] Stop: 09/14/20 20:59 Last Admin: 08/16/20 20:01 Dose: 30 mg Documented by: Sacubitril/Valsartan (Sacubitril-Valsartan 24-26 Mg Tab) 1 tab PO BID JOSE Stop: 09/15/20 20:59 Last Admin: 08/17/20 08:21 Dose: 1 tab Documented by: Spironolactone (Spironolactone 25 Mg Tab) 25 mg PO QAM JOSE Stop: 09/16/20 08:59 Last Admin: 08/17/20 08:22 Dose: 25 mg Documented by: Tolterodine Tartrate (Tolterodine Tartrate La 4 Mg Capcr) 4 mg PO DAILY JOSE Stop: 09/15/20 08:59 Last Admin: 08/17/20 08:19 Dose: 4 mg Documented by: Tramadol HCl (Tramadol Hcl 50 Mg Tablet) 50 mg PO Q8H PRN PRN Reason: pain Stop: 09/14/20 20:52 Umeclidinium [place] (Umeclidinium [place] 62.5mcg/Blister 7 Puffs/Inhaler) 1 puffs INH DAILY JOSE Stop: 09/15/20 08:59 Last Admin: 08/17/20 08:19 Dose: 1 puffs Documented by: Vancomycin HCl (Vancomycin Hcl 125 Mg/2.5ml Soln) 125 mg PO BID JOSE Stop: 08/25/20 20:59 Last Admin: 08/17/20 08:20 Dose: 125 mg Documented by: Vitamin D (Cholecalciferol 1,000 Units 25 Mcg Tab) 1,000 units PO DAILY JOSE Stop: 09/15/20 08:59 Last Admin: 08/17/20 08:21 Dose: 1,000 units Documented by: PG Care Time/CCT Total # of Minutes Spent Total Time Spent with Patient: Total time spent is greater than 50% in coordination of care (as documented) at patient's floor/unit and/or counseling patient: Coding Level of Care Code 10565 Subseq Hosp Care Lvl 3 Diagnoses Non-ST elevation (NSTEMI) myocardial infarction I21.4 Acute systolic CHF (congestive heart failure) I50.21 CAD (coronary artery disease), [place] coronary artery I25.119 [place] vs. transplanted heart: [place] heart Associated angina: with unspecified angina Hypertension I10 Hypertension type: essential hypertension Aneurysm of iliac artery I72.3 S/P CABG (coronary artery bypass graft) Z95.1 (1) CAD (coronary artery disease), [place] coronary artery [place] vs. transplanted heart: [place] heart Associated angina: with unspecified angina Qualified Code(s): I25.119 - Atherosclerotic heart disease of [place] coronary artery with unspecified angina pectoris (2) Hypertension Hypertension type: essential hypertension Qualified Code(s): I10 - Essential (primary) hypertension
--- NOTE | 2020-08-17 14:31 | Medical Student Progress Note ---
Date of Service August 17, 2020 Assessment & Plan (1) Non-ST elevation (NSTEMI) myocardial infarction: - Pt has decided to proceed with medical management rather than catheterization - Appreciate Cardiology consult and medical management recommendations - Started on Heparin 08/15, plan to continue for 48 hours - Continue aspirin, 81 mg once daily - Increased Metoprolol Succinate to 50mg - Increased Isosorbide Mononitrate to 60 mg - Continue Nitroglycerin .4mg - Plan to start Plavix 75 mg daily following heparin (2) Elevated troponin: - chronically elevated, baseline . 4 - found to be 1.9, 4.1, 4.0 - Likely secondary to demand ischemia vs. NSTEMI - hx LBB on EKG, unchanged from prior EKG - reassuring nuclear stress test 08/07 shows no signs of ischemia - TTE: global hypokinesis with apical sparing, LV function unchanged from last e cho 08/07 - Cardiology consulted, pt given the choice of cath vs. medical management (3) Acute UTI: - U/A: + leukocytes, nitrites, bacteria - Urine culture + gram - bacilli - Pt is displaying no sx of UTI, denies f/u/d, likely to be asx bacteruria - Discontinue Ampicillin/Sulbactam 3g IV q6 (4) Abnormal CT of the abdomen: -Abd/ Pelvis CT revealed distended gallbladder with nonspecific gallbladder wall thickening, enlarged liver with periportal edema -RUQ U/S revealed thickened and edematous gallbladder wall w/ intraluminal sludge - Given the patient is not complaining of any abdominal pain, distended gallbladder is likely a result of the periportal edema secondary to the acute CHF exacerbation. 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: - Continue triotropium bromide 2.5 mcg (8) Hypertension: -discontinue home med losartan switch Entresto Hypertension type: essential hypertension Qualified Code(s): I10 - Essential (primary) hypertension (9) Hyperlipidemia: - Continue home med rosuvastatin 30mg Hyperlipidemia type: unspecified Qualified Code(s): E78.5 - Hyperlipidemia, unspecified (10) DVT prophylaxis: - DVT prophylaxis: heparin - Diet: low Na, heart healthy - Dispo: plan to dc tomorrow - Code: Conditional Admission and Anticipated Discharge Date Admission Date: August 17, 2020 Supervising Attestation I personally examined the patient and verified all logan points of history and exam, discussed case, and agree with decision making with Kim Zavala MS4 feeling better with breathing overall. discussed diet - most of the time actually just by her longstnading habits she mostly eats low sodium; occassionally will have soup/make stir ren w soy sauce/eat fast food but none are frequent vitals noted nad heent nc at mmm breathing unlabored no accessory muscles good effort skin no rashes no pallor or icterus neuro no focal deficits ischemic cardiomyopathy w acute on chronic HFrEF and demand ischemia w es sentially NSTEMI range troponin but clinical picture much more in line w demand ischemia (managing as NSTEMI, however) -med management -declines -added entresto -education ongoing -otherwise as above hopefully home tomorrow Subjective No overnight events. She is feeling a lot better today. She had some chest pressure accompanied by shortness of breath this morning when she first awoke and got out of the bed. The chest pressure was similar to the chest pressure she has experienced in the past, dull in nature, that went away within a few minutes. She states that the shortness of breath occurred when she first awoke and felt that it was better once she sat up. Overall, she says that her breathing is much better and feels like her norm. She has been ambulating to and from the bed, chair, and bathroom. She is on a low Na heart healthy diet, and has been able to eat her food with no issues. Pt has decided to proceed with medical therapy instead of catheterization for her acute coronary syndrome. Review of Systems Constitutional: denies fever, chills, fatigue Eyes: denies changes in vision Ear, Nose, Mouth, Throat: denies jaw pain, neck pain Respiratory: denies cough, change in sputum Cardiovascular: Additional Comments: + dyspnea at rest, dyspnea on exertion; denies chest pain Gastrointestinal: denies abdominal pain, nausea, vomiting Genitourinary: denies urinary pain, frequency, urgency Neurologic: denies headache, dizziness, numbness, weakness Physical Exam Eyes: PERRL, conjunctivae normal, anicteric sclerae Neck: trachea midline, no thyromegaly Respiratory: normal respiratory effort, crackles in lower lung cuevas Cardiovascular: RRR, no murmur, no edema Gastrointestinal (Abdomen): normal bowel sounds, soft, nontender, no hepatosplenomegaly Musculoskeletal: no pretibial edema Results & Data ([facility]) Vital Signs (Past 12 Hours) Vital Signs Temp Pulse Pulse Resp BP Pulse Ox 08/17/20 11:41 36.4 C L 69 20 134/74 97 08/17/20 07:23 67 08/17/20 07:20 36.6 C 69 20 132/76 96 08/17/20 03:58 36.6 C 66 16 133/76 96 Laboratory Results Laboratory Results - last 24 hr 08/17/20 08/17/20 01:01 07:14 APTT 43.4 H 47.3 H* PTT Ratio 1.6 1.7 Diagnostic Findings Telemetry: Sinus rhythm with nonsustained atrial tachycardia (11 beats this morning).
[2020-08-17] MEDS: HEPARIN SODIUM/DEXTROSE 25,000 UNITS/500 ML BAG IV SCH (17:22)
--- NOTE | 2020-08-17 17:42 | Billing Data ---
Date of Service August 17, 2020 Coding Level of Care Code 80828 Subseq Hosp Care Lvl 3
[2020-08-17] MEDS: ROSUVASTATIN CALCIUM 10 MG TAB PO SCH (20:16)
[2020-08-18 06:25] LABS: Partial Thromboplastin Ratio 1.4; Partial Thromboplastin Time 39.9 Seconds (21.0-31.0)
[2020-08-18 06:34] LABS: BUN Creatinine Ratio 13.2 (10-20); Calcium 7.8 mg/dl (8.5-10.1); Creatinine Clr Calc Pharmacy 51.7 ml/min; Est GFR (African American) 76.7; Est GFR (Non-African American) 66.2; Potassium 3.9 mmol/L (3.5-5.1)
[2020-08-18] MEDS: ceFAZolin 2000MG 2,000 MG/15 ML SYR IV SCH ×3 (07:39→17:15)
[2020-08-18] MEDS: ASPIRIN 81 MG ECTAB PO SCH (07:40)
[2020-08-18] MEDS: TOLTERODINE TARTRATE LA 4 MG CAPCR PO SCH (07:40)
[2020-08-18] MEDS: SPIRONOLACTONE 25 MG TAB PO SCH (07:40)
[2020-08-18] MEDS: SACUBITRIL-VALSARTAN 24-26 MG TAB PO SCH (07:41)
[2020-08-18] MEDS: FUROSEMIDE 20 MG in SYRINGE 0 ML IV SCH (07:41)
[2020-08-18] MEDS: PANTOprazole 40 MG TAB PO SCH (07:41)
[2020-08-18] MEDS: RASPBERRY SYRUP 5 ML UDP PO SCH (07:41)
[2020-08-18] MEDS: UMECLIDINIUM BROMIDE 62.5MCG/BLISTER 7 PUFFS/INHALER INH SCH (07:41)
[2020-08-18] MEDS: ISOSORBIDE MONO EXTENDED REL 60 MG TABCR PO SCH (07:41)
[2020-08-18] MEDS: VANCOMYCIN HCL 125 MG/2.5ML SOLN PO SCH (07:42)
[2020-08-18] MEDS: METOPROLOL SUCC 50MG EXT REL TAB PO SCH (07:42)
[2020-08-18] MEDS: ASCORBIC ACID 500 MG TAB PO SCH (07:42)
[2020-08-18] MEDS: CHOLECALCIFEROL 1,000 UNITS 25 MCG TAB PO SCH (07:42)
[2020-08-18] MEDS ORDERED: CLOPIDOGREL BISULFATE 75 MG TAB PO SCH (09:00)
--- NOTE | 2020-08-18 09:25 | Hospitalist Progress Note ---
Date of Service August 18, 2020 Assessment & Plan Admission and Anticipated Discharge Date Admission Date: August 17, 2020 Results & Data Results & Data ([facility]) Vital Signs (Past 12 Hours) Vital Signs Temp Pulse Pulse Resp BP Pulse Ox 08/18/20 07:22 36.8 C 73 20 146/75 H 96 08/18/20 07:04 65 08/18/20 04:08 36.7 C 82 17 138/76 90 08/17/20 21:55 36.6 C 80 18 148/83 H 93
--- NOTE | 2020-08-18 09:26 | Discharge Summary ---
Date of Service August 18, 2020 Admission HPI Per Admitting Provider Genny Martinez is an 85-year-old medically complex female who presents to the ER with shortness of breath and nausea. She was recently discharged from [facility] yesterday after right infected TKA removed and antibiotic spacer placed last week for MSSA. She has a PICC line in place and receiving IV cefazolin. She reports having some shortness of breath on exertion during her hospitalization on her final day yesterday while walking to the bathroom - she did not exert herself much prior to this post operatively. However on returning home around 7pm last night she had more significant shortness of breath on exertion with associated nausea that persisted even at rest - unable to tell me for how long. Worse on any exertion. Relieved with rest, nebulizers and bowel movements. No associated diaphoresis. She called a Healthcare provider at [place] (unknown who exactly) with her symptoms and was advised to go to the ER. She denies any current shortness of breath at rest and never had any any chest pain. No palpitations, presyncope, syncope or claudication. She has a known history or coronary artery disease s/p CABG x4 in 1998, HTN, T2DM, AAA and bilateral iliac artery aneurysms followed by Dr Osborne. She does note occasional chest pain on exertion usually (being medically managed by her electronics design engineer) but reports she cannot have a catheterization until her right knee infection has been sorted out. In the ER her EKG showed LBBB which is chronic and troponin was elevated above her usual baseline. She underwent multiple imaging studies due to RUQ pain on exam (although patient not noticed prior to exam in ER) with thickened gallbladder - pain only on exam and not experienced otherwise. She reports her shortness of breath is much improved since coming to the ER with nebulizers and lasix given helping her shortness of breath. Byers catheter was placed due to patient lack of mobility with right antibiotic spacer in knee to measure accurate I&Os. She was referred to medicine for admission and ongoing management of hypoxia and CHF. Admission Exam Per Admitting Provider Constitutional: well developed and well nourished; no acute distress Eyes: + anicteric sclerae; normal pupil size ENMT: external ear and nose normal, oropharynx normal Neck: trachea midline, no thyromegaly Respiratory: normal respiratory effort and able to speak in complete sentences; no respiratory distress, no labored breathing, no retractions and does not use accessory muscles Auscultation: + diminished lung sounds (bibasal) and + crackles (fine bibasal); no rales, no rhonchi and no wheezes Cardiovascular: Rate/Rhythm: regular rate and regular rhythm Heart Sounds: no murmur Vessels: no JVD Extremities: normal capillary refill and + pedal edema (2+ R to thigh, 1+ L); no calf tenderness Gastrointestinal (Abdomen): Inspection/Auscultation: abdomen normal to inspection and normal bowel sounds; abdomen not distended Percussion/Palpation: + abdomen tender (epigastric, RUQ on deep palpation) and abdomen soft; no guarding and abdomen not rigid Musculoskeletal: SQ butterfly in place on right thigh with ropivacaine infusion Dressing over right knee C/D/I NV intact distal to operation site Neurologic: awake; not confused Speech / Cognition: normal speech Psychiatric: A+Ox3, euthymic affect Genitourinary: no CVA tenderness Principal Diagnosis acute on chronic systolic chf, cad/NSTEMI Discharge Exam Constitutional: pleasant elderly female in no apparent distress, sitting comfortably in bed. Eyes: EOMI, pupils equal and reactive bilaterally, no scleral icterus Cardiac: RRR, no murmurs, gallops or rubs. Normal S1, S2 Pulm: CTA BL, no wheezes, rhonchi, crackles or rubs, moving air well throughout both lungs Abd: soft, nontender, nondistended, normal bowel sounds, no rebound or guarding Extremities: 2+ peripheral pulses, no edema. swelling over right knee with sutures clearly visible and surrounding skin healing appropriately, R knee is warm to touch but without erythema Neuro: no focal deficits, moving all 4 limbs, A&Ox3 Discharge Data Allergies Allergy/AdvReac Type Severity Reaction Status Date / Time potassium chloride AdvReac Intermediate Vomiting Unverified 08/15/20 12:53 Sulfa (Sulfonamide AdvReac Intermediate NAUSEA/VOMI Verified 08/03/20 09:06 Antibiotics) TING sulfamethoxazole AdvReac Intermediate Vomiting Unverified 08/15/20 12:53 [From Bactrim] trimethoprim [From Bactrim] AdvReac Intermediate Vomiting Unverified 08/15/20 12:53 lisinopril AdvReac Unknown NAUSEA Verified 08/03/20 09:06 VOMITING sulfasalazine AdvReac Unknown NAUSEA-COULDN'T Verified 08/03/20 09:06 EAT Consultations 08/15/20 17:26 ED Decision to Admit Stat 08/16/20 07:04 Consult Cardiology Routine Ordered Studies 08/15/20 11:26 CT angio chest PE protocol Stat 08/15/20 11:54 CT abd pelvis IV con only Stat 08/15/20 14:26 US gallbladder Stat Hospital Course (1) S/P CABG (coronary artery bypass graft): (2) Acute systolic CHF (congestive heart failure): 85 yo F with complex PMH including recent hospitalization at [facility] for removal of infected right knee arthroplasty, admitted to [place] for worsening shortness of breath. Acute Systolic Heart Failure Exacerbation with hx Ischemic Cardiomyopathy Etiology of SOB found to be due to exacerbation of systolic heart failure. Patient generally eats a very low/no salt diet but does occassionally eat soup or mcdonalds which are likely triggers for her. She was previously unaware that she had congestive heart failure (dx on 08/07/20 echo). Little to no change on repeat echo imaging during this admission. EF 30-35%, akinesis of inferolateral, base to mid inferior, basal inferoseptal wall segments and global hypokinesis with relative sparing of apex. Moderate mitral regurgitation and mild left atrial dilation. Medications optimized for CHF as below. Patient was seen by Ling Schwarz PA-C with [facility] heart failure program while inpatient and will be following up with them on 08/24/20. NSTEMI Troponins found to be elevated higher than chronic records on admission in setting of shortness of breath. No ekg changes however with hx of CABGx4, LBBB and SOB, difficult to assess true STEMI vs demand ischemia. Patient was given option of catheterization for diagnosis vs. intervention. Patient opted for medical treatment and was heparinized for 48 hours prior to being discharged on DAPT. Medications adjusted to optimize treatment on discharge home as below. New Medications: Entresto twice a day Metoprolol Succinate 50 mg once a day Spironolactone 25 mg once a day Plavix 75 mg once a day Isosorbide Mononitrate 60 mg (2 tabs) twice a day Lasix 20 mg once a day Stopped medications: Losartan Recommend follow up BMP between 08/22 - 08/24. (3) Non-ST elevation (NSTEMI) myocardial infarction: (4) Elevated troponin: (5) Normocytic anemia: (6) COPD (chronic obstructive pulmonary disease) with emphysema: (7) Hyperlipidemia: (8) Hypertension: (9) Abdominal aneurysm: (10) Aneurysm of iliac artery: (11) LBBB (left bundle branch block): Total Time Total Time Spent Total Time Spent (In Minutes): <30 Discharge Plan Discharge Items Patient Disposition: Home - Home Health Services Reason For Visit: ACUTE CHF Discharge Diagnosis: NSTEMI, CHF Activity: Resume your previous activity Non-emergency contact: Primary Care Provider Call non-emergency contact if: you have any medication questions and your symptoms worsen Follow-up/Referrals: Sandeep Lerma MD [Primary Care Provider] - 08/25/20 11:30 am Ling James PA-C [Physician Computer Graphics Illustrator] - 08/24/20 2:00 pm (Congestive Heart Failure Program Appointment Information Early follow up is essential to managing your heart failure. An appointment has been scheduled for you with the [facility] Heart Failure Program within 7 days of discharge. Anticipate this visit to be 30-60 minutes long. Please expect a guest experience captain phone call from one of our nurses approximately 48 hours from discharge. They will also be placing an order for lab work to be completed 1-2 days prior to your heart failure follow up appointment. Please be sure to have this done so we can go over the results when you come in. Office Location The cardiology office building is located in front of the hospital at [address]. Bring the following with you to your follow-up doctor appointments: Please bring your daily weight log any discharge paperwork all of your medication bottles with you to this visit. ) Diet: Heart Healthy and Low Sodium (2gm) Addtl Attending Provider Instructions: You were admitted to the hospital for shortness of breath found to be secondary to an acute heart failure exacerbation, as well as a mild blockage of your coronary arteries or "NSTEMI". You opted to go with medical management rather than doing an invasive cardiac catheterization. You were placed on a heparin drip during your stay, and converted to a combination regimen of aspirin and plavix once a day. You will be following up in the heart failure clinic for additional guidance, teaching and medication management for your heart failure. It is vitally important that you continue to eat a low/no salt diet in order to preserve your heart function. Foods that we discussed to avoid include: McDonalds (and other fast foods), canned or processed food, store-bought broth, canned soup, canned or pickled vegetables or meats. You were started on a number of new medications, listed below. Entresto twice a day Metoprolol Succinate 50 mg once a day Spironolactone 25 mg once a day Plavix 75 mg once a day Isosorbide Mononitrate 60 mg (2 tabs) twice a day Lasix 20 mg once a day Stopped medications: Losartan Continue to take your rosuvastatin for stroke and heart attack prevention. Continue to take your antibiotics and follow up with your orthopedist regarding your knee infection. Addtl Hand Stemmer Provider Instructions: Call your Primary Care doctor if any of the following symptoms or problems start or get worse: * Shortness of breath or difficulty breathing * Wake up at night short of breath * Chest pain * Cough * Swelling of your hands, feet, or legs * More fatigued or tired with your normal activity * Palpitations - sudden fast heart beats WEIGHT * Weigh yourself every morning after using the bathroom. * Use the same scale. * Wear the same amount of clothing. * Write your weight down on a chart. * Call your Primary Care doctor if you gain more than 2-3 pounds in 1-2 days. MEDICATIONS * Use this discharge instruction sheet for medication instructions. * Take your medications at the time your doctor ordered. * Do not skip a dose of your medicines. * If you miss a dose of medicine, take it as soon as possible, but DO NOT DOUBLE A DOSE. * Read your medicine information when you get home. * Know all of the side effects of your medicine. If in doubt, ask your pharmacist * Call your Primary Care doctor's office if you have any side effects. * Be sure all of your doctors know what medicine and herbs you take (including cold, flu, and herbal medicine). Take the following with you to your follow-up doctor appointments: * Weight Chart * Medication List * List of questions Do not drink excessive alcohol, beer or wine. Pending Studies at Discharge: No Stand-Alone Forms: My [facility], Smoking Cessation Medications and DC Order Prescriptions: New clopidogrel 75 mg Tablet 75 mg PO QAM 30 Days Qty: 30 RF: 0 spironolactone 25 mg Tablet 25 mg PO QAM Qty: 30 RF: 0 Entresto 24-26 mg Tablet 1 tab PO BID 30 Days Qty: 60 RF: 0 metoprolol succinate 50 mg Tablet Extended Release 24 Hr 50 mg PO DAILY 30 Days Qty: 30 RF: 0 isosorbide mononitrate 60 mg Tablet Extended Release 24 Hr 60 mg PO BID 30 Days Qty: 60 RF: 0 furosemide [Lasix] 20 mg tablet 20 mg PO DAILY Qty: 30 RF: 0 nitroglycerin [Nitrostat] 0.4 mg Tablet, Sublingual 0.4 mg sublingual UD PRN (Reason: chest pain) 30 Days Qty: 30 RF: 0 Continued nitroglycerin [Nitrostat] 0.4 mg tablet, sublingual 0.4 mg sublingual UD PRN (Reason: chest pain) Qty: 25 RF: 0 tolterodine [Detrol LA] 4 mg capsule,extended release 24hr 4 mg PO DAILY Qty: 90 RF: 3 Spiriva Respimat 2.5 mcg/actuation mist 2 puffs INH DAILY Qty: 12 RF: 5 pantoprazole 40 mg tablet,delayed release (DR/EC) 40 mg PO DAILY Qty: 90 RF: 3 aspirin [Adult Low Dose Aspirin] 81 mg tablet,delayed release (DR/EC) 81 mg PO BID RF: 0 ascorbic acid (vitamin C) 1,000 mg tablet 1 gm PO DAILY RF: 0 tramadol 50 mg tablet 50 mg PO Q8H PRN (Reason: pain) RF: 0 acetaminophen [Tylenol Extra Strength] 500 mg Tablet 1,000 mg PO TID PRN (Reason: Pain) RF: 0 rosuvastatin 20 mg tablet 30 mg PO HS RF: 0 vancomycin 125 mg capsule 125 mg PO BID RF: 0 ropivacaine (PF) 2 mg/mL (0.2 %) Solution 0 mg UD RF: 0 cholecalciferol (vitamin D3) [Vitamin D3] 1,000 unit Capsule 1,000 unit PO DAILY RF: 0 Discontinued losartan 25 mg tablet 25 mg PO DAILY Qty: 90 RF: 3 isosorbide mononitrate 30 mg tablet extended release 24 hr 30 mg PO BID RF: 0 metoprolol succinate [Toprol XL] 25 mg tablet extended release 24 hr 25 mg PO DAILY RF: 0 Discharge Orders: Discharge Order (Routine); Ordered 08/18/20 Ordered By: Lisa Phelan Admission Data Admit Date/Time: 08/17/20 14:17 Attending Provider: Pawel Valdivia Admit Provider: Pedro Luis Woo Primary Care Provider: Sandeep Lerma Other Providers: Pedro Luis Woo ; Maik Norris ; Lisa Phelan ; [facility] Other Interventions: Discharge Summary Assessment (RN) Last Done: 08/18/20 16:41 Supervising Physician Co-Signing Physician Notes I personally examined the patient and verified all logan points of history and exam, discussed case, and agree with decision making with Dr Phelan. feeling up to going home. answered all questions to the best of my ability and to her satisfaction. breathing better. vitals noted nad heent nc at mmm breathing unlabored no accessory muscles good effort skin no rashes no pallor or icterus neuro no focal deficits ischemic cardiomyopathy w acute on chronic HFrEF and demand ischemia w essentially NSTEMI range troponin but clinical picture much more in line w demand ischemia (managing as NSTEMI, however) -med management -declines [facility] - reasonable since med management should provide significant benefit -added entresto, increased imdur, diuresed -education ongoing -stable for home, close f/u Resident Activity Tracking Resident Involvement: Resident Care Provided Care Provided: Adult Hospital Medicine
[2020-08-18 13:26] LABS: Partial Thromboplastin Ratio > 5.0
[2020-08-18 13:29] LABS: Partial Thromboplastin Time > 139.0 Seconds (21.0-31.0)
[2020-08-18 15:09] LABS: Partial Thromboplastin Ratio 1.2; Partial Thromboplastin Time 32.1 Seconds (21.0-31.0)
--- NOTE | 2020-08-18 15:15 | Cardiology Progress Note ---
Date of Service August 18, 2020 Assessment & Plan (1) Acute systolic CHF (congestive heart failure): (2) Ischemic cardiomyopathy: (3) LBBB (left bundle branch block): (4) Non-ST elevation (NSTEMI) myocardial infarction: (5) CAD (coronary artery disease), [place] coronary artery: (6) S/P CABG (coronary artery bypass graft): ASSESSMENT/PLAN: 1. NSTEMI: She has decided upon medical therapy and has declined cardiac catheterization. Beta-sebastien and nitrate therapy have been titrated upward. No further angina after titration of medical therapy. Continue aspirin, 81 mg once daily sufficient from a cardiac standpoint. Continue heparin drip for a total of 48 hours. Continue Plavix 75 mg daily. Continue beta-sebastien, nitrate therapy, and high-intensity statin therapy. 2. CAD s/p CABG x 4 (1998): NSTEMI as above. No further angina after adjusting medical therapy. She has declined cardiac catheterization for now. Aggressive medical therapy recommended. Aspirin 81 mg daily, Plavix 75 mg daily, high- intensity statin therapy, beta-sebastien, nitrate therapy. 3. Acute systolic CHF: Volume status much improved. Received Lasix 20 mg IV today. On discharge, recommend 40 mg of p.o. Lasix. Continue metoprolol succinate. Continue Entresto in place of losartan. Titrate medications over time. Continue spironolactone. Enrolled in Heart failure program. Low-sodium diet, daily weights, strict I&Os. 4. Hypertension: Blood pressure reasonably controlled. Continue current regimen. 5. Dyslipidemia: Continue high-intensity statin therapy. 6. Bilateral iliac artery aneurysm: Followed by Dr. Osborne. 7. Disposition: Close follow-up with heart failure program (scheduled next week). Has appointment scheduled with me already in the near future. Patient care communicated with Dr. Valdivia of the primary hospitalist service. Admission and Anticipated Discharge Date Admission Date: August 17, 2020 Subjective She feels better today. No further chest pain/angina. Very mild dyspnea with exertion but much better and presentation. Her biggest concern now is intravenous antibiotics for her knee. She denies syncope, near-syncope, palpitations. Her edema has improved. Review of systems: As above. Physical Exam Physical Exam: Gen.: No acute distress. Alert and oriented. HEENT: Anicteric sclera. Neck: No significant JVD today. Cardiac: No ventricular heave. Regular. Normal S1-S2. 1/6 systolic murmur. No rubs, or gallops. Pulmonary: Clear to auscultation bilaterally without wheezes, rales, or rhonchi. Abdomen: Soft, nontender, nondistended, with normoactive bowel sounds. No bruits noted. Extremities: 2+ right radial pulse. s/p left radial harvest. 2+ posterior tibialis pulses bilaterally. 1+ left lower extremity edema. 1+ right pedal edema. No cyanosis. Psychiatric: Affect appears appropriate. Results & Data ([facility]) Vital Signs (Past 12 Hours) Vital Signs Temp Pulse Pulse Pulse Resp BP Pulse Ox 08/18/20 14:35 36.5 C 83 60 18 97/55 L 95 08/18/20 11:39 36.5 C 60 18 97/55 L 95 08/18/20 07:22 36.8 C 73 20 146/75 H 96 08/18/20 07:04 65 08/18/20 04:08 36.7 C 82 17 138/76 90 Intake & Output 08/16/20 08/17/20 08/18/20 08/19/20 06:59 06:59 06:59 06:59 Intake Total 420 / 420 1123.783 / 7455.542 3830.000 / 1079.000 111.917 / 111.917 Output Total 1800 / 1800 2551 / 2551 1350 / 1350 Balance -1380 / -1380 -1427.217 / -1427.217 -271.000 / -271.000 111.917 / 111.917 Weight 158 lb 11.725 oz 159 lb 6.307 oz 158 lb 11.725 oz 158 lb 11.725 oz Laboratory Results Laboratory Results - last 24 hr 08/18/20 08/18/20 08/18/20 05:54 05:54 12:56 APTT 39.9 H > 139.0 H* PTT Ratio 1.4 > 5.0 Sodium 139 Potassium 3.9 Chloride 102 Carbon Dioxide 34 H Anion Gap 3.0 BUN 11 Creatinine 0.82 Est Cr Clr Drug Dosing 51.7 Est GFR ( Amer) 76.7 Est GFR (Non-Af Amer) 66.2 BUN/Creatinine Ratio 13.2 Glucose 96 Calcium 7.8 L 08/18/20 14:27 APTT 32.1 H PTT Ratio 1.2 Sodium Potassium Chloride Carbon Dioxide Anion Gap BUN Creatinine Est Cr Clr Drug Dosing Est GFR ( Amer) Est GFR (Non-Af Amer) BUN/Creatinine Ratio Glucose Calcium Diagnostic Findings Telemetry personally reviewed: 8 beat run of ventricular tachycardia; otherwise, sinus rhythm. Medications Administered Current Inpatient Medications Acetaminophen (Acetaminophen 325 Mg Tab) 650 mg PO Q4H PRN PRN Reason: Pain or Fever Stop: 09/14/20 20:52 Al Hydrox/Mg Hydrox/Simethicone (Aluminum/Magnesium Susp 30 Ml Udc) 15 ml PO Q4H PRN PRN Reason: Dyspepsia Stop: 09/14/20 20:52 Ascorbic Acid (Ascorbic Acid 500 Mg Tab) 1,000 mg PO DAILY [facility] Stop: 09/15/20 08:59 Last Admin: 08/18/20 07:42 Dose: 1,000 mg Documented by: Aspirin (Aspirin 81 Mg Ectab) 81 mg PO BID [facility] Stop: 09/14/20 20:59 Last Admin: 08/18/20 07:40 Dose: 81 mg Documented by: Clopidogrel Bisulfate (Clopidogrel Bisulfate 75 Mg Tab) 75 mg PO QAM [facility] Stop: 09/17/20 08:59 Last Admin: 08/18/20 07:41 Dose: 75 mg Documented by: Enoxaparin Sodium (Enoxaparin Inj 40 Mg/0.4 Ml Syr) 40 mg SQ QAM [facility] Stop: 09/15/20 08:59 Last Admin: 08/17/20 10:51 Dose: Not Given Documented by: Heparin Sodium (Beef Lung) (Heparin 10 Unit/Ml 5 Ml Flush) 5 ml FLUSH PRN PRN PRN Reason: Flush Stop: 09/14/20 22:29 Last Admin: 08/18/20 13:00 Dose: 5 ml Documented by: Heparin Sodium (Beef Lung) (Heparin 10 Unit/Ml 5 Ml Flush) 5 ml FLUSH PRN PRN PRN Reason: Flush Stop: 09/14/20 22:30 Heparin Sodium/Dextrose (Heparin Sodium/Dextrose) 25,000 units in 500 mls @ 0 mls/hr IV .Q0M JOSE; Protocol Stop: 08/18/20 16:30 Last Titration: 08/18/20 13:31 Dose: 0 units/hr, 0 mls/hr Documented by: Cefazolin Sodium (Ancef 2000mg) 2,000 mg in 15 mls @ 3.75 mls/min IV Q8H JOSE Stop: 09/20/20 07:59 Last Admin: 08/18/20 13:00 Dose: 3.75 mls/min Documented by: Isosorbide Mononitrate (Isosorbide [place] Extended Rel 60 Mg Tabcr) 60 mg PO BID JOSE Stop: 09/15/20 20:59 Last Admin: 08/18/20 07:41 Dose: 60 mg Documented by: Metoprolol Succinate (Metoprolol Succ 50mg Ext Rel Tab) 50 mg PO DAILY [facility] Stop: 09/16/20 08:59 Last Admin: 08/18/20 07:42 Dose: 50 mg Documented by: Nitroglycerin (Nitroglycerin Sl 0.4 Mg/Tab Tab) 0.4 mg SL UD PRN PRN Reason: chest pain Stop: 09/14/20 20:52 Ondansetron HCl (Ondansetron Inj 2 Mg/Ml 2 Ml Vial) 4 mg IV Q6H PRN PRN Reason: Nausea Stop: 09/14/20 20:52 Pantoprazole Sodium (Pantoprazole 40 Mg Tab) 40 mg PO DAILY [facility] Stop: 09/15/20 08:59 Last Admin: 08/18/20 07:41 Dose: 40 mg Documented by: Polyethylene Glycol (Polyethylene (Miralax) 17 Gm Pack) 17 gm PO DAILY PRN PRN Reason: Constipation Stop: 09/14/20 20:52 Raspberry (Raspberry Syrup 5 Ml Udp) 5 ml PO BID JOSE Stop: 08/29/20 20:59 Last Admin: 08/18/20 07:41 Dose: 5 ml Documented by: Rosuvastatin Calcium (Rosuvastatin Calcium 10 Mg Tab) 30 mg PO HS [facility] Stop: 09/14/20 20:59 Last Admin: 08/17/20 20:16 Dose: 30 mg Documented by: Sacubitril/Valsartan (Sacubitril-Valsartan 24-26 Mg Tab) 1 tab PO BID [facility] Stop: 09/15/20 20:59 Last Admin: 08/18/20 07:41 Dose: 1 tab Documented by: Spironolactone (Spironolactone 25 Mg Tab) 25 mg PO QAM JO[facility] Stop: 09/16/20 08:59 Last Admin: 08/18/20 07:40 Dose: 25 mg Documented by: Tolterodine Tartrate (Tolterodine Tartrate La 4 Mg Capcr) 4 mg PO DAILY JOSE Stop: 09/15/20 08:59 Last Admin: 08/18/20 07:40 Dose: 4 mg Documented by: Tramadol HCl (Tramadol Hcl 50 Mg Tablet) 50 mg PO Q8H PRN PRN Reason: pain Stop: 09/14/20 20:52 Umeclidinium [place] (Umeclidinium [place] 62.5mcg/Blister 7 Puffs/Inhaler) 1 puffs INH DAILY JOSE Stop: 09/15/20 08:59 Last Admin: 08/18/20 07:41 Dose: 1 puffs Documented by: Vancomycin HCl (Vancomycin Hcl 125 Mg/2.5ml Soln) 125 mg PO BID JOSE Stop: 08/25/20 20:59 Last Admin: 08/18/20 07:42 Dose: 125 mg Documented by: Vitamin D (Cholecalciferol 1,000 Units 25 Mcg Tab) 1,000 units PO DAILY JOSE Stop: 09/15/20 08:59 Last Admin: 08/18/20 07:42 Dose: 1,000 units Documented by: PG Care Time/CCT Total # of Minutes Spent Total Time Spent with Patient: Total time spent is greater than 50% in coordination of care (as documented) at patient's floor/unit and/or counseling patient: Coding Level of Care Code 93834 Subseq Hosp Care Lvl 3 Diagnoses Acute systolic CHF (congestive heart failure) I50.21 Ischemic cardiomyopathy I25.5 LBBB (left bundle branch block) I44.7 Non-ST elevation (NSTEMI) myocardial infarction I21.4 CAD (coronary artery disease), [place] coronary artery I25.119 [place] vs. transplanted heart: [place] heart Associated angina: with unspecified angina S/P CABG (coronary artery bypass graft) Z95.1 (1) CAD (coronary artery disease), [place] coronary artery [place] vs. transplanted heart: [place] heart Associated angina: with unspecified angina Qualified Code(s): I25.119 - Atherosclerotic heart disease of [place] coronary artery with unspecified angina pectoris
== END 2020-08-18 18:06 | disposition home health service (06) | DRG 280 ==
LOC: ED 10:35 → 2N 10:35 → SUATTDRO 19:02 → 2N 19:39

== ENCOUNTER 2020-08-22 23:34 | Observation (INO) ==
--- NOTE | 2020-08-22 23:55 | Emergency Department Note ---
History of Present Illness General Chief complaint: Shortness of Breath/Dyspnea Stated complaint: SHORT OF BREATH Time Seen by Provider: 08/22/20 23:36 Source: patient Mode of arrival: EMS Limitations: no limitations History of Present Illness Provider complaint: Shortness of breath Onset (ago): day(s) 3 Maximum Pain Intensity: 0 Current Pain Intensity: 0 Associated symptoms: + cough, + loss of appetite, + malaise, + nausea/vomiting and + shortness of breath; no chest pain and no fever/chills Treatments prior to arrival: other (Nitro) This is an 85-year-old female brought from home via EMS due to worsening shortness of breath. Patient was seen and evaluated here last week after having an NSTEMI as well as removal of hardware in her knee due to infection. Patient continues to get IV antibiotics through a PICC line which she states is working well. Patient states she did receive her evening dose prior to coming. Patient states when she was discharged she felt well, however her breathing slowly became worse over the weekend. Patient states she was unable to sleep last night. Patient states her breathing is worse trying to lay flat and with exertion. Patient denies any history of heart failure. 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 Patient states she does not typically wear home oxygen. Patient states she is a reformed smoker, and was told she has mild COPD. Patient states she does not use any other breathing medications. Patient states she feels her knee is improving, compression stockings in place. Patient denies any worsening lower extremity edema. Patient denies any accompanying chest pain with or trouble breathing. Patient states she has been slightly nauseated but has not vomited. Patient denies fevers or chills. Patient denies dizziness or lightheadedness. Patient states she does feel improved with oxygen via nasal cannula that was placed by EMS. Patient states she is not anticoagulated. Pt seen during a time of high acuity and national emergency pandemic while wearing PPE. Home Medications Medication Instructions Recorded Confirmed Type cholecalciferol (vitamin D3) 1,000 unit PO DAILY 11/05/18 08/22/20 History [Vitamin D3] nitroglycerin 0.4 mg sublingual 0.4 mg SUBLINGUAL UD PRN #25 tabs 05/19/19 08/22/20 Rx tablet tolterodine 4 mg capsule,extended 4 mg PO DAILY #90 cap 11/09/19 08/22/20 Rx release 24 hr ascorbic acid (vitamin C) 1,000 mg 1 gm PO DAILY tab 12/30/19 08/22/20 History tablet tramadol 50 mg tablet 50 mg PO Q8H PRN 12/30/19 08/22/20 History tiotropium bromide 2.5 2 puffs INH DAILY #12 gm 02/09/20 08/22/20 Rx mcg/actuation mist for inhalation pantoprazole 40 mg tablet,delayed 40 mg PO DAILY #90 tab 03/24/20 08/22/20 Rx release aspirin 81 mg tablet,delayed 81 mg PO BID tab 08/03/20 08/22/20 History release acetaminophen [Tylenol Extra 1,000 mg PO TID PRN 08/15/20 08/22/20 History Strength] ropivacaine (PF) 0 mg UD 08/15/20 08/22/20 History rosuvastatin 30 mg PO HS 08/15/20 08/22/20 History vancomycin 125 mg PO BID 08/15/20 08/22/20 History isosorbide mononitrate 60 mg PO BID 30 Days #60 tab 08/18/20 08/22/20 Rx nitroglycerin [Nitrostat] 0.4 mg SUBLINGUAL UD PRN 30 Days 08/18/20 08/22/20 Rx #30 tab sacubitril-valsartan [Entresto] 1 tab PO BID 30 Days #60 tab 08/18/20 08/22/20 Rx clopidogrel 75 mg tablet 75 mg PO QAM 30 Days #10 tab 08/22/20 08/22/20 Rx furosemide 40 mg tablet 40 mg PO DAILY #10 tab 08/22/20 08/22/20 Rx metoprolol succinate 50 mg 50 mg PO DAILY 30 Days #10 tab 08/22/20 08/22/20 Rx tablet,extended release 24 hr spironolactone 25 mg tablet 25 mg PO QAM #10 tab 08/22/20 08/22/20 Rx Allergies Allergy/AdvReac Type Severity Reaction Status Date / Time potassium chloride AdvReac Intermediate Vomiting Unverified 08/22/20 23:54 Sulfa (Sulfonamide AdvReac Intermediate NAUSEA/VOMI Verified 08/22/20 23:54 Antibiotics) TING sulfamethoxazole AdvReac Intermediate Vomiting Unverified 08/22/20 23:54 [From Bactrim] trimethoprim [From Bactrim] AdvReac Intermediate Vomiting Unverified 08/22/20 23:54 lisinopril AdvReac Unknown NAUSEA Verified 08/22/20 23:54 VOMITING sulfasalazine AdvReac Unknown NAUSEA-COULDN'T Verified 08/22/20 23:54 EAT Past Med/Surg History Medical History Abdominal aneurysm Acute non-ST elevation myocardial infarction (NSTEMI) Atypical chest pain CAD (coronary artery disease) Chronic infection of knee Clostridium 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 Dyspnea on exertion GERD (gastroesophageal reflux disease) Heart attack Hypertension Hypothyroid Hypoxia Peripheral arterial disease Surgical History H/O colonoscopy H/O esophagogastroduodenoscopy History of knee surgery History of open reduction and internal fixation (ORIF) procedure right proximal femur 2006 History of quadruple bypass History of total hip replacement Hx of tonsillectomy S/P CABG (coronary artery bypass graft) Family History Mother Leukemia Brother Aortic aneurysm Father Aortic aneurysm Stroke syndrome Tuberculosis Daughter Coronary heart disease Heart problem Grandfather Tuberculosis Uncle Tuberculosis Denies family history of Ovarian cancer Prostate cancer Breast cancer Lung cancer Colorectal cancer Social History Smoking Status: Former smoker Tobacco Type: Cigarettes Age Started Using Tobacco: 19; Age Quit Using Tobacco: 64; packs per day: 1; Years Smoked: 45; Cigarettes Per Day: 20; Second Hand Exposure: No; Hx Alcohol Use: No Hx Substance Use: No Preferred Language: Greek Communication Ability: Effective Visual Impairment: Diminished Hearing Ability: Hard of Hearing International First Officer Required: No Beliefs That Will Affect Care: None marital status: / Current Living Situation: Family Current Living Situation Comment: dtr staying with patient temporarily current occupational status: retired Feels Safe at Home: Yes Childhood Exposure to Second-Hand Smoke: Yes caffeine: Yes Dental Care, Regularly: No Physical Activity Frequency: Does not Exercise Seatbelt Use: always Sunscreen Use: No Assistive Devices: Denture - Upper, Denture - Lower, Glasses and Walker Review of Systems See HPI for pertinent positives & negatives. and A total of 10 systems reviewed and were otherwise negative Physical Exam Vital Signs Vital Signs - 24 hr 08/22/20 23:43 08/22/20 23:50 08/23/20 01:01 Temperature 36.8 C Temperature Source Oral Pulse Rate 93 H Pulse Rate [Right Finger] 79 Respiratory Rate 20 16 Respiratory Effort / Characteristics Non-Labored Respiratory Depth Normal Normal Respiratory Pattern Regular Blood Pressure 135/102 H Blood Pressure [Left Arm] 139/86 Blood Pressure Mean 113 Blood Pressure Mean [Left Arm] 103 Blood Pressure Position Lying Blood Pressure Position [Left Arm] Lying Pulse Oximetry 92 100 Oxygen Delivery Method Room Air Nasal Cannula Nasal Cannula Oxygen Flow Rate 2 2 2 Sepsis Recent Fever Within 48 Hours No Sepsis New/Unexplained Change in Mental Status No Sepsis Action Taken by Nursing No Action Required 08/23/20 01:52 Temperature Temperature Source Pulse Rate Pulse Rate [Right Finger] 69 Respiratory Rate 16 Respiratory Effort / Characteristics Respiratory Depth Normal Respiratory Pattern Blood Pressure Blood Pressure [Left Arm] 132/88 Blood Pressure Mean Blood Pressure Mean [Left Arm] 102 Blood Pressure Position Blood Pressure Position [Left Arm] Lying Pulse Oximetry 96 Oxygen Delivery Method Nasal Cannula Oxygen Flow Rate 2 Sepsis Recent Fever Within 48 Hours Sepsis New/Unexplained Change in Mental Status Sepsis Action Taken by Nursing GENERAL: alert, well appearing, well nourished, no distress, non-toxic, nasal cannula in place EYE EXAM: normal conjunctiva, PERRL and EOM's grossly intact OROPHARYNX: no exudate, no erythema, lips, buccal mucosa, and tongue normal and mucous membranes are moist NECK: supple, no nuchal rigidity, no adenopathy, non-tender LUNGS: Clear to auscultation. Normal chest wall mechanics, no w/r/r HEART: no murmurs, S1 normal and S2 normal ABDOMEN: abdomen soft, non-tender, normo-active bowel sounds, no masses, no rebound or guarding. BACK: Back is symmetrical on inspection and there is no deformity, no midline tenderness, no CVA tenderness. SKIN: no rashes and no bruising UPPER EXTREMITIES: upper extremities are grossly normal. FROM, nml pulses b/l. LOWER EXTREMITIES: Compression stockings in place bilaterally. Trace pedal edema noted. Normal pulses bilaterally. Patient with sutures intact in 3 spots along the right knee, no surrounding erythema, no dehiscence, no bleeding or discharge. NEURO EXAM: Normal sensorium, cranial nerves II-XII grossly intact, normal speech, no gross weakness of arms, no gross weakness of legs. Gross sensation intact. Course Course 0115: Patient and caregiver updated at bedside. 0200: Informed by nursing staff, while patient has been diuresing since being given Lasix here, with any exertion while on the 2 L nasal cannula she promptly dropped to 85%, and needs approximately 3 to 5 minutes to recover. 0235: Discussed with Dr. Biswas. Administered Medications Discontinued Medications Furosemide (Furosemide 40 Mg/4 Ml Vial) 40 mg IV NOW STA Stop: 08/23/20 00:56 Last Admin: 08/23/20 01:02 Dose: 40 mg Documented by: [id number] Furosemide (Furosemide 40 Mg/4 Ml Vial) 41 mg IV ONE JOSE Stop: 09/22/20 04:15 Last Admin: 08/23/20 05:03 Dose: Not Given Documented by: [id number] Ioversol (Optiray 320 125ml) 125 ml IV ONCE ONE Stop: 08/23/20 02:13 Last Admin: 08/23/20 02:12 Dose: 116 ml Documented by: [id number] Nitroglycerin (Nitroglycerin 2% Ointment 30gm Tube) 1 inch EXT NOW STA Stop: 08/23/20 00:56 Last Admin: 08/23/20 01:02 Dose: 1 inch Documented by: [id number] Medical Decision Making Differential Diagnosis Differential diagnoses includes but is not limited to pneumonia, bronchitis, COPD/Asthma exacerbation, pneumothorax, pulmonary embolism, congestive heart failure, acute coronary syndrome Medical Records Attestation: I reviewed the patient's medical records. Home Medications Current Medication List: was personally reviewed by me Laboratory Data Attestation: I reviewed the patient's lab results. Result diagrams: 08/22/20 23:51 08/22/20 23:51 Lab Results 08/22/20 08/22/20 08/22/20 Range/Units 23:51 23:51 23:51 WBC 9.98 (4.8-10.8) K/uL RBC 3.94 L (4.2-5.4) M/uL Hgb 10.4 L (12.0-16.0) g/dL Hct 33.6 L (37-47) % MCV 85.3 (80-100) fL MCH 26.4 (25-34) pg MCHC 31.0 L (32-36) g/dL RDW Std Deviation 54.9 H (36.4-46.3) fL RDW Coeff of Elif 17.4 H (11.5-14.5) % Plt Count 349 (130-400) K/uL MPV 9.6 (7.4-10.4) fL Immature Gran % (Auto) 0.1 % Neut % (Auto) 76.0 % Lymph % (Auto) 15.8 % Atkinson % (Auto) 6.6 % Eos % (Auto) 1.3 % Baso % (Auto) 0.2 % Neut # (Auto) 7.58 H (1.4-6.5) K/uL Lymph # (Auto) 1.58 (1.2-3.4) K/uL Atkinson # (Auto) 0.66 H (0.11-0.59) K/uL Eos # (Auto) 0.13 (0-0.5) K/uL Baso # (Auto) 0.02 (0-0.2) K/uL Immature Gran # (Auto) 0.01 (0.00-0.02) K/uL PT 12.6 H (9.0-12.0) Seconds INR 1.2 H (0.9-1.1) D-Dimer 3510 H* (0-500) ug/L FEU Sodium 138 (136-145) mmol/L Potassium 4.0 (3.5-5.1) mmol/L Chloride 106 (98-107) mmol/L Carbon Dioxide 27 (21-32) mmol/L Anion Gap 5.0 (3-11) BUN 13 (7-18) mg/dl Creatinine 0.88 (0.6-1.2) mg/dl Est Cr Clr Drug Dosing 47.5 ml/min Est GFR ( Amer) 70.4 Est GFR (Non-Af Amer) 60.8 BUN/Creatinine Ratio 15.2 (10-20) Glucose 133 H (70-99) mg/dl Calcium 8.6 (8.5-10.1) mg/dl Magnesium 2.1 (1.8-2.4) mg/dl Total Bilirubin 0.4 (0.2-1) mg/dl AST 13 L (15-37) U/L ALT < 6 L (12-78) U/L Alkaline Phosphatase 78 (45-117) U/L Troponin I 0.228 H* (0-0.045) ng/ml NT-Pro-B Natriuret Pep 26018 H (0-1800) pg/ml Total Protein 7.0 (6.4-8.2) gm/dl Albumin 3.0 L (3.4-5.0) gm/dl Globulin 4.0 (2.5-4.0) gm/dl Albumin/Globulin Ratio 0.8 L (0.9-2) Imaging Data My Impression: X-ray: I interpreted the following studies. Chest: A single view study of the chest was reviewed and revealed bilateral pulmonary edema and bilateral pleural effusions, however these are improved compared to prior. Radiologist's Impression: CTA chest: Compared to 08/15/2020 Interval worsening of pulmonary edema/CHF. Redemonstrated moderate left and small moderate right pleural effusions. Cardiomegaly with extensive CAD, status post CABG. Evidence of pulmonary hypertension. No PE. Tortuous abdominal aorta with suspected stent graft repair of aneurysm. Correlate with history. Moderatesevere left and mild right hydronephrosis with bilateral calculi. Correlate for flank pain and/or bladder outlet obstruction. Body wall edema/anasarca. Radiologist: Pedro Luis Romero MD ECG Data Attestation: I personally reviewed and interpreted this ECG as follows: Indication: + SOB/dyspnea Rate (beats per minute): 85 Rhythm: + normal sinus ECG Intervals/blocks: + Left bundle branch block and + Prolonged QT ECG [place]: + Normal ECG ST segments: + Nonspecific ST abnormalities Blood Pressure Blood Pressure Findings: Elevated blood pressure Blood Pressure Disposition: further management by hospitalist [facility] Narrative This is an 85-year-old female who had recently been admitted for NSTEMI, and does have a history of CHF who presents with increased dyspnea. Patient reports she had not been able to get her Lasix and nitro filled. Patient does not typ ically wear home oxygen. Patient felt markedly improved with 2 L via nasal cannula, although with any exertion even on 2 L she would immediately desaturate to 85% and become tachypneic. Patient was given Lasix here and Nitropaste was applied. Due to recent surgical procedure and no anticoagulation I felt patient was still at increased risk of PE so patient was sent for CT imaging. No PE noted. They do mention increased pulmonary edema, however pleural effusions appear stable. Patient's troponin was elevated although this does appear to be trending down and is likely still related to the NSTEMI she had last week. Due to increased oxygen requirements and need for diuresis, case discussed with hospitalist for additional evaluation and management. An order was placed for continuous cardiac monitoring. The monitor shows a rate of _88__ with _normal sinus__ rhythm. Impression & Plan Acute dyspnea, CHF (congestive heart failure), Pulmonary edema, Noncompliance, Hypoxia, LBBB (left bundle branch block) Discharge Plan Visit Data Chief Complaint: Shortness of Breath/Dyspnea Stated Complaint: SHORT OF BREATH ED Provider: Mini Davenport Discharge Problem: Acute dyspnea, CHF (congestive heart failure), Pulmonary edema, Noncompliance, Hypoxia, LBBB (left bundle branch block) Patient Disposition: Admitted As Inpatient Discharge Instructions Interventions: ED Discharge Assessment Last Done: 08/23/20 03:44 Discharge Problem: CHF (congestive heart failure) Qualifiers: Heart failure type: unspecified Heart failure chronicity: acute on chronic Qualified Code(s): I50.9 - Heart failure, unspecified Pulmonary edema Qualifiers: Chronicity: acute Qualified Code(s): J81.0 - Acute pulmonary edema
[2020-08-23 00:13] LABS: Basophils # (auto) 0.02 K/uL (0-0.2); Basophils % (auto) 0.2 %; Eosinophils # (auto) 0.13 K/uL (0-0.5); Eosinophils % (auto) 1.3 %; Hematocrit (blood only) 33.6 % (37-47); Hemoglobin 10.4 g/dL (12.0-16.0); Immature Granulocytes # (auto) 0.01 K/uL (0.00-0.02); Immature Granulocytes % (auto) 0.1 %; Lymphocytes # (auto) 1.58 K/uL (1.2-3.4); Lymphocytes % (auto) 15.8 %; Mean Corpuscular Hemoglobin 26.4 pg (25-34); Mean Corpuscular Volume 85.3 fL (80-100); Mean Platelet Volume 9.6 fL (7.4-10.4); Monocytes # (auto) 0.66 K/uL (0.11-0.59); Monocytes % (auto) 6.6 %; Neutrophils # (auto) 7.58 K/uL (1.4-6.5); Platelet Count 349 K/uL (130-400); RDW Coefficient of Variation 17.4 % (11.5-14.5); RDW Standard Deviation 54.9 fL (36.4-46.3); Red Blood Count 3.94 M/uL (4.2-5.4); White Blood Count 9.98 K/uL (4.8-10.8)
[2020-08-23 00:33] LABS: Alanine Aminotransferase < 6 U/L (12-78); Aspartate Aminotransferase 13 U/L (15-37); BUN Creatinine Ratio 15.2 (10-20); Blood Urea Nitrogen 13 mg/dl (7-18); Calcium 8.6 mg/dl (8.5-10.1); Carbon Dioxide 27 mmol/L (21-32); Chloride 106 mmol/L (98-107); Creatinine Clr Calc Pharmacy 47.5 ml/min; Est GFR (African American) 70.4; Est GFR (Non-African American) 60.8; Glucose 133 mg/dl (70-99); Magnesium 2.1 mg/dl (1.8-2.4); Sodium 138 mmol/L (136-145)
[2020-08-23 00:47] LABS: INR 1.2 (0.9-1.1); Prothrombin Time 12.6 Seconds (9.0-12.0)
[2020-08-23 00:49] LABS: Albumin Globulin Ratio 0.8 (0.9-2); Alkaline Phosphatase 78 U/L (45-117); Bilirubin,Total 0.4 mg/dl (0.2-1); D Dimer 3510 ug/L FEU (0-500); NT Pro B Type Natriuretic Pept 26722 pg/ml (0-1800); Troponin I 0.228 ng/ml (0-0.045)
[2020-08-23] MEDS ORDERED: NITROGLYCERIN 2% OINTMENT 30GM TUBE EXT STA (00:55)
[2020-08-23] MEDS ORDERED: FUROSEMIDE 40 MG/4 ML VIAL IV STA (00:55)
[2020-08-23] MEDS ORDERED: OPTIRAY 320 125ml IV ONE (02:12)
--- NOTE | 2020-08-23 03:31 | History & Physical Report ---
Date of Service August 23, 2020 Assessment & Plan (1) Acute systolic CHF (congestive heart failure): Mrs. Martinez is an 85 yo woman who was recently admitted with new onset congestive heart failure with reduced ejection fraction, being readmitted for progressive dyspnea and orthopnea, secondary to a recurrent acute exacerbation of CHF. - patient recently diagnosed with HFrEF, based on 08/07/20 ECHO - was hospitalized from 08/15/20 to 08/18/20 for acute exacerbation - evaluated by [facility] while inpatient during previous admission. Has outpatient follow up visit scheduled for 08/24/20 - patient was directed to start the following regimen upon discharge of her p revious hospital stay: Entresto 24/, spironolactone 25mg, daily, Imdur 60mg, 2 tabs, BID, metoprolol succinate 50mg daily and lasix, 20mg daily, however she has not yet started these medications - etiology of her recurrent exacerbation is secondary to medication non- compliance. patient would benefit from increased education on importance of her new medicines (recommend reviewing with daughter as well) - BNP on admission 27,722 - Chest CTA showing interval widening of pulmonary edema; moderate left pleural effusion, small R pleural effusion (stable from study during recent admission) - given 1 dose of Lasix, 40mg, IV in the ED. I will order a second dose of Lasix 40mg, IV for the am. hold home oral lasix dose. - electrolytes WNL on admission. Repeat BMP in am - continue Entresto , spironolactone 25mg, daily, metoprolol succinate 50mg, daily, Imdur 60mg, 2 tabs, BID - daily standing weights (2) Ischemic cardiomyopathy: - hx of CAD s/p 4 vessel CABG in 1998 - continue dual antiplatelet with ASA and plavix - continue home dose statin - etiology of HFrEF (3) S/P CABG (coronary artery bypass graft): - CABG was in 1998 - continue dual antiplatelet with ASA and plavix - continue home dose statin (4) LBBB (left bundle branch block): - chronic finding on EKG - unable to assess for acute HI (5) Aneurysm of iliac artery: - patient follows with Dr. Osborne as an outpatient (6) Normocytic anemia: - Hgb 10.4, up from 9.2 during last admission - MCV 85 - may be secondary to blood loss from recent surgery at [facility] - patient has not had iron panel, foalte or B12 levels ordered. consider further work up (7) Elevated troponin: - trop 0.2 on admission - trop was elevated to 4 during last admission - will trend - suspect related to demand ischemia in setting fo acute CHF exacerbation (8) Infection of prosthetic right knee joint: - s/p removal of right TKA at [facility] on July 2020 - continue antibiotic regimen of Cefazolin 1g TID through PICC line - WBC normal on admission. Patient afebrile. (9) Clostridium 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: - continue home dose of suppressive oral vancomycin (10) GERD (gastroesophageal reflux disease): - continue home dose pantoprazole Dispo: Med/surg with tele Diet: Low salt, heart healthy DVT ppx: Lovenox Code: Full History of Present Illness Primary Care Provider: Sandeep Lerma MD Note: This patient's short term readmission was due to medication non- compliance Genny Martinez is an 85-year-old woman who was recently admitted to [facility] from 08/15/20 to 08/18/20 for an acute exacerbation of her congestive heart failure. Her diagnosis of heart failure is relatively new - she learned of it earlier this month when she had an echocardiogram (08/07/20) showing an EF of 30-35% and global hypokinesis. Her HRrEF is thought to be secondary to ischemic cardiomyopathy, as Mrs. Madison has a PMHx of CAD s/p 4 vessel CABG in 1998. During her recent admission, she was started on the following CHF medication regimen: Entresto /, spironolactone 25mg, daily, Imdur 60mg, 2 tabs, BID, metoprolol succinate (increased from 25 to 50mg daily) and lasix, 20mg daily. She saw [facility] CHF clinic nurse practitioner while in the hospital last week - she has a follow up in CHF outpatient clinic scheduled on 08/24/20. Mrs. Madison returned to the ED for progressive SOB/dyspnea with exertion. She admits to not having picked up any of her new medications from the pharmacy until 1 day [employer] - nor has she started any of them. This was in part due to her pharmacy not having one fo the medications from the above regimen in stock - and partially due to a lack of understanding/knowledge about each medication, its purose and importance. She complains of inability to sleep for the past 2 nights due to worsening shortness of breath when she lays down in bed. Although she denies chest pain, she describes a chest pressure of heaviness at times. These symptoms worsen when she is ambulating. She denies any new fevers/chills, cough, nasal congestion. She continues to eat a low sodium diet - denies any recent sodium load in the last 3 days. Of note, she was hospitalized at [facility] earlier in July 2020 for removal of an infected right TKA and placement of an antibiotic space. She had a PICC line placed in her R UE, through which she receives Cefazolin 1g, TID. She is supposed to be on IV antibiotics until the end of August. Her daughter manages her medications. On arrival to the ED, she was afebrile, HR 69, BP 125/102, RR 16, satting 92% on room air. When placed on 2L of supplemental oxygen via NC, her O2 sat improved to 96%. Her WBC was normal. Her Hgb was low at 10.4, although up from 9.2 during last admission. Her INR was 1.2. Dimer was 3510. Electrolytes were normal. Cr normal. Trop 0.2, but down from 4.0 during last admission. BNP 26,722, down from >09615 from last admission. CXR showing evidence of bilateral pleural effusions and pulmonary edema. Chest CTA showing no evidence of pulmonary embolism; interval widening of pulmonary edema with a moderate left effusion and a small right effusion. She was given Lasix, 40mg, IV and nitropaste was applied to her chest. Allergies Allergy/AdvReac Type Severity Reaction Status Date / Time potassium chloride AdvReac Intermediate Vomiting Unverified 08/22/20 23:54 Sulfa (Sulfonamide AdvReac Intermediate NAUSEA/VOMI Verified 08/22/20 23:54 Antibiotics) TING sulfamethoxazole AdvReac Intermediate Vomiting Unverified 08/22/20 23:54 [From Bactrim] trimethoprim [From Bactrim] AdvReac Intermediate Vomiting Unverified 08/22/20 23:54 lisinopril AdvReac Unknown NAUSEA Verified 08/22/20 23:54 VOMITING sulfasalazine AdvReac Unknown NAUSEA-COULDN'T Verified 08/22/20 23:54 EAT Home Medications Medication Instructions Recorded Confirmed Type cholecalciferol (vitamin D3) 1,000 unit PO DAILY 11/05/18 08/22/20 History [Vitamin D3] nitroglycerin 0.4 mg sublingual 0.4 mg SUBLINGUAL UD PRN #25 tabs 05/19/1908/22 Rx tablet tolterodine 4 mg capsule,extended 4 mg PO DAILY #90 cap 11/09/19 08/22/20 Rx release 24 hr ascorbic acid (vitamin C) 1,000 mg 1 gm PO DAILY tab 12/30/19 08/22/20 History tablet tramadol 50 mg tablet 50 mg PO Q8H PRN 12/30/19 08/22/20 History tiotropium bromide 2.5 2 puffs INH DAILY #12 gm 02/09/20 08/22/20 Rx mcg/actuation mist for inhalation pantoprazole 40 mg tablet,delayed 40 mg PO DAILY #90 tab 03/24/20 08/22/20 Rx release acetaminophen [Tylenol Extra 1,000 mg PO TID PRN 08/15/20 08/22/20 History Strength] ropivacaine (PF) 0 mg UD 08/15/20 08/22/20 History rosuvastatin 30 mg PO HS 08/15/20 08/22/20 History vancomycin 125 mg PO BID 08/15/20 08/22/20 History Entresto 1 tab PO BID 30 Days #60 tab 08/18/20 08/22/20 Rx isosorbide mononitrate 60 mg PO BID 30 Days #60 tab 08/18/20 08/22/20 Rx nitroglycerin [Nitrostat] 0.4 mg SUBLINGUAL UD PRN 30 Days 08/18/20 08/22/20 Rx #30 tab clopidogrel 75 mg tablet 75 mg PO QAM 30 Days #10 tab 08/22/20 08/22/20 Rx metoprolol succinate 50 mg 50 mg PO DAILY 30 Days #10 tab 08/22/20 08/22/20 Rx tablet,extended release 24 hr spironolactone 25 mg tablet 25 mg PO QAM #10 tab 08/22/20 08/22/20 Rx aspirin 81 mg PO DAILY 30 Days #30 tab 08/23/20 Rx clopidogrel 75 mg PO QAM 30 Days #30 tab 08/23/20 Rx furosemide [Lasix] 40 mg PO DAILY #30 tab 08/23/20 Rx isosorbide mononitrate 60 mg PO BID 30 Days #60 tab 08/23/20 Rx metoprolol succinate 50 mg PO DAILY 30 Days #30 tab 08/23/20 Rx sacubitril-valsartan [Entresto] 1 tab PO BID 30 Days #60 tab 08/23/20 Rx spironolactone 25 mg PO QAM 30 Days #30 tab 08/23/20 Rx Past Med/Surg History Medical History Abdominal aneurysm Acute non-ST elevation myocardial infarction (NSTEMI) Atypical chest pain CAD (coronary artery disease) Chronic infection of knee Clostridium 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 Dyspnea on exertion GERD (gastroesophageal reflux disease) Heart attack Hypertension Hypothyroid Hypoxia Peripheral arterial disease Surgical History H/O colonoscopy H/O esophagogastroduodenoscopy History of knee surgery History of open reduction and internal fixation (ORIF) procedure right proximal femur 2006 History of quadruple bypass History of total hip replacement Hx of tonsillectomy S/P CABG (coronary artery bypass graft) Family History Mother Leukemia Brother Aortic aneurysm Father Aortic aneurysm Stroke syndrome Tuberculosis Daughter Coronary heart disease Heart problem Grandfather Tuberculosis Uncle Tuberculosis Denies family history of Ovarian cancer Prostate cancer Breast cancer Lung cancer Colorectal cancer Social History Smoking Status: Former smoker Tobacco Type: Cigarettes Age Started Using Tobacco: 19; Age Quit Using Tobacco: 64; packs per day: 1; Years Smoked: 45; Cigarettes Per Day: 20; Second Hand Exposure: No; Hx Alcohol Use: No Hx Substance Use: No Preferred Language: Macedonian Communication Ability: Effective Visual Impairment: Diminished Hearing Ability: Hard of Hearing Belt Brander Required: No Beliefs That Will Affect Care: None marital status: / Current Living Situation: Family Current Living Situation Comment: dtr staying with patient temporarily current occupational status: retired Feels Safe at Home: Yes Childhood Exposure to Second-Hand Smoke: Yes caffeine: Yes Dental Care, Regularly: No Physical Activity Frequency: Does not Exercise Seatbelt Use: always Sunscreen Use: No Assistive Devices: Walker Review of Systems Constitutional: no fever and no chills Respiratory: + dyspnea on exertion; no cough and no sputum production Cardiovascular: + orthopnea; no chest pain Physical Exam Constitutional: WD/WN, vitals as above cooperative; no acute distress Eyes: + anicteric sclerae ENMT: external ear and nose normal, oropharynx normal Neck: normal visual inspection and trachea midline Respiratory: normal respiratory effort; no respiratory distress, no labored breathing and no cough Auscultation: + rales (bilateral lung bases ); no wheezes and no pleural rub Cardiovascular: RRR, no murmur, no edema Heart Sounds: normal S1 and normal S2 Vessels: no JVD Extremities: + pedal edema (trace) and + vascular access device (PICC line, R UE) Gastrointestinal (Abdomen): normal bowel sounds, soft, nontender, no hepatosplenomegaly Skin: no rashes, warm and dry + incision (R anterior knee) Neurologic: moves all extremities Psychiatric: A+Ox3, euthymic affect Genitourinary: Byers catheter in place, draining yellow urine without visible blood clots Results & Data Results & Data ([facility]) Vital Signs (Past 12 Hours) Vital Signs Temp Pulse Pulse Resp BP BP Pulse Ox 08/23/20 01:52 69 16 132/88 96 08/23/20 01:01 79 16 139/86 100 08/22/20 23:43 36.8 C 93 H 20 135/102 H 92 Supervising Physician Co-Signing Physician Notes Attending addendum: I have physically seen this patient, have supervised the medical residents activities, and agree with the H&P unless as otherwise noted. Assessment and Plan: Acute on chronic HFrEF/ischemic cardiomyopathy/CAD/status post CABG x4 in 1998/elevated troponin/left bundle branch block- The patient will be admitted to telemetry for serial cardiac enzymes, serial EKG's, cardiac rhythm monitoring. Patient was recently admitted from 08/15-08/18 to [facility] for treatment of CHF. Her medications up after discharge were not filled, and she has been without heart failure treatment for the past 3 days. She was given Lasix 40 mg IV in the ED, and this will be continued every morning. Continue Entresto, spironolactone, metoprolol succinate, Imdur, aspirin and clopidogrel. Consult cardiology It will be very important to make sure that the patient and her daughter are aware that the prescriptions upon discharge need to be filled or else the patient may have a similar process occur again. Remaining orders and notations as noted Resident Activity Tracking Resident Involvement: Resident Care Provided Care Provided: Adult Hospital Medicine
[2020-08-23] MEDS ORDERED: POLYETHYLENE (MIRALAX) 17 GM PACK PO PRN (04:16)
[2020-08-23] MEDS ORDERED: FUROSEMIDE 40 MG/4 ML VIAL IV SCH (04:16)
[2020-08-23] MEDS ORDERED: ACETAMINOPHEN 325 MG TAB PO PRN (04:16)
[2020-08-23] MEDS ORDERED: ONDANSETRON INJ 2 MG/ML 2 ML VIAL IV PRN (04:16)
--- NOTE | 2020-08-23 06:50 | XRay Report ---
XR chest 1V portable CLINICAL HISTORY: Shortness of breath COMPARISON STUDY: 08/15/2020 FINDINGS: There are postsurgical changes of a midline sternotomy. The heart remains enlarged. There i s persistent but improving congestive failure/fluid overload. There are bilateral pleural effusions w ith associated basilar opacities, atelectatic versus infectious/inflammatory[ IMPRESSION: Cardiomegaly, improving pulmonary vascular congestion, and bilateral pleural effusions wi th associated bibasilar opacities ACT 112: Negative or not required by law. Electronically signed by: Cullen Jameson M.D. 08/23/2020 6:49 AM
[2020-08-23] MEDS: ceFAZolin 1000MG 1,000 MG/7.5 ML SYR IV SCH ×2 (07:04→16:11)
--- NOTE | 2020-08-23 07:30 | CT Scan Report ---
CT ANGIOGRAPHY OF THE CHEST, PULMONARY EMBOLUS PROTOCOL CLINICAL HISTORY: Shortness of breath. Evaluate for pulmonary embolus. COMPARISON STUDY: Chest CT August 15, 2020. Chest radiograph August 22, 2020. TECHNIQUE: Following IV administration of 116 mL of Optiray-320, helical axial images of the chest we re obtained utilizing the pulmonary embolus protocol. Maximal intensity projections and sagittal and coronal reformats were viewed on an independent 3D workstation. IV contrast was administered withou t complication. Automated exposure control was utilized for the study. A dose lowering technique wa s utilized adhering to the principles of ALARA. CT DOSE: 530.43 mGycm FINDINGS: No pulmonary emboli are identified. Note is made of moderate cardiomegaly. There is no per icardial effusion. Extensive coronary artery calcification is noted. There are median sternotomy wire s and postoperative findings from bypass grafting. Prominent mediastinal and right hilar lymph nodes are noted. These may be related to pulmonary edema. Moderate left and [id number] right pleural effusions have mildly increased in size since CT of August 15, 2010. Pulmonary edema has progressed with interlobular septal thickening. Emphysema is present. Subpleural opacities favor atelectasis. T here is no pneumothorax. Bony thorax is unremarkable. Severe left hydronephrosis is again noted. This was shown on prior exams. There is mild right collect ing system dilatation. Small bilateral renal calculi are noted. Aneurysmal dilatation of visualized p ortions of the abdominal aorta is again noted. IMPRESSION: 1. No pulmonary emboli identified. 2. Progression of pulmonary edema and moderate left and [id number] right pleural effusions sin ce chest CT of August 15, 2020. 3. Moderate cardiomegaly. Extensive coronary calcification. 4. Redemonstration of severe left hydronephrosis and a partially visualized abdominal aortic aneurysm . ACT 112: Negative or not required by law. Electronically signed by: Edis Pleitez M.D. 08/23/2020 7:29 AM
[2020-08-23 08:28] LABS: BUN Creatinine Ratio 12.6 (10-20); Calcium 8.8 mg/dl (8.5-10.1); Creatinine Clr Calc Pharmacy 46.2 ml/min; Est GFR (African American) 73.4; Est GFR (Non-African American) 63.4; Potassium 3.5 mmol/L (3.5-5.1)
[2020-08-23 08:36] LABS: Troponin I 0.179 ng/ml (0-0.045)
[2020-08-23] MEDS ORDERED: FUROSEMIDE 40 MG in SYRINGE 0 ML IV ONE ×2 (09:00→10:45)
[2020-08-23] MEDS ORDERED: ISOSORBIDE MONO EXTENDED REL 60 MG TABCR PO SCH (09:00)
[2020-08-23] MEDS ORDERED: CLOPIDOGREL BISULFATE 75 MG TAB PO SCH (09:00)
[2020-08-23] MEDS ORDERED: VANCOMYCIN HCL 125 MG/2.5ML SOLN PO SCH (09:00)
[2020-08-23] MEDS ORDERED: SPIRONOLACTONE 25 MG TAB PO SCH (09:00)
[2020-08-23] MEDS ORDERED: PANTOprazole 40 MG TAB PO SCH (09:00)
[2020-08-23] MEDS ORDERED: UMECLIDINIUM BROMIDE 62.5MCG/BLISTER 7 PUFFS/INHALER INH SCH (09:00)
[2020-08-23] MEDS ORDERED: ENOXAPARIN INJ 40 MG/0.4 ML SYR SQ SCH (09:00)
[2020-08-23] MEDS ORDERED: METOPROLOL SUCC 50MG EXT REL TAB PO SCH (09:00)
[2020-08-23] MEDS ORDERED: TOLTERODINE TARTRATE LA 4 MG CAPCR PO SCH (09:00)
[2020-08-23] MEDS ORDERED: SACUBITRIL-VALSARTAN 24-26 MG TAB PO SCH (09:00)
[2020-08-23] MEDS ORDERED: ASPIRIN 81 MG ECTAB PO SCH (09:00)
[2020-08-23] MEDS ORDERED: RASPBERRY SYRUP 5 ML UDP PO SCH (09:00)
--- NOTE | 2020-08-23 09:57 | Electrocardiogram Report ---
Test Reason : Blood Pressure : / mmHG Vent. Rate : 085 BPM Atrial Rate : 085 BPM P-R Int : 156 ms QRS Dur : 154 ms QT Int : 422 ms P-R-T Axes : 033 069 206 degrees QTc Int : 502 ms Normal sinus rhythm Possible Left atrial enlargement Left bundle branch block Abnormal ECG When compared with ECG of 15-AUG-2020 10:40, No significant change was found Confirmed by Fco English ([id number] on 08/23/2020 9:56:49 AM Referred By: REFERRED SELF Confirmed By:Mike English
--- NOTE | 2020-08-23 10:05 | Discharge Summary ---
Date of Service August 23, 2020 Admission HPI Per Admitting Provider Note: This patient's short term readmission was due to medication non-compliance Genny Martinez is an 85-year-old woman who was recently admitted to [facility] from 08/15/20 to 08/18/20 for an acute exacerbation of her congestive heart failure. Her diagnosis of heart failure is relatively new - she learned of it earlier this month when she had an echocardiogram (08/07/20) showing an EF of 30-35% and global hypokinesis. Her HRrEF is thought to be secondary to ischemic cardiomyopathy, as Mrs. Madison has a PMHx of CAD s/p 4 vessel CABG in 1998. During her recent admission, she was started on the following CHF medication regimen: Entresto , spironolactone 25mg, daily, Imdur 60mg, 2 tabs, BID, metoprolol succinate (increased from 25 to 50mg daily) and lasix, 20mg daily. She saw Amy Sage CHF clinic nurse practitioner while in the hospital last week - she has a follow up in CHF outpatient clinic scheduled on 08/24/20. Mrs. Madison returned to the ED for progressive SOB/dyspnea with exertion. 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 This was in part due to her pharmacy not having one fo the medications from the above regimen in stock - and partially due to a lack of understanding/knowledge about each medication, its purose and importance. She complains of inability to sleep for the past 2 nights due to worsening shortness of breath when she lays down in bed. Although she denies chest pain, she describes a chest pressure of heaviness at times. These symptoms worsen when she is ambulating. She denies any new fevers/chills, cough, nasal congestion. She continues to eat a low sodium diet - denies any recent sodium load in the last 3 days. Of note, she was hospitalized at [facility] [place] [facility] earlier in July 2020 for removal of an infected right TKA and placement of an antibiotic space. She had a PICC line placed in her R UE, through which she receives Cefazolin 1g, TID. She is supposed to be on IV antibiotics until the end of August. Her daughter manages her medications. On arrival to the ED, she was afebrile, HR 69, BP 125/102, RR 16, satting 92% on room air. When placed on 2L of supplemental oxygen via NC, her O2 sat improved to 96%. Her WBC was normal. Her Hgb was low at 10.4, although up from 9.2 during last admission. Her INR was 1.2. Dimer was 3510. Electrolytes were normal. Cr normal. Trop 0.2, but down from 4.0 during last admission. BNP 26,722, down from >98307 from last admission. CXR showing evidence of bilateral pleural effusions and pulmonary edema. Chest CTA showing no evidence of pulmonary embolism; interval widening of pulmonary edema with a moderate left effusion and a small right effusion. She was given Lasix, 40mg, IV and nitropaste was applied to her chest. Admission Exam Per Admitting Provider Constitutional: WD/WN, vitals as above cooperative; no acute distress Eyes: + anicteric sclerae ENMT: external ear and nose normal, oropharynx normal Neck: normal visual inspection and trachea midline Respiratory: normal respiratory effort; no respiratory distress, no labored breathing and no cough Auscultation: + rales (bilateral lung bases ); no wheezes and no pleural rub Cardiovascular: RRR, no murmur, no edema Heart Sounds: normal S1 and normal S2 Vessels: no JVD Extremities: + pedal edema (trace) and + vascular access device (PICC line, R UE) Gastrointestinal (Abdomen): normal bowel sounds, soft, nontender, no hepatosplenomegaly Skin: no rashes, warm and dry + incision (R anterior knee) Neurologic: moves all extremities Psychiatric: A+Ox3, euthymic affect Genitourinary: Byers catheter in place, draining yellow urine without visible blood clots Principal Diagnosis Acute Systolic Congestive Heart Failure Exacerbation Discharge Exam Constitutional: in no apparent distress, sitting comfortably in bed. Eyes: EOMI, pupils equal and reactive bilaterally, no scleral icterus Cardiac: RRR, no murmurs, gallops or rubs. Normal S1, S2 Pulm: CTA BL, no wheezes, rhonchi, crackles or rubs, moving air well throughout both lungs Abd: soft, nontender, nondistended, normal bowel sounds, no rebound or guarding Extremities: 2+ peripheral pulses, no edema Neuro: no focal deficits, moving all 4 limbs, A&Ox3 Discharge Data Allergies Allergy/AdvReac Type Severity Reaction Status Date / Time potassium chloride AdvReac Intermediate Vomiting Unverified 08/22/20 23:54 Sulfa (Sulfonamide AdvReac Intermediate NAUSEA/VOMI Verified 08/22/20 23:54 Antibiotics) TING sulfamethoxazole AdvReac Intermediate Vomiting Unverified 08/22/20 23:54 [From Bactrim] trimethoprim [From Bactrim] AdvReac Intermediate Vomiting Unverified 08/22/20 23:54 lisinopril AdvReac Unknown NAUSEA Verified 08/22/20 23:54 VOMITING sulfasalazine AdvReac Unknown NAUSEA-COULDN'T Verified 08/22/20 23:54 EAT Consultations 08/23/20 02:57 ED Decision to Admit Stat Ordered Studies 08/23/20 00:56 CT angio chest PE protocol Urgent Hospital Course (1) Acute systolic CHF (congestive heart failure): Mrs. Martinez is an 85 yo woman who was recently admitted with new onset congestive heart failure with reduced ejection fraction, being readmitted for progressive dyspnea and orthopnea, secondary to a recurrent acute exacerbation of CHF. Due to miscommunication patient was unable to citrus picker her medications at local pharmacy and went multiple days without them. Symptoms resolved after treatment with 3 40 mg IV doses of lasix. She did note that she had lately been eating more salt than usual but now understands more about her diagnosis of heart failure and requirement of a low/no salt diet. Patient was educated about medication regimen and discharged home with scripts sent to local pharmacy. She has an appointment with Kay Schwarz at [facility] on 08/24/20 and is aware of this appointment. All other medical conditions controlled with at home regimen. 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: (9) Clostridium 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: (10) GERD (gastroesophageal reflux disease): Total Time Total Time Spent Total Time Spent (In Minutes): See attending attestation Discharge Plan Discharge Items Patient Disposition: Home - Home Health Services Reason For Visit: SOB Discharge Diagnosis: CHF exacerbation Activity: Resume your previous activity Non-emergency contact: Primary Care Provider and Receiving Inspector Call non-emergency contact if: you have any medication questions and your s ymptoms worsen Follow-up/Referrals: Sandeep Lerma MD [Primary Care Provider] - Ling James PA-C [Physician Chemistry Faculty Member] - 08/24/20 2:00 pm (Congestive Heart Failure Program Appointment Information Early follow up is essential to managing your heart failure. An appointment has been scheduled for you with the [facility] within 7 days of discharge. Anticipate this visit to be 30-60 minutes long. Please expect a railroad car loader phone call from one of our nurses approximately 48 hours from discharge. They will also be placing an order for lab work to be completed 1-2 days prior to your heart failure follow up appointment. Please be sure to have this done so we can go over the results when you come in. Office Location The cardiology office building is located in front of the hospital at [address]. Bring the following with you to your follow-up doctor appointments: Please bring your daily weight log any discharge paperwork all of your medication bottles with you to this visit. ) Diet: Heart Healthy and Low Sodium (2gm) Addtl Attending Provider Instructions: You were seen in the hospital for Shortness of breath secondary to fluid overload and congestive heart failure exacerbation. You received IV diuretics to remove the excess fluid. Most likely this happened because you were unable to receive your medications from your past hospital stay in the interim. It is vitally important that you take your medications every day and avoid eating salt and contact your doctor if you are unable to fill/take them. It is also helpful to weigh yourself everyday at home and note if you are gaining 2+ pounds in 1-2 days. If you are gaining this weight it is most likely fluid retention and you should call your cook fish and chips for instructions whether you should take extra medications to get rid of the fluid. The chest tightness sensation that you were feeling is the feeling of the fluid backing up into your lungs when it is unable to move forward due to your heart's weakness. If you have feelings of: chest tightness, chest pain, trouble breathing when laying flat, trouble breathing when walking or swelling in your feet or legs, call your cook fish and chips or primary care physician. You can call the Receiving Inspector's office for the [facility] at [phone]. You can call Dr. Lerma's office at [phone]. New Medications/Changes to medications: Entresto 24/26 twice a day Metoprolol Succinate 50 mg once a day Spironolactone 25 mg once a day Plavix 75 mg once a day Isosorbide Mononitrate 60 mg (2 tabs) twice a day Lasix 20 mg once a day Aspirin 81 mg once a day Stopped medications: Losartan Pending Studies at Discharge: No Stand-Alone Forms: My [facility] [employer], Smoking Cessation Medications and DC Order Prescriptions: New metoprolol succinate 50 mg Tablet Extended Release 24 Hr 50 mg PO DAILY 30 Days Qty: 30 RF: 0 clopidogrel 75 mg Tablet 75 mg PO QAM 30 Days Qty: 30 RF: 0 aspirin 81 mg Tablet,Delayed Release (Dr/Ec) 81 mg PO DAILY 30 Days Qty: 30 RF: 0 spironolactone 25 mg Tablet 25 mg PO QAM 30 Days Qty: 30 RF: 0 isosorbide mononitrate 60 mg Tablet Extended Release 24 Hr 60 mg PO BID 30 Days Qty: 60 RF: 0 Entresto 24-26 mg Tablet 1 tab PO BID 30 Days Qty: 60 RF: 0 furosemide [Lasix] 40 mg tablet 40 mg PO DAILY Qty: 30 RF: 0 Continued nitroglycerin [Nitrostat] 0.4 mg tablet, sublingual 0.4 mg sublingual UD PRN (Reason: chest pain) Qty: 25 RF: 0 tolterodine [Detrol LA] 4 mg capsule,extended release 24hr 4 mg PO DAILY Qty: 90 RF: 3 Spiriva Respimat 2.5 mcg/actuation mist 2 puffs INH DAILY Qty: 12 RF: 5 pantoprazole 40 mg tablet,delayed release (DR/EC) 40 mg PO DAILY Qty: 90 RF: 3 clopidogrel 75 mg tablet 75 mg PO QAM 30 Days Qty: 10 RF: 0 spironolactone 25 mg tablet 25 mg PO QAM Qty: 10 RF: 0 metoprolol succinate 50 mg tablet extended release 24 hr 50 mg PO DAILY 30 Days Qty: 10 RF: 0 ascorbic acid (vitamin C) 1,000 mg tablet 1 gm PO DAILY RF: 0 tramadol 50 mg tablet 50 mg PO Q8H PRN (Reason: pain) RF: 0 acetaminophen [Tylenol Extra Strength] 500 mg Tablet 1,000 mg PO TID PRN (Reason: Pain) RF: 0 rosuvastatin 20 mg tablet 30 mg PO HS RF: 0 vancomycin 125 mg capsule 125 mg PO BID RF: 0 ropivacaine (PF) 2 mg/mL (0.2 %) Solution 0 mg UD RF: 0 Entresto 24-26 mg Tablet 1 tab PO BID 30 Days Qty: 60 RF: 0 isosorbide mononitrate 60 mg Tablet Extended Release 24 Hr 60 mg PO BID 30 Days Qty: 60 RF: 0 nitroglycerin [Nitrostat] 0.4 mg Tablet, Sublingual 0.4 mg sublingual UD PRN (Reason: chest pain) 30 Days Qty: 30 RF: 0 cholecalciferol (vitamin D3) [Vitamin D3] 1,000 unit Capsule 1,000 unit PO DAILY RF: 0 Discontinued furosemide 40 mg tablet 40 mg PO DAILY Qty: 10 RF: 0 aspirin [Adult Low Dose Aspirin] 81 mg tablet,delayed release (DR/EC) 81 mg PO BID RF: 0 Discharge Orders: Discharge Order (Routine); Ordered 08/23/20 Ordered By: Lisa Willoughby/Other Patient Handouts: Heart Failure Admission Data Admit Date/Time: 08/23/20 02:50 Attending Provider: Mao Huber Admit Provider: Karen Nesbitt Primary Care Provider: Sandeep Lerma Other Providers: Amaury Biswas ; Lisa Phelan Other Interventions: Discharge Summary Assessment (RN) Last Done: 08/23/20 18:05 Supervising Physician Co-Signing Physician Notes Attending attestation Pt seen and examined in concert with Dr. Phelan. In agreement with the documented findings as noted in the resident documentation with any exceptions or additions as noted here. Significant reduction of shortness of breath and chest tightness following diuresis overnight and tolerating medications well. On examination, S1/S2 nl RRR no MCG. Decreased BS at bilateral bases. Abd NT/ND BS+ve. Trace b/l LE edema to the midshin. HFrEF with acute exacerbation 2/2 medication nonadherence - extensive time spent with team educating patient on the cause of HF sx and response to them including medication management. Resume home medication as noted. 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 Total attending time spent with this patient's case on day of discharge: 45 minutes. Resident Activity Tracking Resident Involvement: Resident Care Provided Care Provided: Adult [facility] Medicine
[2020-08-23] MEDS ORDERED: ROSUVASTATIN CALCIUM 10 MG TAB PO SCH (21:00)
--- NOTE | 2020-08-24 04:05 | Billing Data ---
Date of Service August 24, 2020 Coding Level of Care Code 59465 OBS Care - Level 3
== END 2020-08-23 19:10 | disposition home health service (06) ==
LOC: ED 23:34 → 2W 23:34 → SUATTDRO 08-23 02:50 → 2W 08-23 03:44

== ENCOUNTER 2020-12-20 05:40 | Inpatient (IN) ==
--- NOTE | 2020-12-12 12:32 | PAT Medication Instructions ---
Medication Instructions Date of Service December 12, 2020 Home Medications Medication Instructions Recorded rosuvastatin 20 mg tablet 30 mg PO HS #145 tab 08/24/20 clopidogrel 75 mg tablet 75 mg PO QAM 90 Days #90 tab 09/26/20 isosorbide mononitrate 60 mg 60 mg PO BID 30 Days #60 tab 10/12/20 tablet,extended release 24 hr cholecalciferol (vitamin D3) [Vitamin D3] 1,000 unit PO QPM ascorbic acid (vitamin C) 1,000 mg tablet 1 gm PO QDL tramadol 50 mg tablet 50 mg PO Q8H PRN acetaminophen [Tylenol Extra Strength] 1,000 mg PO TID PRN rosuvastatin 20 mg tablet 30 mg PO HS clopidogrel 75 mg tablet 75 mg PO QAM isosorbide mononitrate 60 mg tablet,extended release 24 hr 60 mg PO BID calcitonin (salmon) 200 unit/actuation nasal spray 1 spray INTRANASAL (ALT) DAILY PRN sacubitril 49 mg-valsartan 51 mg tablet 0.5 tab PO BID spironolactone 25 mg tablet 25 mg PO QAM Spiriva Respimat 2 puffs INH QAM furosemide [Lasix] 20 mg PO QAM metoprolol succinate 50 mg PO QDL nitroglycerin 0.4 mg SUBLINGUAL UD PRN pantoprazole 40 mg PO QAM tolterodine [Detrol LA] 4 mg PO QDL Continue as directed metoprolol succinate 50 mg PO QDL nitroglycerin 0.4 mg SUBLINGUAL UD PRN (if needed) ASK your prescriber and surgeon clopidogrel 75 mg tablet 75 mg PO QAM DO NOT take the morning of surgery ascorbic acid (vitamin C) 1,000 mg tablet 1 gm PO QDL sacubitril 49 mg-valsartan 51 mg tablet 0.5 tab PO BID (bring with you to hospital on day of surgery) spironolactone 25 mg tablet 25 mg PO QAM furosemide [Lasix] 20 mg PO QAM tolterodine [Detrol LA] 4 mg PO QDL Take morning of surgery With a small sip of water, OTHERWISE NOTHING TO EAT OR DRINK AFTER MIDNIGHT: tramadol 50 mg tablet 50 mg PO Q8H PRN (okay to take up to 4 hours prior to surgery if needed) acetaminophen [Tylenol Extra Strength] 1,000 mg PO TID PRN (okay to take up to 4 hours prior to surgery if needed) isosorbide mononitrate 60 mg tablet,extended release 24 hr 60 mg PO BID calcitonin (salmon) 200 unit/actuation nasal spray 1 spray INTRANASAL (ALT) DAILY PRN (if needed) Spiriva Respimat 2 puffs INH QAM pantoprazole 40 mg PO QAM Take evening before surgery cholecalciferol (vitamin D3) [Vitamin D3] 1,000 unit PO QPM tramadol 50 mg tablet 50 mg PO Q8H PRN (if needed) acetaminophen [Tylenol Extra Strength] 1,000 mg PO TID PRN (if needed) rosuvastatin 20 mg tablet 30 mg PO HS isosorbide mononitrate 60 mg tablet,extended release 24 hr 60 mg PO BID sacubitril 49 mg-valsartan 51 mg tablet 0.5 tab PO BID Other Notes If you have any questions please call us at [phone] or [phone] or [phone] or [phone]
--- NOTE | 2020-12-15 09:49 | Anesthesiology Consultation ---
Date of Service December 15, 2020 Assessment & Plan (1) Pre-operative cardiovascular examination: Chart Review Chart Review: Acceptable Risk for Surgery (pending preop Covid testing results ) and Patient seen in Pre Admission Testing -Pt instructed to follow up with surgeon re: Plavix instructions - Check BSG AM DOS -Pt had hypotension at PAT appt on 12/15/20. Pt asymptomatic- no dizziness, lightheadedness or syncope. Pt did check BP at home later that day and it was 116/79. Did inform cardio office- per response in [employer] from cardio 12/15/20= "Mrs. Macedo runs a low blood pressure from time to time, as long as she is asymptomatic it is not an issue. I did tell her to hold Entresto the morning of her surgery." Per PAT appt on 12/15/20, pt denies any recent travel or large group activities. No known Covid positive contacts or Covid related symptoms. No known Covid infection in the past 90 days. Preop Covid testing scheduled 12/15/20= will await results. Pt states she is going to [place] this weekend in [facility] with 10 other people. Both patient and people staying in the house are vaccinated. Since patient had Covid testing done already- recommended patient wear mask indoors around others, socially distance outside, and eat/drink away from others. Educated on importance of self quarantining, social distancing and wearing mask in public both for the patient and household contacts.Will leave to anesthesiologist discretion DOS if additional PPE/surgery time or repeat rapid Covid test needed DOS. Heart failure visit 12/07/2020 = acute systolic CHFsymptoms are improved. Weight stable over the past month. Continue Lasix and spironolactone. Ischemic cardiomyopathyEF 30-35%. Has decided upon medical therapy and has declined cardiac catheterization. Has been initiated on appropriate medical therapy. Plan to repeat echocardiogram after 2 to 3 months of optimal therapyordered. Consider ICD if EF <35%. CAD status post CABG x4 (1998)no further angina after adjusted medical therapy. HypertensionBP reasonably controlled. Dyslipidemiacontinue statin therapy. Bilateral iliac artery aneurysm: Followed by Dr. Osborne. Planning on upcoming surgical intervention. Follow-up in March. Seen by cardio 12/01/20= seen for preoperative cardiology evaluation. Patient offers no complaints and is feeling well overall. Able to perform her usual activities and has not experienced any limiting cardiopulmonary symptoms. Does admit to chronic stable dyspnea on exertion related to her long smoking historyhas not changed recently. Underwent stress test VEF 26%. Fixed inferior and septal defects. No ischemia reported. "Based on her functional status without cardiac symptoms, euvolemic state, negative Lexiscan Cardiolite 08/04/20, and the fact that she tolerated a recent total knee arthroplasty followed by removal of hardware and placement of an antibiotic block without cardiac or anesthesia related complications -- Patient is an acceptable surgical risk to proceed with surgery as scheduled provided she take her usual doses of Toprol XL 50 mg and Imdur ER 60 mg the morning of surge ry with sips of water. Patient was advised to hold Entresto the morning of surgery to reduce the risk of refractory hypotension. I have asked her to contact her surgeon regarding what they want her to do with her Plavix leading up to surgery. There is no need for further cardiac evaluation at this time. We would also recommend cautious use of perioperative IV fluids and close monitoring of daily I&O's and body weights." Teaching & Discussion Pre-Anesthesia Teaching/Discussion Notes: Instructed NPO after midnight before surgery,except medications with 15 cc of water. Medication instructions provided according to the PAT guidelines. History Surgery Operation Date: 12/20/20 07:30 Proposed Procedures p Percutaneous Endovascular Aneurysm Repair - Flavio Osborne MD Height/Weight Height: 5 ft 3.5 in Weight: 60.9 kg Allergies Allergy/AdvReac Type Severity Reaction Status Date / Time potassium chloride AdvReac Intermediate Vomiting Verified 12/08/20 10:43 Sulfa (Sulfonamide AdvReac Intermediate NAUSEA/VOMI Verified 12/08/20 10:43 Antibiotics) TING sulfamethoxazole AdvReac Intermediate Vomiting Verified 12/08/20 10:43 [From Bactrim] trimethoprim [From Bactrim] AdvReac Intermediate Vomiting Verified 12/08/20 10:43 lisinopril AdvReac Unknown NAUSEA Verified 12/08/20 10:43 VOMITING sulfasalazine AdvReac Unknown NAUSEA-COULDN'T Verified 12/08/20 10:43 EAT Medications Home Medications Medication Instructions Recorded Confirmed Last Taken cholecalciferol (vitamin D3) 1,000 unit PO QPM 11/05/18 12/08/20 08/15/20 [Vitamin D3] ascorbic acid (vitamin C) 1,000 mg 1 gm PO QDL tab 12/30/19 12/08/20 08/15/20 tablet tramadol 50 mg tablet 50 mg PO Q8H PRN 12/30/19 12/08/20 Unknown acetaminophen [Tylenol Extra 1,000 mg PO TID PRN 08/15/20 12/08/20 Unknown Strength] rosuvastatin 20 mg tablet 30 mg PO HS #145 tab 08/24/20 12/08/20 Unknown clopidogrel 75 mg tablet 75 mg PO QAM 90 Days #90 tab 09/26/20 12/08/20 Unknown isosorbide mononitrate 60 mg 60 mg PO BID 30 Days #60 tab 10/12/20 12/08/20 Unknown tablet,extended release 24 hr calcitonin (salmon) 200 1 spray INTRANASAL (ALT) DAILY PRN 11/06/20 12/08/20 Unknown unit/actuation nasal spray ml sacubitril 49 mg-valsartan 51 mg 0.5 tab PO BID tab 12/07/20 12/08/20 Unknown tablet spironolactone 25 mg tablet 25 mg PO QAM 12/07/20 12/08/20 Unknown Spiriva Respimat 2 puffs INH QAM 12/08/20 12/08/20 Unknown furosemide [Lasix] 20 mg PO QAM 12/08/20 12/08/20 Unknown metoprolol succinate 50 mg PO QDL 12/08/20 12/08/20 Unknown nitroglycerin 0.4 mg SUBLINGUAL UD PRN 12/08/20 12/08/20 Unknown pantoprazole 40 mg PO QAM 12/08/20 12/08/20 Unknown tolterodine [Detrol LA] 4 mg PO QDL 12/08/20 12/08/20 Unknown Past Medical History Medical History (Updated 12/15/20 @ 14:07 by iRma Barlow PA-C) Abdominal aneurysm Per 08/15/20 CT scan "There is diffuse aneurysmal dilatation of the abdominal aorta which measures up to 3.4 cm in diameter. Aneurysm of iliac artery Per 07/2020 = There are bilobed iliac artery aneurysms which measure up to 3.9 cm on the right and 3.0 cm on the left. There is intervertebral dilatation of the internal iliac arteries which measure up to 1.5 cm. CAD (coronary artery disease) S/p CABG x 4 vessel (1998) Clostridium 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 pt denies COPD (chronic obstructive pulmonary disease) with emphysema Mild - breathing stable Diabetes mellitus Type 2 "Borderline" per patient. Diet controlled Dyspnea on exertion No oxygen use No recent issues GERD (gastroesophageal reflux disease) Well controlled and stable HFrEF (heart failure with reduced ejection fraction) Hyperlipidemia Hypertension Has had hypotension episodes in the past- cardio aware and pt monitoring at home Ischemic cardiomyopathy EF 30-35% Weight stable - no LE edema LBBB (left bundle branch block) follows with Elvin Krishnamurthy Motion sickness Nausea chronic Nausea and vomiting after administration of anesthetic agent NSTEMI (non-ST elevated myocardial infarction) 07/2020 per cardiac records/reports. no cardiac cath done. Treated with medications and inpatient at [facility]. Pt denies any issues since Jul 2020 On anticoagulant therapy Plavix - presumed secondary to CAD Osteoporosis with fracture Peripheral arterial disease Spinal stenosis Wears back brace occasionally Ulcerative colitis Stable Exercise / Class Metabolic Activity III < 4 Walking/Shop/Light housework (one flight of stairs, mild SOB, no chest pain ) Past Family History Family History Mother Leukemia Brother Aortic aneurysm Father Aortic aneurysm Stroke syndrome Tuberculosis Daughter Coronary heart disease Heart problem Grandfather Tuberculosis Uncle Tuberculosis Denies family history of Ovarian cancer Prostate cancer Breast cancer Lung cancer Colorectal cancer Past Surgical History Surgical History H/O colonoscopy H/O esophagogastroduodenoscopy History of blepharoplasty bilateral History of cataract surgery bilateral History of incision and drainage right knee History of left hip replacement History of open reduction and internal fixation (ORIF) procedure right proximal femur 2006 History of revision of total replacement of right hip joint History of revision of total replacement of right knee joint "multiple" r/t post op fall. History of right hip replacement History of right knee joint replacement History of tooth extraction Hx of tonsillectomy S/P CABG (coronary artery bypass graft) (~1997) x4 vessels at [facility] S/P hardware removal right hip Past Anesthesia History No Hx of Anesthesia Complications and No Family Hx of Anesthesia Complications History of PONV History of PONV and Hx of Motion Sickness Social History Smoking Status: Former smoker tobacco type: cigarettes Smoking cigarettes per day: 20 Do You Dip or Chew Tobacco: No Smoking End Date: 1999 Hx Alcohol Use: Yes Alcohol type: hard liquor alcohol intake frequency: holidays/special occasions only Hx Substance Use: No Review of Systems Patient denies chest pain, shortness of breath, cough, wheezing, palpitations. No hx of seizures, stroke, apnea/snoring. No hx of blood clots or blood transfusions Physical Exam Vital Signs VITALS BP 86/48 (no dizziness, lightheadedness, or syncope- pt will check BP when home and call with reading- if still low- pt will follow up with cardio; did write note to cardio as well informing their office of BP) P 66 TEMP 97.7 SP02 94% RESP 16 Constitutional no acute distress ENMT Mouth: no TMJ clicking Thyromental Distance: > or= 3.5 Finger Breadths (3.5) Mallampati Class: II Full dentures on top and bottom Neck neck extension not limited Respiratory normal respiratory effort; no respiratory distress Auscultation: lungs clear to auscultation bilaterally and + diminished lung sounds (generalized throughout ); no wheezes Cardiovascular Rate/Rhythm: regular rate and regular rhythm Heart Sounds: + murmur (I-II/ mumur ) Vessels: no carotid bruit Heart sound diminished throughout Musculoskeletal Spine: no pain with cervical ROM Extremities: extremities normal to inspection Psychiatric Orientation: alert Testing Laboratory Results 12/15/20 10:30 12/15/20 10:30 PT 11.2 Seconds (9.0-12.0) 12/15/20 10:30 INR 1.1 (0.9-1.1) 12/15/20 10:30 APTT 28.2 Seconds (21.0-31.0) 12/15/20 10:30 Blood Type O Positive 12/15/20 10:30 Antibody Screen NEGATIVE 12/15/20 10:30 Anemia chronic and stable Electrocardiogram Date: 12/15/20 SR with PACs at 63bpm. Right axis deviation. LBBB. When compared to EKG from Aug 22, 2020- PACs are no present, QRS axis shifted right Chest X-Ray Date: 12/15/20 Findings: + NAD Hyperinflation with diaphragmatic flattening. Echocardiogram Date: 08/16/20 EF: 30-35% Other Findings: + LVH (Mild/concentric) and + diastolic dysfunction (Type I) Normal left ventricular size with moderately to severely reduced systolic function. Akinesis of the inferior lateral, basal to mid inferior, basal inferior septal wall segments. Otherwise, global hypokinesis with relative sparing of the apex. Mildly reduced RV systolic function. Mild left atrial dilation. Restricted posterior mitral leaflet with moderate regurgitation. Mild TR. Compared to the most recent outpatient echo on 08/07/2020, LV systolic function and mitral regurgitation reported a similar. Stress Test Date: 08/07/20 Type: nuclear No scintigraphic evidence of stress-induced myocardial ischemia. Fixed perfusion defect involving the inferior and septal claros consistent with either prior infarction or subdiaphragmatic attenuation. No EKG changes over the baseline abnormality. Reduced left ventricular systolic function without obvious wall m otion abnormality. Left ventricular ejection fraction is 26 %.
[2020-12-15 10:53] LABS: Basophils # (auto) 0.03 K/uL (0-0.2); Basophils % (auto) 0.4 %; Eosinophils # (auto) 0.11 K/uL (0-0.5); Eosinophils % (auto) 1.6 %; Hematocrit (blood only) 33.6 % (37-47); Hemoglobin 10.6 g/dL (12.0-16.0); Immature Granulocytes # (auto) 0.01 K/uL (0.00-0.02); Immature Granulocytes % (auto) 0.1 %; Lymphocytes % (auto) 21.4 %; Mean Corpuscular Hemoglobin 24.9 pg (25-34); Mean Corpuscular Hgb Conc 31.5 g/dL (32-36); Mean Corpuscular Volume 78.9 fL (80-100); Monocytes # (auto) 0.44 K/uL (0.11-0.59); Monocytes % (auto) 6.3 %; Neutrophils # (auto) 4.91 K/uL (1.4-6.5); Neutrophils % (auto) 70.2 %; Platelet Count 243 K/uL (130-400); RDW Coefficient of Variation 17.2 % (11.5-14.5); RDW Standard Deviation 49.6 fL (36.4-46.3); Red Blood Count 4.26 M/uL (4.2-5.4)
[2020-12-15 11:09] LABS: INR 1.1 (0.9-1.1); Partial Thromboplastin Ratio 1.1; Partial Thromboplastin Time 28.2 Seconds (21.0-31.0); Prothrombin Time 11.2 Seconds (9.0-12.0)
--- NOTE | 2020-12-15 11:13 | XRay Report ---
XR chest Pre-admission PA/Lat HISTORY: 85 years-old Female pat abdominal aortic aneurysm. COMPARISON: Chest radiograph 08/22/2020, CTA chest 08/23/2020 TECHNIQUE: PA and lateral views of the chest FINDINGS: Cardiomediastinal and hilar silhouettes are unchanged. Prior median sternotomy with vascular clips pr ojecting over the mediastinum. No pneumothorax, pleural effusion, airspace consolidation or overt pul monary edema. Hyperinflation with diaphragmatic flattening. Sigmoidal thoracolumbar scoliosis. Degene rative changes of the shoulders and spine. IMPRESSION: No acute process. ACT 112: Negative or not required by law. The above report was generated using voice recognition software. It may contain grammatical, syntax o r spelling errors. Electronically signed by: Nikos Callejas M.D. 12/15/2020 11:11 AM
--- NOTE | 2020-12-15 11:42 | Electrocardiogram Report ---
Test Reason : Blood Pressure : / mmHG Vent. Rate : 063 BPM Atrial Rate : 063 BPM P-R Int : 172 ms QRS Dur : 170 ms QT Int : 450 ms P-R-T Axes : 067 114 -48 degrees QTc Int : 460 ms Sinus rhythm with Premature atrial complexes Right axis deviation Left bundle branch block Abnormal ECG When compared with ECG of 22-AUG-2020 23:40, Premature atrial complexes are now Present QRS axis Shifted right Confirmed by Fco English ([id number]) on 12/15/2020 11:42:13 AM Referred By: Flavio Osborne Confirmed By:Mike English
[2020-12-15 12:27] LABS: Albumin Level 3.4 gm/dl (3.4-5.0); BUN Creatinine Ratio 23.3 (10-20); Bilirubin Direct 0.2 mg/dl (0-0.2); Calcium 8.8 mg/dl (8.5-10.1); Creatinine Clr Calc Pharmacy 28.2 ml/min; Est GFR (African American) 44.8 ml/min; Est GFR (Non-African American) 38.6 ml/min; Potassium 3.7 mmol/L (3.5-5.1)
[2020-12-15 12:29] LABS: Bilirubin,Total 0.4 mg/dl (0.2-1); Total Protein 6.9 gm/dl (6.4-8.2)
--- NOTE | 2020-12-19 15:53 | History & Physical Report ---
Date of Service December 19, 2020 Assessment & Plan (1) AAA (abdominal aortic aneurysm) without rupture: Patient admitted for a PEVAR of her AAA. I have discussed the risks options and benefits of the procedure with the patient. The patient understands the risks options and benefits and agrees to the procedure. History of Present Illness Chief Complaint: AAA Primary Care Provider: Sandeep Lerma MD Ms. Martinez has aortic and iliac artery aneurysms which have continued to grow. We had refrained from repair previously given her infected right knee prosthetic. She currently has a spacer and is quite functional and there is no residual concern for infection. She is quite concerned about her aneurysms and would like them to be repaired. We had a very long in-depth discussion about the methods to potentially repair the aneurysms and she would like to go ahead and proceed with surgery. Allergies Allergy/AdvReac Type Severity Reaction Status Date / Time potassium chloride AdvReac Intermediate Vomiting Verified 12/08/20 10:43 Sulfa (Sulfonamide AdvReac Intermediate NAUSEA/VOMI Verified 12/08/20 10:43 Antibiotics) TING sulfamethoxazole AdvReac Intermediate Vomiting Verified 12/08/20 10:43 [From Bactrim] trimethoprim [From Bactrim] AdvReac Intermediate Vomiting Verified 12/08/20 10:43 lisinopril AdvReac Unknown NAUSEA Verified 12/08/20 10:43 VOMITING sulfasalazine AdvReac Unknown NAUSEA-COULDN'T Verified 12/08/20 10:43 EAT Home Medications Medication Instructions Recorded Confirmed Type cholecalciferol (vitamin D3) 1,000 unit PO QPM 11/05/18 12/08/20 History [Vitamin D3] ascorbic acid (vitamin C) 1,000 mg 1 gm PO QDL tab 12/30/19 12/08/20 History tablet tramadol 50 mg tablet 50 mg PO Q8H PRN 12/30/19 12/08/20 History acetaminophen [Tylenol Extra 1,000 mg PO TID PRN 08/15/20 12/08/20 History Strength] rosuvastatin 20 mg tablet 30 mg PO HS #145 tab 08/24/20 12/08/20 Rx clopidogrel 75 mg tablet 75 mg PO QAM 90 Days #90 tab 09/26/20 12/08/20 Rx isosorbide mononitrate 60 mg 60 mg PO BID 30 Days #60 tab 10/12/20 12/08/20 Rx tablet,extended release 24 hr calcitonin (salmon) 200 1 spray INTRANASAL (ALT) DAILY PRN 11/06/20 12/08/20 History unit/actuation nasal spray ml sacubitril 49 mg-valsartan 51 mg 0.5 tab PO BID tab 12/07/20 12/08/20 History tablet spironolactone 25 mg tablet 25 mg PO QAM 12/07/20 12/08/20 History Spiriva Respimat 2 puffs INH QAM 12/08/20 12/08/20 History furosemide [Lasix] 20 mg PO QAM 12/08/20 12/08/20 History metoprolol succinate 50 mg PO QDL 12/08/20 12/08/20 History nitroglycerin 0.4 mg SUBLINGUAL UD PRN 12/08/20 12/08/20 History pantoprazole 40 mg PO QAM 12/08/20 12/08/20 History tolterodine [Detrol LA] 4 mg PO QDL 12/08/20 12/08/20 History Past Med/Surg History Medical History Abdominal aneurysm Per 08/15/20 CT scan "There is diffuse aneurysmal dilatation of the abdominal aorta which measures up to 3.4 cm in diameter. Aneurysm of iliac artery Per 07/2020 = There are bilobed iliac artery aneurysms which measure up to 3.9 cm on the right and 3.0 cm on the left. There is intervertebral dilatation of the internal iliac arteries which measure up to 1.5 cm. CAD (coronary artery disease) S/p CABG x 4 vessel (1998) Clostridium 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 pt denies COPD (chronic obstructive pulmonary disease) with emphysema Mild - breathing stable Diabetes mellitus Type 2 "Borderline" per patient. Diet controlled Dyspnea on exertion No oxygen use No recent issues GERD (gastroesophageal reflux disease) Well controlled and stable HFrEF (heart failure with reduced ejection fraction) Hyperlipidemia Hypertension Has had hypotension episodes in the past- cardio aware and pt monitoring at home Ischemic cardiomyopathy EF 30-35% Weight stable - no LE edema LBBB (left bundle branch block) follows with Kip Raghu Motion sickness Nausea chronic Nausea and vomiting after administration of anesthetic agent NSTEMI (non-ST elevated myocardial infarction) 07/2020 per cardiac records/reports. no cardiac cath done. Treated with medications and inpatient at [facility]. Pt denies any issues since Jul 2020 On anticoagulant therapy Plavix - presumed secondary to CAD Osteoporosis with fracture Peripheral arterial disease Spinal stenosis Wears back brace occasionally Ulcerative colitis Stable Surgical History H/O colonoscopy H/O esophagogastroduodenoscopy History of blepharoplasty bilateral History of cataract surgery bilateral History of incision and drainage right knee History of left hip replacement History of open reduction and internal fixation (ORIF) procedure right proximal femur 2006 History of revision of total replacement of right hip joint History of revision of total replacement of right knee joint "multiple" r/t post op fall. History of right hip replacement History of right knee joint replacement History of tooth extraction Hx of tonsillectomy S/P CABG (coronary artery bypass graft) (~1997) x4 vessels at [facility] S/P hardware removal right hip Family History Mother Leukemia Brother Aortic aneurysm Father Aortic aneurysm Stroke syndrome Tuberculosis Daughter Coronary heart disease Heart problem Grandfather Tuberculosis Uncle Tuberculosis Denies family history of Ovarian cancer Prostate cancer Breast cancer Lung cancer Colorectal cancer Social History Smoking Status: Former smoker Tobacco Type: Cigarettes Age Started Using Tobacco: 19; Age Quit Using Tobacco: 64; packs per day: 1; Years Smoked: 45; Cigarettes Per Day: 20; Second Hand Exposure: No; Hx Alcohol Use: Yes Alcohol type: hard liquor Hx Substance Use: No Preferred Language: Hebrew Communication Ability: Effective Visual Impairment: No Limitations Hearing Ability: Hard of Hearing Mine Safety Manager Required: No Beliefs That Will Affect Care: None marital status: / Current Living Situation: Alone current occupational status: retired Feels Safe at Home: Yes Childhood Exposure to Second-Hand Smoke: Yes caffeine: Yes Dental Care, Regularly: No Physical Activity Frequency: Does not Exercise Seatbelt Use: always Sunscreen Use: No Assistive Devices: Brace/Splint/Immobilizer, Cane, Denture - Upper, Denture - Lower, Glasses and Walker Review of Systems All systems reviewed & are unremarkable except as noted in HPI & below Physical Exam Physical Exam: Her head is normocephalic and atraumatic. Her lungs have equal bilateral rise. Her heart rate is regular. She has a 2+ right radial pulse and no left radial. Her abdomen is soft, nontender and nondistended. There are no pulsatile masses felt. Her femoral arteries are 2+ and she has nonpalpable pedal arteries. She has a significant incision over the bilateral knees, the most recent being the right which looks like it is healing well. She has significant varicosities over the bilateral lower extremities. She has no motor or sensory deficits in the bilateral lower extremities.
[2020-12-20] MEDS ORDERED: VANCOMYCIN HCL 1,000 MG/270 ML BAG IV SCH (06:00)
[2020-12-20] MEDS ORDERED: LIDOCAINE 2% 2 ML VIAL/AMP(20MG/ML) INFIL ONE (06:55)
[2020-12-20] MEDS ORDERED: fentaNYL citrate 100 MCG/2 ML VIAL ONE ×2 (06:55→08:27)
[2020-12-20] MEDS ORDERED: PROPOFOL IV EMULSION 10 MG/ML 20 ML VIAL IV ONE (06:55)
[2020-12-20] MEDS ORDERED: ROCURONIUM BROMIDE 10 MG/ML 5 ML VIAL IV ONE (06:55)
[2020-12-20] MEDS ORDERED: MIDAZOLAM HCL 1 MG/ML 2ML VIAL ONE (07:01)
--- NOTE | 2020-12-20 07:10 | History & Physical Bridge Note ---
Date of Service December 20, 2020 History & Physical Bridge Note I have examined the patient, reviewed the History & Physical and in the interval since the performance of the History & Physical I have noted the following changes of clinical significance: no changes noted
[2020-12-20] MEDS ORDERED: fentaNYL citrate 100 MCG/2 ML VIAL IV PRN (07:17)
[2020-12-20] MEDS ORDERED: ePHEDrine sulfate 50 MG/ML AMP IV PRN (07:17)
[2020-12-20] MEDS ORDERED: ATROPINE SULFATE 0.1 MG/ML 10ML SYR IV PRN (07:17)
[2020-12-20] MEDS ORDERED: HYDROmorphone INJ 2 MG/ML SYR/VIAL IV PRN (07:17)
[2020-12-20] MEDS ORDERED: ONDANSETRON INJ 2 MG/ML 2 ML VIAL IV PRN ×2 (07:17→14:22)
[2020-12-20] MEDS ORDERED: ePHEDrine sulfate 50 MG/ML AMP ONE (08:41)
[2020-12-20] MEDS ORDERED: HEPARIN SOD (PORCINE) 1000 UNIT/ML ONE ×2 (08:41→11:09)
[2020-12-20] MEDS ORDERED: ONDANSETRON INJ 2 MG/ML 2 ML VIAL ONE (08:41)
--- NOTE | 2020-12-20 09:34 | Critical Care Consultation ---
Date of Consultation December 20, 2020 Assessment & Plan (1) AAA (abdominal aortic aneurysm) without rupture: Reason Critically Ill: 85-year-old female postop day 0 from percutaneous endovascular abdominal aortic aneurysm repair PLAN: Neuro: Back pain 5 out of 10 -Morphine as needed for pain Resp: Tolerating on room air CV: Hypertension -Metoprolol History of coronary artery disease -Plavix History of congestive heart failure with reduced ejection fraction -Isosorbide extended release, Lasix, nitroglycerin as needed -Spironolactone -Valsartan combination Hyperlipidemia -Crestor Fluids/Renal: Fluids Per vascular surgery ID: Vancomycin preop and postop GI/Nutrition: Regular diet per surgery Heme: Normochromic anemia Endocrine: ICU hyperglycemia protocol Vascular access: Peripheral IVs Code Status: Full code Disposition: ICU (2) CAD (coronary artery disease), creek coronary artery: (3) Hypertension: (4) Normocytic anemia: History of Present Illness Attending Physician: Flavio Osborne MD Postop day 0 from percutaneous endovascular abdominal aortic aneurysm repair with bilateral percutaneous iliac aneurysm repair. Allergies Allergy/AdvReac Type Severity Reaction Status Date / Time potassium chloride AdvReac Intermediate Vomiting Verified 12/20/20 06:11 Sulfa (Sulfonamide AdvReac Intermediate NAUSEA/VOMI Verified 12/20/20 06:11 Antibiotics) TING sulfamethoxazole AdvReac Intermediate Vomiting Verified 12/20/20 06:11 [From Bactrim] trimethoprim [From Bactrim] AdvReac Intermediate Vomiting Verified 12/20/20 06:11 lisinopril AdvReac Unknown NAUSEA Verified 12/20/20 06:11 VOMITING sulfasalazine AdvReac Unknown NAUSEA-COULDN'T Verified 12/20/20 06:11 EAT Home Medications Medication Instructions Recorded Confirmed Type cholecalciferol (vitamin D3) 1,000 unit PO QPM 11/05/18 12/20/20 History [Vitamin D3] ascorbic acid (vitamin C) 1,000 mg 1 gm PO QDL tab 12/30/19 12/20/20 History tablet tramadol 50 mg tablet 50 mg PO Q8H PRN 12/30/19 12/20/20 History acetaminophen [Tylenol Extra 1,000 mg PO TID PRN 08/15/20 12/20/20 History Strength] rosuvastatin 20 mg tablet 30 mg PO HS #145 tab 08/24/20 12/20/20 Rx clopidogrel 75 mg tablet 75 mg PO QAM 90 Days #90 tab 09/26/20 12/20/20 Rx isosorbide mononitrate 60 mg 60 mg PO BID 30 Days #60 tab 10/12/20 12/20/20 Rx tablet,extended release 24 hr calcitonin (salmon) 200 1 spray INTRANASAL (ALT) DAILY PRN 11/06/20 12/20/20 History unit/actuation nasal spray ml sacubitril 49 mg-valsartan 51 mg 0.5 tab PO BID tab 12/07/20 12/20/20 History tablet spironolactone 25 mg tablet 25 mg PO QAM 12/07/20 12/20/20 History Spiriva Respimat 2 puffs INH QAM 12/08/20 12/20/20 History furosemide [Lasix] 20 mg PO QAM 12/08/20 12/20/20 History metoprolol succinate 50 mg PO QDL 12/08/20 12/20/20 History nitroglycerin 0.4 mg SUBLINGUAL UD PRN 12/08/20 12/20/20 History pantoprazole 40 mg PO QAM 12/08/20 12/20/20 History tolterodine [Detrol LA] 4 mg PO QDL 12/08/20 12/20/20 History Patient History Medical History Abdominal aneurysm Per 08/15/20 CT scan "There is diffuse aneurysmal dilatation of the abdominal aorta which measures up to 3.4 cm in diameter. Aneurysm of iliac artery Per 07/2020 = There are bilobed iliac artery aneurysms which measure up to 3.9 cm on the right and 3.0 cm on the left. There is intervertebral dilatation of the internal iliac arteries which measure up to 1.5 cm. CAD (coronary artery disease) S/p CABG x 4 vessel (1998) Clostridium 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 pt denies COPD (chronic obstructive pulmonary disease) with emphysema Mild - breathing stable Diabetes mellitus Type 2 "Borderline" per patient. Diet controlled Dyspnea on exertion No oxygen use No recent issues GERD (gastroesophageal reflux disease) Well controlled and stable HFrEF (heart failure with reduced ejection fraction) Hyperlipidemia Hypertension Has had hypotension episodes in the past- cardio aware and pt monitoring at home Ischemic cardiomyopathy EF 30-35% Weight stable - no LE edema LBBB (left bundle branch block) follows with [facility] Motion sickness Nausea chronic Nausea and vomiting after administration of anesthetic agent NSTEMI (non-ST elevated myocardial infarction) 07/2020 per cardiac records/reports. no cardiac cath done. Treated with medications and inpatient at [facility]. Pt denies any issues since Jul 2020 On anticoagulant therapy Plavix - presumed secondary to CAD Osteoporosis with fracture Peripheral arterial disease Spinal stenosis Wears back brace occasionally Ulcerative colitis Stable Surgical History H/O colonoscopy H/O esophagogastroduodenoscopy History of blepharoplasty bilateral History of cataract surgery bilateral History of incision and drainage right knee History of left hip replacement History of open reduction and internal fixation (ORIF) procedure right proximal femur 2006 History of revision of total replacement of right hip joint History of revision of total replacement of right knee joint "multiple" r/t post op fall. History of right hip replacement History of right knee joint replacement History of tooth extraction Hx of tonsillectomy S/P CABG (coronary artery bypass graft) (~1997) x4 vessels at [facility] S/P hardware removal right hip Family History Mother Leukemia Brother Aortic aneurysm Father Aortic aneurysm Stroke syndrome Tuberculosis Daughter Coronary heart disease Heart problem Grandfather Tuberculosis Uncle Tuberculosis Denies family history of Ovarian cancer Prostate cancer Breast cancer Lung cancer Colorectal cancer Social History Smoking Status: Former smoker Tobacco Type: Cigarettes Age Started Using Tobacco: 19; Age Quit Using Tobacco: 64; packs per day: 1; Years Smoked: 45; Cigarettes Per Day: 20; Smoking End Date: 1999; Second Hand Exposure: No; Do You Dip or Chew Tobacco: No; Tobacco Cessation Education Requested by Patient: No Hx Alcohol Use: No Hx Substance Use: No Preferred Language: Tamazight Communication Ability: Effective Visual Impairment: No Limitations Hearing Ability: Hard of Hearing Acoustical Installer Required: No Beliefs That Will Affect Care: None marital status: / Current Living Situation: Family current occupational status: retired Other Information That Helps Us Care for You: No Feels Safe at Home: Yes Safety Concerns: Feels Safe At This Time Childhood Exposure to Second-Hand Smoke: Yes caffeine: Yes Dental Care, Regularly: No Physical Activity Frequency: Does not Exercise Seatbelt Use: always Sunscreen Use: No Assistive Devices: Walker Assistive Devices Comment: walker and cane prn Review of Systems Review of Systems: Complaints of mild back pain 5 out of 10 without radiation or paresthesia Physical Exam Physical Exam: General: Alert. nontoxic. Skin: Warm, dry, Head: Atraumatic Ears, nose, mouth and throat: airway patent Cardiovascular: Normal peripheral perfusion Respiratory: no respiratory distress Gastrointestinal: Non distended Musculoskeletal: Dopplerable anterior tibial pulses bilaterally dopplerable posterior tibial pulse on right not palpable dopplerable on the left good perfusion no evidence of ischemia Results & Data Results & Data ([facility]) Vital Signs (Past 12 Hours) Vital Signs Temp Pulse Resp BP Pulse Ox 12/20/20 06:32 36.6 C 73 16 131/49 L 93 Laboratory Results 12/20/20 12/20/20 12/20/20 Range/Units 14:32 14:32 13:08 Hgb 9.9 L (12.0-16.0) g/dL Hct 30.9 L (37-47) % APTT Pending PTT Ratio Pending Activ Coag Time Kaolin (94-140) SECONDS POC Glucose 114 H (70-99) mg/dl COVID-19 Eval Order SARS-CoV-2 (PCR) (Negative) Blood Type Antibody Screen Crossmatch 12/20/20 12/20/20 12/20/20 Range/Units 12:31 11:33 10:57 Hgb (12.0-16.0) g/dL Hct (37-47) % APTT PTT Ratio Activ Coag Time Kaolin 241 H 241 H 219 H (94-140) SECONDS POC Glucose (70-99) mg/dl COVID-19 Eval Order SARS-CoV-2 (PCR) (Negative) Blood Type Antibody Screen Crossmatch 12/20/20 12/20/20 12/20/20 Range/Units 10:56 09:54 06:09 Hgb (12.0-16.0) g/dL Hct (37-47) % APTT PTT Ratio Activ Coag Time Kaolin 197 H (94-140) SECONDS POC Glucose 111 H (70-99) mg/dl COVID-19 Eval Order SARS-CoV-2 (PCR) (Negative) Blood Type O Positive Antibody Screen NEGATIVE Crossmatch See Detail 12/20/20 12/20/20 12/20/20 Range/Units 06:04 06:04 06:04 Hgb (12.0-16.0) g/dL Hct (37-47) % APTT PTT Ratio Activ Coag Time Kaolin (94-140) SECONDS POC Glucose 120 H (70-99) mg/dl COVID-19 Eval Order Covid19 at [facility] SARS-CoV-2 (PCR) NEGATIVE (Negative) Blood Type Antibody Screen Crossmatch Coding Level of Care Code 30518 Inpt Consult Level 4 Diagnoses AAA (abdominal aortic aneurysm) without rupture I71.4 CAD (coronary artery disease), creek coronary artery I25.119 [place]up[place] vs. transplanted heart: creek heart Associated angina: with unspecified angina Hypertension I10 Hypertension type: essential hypertension Normocytic anemia D64.9 (1) CAD (coronary artery disease), creek coronary artery In[place] vs. transplanted heart: creek heart Associated angina: with unspecified angina Qualified Code(s): I25.119 - Atherosclerotic heart disease of creek coronary artery with unspecified angina pectoris (2) Hypertension Hypertension type: essential hypertension Qualified Code(s): I10 - Essential (primary) hypertension
[2020-12-20] MEDS ORDERED: DEXAMETHASONE SOD INJ 4 MG/ML VIAL ONE (11:12)
[2020-12-20] MEDS ORDERED: PROTAMINE SULFATE 10 MG/ML 5 ML VIAL ONE (12:35)
[2020-12-20] MEDS ORDERED: ARISTA ABSORBABLE HEMOSTAT 3GM TOP ONE (12:45)
[2020-12-20] MEDS ORDERED: VISIPAQUE IV PRN (12:48)
--- NOTE | 2020-12-20 12:57 | Post Operative Brief Note ---
Immediate Post Op Note v1 Date of Surgery December 20, 2020 Pre & Post Diagnosis Operation Date: 12/20/20 07:30 Pre-Op Diagnosis: Aorto iliac aneurysm Post-Op Diagnosis: Aorto iliac aneurysm I identified the patient and participated in the time-out.: Yes Procedure Operation Date: 12/20/20 07:30 Actual Procedures p Percutaneous Endovascular Abdominal Aortic Aneurysm Repair, Bilateral percutaneous iliac aneurysm repair, percutaneous approach bilateral, proximal next extension - Flavio Osborne MD Surgeon Flavio Osborne MD Woven Paper Hat Mender MD Bayron Estimated Blood Loss 100 Findings Consistent with Post-Op Diagnosis Drains Byers Catheter Anesthesia Type General Complications none Disposition Accompanied Patient To Recovery: No Disposition: Recovery Room
--- NOTE | 2020-12-20 13:01 | Procedure Note ---
Angiogram Post Procedure Fluoroscopy Time (minutes): 71 Radiation (mGy): 707 Contrast: 320 Post Operative Report Pre & Post Diagnosis Operation Date: 12/20/20 07:30 Pre-Op Diagnosis: Aorto iliac aneurysm Post-Op Diagnosis: Aorto iliac aneurysm I identified the patient and participated in the time-out.: Yes Procedure Operation Date: 12/20/20 07:30 Actual Procedures p Percutaneous Endovascular Aneurysm Repair, Bilateral Iliac Endografts, Aortic Proximal Cuff, Bilateral Percutaneous Approach(Bilateral) - Flavio Osborne MD Surgeon Flavio Osborne MD Clinical Material Handler MD Bayron Estimated Blood Loss 100 Findings Consistent with Post-Op Diagnosis Specimens None Anesthesia Type General Complications none Disposition Disposition: Recovery Room Description of Procedure Patient was brought to the angio suite and placed in supine position. Anesthesia was induced and patient was intubated by anesthesia colleagues. Abdomen and both groins were prepped and draped in standard fashion. A safety timeout was performed to identify patient name, date of and the correct procedure. Ultrasound-guided access of the right groin was performed via 18- gauge needle. Needle was exchanged with a 5 Anguillan sheath. Angiogram of the common femoral artery showed appropriate access. Two pro glide devices were deployed over J-wire at 10 and 2 o'clock locations. Similarly, left groin was accessed. Hand-injection showed appropriate access and 2 pro glide devices were deployed at 10 and 2 o'clock locations. Sheath were upsized to 8 Anguillan bilaterally. Glidewire and Kumpe catheter were advanced on each side to the pararenal aorta. The right side was extremely tortuous at the level of the common and external iliacs. The Glidewire was then exchanged with Theo wire on the left and Lunderquist on the right. Sheaths were upsized to 16 Anguillan on the right and 12 Anguillan on the left. A body Glidewire was passed through the right sheath. A snare was passed through the left. Hand-injection through the left sheath was performed to identify the left iliac bifurcation. The Glidewire was then snared from the left side. CHOLO Broadview device was then advanced on the right side (23 x 12 x 100 mm). An angiogram was performed through the right sheath to identify the iliac bifurcation on the right. The device was partially deployed. We then passed Kumpe catheter over the Glidewire on the left side. We went up and over to cannulate the right internal iliac. Again, there was significant tortuosity. The wire was then pulled and an angiogram through the Kumpe catheter confirmed good location in the right internal iliac artery. An Amplatz superstiff wire was then advanced. The Kumpe catheter was pulled out. Then, a 16 x 14.5 x 70 mm internal iliac component was delivered from the left side in the right IIA. We finished deploying the device on the right. A balloon was advanced on the right side ([place] 14 mm x 14 mm x 80 cm) over the stiff wire. We inflated the balloon to nominal along the length of the device. Angiogram through the right sheath demonstrated good alignment. We then turned our attention to the left side. The sheath was upsized to 18 Anguillan knowing that the main body EVAR portion of the case will require an 18 Anguillan. A pigtail was passed over the stiff wire. Wire was then pulled. Power injection angiogram was performed. This allowed us to identify the proximal landing zone and the length of the expected device. A body guidewire was advanced on the left and a snare was passed on the right. The wire was then snared. CHOLO Broadview device was then advanced on the left side (23 x 14.5 x 100 mm). Hand injection through the left sheath identified the left iliac bifurcation. The device was partially deployed. The left internal iliac artery was cannulated as described above. A 12 Anguillan sheath was then passed through the 16 Anguillan sheath on the right side. The internal iliac component (14.5 x 16 x 70 mm) was then advanced from the right side up and over to the left. We then completed deployment of the main body the CHOLO device on the left. An [place] balloon was then advanced and inflated to nominal to expand the limb. Hand-injection through the left sheath demonstrated good alignment. A Lunderquist was advanced over Kumpe catheter on the left. The pigtail was advanced on the right. Main body bifurcated 35 mm x 14.5 mm x 14 cm C3 Broadview device was advanced into the abdominal aorta. Power injection aortogram was performed to identify the renal arteries. Main body was deployed. Post deployment aortogram demonstrated that the device migrated distally upon deployment. Pigtail was removed and a Glidewire and a Kumpe catheter were used to cannulate the contralateral gate. The right limb (16 mm x 23 mm x 10 cm) was deployed. We then finished deploying the device on the left side. A limb horseback excavator (16 x 27 x 100 mm) on the left was used to bridge the gap between the main body and the left CHOLO device. A Coda balloon was inflated along proximal portion of the EVAR and along both limbs bilaterally. Pigtail was placed on the right side. Aortogram showed type Ia endoleak as well as leak around the junction of the iliac limb and the CHOLO on the left. Aortic cuff (36 mm x 4.5 cm) was deployed at proximal end of the main body just below the renal arteries. A Coda balloon was then used to better align the proximal cuff. We then deployed the iliac cuff (28.5 x 3.3 cm) over the stiff wire on the left. A completion angiogram showed good placement, and no type Ia or Ib endoleaks. There is small type II endoleak that is coming up from a lumbar branch. Sheath was pulled and Perclose devices were cinched down. Dimitry was used at the access site. Manual pressure was held. Good hemostasis was achieved. All counts were correct at the end of the case. Patient tolerated procedure well without complications. She was extubated taken to PACU in good condition. Dr. Osborne was present for the entirety of the case. I attest to the content of the Intraoperative Record and any orders documented therein. Any exceptions are noted below.
--- NOTE | 2020-12-20 14:04 | Anesthesiology Progress Note ---
Date of Service December 20, 2020 Anesthesia Post Procedure Vital Signs Vital Signs: Temp Pulse Pulse Resp BP Pulse Ox 12/20/20 13:50 36.8 C 75 17 90/44 L 93 12/20/20 13:40 76 16 101/51 L 93 12/20/20 13:30 77 18 96/51 L 94 12/20/20 13:20 78 21 97/69 L 100 12/20/20 13:10 83 21 139/65 100 12/20/20 13:07 92 H 18 123/70 100 12/20/20 13:04 36.5 C 94 H 19 67/42 L 99 12/20/20 06:32 36.6 C 73 16 131/49 L 93 Pain Intensity Back: Pain Intensity: 2 Transfer of Care Handoff Completed per policy Notes Mental Status: alert / awake / arousable and participated in evaluation Patient Amnestic to Procedure: Yes Nausea / Vomiting: adequately controlled Pain: adequately controlled Airway Patency, RR, SpO2: stable & adequate BP & HR: stable & adequate Hydration State: stable & adequate Anesthetic Complications: no major complications apparent and Pt Satisfied with anesthetic care Notes: pt has low bp at her baseline. pt mentating well. ok for icu
[2020-12-20] MEDS ORDERED: NITROGLYCERIN SL 0.4 MG/TAB TAB SL PRN (14:22)
[2020-12-20] MEDS ORDERED: traMADol HCL 50 MG TABLET PO PRN (14:22)
[2020-12-20] MEDS ORDERED: ACETAMINOPHEN 500 MG TAB PO PRN (14:22)
[2020-12-20] MEDS ORDERED: MoRPHine SULFATE 4 MG/ML 1 ML CARP\\VIAL IV PRN (14:22)
[2020-12-20] MEDS ORDERED: oxyCODONE/ACETAMINOPHEN 5mg/325mg TAB PO PRN (14:22)
[2020-12-20] MEDS ORDERED: VANCOMYCIN CONSULT ACTIVE PRN (14:22)
[2020-12-20 14:39] LABS: Hematocrit (blood only) 30.9 % (37-47); Hemoglobin 9.9 g/dL (12.0-16.0)
[2020-12-20 14:59] LABS: Partial Thromboplastin Ratio 4.7
[2020-12-20 15:15] LABS: Partial Thromboplastin Time 123.4 Seconds (21.0-31.0)
[2020-12-20] MEDS: D5W AND 1/2NSS 1,000 ML IV SCH ×2 (15:36→23:13)
[2020-12-20] MEDS: ISOSORBIDE MONO EXTENDED REL 60 MG TABCR PO SCH (20:23)
[2020-12-20] MEDS: VALSARTAN/SACUBITRIL 51/49 MG TAB PO SCH (20:23)
[2020-12-20] MEDS ORDERED: CHOLECALCIFEROL 1,000 UNITS 25 MCG TAB PO SCH (21:00)
[2020-12-20] MEDS ORDERED: ROSUVASTATIN CALCIUM 10 MG TAB PO SCH (21:00)
[2020-12-20] MEDS ORDERED: ALBUMIN 25% 12.5 GM/50 ML VIAL IV ONE (23:07)
[2020-12-21 04:47] LABS: Basophils # (auto) 0.01 K/uL (0-0.2); Basophils % (auto) 0.1 %; Hematocrit (blood only) 25.7 % (37-47); Hemoglobin 8.1 g/dL (12.0-16.0); Immature Granulocytes # (auto) 0.01 K/uL (0.00-0.02); Immature Granulocytes % (auto) 0.1 %; Lymphocytes # (auto) 0.84 K/uL (1.2-3.4); Lymphocytes % (auto) 9.1 %; Mean Corpuscular Hemoglobin 25.5 pg (25-34); Mean Corpuscular Hgb Conc 31.5 g/dL (32-36); Mean Corpuscular Volume 80.8 fL (80-100); Monocytes # (auto) 0.61 K/uL (0.11-0.59); Monocytes % (auto) 6.6 %; Neutrophils # (auto) 7.74 K/uL (1.4-6.5); Neutrophils % (auto) 84.1 %; Platelet Count 183 K/uL (130-400); RDW Coefficient of Variation 17.7 % (11.5-14.5); RDW Standard Deviation 53.2 fL (36.4-46.3); Red Blood Count 3.18 M/uL (4.2-5.4); White Blood Count 9.21 K/uL (4.8-10.8)
[2020-12-21 05:02] LABS: BUN Creatinine Ratio 19.8 (10-20); Calcium 7.7 mg/dl (8.5-10.1); Creatinine Clr Calc Pharmacy 35.7 ml/min; Est GFR (African American) 59.6 ml/min; Est GFR (Non-African American) 51.4 ml/min; Potassium 3.7 mmol/L (3.5-5.1)
[2020-12-21] MEDS ORDERED: NORMOSOL-R 1,000 ML IV SCH (05:15)
[2020-12-21] MEDS ORDERED: VANCOMYCIN HCL 1,000 MG in SODIUM CHLORIDE 0.9% 250 ML IV ONE (06:00)
--- NOTE | 2020-12-21 07:53 | Surgery Progress Note ---
Date of Service December 21, 2020 Assessment & Plan (1) AAA (abdominal aortic aneurysm) without rupture: Patient underwent endovascular repair of her abdominal aortoiliac artery aneurysms. she is doing extremely well. Will d/c today. Admission and Anticipated Discharge Date Admission Date: December 20, 2020 Subjective No complaints. Tolerating a diet. Physical Exam Constitutional: well developed and well nourished Respiratory: no respiratory distress Cardiovascular: Rate/Rhythm: regular rate and regular rhythm Gastrointestinal (Abdomen): Inspection/Auscultation: abdomen normal to inspection Percussion/Palpation: abdomen soft; abdomen nontender Skin: + incision (dry and clean, no hematoma) Neurologic: CN's II-XI intact bilaterally and moves all extremities Psychiatric: Orientation: alert and oriented x 3 Results & Data ([facility]) Vital Signs (Past 12 Hours) Vital Signs Temp Pulse Resp BP Pulse Ox 12/21/20 06:08 66 14 105/45 L 96 12/21/20 05:38 63 16 103/42 L 97 12/21/20 05:08 74 18 104/45 L 96 12/21/20 04:37 66 12 119/55 L 96 12/21/20 04:23 68 16 98/42 L 94 12/21/20 04:08 70 15 99/48 L 94 12/21/20 03:52 36.4 C L 69 17 112/55 L 93 12/21/20 03:37 73 16 111/52 L 95 12/21/20 03:23 68 14 106/42 L 93 12/21/20 03:08 68 17 103/44 L 92 12/21/20 02:53 67 14 106/46 L 92 12/21/20 02:37 70 11 L 108/51 L 93 12/21/20 02:23 69 14 91/58 L 95 12/21/20 02:08 72 13 110/47 L 96 12/21/20 01:53 74 16 116/43 L 100 12/21/20 01:38 63 15 107/50 L 100 12/21/20 01:23 63 21 106/49 L 100 12/21/20 01:08 63 16 106/50 L 100 12/21/20 00:53 67 20 113/48 L 100 12/21/20 00:38 68 16 106/52 L 99 12/21/20 00:23 61 16 105/50 L 100 12/21/20 00:08 68 20 100/37 L 99 12/21/20 00:00 63 12/20/20 23:54 36.6 C 70 13 101/44 L 97 12/20/20 23:37 72 20 114/50 L 97 12/20/20 23:23 67 22 104/37 L 99 12/20/20 23:08 70 24 103/47 L 99 12/20/20 22:53 65 20 96/47 L 99 12/20/20 22:37 69 19 96/44 L 99 12/20/20 22:22 71 25 H 92/46 L 100 12/20/20 22:08 68 20 95/45 L 99 12/20/20 21:53 67 22 98/45 L 99 12/20/20 21:38 66 18 100/46 L 98 12/20/20 21:27 70 16 99/44 L 99 12/20/20 21:22 69 10 L 96/45 L 100 12/20/20 21:08 68 10 L 97/44 L 100 12/20/20 20:52 66 15 96/46 L 100 12/20/20 20:38 67 20 97/44 L 99 12/20/20 20:24 80 16 83/40 L 99 12/20/20 20:08 69 15 89/45 L 100 12/20/20 19:57 76 12/20/20 19:52 36.7 C 71 16 101/49 L 99
[2020-12-21] MEDS: ISOSORBIDE MONO EXTENDED REL 60 MG TABCR PO SCH (08:33)
[2020-12-21] MEDS: VALSARTAN/SACUBITRIL 51/49 MG TAB PO SCH (08:34)
[2020-12-21] MEDS ORDERED: FUROSEMIDE 20 MG TAB PO SCH (09:00)
[2020-12-21] MEDS ORDERED: CLOPIDOGREL BISULFATE 75 MG TAB PO SCH (09:00)
[2020-12-21] MEDS ORDERED: UMECLIDINIUM BROMIDE 62.5MCG/BLISTER 7 PUFFS/INHALER INH SCH (09:00)
[2020-12-21] MEDS ORDERED: CALCITONIN SALMON NA 200 IU/AC 3.7 ML BTL SCH (09:00)
[2020-12-21] MEDS ORDERED: SPIRONOLACTONE 25 MG TAB PO SCH (09:00)
[2020-12-21] MEDS ORDERED: PANTOprazole 40 MG TAB PO SCH (09:00)
[2020-12-21] MEDS ORDERED: METOPROLOL SUCC 50MG EXT REL TAB PO SCH (11:30)
[2020-12-21] MEDS ORDERED: ASCORBIC ACID 500 MG TAB PO SCH (11:30)
[2020-12-21] MEDS ORDERED: TOLTERODINE TARTRATE LA 4 MG CAPCR PO SCH (11:30)
--- NOTE | 2020-12-26 08:48 | Discharge Summary ---
Date of Service December 26, 2020 Admission HPI Per Admitting Provider Ms. Martinez has aortic and iliac artery aneurysms which have continued to grow. We had refrained from repair previously given her infected right knee prosthetic. She currently has a spacer and is quite functional and there is no residual concern for infection. She is quite concerned about her aneurysms and would like them to be repaired. We had a very long in-depth discussion about the methods to potentially repair the aneurysms and she would like to go ahead and proceed with surgery. Admission Exam Per Admitting Provider Physical Exam: Her head is normocephalic and atraumatic. Her lungs have equal bilateral rise. Her heart rate is regular. She has a 2+ right radial pulse and no left radial. Her abdomen is soft, nontender and nondistended. There are no pulsatile masses felt. Her femoral arteries are 2+ and she has nonpalpable pedal arteries. She has a significant incision over the bilateral knees, the most recent being the right which looks like it is healing well. She has significant varicosities over the bilateral lower extremities. She has no motor or sensory deficits in the bilateral lower extremities. Principal Diagnosis 1. s/p PEVAR and BL iliac artery endografts 2. AAA, iliac artery aneurysms Discharge Exam Constitutional well developed and well nourished Respiratory no respiratory distress Cardiovascular Rate/Rhythm: regular rate and regular rhythm Gastrointestinal (Abdomen) Inspection/Auscultation: abdomen normal to inspection Percussion/Palpation: abdomen soft; abdomen nontender Skin + incision (dry and clean, no hematoma) Neurologic CN's II-XI intact bilaterally and moves all extremities Psychiatric Orientation: alert and oriented x 3 Discharge Data Allergies Allergy/AdvReac Type Severity Reaction Status Date / Time potassium chloride AdvReac Intermediate Vomiting Verified 12/22/20 14:52 Sulfa (Sulfonamide AdvReac Intermediate NAUSEA/VOMI Verified 12/22/20 14:52 Antibiotics) TING sulfamethoxazole AdvReac Intermediate Vomiting Verified 12/22/20 14:52 [From Bactrim] trimethoprim [From Bactrim] AdvReac Intermediate Vomiting Verified 12/22/20 14:52 lisinopril AdvReac Unknown NAUSEA Verified 12/22/20 14:52 VOMITING sulfasalazine AdvReac Unknown NAUSEA-COULDN'T Verified 12/22/20 14:52 EAT Consultations 12/20/20 07:10 Consult Boot Liner Maker Routine Procedures Performed Operation Date: 12/20/20 07:30 Actual Procedures p Percutaneous Endovascular Aneurysm Repair, Bilateral Iliac Endografts, Aortic Proximal Cuff, Bilateral Percutaneous Approach(Bilateral) - Flavio Osborne MD Ordered Studies 12/20/20 07:08 US EV guide vascular access Routine 12/20/20 07:32 EV aorto bi iliac repair Routine Hospital Course (1) AAA (abdominal aortic aneurysm) without rupture: Patient underwent endovascular repair of her abdominal aortoiliac artery aneurysms. she is doing extremely well POD #1. Will d/c home today. Total Time Total Time Spent Total Time Spent (In Minutes): 0 Discharge Plan Discharge Items Patient Disposition: Home - Self-Care Reason For Visit: AAA- Iliac Aneurysm Discharge Diagnosis: Aorto iliac aneurysms, endovascular repair Activity: Per Instructions section Bathing Comment: may shower starting tomorrow Non-emergency contact: Surgeon Call non-emergency contact if: your temperature is above 101.5, your wound has increased redness, your wound has increased drainage and your wound pain has increased Follow-up/Referrals: Sandeep Lerma MD [Primary Care Provider] - Diet: Heart Healthy Ambulatory Orders: Covid-19 Test Request (Routine) Timeframe: 20201213 Facility: [facility] - Location: [facility] [place] Ordered By: Flavio Osborne [facility] Attending Provider Instructions: SPECIAL CARE INSTRUCTIONS: Medications: * Continue to take your medications as directed. Incision/Puncture Site Care: * You will have an incision or puncture in each of your groins. Liquid glue will be used to seal your incisions/puncture site. This will lift off as the incisions/puncture sites heal. * If Liquid glue is not used, there will be small dressings covering your incisions. After you get home, you may remove the dressings and shower - allowing the warm soapy water to run over it. * Be sure to dry the sites well and keep them dry. * DO NOT SOAK IN A TUB/POOL/etc. UNTIL ALL SURGICAL SITES ARE HEALED. DO NOT REMOVE THE GLUE UNTIL THE INCISIONS HEAL. Restrictions: * Limit yourself to cancer center director activity for the first week. * You may walk and go up and down steps. * Avoid excessive bending or movement at the level of the incisions or punctures. Risks and Possible Complications: * Infection/Drainage/Bleeding - Drainage or bleeding from the incisions/puncture site should be minimal. If you have excessive bleeding or drainage, call our office ([phone]) right away. * Pain/Numbness - You may experience some mild pain or soreness at your incision sites. You may also have some numbness around the incisions or into the insides of your thighs. Bruising is normal and should resolve within 2 weeks. * Changes in Appetite or Bowel Habits - Mostly related to anesthesia and pain medication, some patients have reported decreased appetite and/or problems with constipation. These symptoms usually improve over a few weeks. Remembering to take an tifv-ouf-snopxni stool softener, as directed, will help you to avoid constipation. Call our office and seek emergent treatment if you develop: * Fever or chills * Have a temperature greater than 101 degrees F * Any redness or purulent drainage from your incisions or punctures * Severe abdominal, chest or back pain SKIN IRRITATION: * You may experience some redness and/or swelling in the area where radiation was administered. If any skin irritation occurs, please contact your family physician. You will be receiving a call from the Vascular Surgery Nurse after you are d ischarged. FOLLOW UP VISIT: It is important for you to keep your follow up appointments with your medical provider. Keep any scheduled doctor appointments. Call [phone] to schedule a follow up appointment if one not already scheduled. Pending Studies at Discharge: No Stand-Alone Forms: [facility], Smoking Cessation Medications and DC Order Prescriptions: Continued rosuvastatin 20 mg tablet 30 mg PO HS Qty: 145 RF: 3 isosorbide mononitrate 60 mg tablet extended release 24 hr 60 mg PO BID 30 Days Qty: 60 RF: 0 calcitonin (salmon) 200 unit/actuation spray,non-aerosol 1 spray intranasal (ALT) DAILY PRN (Reason: sinus congestion) RF: 0 spironolactone 25 mg tablet 25 mg PO QAM RF: 0 Entresto 49-51 mg tablet 0.5 tab PO BID RF: 0 ascorbic acid (vitamin C) 1,000 mg tablet 1 gm PO QDL RF: 0 tramadol 50 mg tablet 50 mg PO Q8H PRN (Reason: pain) RF: 0 clopidogrel 75 mg tablet 75 mg PO QAM 90 Days Qty: 90 RF: 3 acetaminophen [Tylenol Extra Strength] 500 mg Tablet 1,000 mg PO TID PRN (Reason: Pain) RF: 0 cholecalciferol (vitamin D3) [Vitamin D3] 1,000 unit Capsule 1,000 unit PO QPM RF: 0 nitroglycerin 0.4 mg Tablet, Sublingual 0.4 mg sublingual UD PRN (Reason: Chest Pain) RF: 0 furosemide [Lasix] 40 mg tablet 20 mg PO QAM RF: 0 metoprolol succinate 50 mg tablet extended release 24 hr 50 mg PO QDL RF: 0 tolterodine [Detrol LA] 4 mg capsule,extended release 24hr 4 mg PO QDL RF: 0 pantoprazole 40 mg tablet,delayed release (DR/EC) 40 mg PO QAM RF: 0 Spiriva Respimat 2.5 mcg/actuation mist 2 puffs INH QAM RF: 0 Discharge Orders: Discharge Order (Routine); Ordered 12/21/20 Ordered By: Flavio Osborne Admission Data Admit Date/Time: 12/20/20 07:10 Attending Provider: Flavio Osborne Admit Provider: Flavio Osborne Primary Care Provider: Sandeep Lerma Other Providers: Yoan Aponte ; Garcia Beaver ; Geovanny Godfrey ; Alexander Quezada ; Rahul David ; Alex Chambers ; Justino Brown Other Interventions: Discharge Summary Assessment (RN) Last Done: 12/21/20 09:10
== END 2020-12-21 13:20 | disposition home or self-care (01) | DRG 269 ==
LOC: ASU 05:40 → 1E 07:10

== ENCOUNTER 2023-06-24 11:49 | Inpatient (IN) ==
[2023-06-24 13:16] LABS: Basophils # (auto) 0.03 K/uL (0.00-0.20); Basophils % (auto) 0.3 %; Eosinophils # (auto) 0.01 K/uL (0.00-0.50); Eosinophils % (auto) 0.1 %; Hematocrit (blood only) 42.9 % (37.0-47.0); Hemoglobin 14.5 g/dl (12.0-16.0); Immature Granulocytes # (auto) 0.04 K/uL (0.01-0.20); Immature Granulocytes % (auto) 0.4 %; Lymphocytes # (auto) 1.01 K/uL (1.20-3.40); Lymphocytes % (auto) 10.7 %; Mean Corpuscular Hemoglobin 32.4 pg (25.0-34.0); Mean Corpuscular Hgb Conc 33.8 g/dL (32.0-36.0); Mean Corpuscular Volume 95.8 fL (80.0-100.0); Mean Platelet Volume 10.2 fL (9.4-12.4); Monocytes % (auto) 4.3 %; Neutrophils # (auto) 7.92 K/uL (1.40-6.50); Neutrophils % (auto) 84.2 %; Platelet Count 203 K/uL (130-400); RDW Coefficient of Variation 15.9 % (11.5-14.5); RDW Standard Deviation 55.7 fL (36.4-46.3); Red Blood Count 4.48 M/uL (4.20-5.40); White Blood Count 9.41 K/ul (4.8-10.8)
[2023-06-24 13:17] LABS: Alanine Aminotransferase 17 U/L (7-52); Albumin Globulin Ratio 1.5 (0.9-2); Albumin Level 4.1 gm/dl (3.4-5.0); Alkaline Phosphatase 57 U/L (34-104); Anion Gap 10 (3-11); Aspartate Aminotransferase 26 U/L (13-39); BUN Creatinine Ratio 19.4 (10-20); Blood Urea Nitrogen 20 mg/dl (6-23); Calcium 9.2 mg/dl (8.6-10.3); Carbon Dioxide 29 mmol/L (21-32); Chloride 98 mmol/L (98-107); Est GFR (Non-African American) 49.2 ml/min; Globulin 2.7 gm/dl (2.5-4.0); Glucose 138 mg/dl (70-99(Fasting)); Potassium 3.6 mmol/L (3.5-5.1); Sodium 137 mmol/L (136-145); Total Protein 6.8 gm/dl (6.0-8.3)
[2023-06-24 13:24] LABS: Troponin I High Sensitivity 24.9 pg/ml (0-14)
--- NOTE | 2023-06-24 14:23 | XRay Report ---
XR chest 1V not portable HISTORY: 88 years-old Female Chest pain, nonspecific COMPARISON: 12/15/2020 TECHNIQUE: PA view of the chest FINDINGS: Cardiac silhouette is enlarged. Median sternotomy. Vascular graft of the upper abdomen. No pneumothor ax. Small right with zurxs-yr-kudugdaa left pleural effusions and mild left basilar consolidation. Homer rachel appear grossly intact. IMPRESSION: 1. Cardiomegaly without pulmonary edema. 2. Small right with qwcec-pt-gwbitfjm left pleural effusions and mild left basilar consolidation. ACT 112: Negative or not required by law. The above report was generated using voice recognition software. It may contain grammatical, syntax o r spelling errors. Electronically signed by: Nikos Callejas M.D. 06/24/2023 2:22 PM
[2023-06-24] MEDS ORDERED: FUROSEMIDE 40 MG/4 ML VIAL IV STA (14:27)
--- NOTE | 2023-06-24 14:58 | History & Physical Report ---
Date of Service June 24, 2023 Assessment & Plan (1) CKD (chronic kidney disease), stage III: (2) CAD (coronary artery disease), [place] coronary artery: (3) AAA (abdominal aortic aneurysm) without rupture: (4) Hypertension: (5) Chronic systolic congestive heart failure: (6) COPD (chronic obstructive pulmonary disease) with emphysema: (7) Ischemic cardiomyopathy: (8) HFrEF (heart failure with reduced ejection fraction): Plan Genny Martinez is a 88-year-old female with a history significant for HFrEF, CAD status post CABG x4 in 1998, dyslipidemia, hypertension, AAA and bilateral iliac artery aneurysms (followed by Dr. 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 Shortness of Breath | Heart Failure with Reduced Ejection Fraction (HFrEF) -Ongoing shortness of breath for several weeks, significantly worsened on Thanksgiving and again this morning -Differential includes CHF exacerbation vs. right sided heart failure -BNP: >4700 -Chest XR: Cardiomegaly without pulmonary edema. Small right with bpbzp-sl-xpkxluxd left pleural effusions and mild left basilar consolidation. -Follow[facility], per chart review dry weight is ~125 lb -Last Echo (01/16/2023) Mildly dilated LV. EF 20 to 25%. Akinesis of the basal inferoseptum, basal inferior wall, and inferolateral wall. Otherwise global hypokinesis. Severe left atrial dilation. Sclerotic aortic valve. Mild to moderate MR. -Will order limited echo -Received Lasix 40mg IV, has external catheter in place and draining urine -Daily weight, monitor I's & O's -Symptoms improving with diuresis at this point -Keep O2 sat >90%, currently at 95% on room air -Continue Metoprolol succinate 50mg QD -Continue Entresto 97-103mg 1/2 tab BID -Will monitor on telemetry COPD -Currently on Spiriva -As above, maintain O2 sat >90% CAD | S/P CABG -Continue home Plavix, aspirin CKD Stage III -Cr 1.03 on admission -Will monitor BMP with ongoing diuresis Urinary Urgency -Continue home tolterodine GERD -Continue home PPI Admit to: Med/Tele Diet: Heart Healthy, Low Sodium VTE Prophylaxis: Heparin Code Status: DNR/DNI History of Present Illness Primary Care Provider: Dale Barrios DO Genny Martinez is a 88-year-old female with a history significant for HFrEF, CAD status post CABG x4 in 1998, dyslipidemia, hypertension, AAA and bilateral iliac artery aneurysms (followed by Dr. 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 She states that for several weeks she has had worsening exertional dyspnea, this got even worse on Thanksgiving but he daughter gave her a nebulized treatment of albuterol and her breathing improved. Today she presented to her PCP due to the ongoing shortness of breath and was found to have an O2 sat of 88-89%, was encouraged to go to the ED. She denies chest pain, fever, body aches, or chills but states she had a bad cough several weeks ago. She notes that she did cough up thick yellow mucus on several occasions but her cough has improved improved since then. Patient lives at home independently, she cooks/prepares her own meals. Patient and he daughter state that she follows her sodium intake without issue: she states she eats yogurt and cereal in the morning and will have cereal in the evening as well, but also will sometimes have [employer] soup, grilled cheese, or Burger Ankit. She weighs herself daily and states she has not been up more than 1-2 pounds from her "dry weight". Her daughter states that she was previously on Lasix PRN but has not been prescribed this for a long time (per daughter this was d/c due to hypotension) until her PCP sent a prescription for her to take last night and again this morning. She denies an dysuria, does note some intermittent diarrhea for the past month which has also made her bottom sore. She uses a cane to ambulate at home. Discussed code status with patient and her daughter, they confirm her wishes are DNR/DNI. Patient previously declined interventions like heart cath but now states she would consider a cath if intervention could improve her quality of life. ED Course: IV Lasix 40 Allergies Allergy/AdvReac Type Severity Reaction Status Date / Time potassium chloride AdvReac Intermediate Vomiting Verified 06/24/23 15:21 Sulfa (Sulfonamide AdvReac Intermediate NAUSEA/VOMI Verified 06/24/23 15:21 Antibiotics) TING sulfamethoxazole AdvReac Intermediate Vomiting Verified 06/24/23 15:21 [From Bactrim] trimethoprim [From Bactrim] AdvReac Intermediate Vomiting Verified 06/24/23 15:21 lisinopril AdvReac Unknown NAUSEA Verified 06/24/23 15:21 VOMITING sulfasalazine AdvReac Unknown NAUSEA-COULDN'T Verified 06/24/23 15:21 EAT UNKNOWN INHALER PRIOR TO AdvReac Intermediate GI Uncoded 06/24/23 15:25 SPIRIVA UPSET/DIARRHEA Home Medications Medication Instructions Recorded Confirmed Type cholecalciferol (vitamin D3) 25 1,000 unit PO QPM 11/05/18 06/24/23 History mcg (1,000 unit) capsule (Vitamin D3) ascorbic acid (vitamin C) 1,000 mg 1 gm PO QDL 12/30/19 06/24/23 History tablet acetaminophen 500 mg tablet 1,000 mg PO TID PRN Pain 08/15/20 06/24/23 History (Tylenol Extra Strength) nitroglycerin 0.4 mg sublingual 0.4 mg sublingual UD PRN Chest 07/25/22 06/24/23 Rx tablet Pain #25 tabs clopidogrel 75 mg tablet 75 mg PO QAM 90 days #90 tabs 08/30/22 06/24/23 Rx rosuvastatin 20 mg tablet 30 mg (1.5 x 20 mg) PO HS #145 tabs 10/17/22 06/24/23 Rx isosorbide mononitrate 120 mg 120 mg PO BID 30 days #180 tabs 04/10/23 06/24/23 Rx tablet,extended release 24 hr sacubitril 97 mg-valsartan 103 mg 0.5 tab PO BID #60 tabs 06/06/23 06/24/23 Rx tablet (Entresto) furosemide 20 mg tablet (Lasix) 20 mg PO DAILY PRN weight gain or 06/23/23 06/24/23 Rx sob #30 tabs metoprolol succinate 50 mg 50 mg PO QDL 06/24/23 06/24/23 History tablet,extended release 24 hr pantoprazole 40 mg tablet,delayed 40 mg PO QAM 06/24/23 06/24/23 History release tiotropium bromide 2.5 2 inh inhalation QAM 06/24/23 06/24/23 History mcg/actuation mist for inhalation (Spiriva Respimat) tolterodine 4 mg capsule,extended 4 mg PO QDL 06/24/23 06/24/23 History release 24 hr Past Med/Surg History Medical History Chronic knee pain after total replacement of right knee joint Chronic SI joint pain Lumbar compression fracture (09/20/20) L4 compression fracture Diabetes mellitus Type 2 "Borderline" per patient. Diet controlled NSTEMI (non-ST elevated myocardial infarction) 07/2020 per cardiac records/reports. no cardiac cath done. Treated with medications and inpatient at [facility]. 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 There is intervertebral dilatation of the internal iliac arteries which measure up to 1.5 cm. LBBB (left bundle branch block) Osteoporosis with fracture (~11/11/19) Ulcerative colitis Stable Peripheral arterial disease Hyperlipidemia CAD (coronary artery disease) S/p CABG x 4 vessel (1998) Dyspnea on exertion No oxygen use No recent issues Clostridium 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 pt denies Hypertension Has had hypotension episodes in the past- cardio aware and pt monitoring at home Abdominal aneurysm Per 08/15/20 CT scan "There is diffuse aneurysmal dilatation of the abdominal aorta which measures up to 3.4 cm in diameter. Surgical History History of tooth extraction History of incision and drainage right knee History of revision of total replacement of right knee joint "multiple" r/t post op fall. History of right knee joint replacement S/P hardware removal right hip History of revision of total replacement of right hip joint History of right hip replacement History of left hip replacement History of blepharoplasty bilateral History of cataract surgery bilateral S/P CABG (coronary artery bypass graft) (~1997) x4 vessels at [facility] History of open reduction and internal fixation (ORIF) procedure right proximal femur 2006 H/O esophagogastroduodenoscopy H/O colonoscopy Hx of tonsillectomy Family History Mother Leukemia Brother Aortic aneurysm Father Aortic aneurysm Stroke syndrome Tuberculosis Daughter Coronary heart disease Heart problem Grandfather Tuberculosis Uncle Tuberculosis Denies family history of Ovarian cancer Prostate cancer Breast cancer Lung cancer Colorectal cancer Social History Smoking Status: Never smoker Tobacco Type: Cigarettes Age Started Using Tobacco: 19; Age Quit Using Tobacco: 64; packs per day: 1; Cigarettes Per Day: 20; Second Hand Exposure: No; Do You Dip or Chew Tobacco: No; Hx Alcohol Use: Yes Alcohol type: hard liquor Hx Substance Use: No Preferred Language: Cypriot Communication Ability: Effective Visual Impairment: No Limitations Hearing Ability: Hard of Hearing Manager Of Patient Required: No Beliefs That Will Affect Care: None marital status: / Current Living Situation: Alone current occupational status: retired How many Children do You have: 3 Feels Safe at Home: Yes Childhood Exposure to Second-Hand Smoke: Yes Diet: regular caffeine: Yes Dental Care, Regularly: No Physical Activity Frequency: Does not Exercise Seatbelt Use: always Sunscreen Use: No Assistive Devices: Cane and Glasses Review of Systems Review of Systems: As per above Physical Exam Constitutional: WD/WN, vitals as above Eyes: + anicteric sclerae; no conjunctival abn ormality ENMT: Ears: no external ear abnormality Nose: no external nose abnormality Moist mucous membranes Respiratory: normal respiratory effort; no labored breathing and does not use accessory muscles Auscultation: no crackles, no rales and no rhonchi Cardiovascular: Rate/Rhythm: regular rate and regular rhythm Mild lower extremity pretibial edema bilaterally Gastrointestinal (Abdomen): Abdomen soft, nontender and nondistended. Musculoskeletal: Moves limbs independently Skin: Ecchymosis at left lower extremity Psychiatric: Orientation: alert, oriented to person and oriented to place Genitourinary: External catheter in place Results & Data Results & Data Vital Signs (Past 12 Hours) Vital Signs Temp Pulse Pulse Resp BP BP Pulse Ox 06/24/23 14:35 75 16 169/97 H 95 06/24/23 12:01 37 C 77 20 174/89 H 96 06/24/23 12:01 O2 Del Method 06/24/23 14:35 Room Air 06/24/23 12:01 Room Air 06/24/23 12:01 Room Air Diagnostic Findings Chest X-Ray 06/24/23 12:07 XR chest 1V not portable HISTORY: 88 years-old Female Chest pain, nonspecific COMPARISON: 12/15/2020 TECHNIQUE: PA view of the chest FINDINGS: Cardiac silhouette is enlarged. Median sternotomy. Vascular graft of the upper abdomen. No pneumothorax. Small right with dpeng-lo-bhiiqetl left pleural effusions and mild left basilar consolidation. Bones appear grossly intact. IMPRESSION: 1. Cardiomegaly without pulmonary edema. 2. Small right with rzupq-hv-gplqrjwo left pleural effusions and mild left basilar consolidation. ACT 112: Negative or not required by law. The above report was generated using voice recognition software. It may contain grammatical, syntax or spelling errors. Electronically signed by: Nikos Callejas M.D. 06/24/2023 2:22 PM Supervising Physician Co-Signing Physician Notes Patient seen and examined, chart reviewed, case discussed with Emmie Espinosa and I agree with the assessment and plan as above except as otherwise noted Labs and images reviewed Genny is an 88-year-old female with past medical history of heart failure with reduced EF, CAD with CABG x 4 in 1998, NSTEMI 2020 with EF approximately 20-25% and declined cardiac catheterization at that time on medical therapy who presents for acute shortness of breath after Thanksgiving. She notes she has had a little bit of leg swelling and she sleeps up slightly on her side as laying flat increases her shortness of breath, but does not need to sleep propped up on pillows or in a recliner. She is not sure if she had had weight gain. She did feel she had a "good thanksgiving "that was "bad "with salt intake and did have several salty dishes including soups turkey and casserole. Discussed BNP acutely elevated with mildly elevated troponin, EKG without acute territorial signs of ischemia. Her chest x-ray shows small right and small to moderate left pleural effusions without significant pulmonary edema. Clinically she is responding very well to Lasix given in the ER and has had brisk output of light yellow urine and feels this has improved her breathing. Blood pressure has remained stable and without tachycardia. Troponin is trended, she has not had any chest pain in the last few weeks or preceding admission. Patient has previously declined cardiac catheterization so she notes that would potentially consider procedures in the future, but only if they were highly likely to improve her quality of life. She would not want any procedures if they were not likely to improve her quality, or would extend her life but with a significant decrease in quality. No evidence of ACS on admit. She confirms DNR/DNI. Trace crackles which clear on deep breathing in the bases bilaterally. No overt rales. She has pretibial edema and JVD with HJR. Agree with continued diuresis with Lasix daily, strict ins and outs, heart healthy diet. Agree with assessment and management as above. Resident Activity Tracking Resident Involvement: Resident Care Provided Care Provided: Adult Hospital Medicine (2) CAD (coronary artery disease), [place] coronary artery Associated angina: with unspecified angina [place] vs. transplanted heart: [place] heart Qualified Code(s): I25.119 - Atherosclerotic heart disease of [place] coronary artery with unspecified angina pectoris (4) Hypertension Hypertension type: essential hypertension Qualified Code(s): I10 - Essential (primary) hypertension
--- NOTE | 2023-06-24 16:19 | Electrocardiogram Report ---
Test Reason : Blood Pressure : / mmHG Vent. Rate : 072 BPM Atrial Rate : 072 BPM P-R Int : 168 ms QRS Dur : 158 ms QT Int : 460 ms P-R-T Axes : 018 004 157 degrees QTc Int : 503 ms Normal sinus rhythm Possible Left atrial enlargement Left bundle branch block Abnormal ECG When compared with ECG of 15-DEC-2020 10:29, Premature atrial complexes are no longer Present QRS axis Shifted left T wave inversion no longer evident in Inferior leads T wave inversion more evident in Lateral leads Confirmed by Fco English ([id number]) on 06/24/2023 4:19:04 PM Referred By: Confirmed By:Mike English
[2023-06-24] MEDS ORDERED: ACETAMINOPHEN 325 MG TAB PO PRN (16:43)
--- NOTE | 2023-06-24 16:52 | Emergency Department Note ---
Impression & Plan Shortness of breath, Pleural effusion ED Provider Note NAME: ERINN MALIN AGE: 88 SEX: F : 1935 ARRIVES VIA: Walk-In INFORMANT: Patient ED PROVIDER(S): Pawel Novoa DO CHIEF COMPLAINT: shortness of breath HPI: Patient is an 88-year-old female with a past medical history of AAA, CAD, hypertension, heart failure, NSTEMI who presents to the ER for shortness of breath. Patient notes symptoms have been worsening over the past 2 weeks. She has had a little bit of a cough. No history of pleural effusions that she is aware of. Denies any chest pain. No belly pain. No dysuria urgency or frequency. No other exacerbating or remitting factors. ADDITIONAL HISTORY OBTAINED: Per HPI Chronic Medical/Social Conditions Affecting Care: Per HPI PAST MEDICAL HISTORY:See Below PAST SURGICAL HISTORY:See Below FAMILY HISTORY:See Below SOCIAL HISTORY:See Below HOME MEDICATIONS:See Below ALLERGIES:See Below VITALS:See Below PHYSICAL EXAMINATION: GENERAL: Sitting up in bed, alert, well appearing, well nourished, no distress, non-toxic EYE EXAM: normal conjunctiva. OROPHARYNX: no exudate, no erythema, lips, buccal mucosa, and tongue normal and mucous membranes are moist NECK: supple, no nuchal rigidity, no adenopathy, non-tender LUNGS: Diminished breath sounds on the left. Normal chest wall mechanics HEART: no murmurs, S1 normal and S2 normal ABDOMEN: abdomen soft, non-tender, normo-active bowel sounds, no masses, no rebound or guarding. UPPER EXTREMITIES: upper extremities are grossly normal. LOWER EXTREMITIES: No pitting edema. NEURO EXAM: Normal sensorium, cranial nerves II-XII grossly intact, normal speech, no gross weakness of arms, no gross weakness of legs. MEDICAL DECISION MAKING: Patient is an 88-year-old female who presents the ER with a past medical history of CHF with above-stated complaint. IV was established blood work was obtained. Patient was mildly hypertensive. Labs show no significant leukocytosis or anemia. BMP along with LFTs bilirubin was unremarkable. Troponin was mildly elevated at nearly 25. BNP elevated at 4000. Chest x-ray shows a moderate left-sided pleural effusion. I do favor this is the cause of her shortness of breath. It is worse with exertion. She was given a dose of Lasix updated bedside and discussed with the hospitalist for further evaluation management treatment. External Records Reviewed: Seen by his PCP x 2 and today found to be hypoxic and sent to the ER. Consults/Care Managements Discussions: Per MDM Triage Nursing notes reviewed. Limited review of prior medical records performed Vital Signs: reviewed and remarkable for no significant abnormalities Differential diagnosis: Differential diagnoses includes but is not limited to pneumonia, bronchitis, COPD/Asthma exacerbation, pneumothorax, pulmonary embolism, congestive heart failure, acute coronary syndrome ER treatment provided: See below Diagnostics interpreted by me include EKG and cardiac monitoring as listed below: -Cardiac Monitoring: An order was placed for continuous cardiac monitoring. The monitor shows a rate of 80 with sinus rhythm. -ECG: Sinus rhythm rate 72 Normal axis Septal Q waves T wave inversion in lateral leads Left bundle branch block -Laboratory studies:Interpreted by me as stated above in MDM and shown below. Imaging studies: Xrays: As interpreted by me: Portable AP upright 1 view of the chest shows left- sided pleural effusion CTs show: none Procedures:none Critical Care: None Past Med/Surg History Medical History Chronic knee pain after total replacement of right knee joint Chronic SI joint pain Lumbar compression fracture (09/20/20) L4 compression fracture Diabetes mellitus Type 2 "Borderline" per patient. Diet controlled NSTEMI (non-ST elevated myocardial infarction) 07/2020 per cardiac records/reports. no cardiac cath done. Treated with medications and inpatient at [facility]. 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 There is intervertebral dilatation of the internal iliac arteries which measure up to 1.5 cm. LBBB (left bundle branch block) Osteoporosis with fracture (~04/16/20) Ulcerative colitis Stable Peripheral arterial disease Hyperlipidemia CAD (coronary artery disease) S/p CABG x 4 vessel (1998) Dyspnea on exertion No oxygen use No recent issues Clostridium 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 pt denies Hypertension Has had hypotension episodes in the past- cardio aware and pt monitoring at home Abdominal aneurysm Per 08/15/20 CT scan "There is diffuse aneurysmal dilatation of the abdominal aorta which measures up to 3.4 cm in diameter. Surgical History History of tooth extraction History of incision and drainage right knee History of revision of total replacement of right knee joint "multiple" r/t post op fall. History of right knee joint replacement S/P hardware removal right hip History of revision of total replacement of right hip joint History of right hip replacement History of left hip replacement History of blepharoplasty bilateral History of cataract surgery bilateral S/P CABG (coronary artery bypass graft) (~1997) x4 vessels at [facility] History of open reduction and internal fixation (ORIF) procedure right proximal femur 2006 H/O esophagogastroduodenoscopy H/O colonoscopy Hx of tonsillectomy Family History Mother Leukemia Brother Aortic aneurysm Father Aortic aneurysm Stroke syndrome Tuberculosis Daughter Coronary heart disease Heart problem Grandfather Tuberculosis Uncle Tuberculosis Denies family history of Ovarian cancer Prostate cancer Breast cancer Lung cancer Colorectal cancer Social History Smoking Status: Never smoker Tobacco Type: Cigarettes Age Started Using Tobacco: 19; Age Quit Using Tobacco: 64; packs per day: 1; Cigarettes Per Day: 20; Second Hand Exposure: No; Do You Dip or Chew Tobacco: No; Hx Alcohol Use: Yes Alcohol type: hard liquor Hx Substance Use: No Preferred Language: Kuwaiti Communication Ability: Effective Visual Impairment: No Limitations Hearing Ability: Hard of Hearing Ice Maker Required: No Beliefs That Will Affect Care: None marital status: / Current Living Situation: Alone current occupational status: retired How many Children do You have: 3 Feels Safe at Home: Yes Childhood Exposure to Second-Hand Smoke: Yes Diet: regular caffeine: Yes Dental Care, Regularly: No Physical Activity Frequency: Does not Exercise Seatbelt Use: always Sunscreen Use: No Assistive Devices: Cane and Glasses Allergies Allergies Allergy/AdvReac Type Severity Reaction Status Date / Time potassium chloride AdvReac Intermediate Vomiting Verified 06/24/23 15:21 Sulfa (Sulfonamide AdvReac Intermediate NAUSEA/VOMI Verified 06/24/23 15:21 Antibiotics) TING sulfamethoxazole AdvReac Intermediate Vomiting Verified 06/24/23 15:21 [From Bactrim] trimethoprim [From Bactrim] AdvReac Intermediate Vomiting Verified 06/24/23 15:21 lisinopril AdvReac Unknown NAUSEA Verified 06/24/23 15:21 VOMITING sulfasalazine AdvReac Unknown NAUSEA-COULDN'T Verified 06/24/23 15:21 EAT UNKNOWN INHALER PRIOR TO AdvReac Intermediate GI Uncoded 06/24/23 15:25 SPIRIVA UPSET/DIARRHEA Home Meds Home Medications Medication Instructions Recorded Confirmed cholecalciferol (vitamin D3) 25 1,000 unit PO QPM 11/05/18 06/24/23 mcg (1,000 unit) capsule (Vitamin D3) ascorbic acid (vitamin C) 1,000 mg 1 gm PO QDL 12/30/19 06/24/23 tablet acetaminophen 500 mg tablet 1,000 mg PO TID PRN Pain 08/15/20 06/24/23 (Tylenol Extra Strength) metoprolol succinate 50 mg 50 mg PO QDL 06/24/23 06/24/23 tablet,extended release 24 hr pantoprazole 40 mg tablet,delayed 40 mg PO QAM 06/24/23 06/24/23 release tiotropium bromide 2.5 2 inh inhalation QAM 06/24/23 06/24/23 mcg/actuation mist for inhalation (Spiriva Respimat) tolterodine 4 mg capsule,extended 4 mg PO QDL 06/24/23 06/24/23 release 24 hr Previous Rx's Medication Instructions Recorded nitroglycerin 0.4 mg sublingual 0.4 mg sublingual UD PRN Chest 07/25/22 tablet Pain #25 tabs clopidogrel 75 mg tablet 75 mg PO QAM 90 days #90 tabs 08/30/22 rosuvastatin 20 mg tablet 30 mg (1.5 x 20 mg) PO HS #145 tabs 10/17/22 isosorbide mononitrate 120 mg 120 mg PO BID 30 days #180 tabs 04/10/23 tablet,extended release 24 hr sacubitril 97 mg-valsartan 103 mg 0.5 tab PO BID #60 tabs 06/06/23 tablet (Entresto) furosemide 20 mg tablet (Lasix) 20 mg PO DAILY PRN weight gain or 06/23/23 sob #30 tabs Results & Data (ED) Vital Signs Vital Signs - 24 hr 06/24/23 12:01 06/24/23 12:01 06/24/23 14:35 Temperature 37 C Temperature Source Temporal Artery Scan Pulse Rate 77 Pulse Rate [Left Finger] 75 Respiratory Rate 20 16 Respiratory Effort / Characteristics Spontaneous Spontaneous Non-Labored Spontaneous Respiratory Depth Normal Normal Normal Respiratory Pattern Regular Regular Blood Pressure 174/89 H Blood Pressure [Left Arm] 169/97 H Blood Pressure Mean 117 Blood Pressure Mean [Left Arm] 121 Pulse Oximetry 96 95 Oxygen Delivery Method Room Air Room Air Room Air Sepsis Recent Fever Within 48 Hours No Sepsis New/Unexplained Change in Mental Status No Sepsis Action Taken by Nursing No Action Required 06/24/23 15:36 Temperature Temperature Source Pulse Rate 77 Pulse Rate [Left Finger] Respiratory Rate Respiratory Effort / Characteristics Respiratory Depth Respiratory Pattern Blood Pressure Blood Pressure [Left Arm] Blood Pressure Mean Blood Pressure Mean [Left Arm] Pulse Oximetry Oxygen Delivery Method Sepsis Recent Fever Within 48 Hours Sepsis New/Unexplained Change in Mental Status Sepsis Action Taken by Nursing Laboratory Data 06/24/23 12:19 06/24/23 12:19 Lab Results 06/24/23 Range/Units 12:19 WBC 9.41 (4.8-10.8) K/ul RBC 4.48 (4.20-5.40) M/uL Hgb 14.5 (12.0-16.0) g/dl Hct 42.9 (37.0-47.0) % MCV 95.8 (80.0-100.0) fL MCH 32.4 (25.0-34.0) pg MCHC 33.8 (32.0-36.0) g/dL RDW Std Deviation 55.7 H (36.4-46.3) fL RDW Coeff of Elif 15.9 H (11.5-14.5) % Plt Count 203 (130-400) K/uL MPV 10.2 (9.4-12.4) fL Immature Gran % (Auto) 0.4 % Neut % (Auto) 84.2 % Lymph % (Auto) 10.7 % [place] % (Auto) 4.3 % Eos % (Auto) 0.1 % Baso % (Auto) 0.3 % Neut # (Auto) 7.92 H (1.40-6.50) K/uL Lymph # (Auto) 1.01 L (1.20-3.40) K/uL [place] # (Auto) 0.40 (0.11-0.59) K/uL Eos # (Auto) 0.01 (0.00-0.50) K/uL Baso # (Auto) 0.03 (0.00-0.20) K/uL Immature Gran # (Auto) 0.04 (0.01-0.20) K/uL PT Cancelled INR Cancelled APTT Cancelled PTT Ratio Cancelled Sodium 137 (136-145) mmol/L Potassium 3.6 (3.5-5.1) mmol/L Chloride 98 (98-107) mmol/L Carbon Dioxide 29 (21-32) mmol/L Anion Gap 10 (3-11) BUN 20 (6-23) mg/dl Creatinine 1.03 (0.6-1.2) mg/dl Est Cr Clr Drug Dosing Not Reportable Est GFR ( Amer) 57.0 ml/min Est GFR (Non-Af Amer) 49.2 ml/min BUN/Creatinine Ratio 19.4 (10-20) Glucose 138 H (70-99(Fasting)) mg/dl Calcium 9.2 (8.6-10.3) mg/dl Total Bilirubin 1.0 (0.2-1.0) mg/dl AST 26 (13-39) U/L ALT 17 (7-52) U/L Alkaline Phosphatase 57 (34-104) U/L Troponin I High Sens 24.9 H (0-14) pg/ml B-Natriuretic Peptide > 4700 H (0-100) pg/ml Total Protein 6.8 (6.0-8.3) gm/dl Albumin 4.1 (3.4-5.0) gm/dl Globulin 2.7 (2.5-4.0) gm/dl Albumin/Globulin Ratio 1.5 (0.9-2) Administered Medications Discontinued Medications Furosemide (Furosemide 40 Mg/4 Ml Vial) 40 mg IV NOW STA Stop: 06/24/23 14:28 Last Admin: 06/24/23 15:24 Dose: 40 mg Documented By: NEGRA Imaging Data Radiologist's Impression: Chest X-Ray 06/24/23 12:07 XR chest 1V not portable HISTORY: 88 years-old Female Chest pain, nonspecific COMPARISON: 12/15/2020 TECHNIQUE: PA view of the chest FINDINGS: Cardiac silhouette is enlarged. Median sternotomy. Vascular graft of the upper abdomen. No pneumothorax. Small right with [id number] left pleural effusions and mild left basilar consolidation. Bones appear grossly intact. IMPRESSION: 1. Cardiomegaly without pulmonary edema. 2. Small right with [id number] left pleural effusions and mild left basilar consolidation. ACT 112: Negative or not required by law. The above report was generated using voice recognition software. It may contain grammatical, syntax or spelling errors. Electronically signed by: Nikos Callejas M.D. 06/24/2023 2:22 PM Discharge Plan Visit Data Chief Complaint: Shortness of Breath/Dyspnea Stated Complaint: LOW OXYGEN LEVELS, SOB ED Provider: Pawel Novoa Discharge Problem: Shortness of breath, Pleural effusion Forms Stand Alone Forms: My [facility] Prescriptions Prescriptions: No Action clopidogrel 75 mg tablet 75 mg PO QAM 90 Days Qty: 90 3RF rosuvastatin 20 mg tablet 30 mg PO HS Qty: 145 3RF Rx Instructions: 1.5 TABS HS isosorbide mononitrate 120 mg tablet extended release 24 hr 120 mg PO BID 30 Days Qty: 180 3RF Entresto 97-103 mg tablet 0.5 tab PO BID Qty: 60 2RF Rx Instructions: TAKES QDL & HS furosemide [Lasix] 20 mg tablet 20 mg PO DAILY PRN (Reason: weight gain or sob) Qty: 30 0RF nitroglycerin 0.4 mg tablet, sublingual 0.4 mg sublingual UD PRN (Reason: Chest Pain) Qty: 25 5RF Rx Instructions: 1 tablet sublingual every 5 min for chest pain, up to 3 doses. call 911 if pain persists after 1st tablet. tolterodine 4 mg capsule,extended release 24hr 4 mg PO QDL Dose Instruction: TAKE 1 CAPSULE DAILY Rx Instructions: TAKE 1 CAPSULE DAILY ascorbic acid (vitamin C) 1,000 mg tablet 1 gm PO QDL acetaminophen [Tylenol Extra Strength] 500 mg Tablet 1,000 mg PO TID PRN (Reason: Pain) cholecalciferol (vitamin D3) [Vitamin D3] 1,000 unit Capsule 1,000 unit PO QPM metoprolol succinate 50 mg tablet extended release 24 hr 50 mg PO QDL pantoprazole 40 mg tablet,delayed release (DR/EC) 40 mg PO QAM Rx Instructions: TAKE 1 TABLET DAILY Spiriva Respimat 2.5 mcg/actuation mist 2 inh inhalation QAM Rx Instructions: USE 2 INHALATIONS DAILY Referrals Referrals: Dale Barrios DO [Primary Care Provider] -
[2023-06-24 18:12] LABS: Troponin I High Sensitivity 28.3 pg/ml (0-14)
[2023-06-24 18:15] LABS: INR 1.2 (0.9-1.1); Partial Thromboplastin Time 29.4 Seconds (21.0-31.0); Prothrombin Time 13.1 Seconds (9.0-12.0)
[2023-06-24] MEDS ORDERED: NITROGLYCERIN SL 0.4 MG/TAB TAB SL PRN (18:18)
--- NOTE | 2023-06-24 18:32 | Billing Data ---
Date of Service June 24, 2023 Coding Level of Care Code 24195 INT INP/OBS CARE
[2023-06-24] MEDS: ROSUVASTATIN CALCIUM 10 MG TAB PO SCH (20:59)
[2023-06-24] MEDS: HEPARIN SOD 5,000 UNIT/0.5 ML VIAL SQ SCH (20:59)
[2023-06-24] MEDS: ISOSORBIDE MONO EXTENDED REL 60 MG TABCR PO SCH (20:59)
[2023-06-24] MEDS: VALSARTAN/SACUBITRIL 51/49 MG TAB PO SCH (20:59)
[2023-06-24] MEDS ORDERED: MAGNESIUM SULFATE / D5W 1 GM/100 ML BAG IV ONE (21:46)
[2023-06-24] MEDS ORDERED: METOPROLOL SUCC 50MG EXT REL TAB PO STA (21:51)
[2023-06-24 22:06] LABS: Magnesium 1.9 mg/dl (1.7-2.4)
[2023-06-24] MEDS: POTASSIUM CHLORIDE CRTAB 20 MEQ TABCR PO SCH (22:12)
[2023-06-24] MEDS: POTASSIUM CHLORIDE / WTR 10 MEQ/100 ML PLCT IV SCH ×2 (22:12→23:40)
[2023-06-25] MEDS: POTASSIUM CHLORIDE / WTR 10 MEQ/100 ML PLCT IV SCH ×5 (01:15→21:53)
[2023-06-25 02:15] LABS: Basophils # (auto) 0.04 K/uL (0.00-0.20); Basophils % (auto) 0.5 %; Eosinophils # (auto) 0.05 K/uL (0.00-0.50); Eosinophils % (auto) 0.6 %; Hematocrit (blood only) 40.7 % (37.0-47.0); Hemoglobin 13.3 g/dl (12.0-16.0); Immature Granulocytes # (auto) 0.02 K/uL (0.01-0.20); Immature Granulocytes % (auto) 0.2 %; Lymphocytes # (auto) 1.42 K/uL (1.20-3.40); Mean Corpuscular Hemoglobin 31.8 pg (25.0-34.0); Mean Corpuscular Hgb Conc 32.7 g/dL (32.0-36.0); Mean Corpuscular Volume 97.4 fL (80.0-100.0); Mean Platelet Volume 9.8 fL (9.4-12.4); Monocytes % (auto) 7.9 %; Neutrophils # (auto) 6.63 K/uL (1.40-6.50); Neutrophils % (auto) 74.8 %; Platelet Count 190 K/uL (130-400); RDW Coefficient of Variation 15.8 % (11.5-14.5); RDW Standard Deviation 57.1 fL (36.4-46.3); Red Blood Count 4.18 M/uL (4.20-5.40); White Blood Count 8.86 K/ul (4.8-10.8)
[2023-06-25 02:25] LABS: BUN Creatinine Ratio 19.6 (10-20); Calcium 8.3 mg/dl (8.6-10.3); Creatinine Clr Calc Pharmacy 34.4 ml/min; Est GFR (African American) 61.3 ml/min; Est GFR (Non-African American) 52.9 ml/min; Potassium 3.7 mmol/L (3.5-5.1)
--- NOTE | 2023-06-25 08:39 | XCELERA ---
[id number] \\[id number]
[2023-06-25] MEDS: POTASSIUM CHLORIDE CRTAB 20 MEQ TABCR PO SCH ×2 (08:45→21:36)
[2023-06-25] MEDS: ISOSORBIDE MONO EXTENDED REL 60 MG TABCR PO SCH ×2 (08:45→21:40)
[2023-06-25] MEDS: PANTOprazole 40 MG TAB PO SCH (08:46)
[2023-06-25] MEDS: HEPARIN SOD 5,000 UNIT/0.5 ML VIAL SQ SCH ×2 (08:46→21:38)
[2023-06-25] MEDS: CLOPIDOGREL BISULFATE 75 MG TAB PO SCH (08:47)
[2023-06-25] MEDS: ASPIRIN 81 MG ECTAB PO SCH (08:47)
[2023-06-25] MEDS: UMECLIDINIUM BROMIDE 62.5MCG/BLISTER 7 PUFFS/INHALER INH SCH (08:48)
[2023-06-25] MEDS ORDERED: FUROSEMIDE 40 MG/4 ML VIAL IV SCH (09:00)
[2023-06-25] MEDS: VALSARTAN/SACUBITRIL 51/49 MG TAB PO SCH ×2 (11:15→21:39)
[2023-06-25] MEDS: OXYBUTYNIN CHLORIDE XL 5 MG TABCR PO SCH (11:15)
[2023-06-25] MEDS: METOPROLOL SUCC 50MG EXT REL TAB PO SCH (11:15)
--- NOTE | 2023-06-25 11:24 | Electrocardiogram Report ---
Test Reason : Blood Pressure : / mmHG Vent. Rate : 073 BPM Atrial Rate : 073 BPM P-R Int : 168 ms QRS Dur : 160 ms QT Int : 480 ms P-R-T Axes : 034 137 -35 degrees QTc Int : 528 ms Sinus rhythm with frequent Premature ventricular complexes Left atrial enlargement Right axis deviation Left bundle branch block Abnormal ECG When compared with ECG of 24-JUN-2023 12:23, Premature ventricular complexes are now Present QRS axis Shifted right T wave inversion now evident in Inferior leads T wave inversion less evident in Lateral leads Confirmed by Fco English ([id number]) on 06/25/2023 11:23:44 AM Referred By: REFERRED SELF Confirmed By:Mike English
--- NOTE | 2023-06-25 15:29 | Hospitalist Progress Note ---
"Date of Service June 25, 2023 Assessment & Plan (1) CKD (chronic kidney disease), stage III: (2) CAD (coronary artery disease), chitina coronary artery: (3) AAA (abdominal aortic aneurysm) without rupture: (4) Hypertension: (5) Chronic systolic congestive heart failure: (6) COPD (chronic obstructive pulmonary disease) with emphysema: (7) Ischemic cardiomyopathy: (8) HFrEF (heart failure with reduced ejection fraction): Plan Genny Martinez is a 88-year-old female with a history significant for HFrEF, CAD status post CABG x4 in 1998, dyslipidemia, hypertension, AAA and bilateral iliac artery aneurysms (followed by Dr. 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 Shortness of Breath | Heart Failure with Reduced Ejection Fraction (HFrEF)/acute on chronic systolic congestive heart failure -Ongoing shortness of breath for several weeks, significantly worsened on Thanksgiving and again this morning -BNP: >4700 -Chest XR: Cardiomegaly without pulmonary edema. Small right with [id number] left pleural effusions and mild left basilar consolidation. -Follows with [facility], per chart review dry weight is ~125 lb -Last Echo (01/16/2023) Mildly dilated LV. EF 20 to 25%. Akinesis of the basal inferoseptum, basal inferior wall, and inferolateral wall. Otherwise global hypokinesis. Severe left atrial dilation. Sclerotic aortic valve. Mild to moderate MR. -Repeat limited echo today showed no significant change -Continue Lasix 40 mg IV every morning -Daily weight, monitor I's & O's -Symptoms improving with diuresis at this point -Keep O2 sat >90%, currently at 95% on room air -Continue Metoprolol succinate 50mg QD -Continue Entresto 97-103mg 1/2 tab BID -Will monitor on telemetry COPD -Currently on Spiriva -As above, maintain O2 sat >90% CAD | S/P CABG -Continue home Plavix, aspirin CKD Stage III -Cr 1.03 on admission. Today creatinine is at 0.97 with diuretics -Will monitor BMP with ongoing diuresis Urinary Urgency -Continue home tolterodine GERD -Continue home PPI Admit to: Med/Tele Diet: Heart Healthy, Low Sodium VTE Prophylaxis: Heparin Code Status: DNR/DNI Admission and Anticipated Discharge Date Admission Date: June 24, 2023 Subjective Patient feels better overall. Breathing better. Less short of breath. Review of Systems Review of Systems: All systems reviewed & are unremarkable except as noted in Subjective Physical Exam Physical Exam: General: Awake, conversant Heart: S1, S2/regular rate and rhythm, no murmur rubs or gallops Lungs: Bibasilar crackles. Normal effort Abdomen: Soft/nontender/nondistended. No hepatosplenomegaly Extremities: No clubbing/cyanosis. Trace ankle edema. Behavior: Appropriate, cooperative Results & Data Results & Data Vital Signs (Past 12 Hours) Vital Signs Pulse Resp BP Pulse Ox O2 Del Method O2 Flow Rate 06/25/23 09:48 Nasal Cannula 2 06/25/23 07:23 65 06/25/23 05:02 Nasal Cannula 06/25/23 05:00 126/68 06/25/23 05:00 56 L 14 97 06/25/23 04:50 56 L 15 97 06/25/23 04:40 58 L 17 98 06/25/23 04:30 68 17 97 06/25/23 04:20 57 L 14 97 06/25/23 04:10 63 14 98 06/25/23 04:00 129/67 06/25/23 04:00 58 L 15 97 06/25/23 03:50 60 14 99 06/25/23 03:40 59 L 14 99 06/25/23 03:30 65 13 99 Laboratory Results Abnormal lab results 06/24/23 06/25/23 06/25/23 Range/Units 17:30 01:54 08:49 RBC 4.18 L (4.20-5.40) M/uL RDW Std Deviation 57.1 H (36.4-46.3) fL RDW Coeff of Elif 15.8 H (11.5-14.5) % Neut # (Auto) 6.63 H (1.40-6.50) K/uL [place] # (Auto) 0.70 H (0.11-0.59) K/uL PT 13.1 H (9.0-12.0) Seconds INR 1.2 H (0.9-1.1) Chloride 97 L (98-107) mmol/L Carbon Dioxide 33 H (21-32) mmol/L Glucose 100 H (70-99(Fasting)) mg/dl Calcium 8.3 L (8.6-10.3) mg/dl Troponin I High Sens 28.3 H 44.2 H D 96.3 H* D (0-14) pg/ml 06/25/23 Range/Units 14:23 RBC (4.20-5.40) M/uL RDW Std Deviation (36.4-46.3) fL RDW Coeff of Elif (11.5-14.5) % Neut # (Auto) (1.40-6.50) K/uL [place] # (Auto) (0.11-0.59) K/uL PT (9.0-12.0) Seconds INR (0.9-1.1) Chloride (98-107) mmol/L Carbon Dioxide (21-32) mmol/L Glucose (70-99(Fasting)) mg/dl Calcium (8.6-10.3) mg/dl Troponin I High Sens 115.6 H* D (0-14) pg/ml PG Care Time/CCT Total # of Minutes Spent Total Time Spent with Patient: Total time spent is greater than 50% in coordination of care (as documented) at patient's floor/unit and/or counseling patient: Coding Level of Care Code 52558 SUB INP/OBS CARE 235MIN Diagnoses CKD (chronic kidney disease), stage III N18.30 Coronary artery disease involving chitina coronary artery of chitina heart with angina pectoris I25.119 [place] vs. transplanted heart: chitina heart Associated angina: with unspecified angina AAA (abdominal aortic aneurysm) without rupture I71.4 Essential hypertension I10 Hypertension type: essential hypertension Chronic systolic congestive heart failure I50.22 COPD (chronic obstructive pulmonary disease) with emphysema J43.9 Ischemic cardiomyopathy I25.5 HFrEF (heart failure with reduced ejection fraction) I50.20 (2) CAD (coronary artery disease), chitina coronary artery [place] vs. transplanted heart: chitina heart Associated angina: with unspecified angina Qualified Code(s): I25.119 - Atherosclerotic heart disease of chit[place] coronary artery with unspecified angina pectoris (4) Hypertension Hypertension type: essential hypertension Qualified Code(s): I10 - Essential (primary) hypertension"
[2023-06-25] MEDS: ROSUVASTATIN CALCIUM 10 MG TAB PO SCH (21:37)
[2023-06-26 05:05] LABS: Basophils # (auto) 0.03 K/uL (0.00-0.20); Basophils % (auto) 0.3 %; Eosinophils # (auto) 0.07 K/uL (0.00-0.50); Eosinophils % (auto) 0.7 %; Hematocrit (blood only) 45.1 % (37.0-47.0); Hemoglobin 14.7 g/dl (12.0-16.0); Immature Granulocytes # (auto) 0.03 K/uL (0.01-0.20); Immature Granulocytes % (auto) 0.3 %; Lymphocytes # (auto) 1.38 K/uL (1.20-3.40); Lymphocytes % (auto) 14.2 %; Mean Corpuscular Hemoglobin 31.5 pg (25.0-34.0); Mean Corpuscular Hgb Conc 32.6 g/dL (32.0-36.0); Mean Corpuscular Volume 96.8 fL (80.0-100.0); Mean Platelet Volume 9.9 fL (9.4-12.4); Monocytes # (auto) 0.82 K/uL (0.11-0.59); Monocytes % (auto) 8.5 %; Neutrophils # (auto) 7.37 K/uL (1.40-6.50); Platelet Count 190 K/uL (130-400); RDW Coefficient of Variation 15.9 % (11.5-14.5); RDW Standard Deviation 55.8 fL (36.4-46.3); Red Blood Count 4.66 M/uL (4.20-5.40)
[2023-06-26 05:23] LABS: BUN Creatinine Ratio 18.8 (10-20); Calcium 8.5 mg/dl (8.6-10.3); Creatinine Clr Calc Pharmacy 29.8 ml/min; Est GFR (African American) 51.5 ml/min; Est GFR (Non-African American) 44.4 ml/min; Potassium 4.7 mmol/L (3.5-5.1)
[2023-06-26] MEDS: CLOPIDOGREL BISULFATE 75 MG TAB PO SCH (08:28)
[2023-06-26] MEDS: ASPIRIN 81 MG ECTAB PO SCH (08:29)
[2023-06-26] MEDS: ISOSORBIDE MONO EXTENDED REL 60 MG TABCR PO SCH ×2 (08:29→21:26)
[2023-06-26] MEDS: PANTOprazole 40 MG TAB PO SCH (08:29)
[2023-06-26] MEDS: HEPARIN SOD 5,000 UNIT/0.5 ML VIAL SQ SCH ×2 (08:30→20:32)
[2023-06-26] MEDS: UMECLIDINIUM BROMIDE 62.5MCG/BLISTER 7 PUFFS/INHALER INH SCH (08:30)
[2023-06-26] MEDS: METOPROLOL SUCC 50MG EXT REL TAB PO SCH ×2 (11:53→12:04)
[2023-06-26] MEDS: OXYBUTYNIN CHLORIDE XL 5 MG TABCR PO SCH (12:04)
[2023-06-26] MEDS: VALSARTAN/SACUBITRIL 51/49 MG TAB PO SCH ×2 (12:05→20:32)
--- NOTE | 2023-06-26 15:48 | Hospitalist Progress Note ---
"Date of Service June 26, 2023 Assessment & Plan (1) CKD (chronic kidney disease), stage III: (2) CAD (coronary artery disease), [place] coronary artery: (3) AAA (abdominal aortic aneurysm) without rupture: (4) Hypertension: (5) Chronic systolic congestive heart failure: (6) COPD (chronic obstructive pulmonary disease) with emphysema: (7) Ischemic cardiomyopathy: (8) HFrEF (heart failure with reduced ejection fraction): Plan Genny Martinez is a 88-year-old female with a history significant for HFrEF, CAD status post CABG x4 in 1998, dyslipidemia, hypertension, AAA and bilateral iliac artery aneurysms (followed by Dr. 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 Shortness of Breath | Heart Failure with Reduced Ejection Fraction (HFrEF)/acute on chronic systolic congestive heart failure -Ongoing shortness of breath for several weeks, significantly worsened on Thanksgiving and again this morning -BNP: >4700 -Chest XR: Cardiomegaly without pulmonary edema. Small right with [id number] left pleural effusions and mild left basilar consolidation. -Follows with [facility] [place] [facility], per chart review dry weight is ~125 lb -Last Echo (01/16/2023) Mildly dilated LV. EF 20 to 25%. Akinesis of the basal inferoseptum, basal inferior wall, and inferolateral wall. Otherwise global hypokinesis. Severe left atrial dilation. Sclerotic aortic valve. Mild to moderate MR. 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 She is no more short of breath or fluid overloaded We will hold off on further diuretics for today -Daily weight, monitor I's & O's -Symptoms improving with diuresis at this point -Keep O2 sat >90%, Currently not needing oxygen -Continue Metoprolol succinate 50mg QD -Continue Entresto 97-103mg 1/2 tab BID -Will monitor on telemetry COPD -Currently on Spiriva -As above, maintain O2 sat >90% CAD | S/P CABG -Continue home Plavix, aspirin CKD Stage III -Cr 1.03 on admission. Today creatinine is at 1.12 with diuretics -Will monitor BMP with ongoing diuresis Urinary Urgency -Continue home tolterodine GERD -Continue home PPI patient lives alone at home. Consult PT/OT for disposition. Diet: Heart Healthy, Low Sodium VTE Prophylaxis: Heparin Code Status: DNR/DNI Admission and Anticipated Discharge Date Admission Date: June 24, 2023 Subjective patient says she feels well. Denies any shortness of breath. Says that she urinated quite a bit yesterday. Review of Systems Review of Systems: All systems reviewed & are unremarkable except as noted in Subjective Physical Exam Physical Exam: General: Awake, conversant Heart: S1, S2/regular rate and rhythm, no murmur rubs or gallops Lungs: Minimal bibasilar crackles. Normal effort Abdomen: Soft/nontender/nondistended. No hepatosplenomegaly Extremities: No clubbing/cyanosis. No ankle edema. Behavior: Appropriate, cooperative Results & Data Results & Data Vital Signs (Past 12 Hours) Vital Signs Temp Pulse Pulse Resp BP Pulse Ox O2 Del Method 06/26/23 15:29 36.5 C 64 20 121/66 94 Room Air 06/26/23 11:50 36.6 C 66 16 98/61 L 95 Room Air 06/26/23 09:02 36.6 C 62 17 147/84 H 92 Room Air 06/26/23 08:30 Room Air 06/26/23 07:00 66 Laboratory Results Abnormal lab results 06/26/23 Range/Units 04:52 RDW Std Deviation 55.8 H (36.4-46.3) fL RDW Coeff of Elif 15.9 H (11.5-14.5) % Neut # (Auto) 7.37 H (1.40-6.50) K/uL [place] # (Auto) 0.82 H (0.11-0.59) K/uL Carbon Dioxide 36 H (21-32) mmol/L Glucose 109 H (70-99(Fasting)) mg/dl Calcium 8.5 L (8.6-10.3) mg/dl PG Care Time/CCT Total # of Minutes Spent Total Time Spent with Patient: Total time spent is greater than 50% in coordination of care (as documented) at patient's floor/unit and/or counseling patient: Coding Level of Care Code 81320 SUB INP/OBS CARE 2/35MIN Diagnoses CKD (chronic kidney disease), stage III N18.30 Coronary artery disease involving [place] coronary artery of [place] heart with angina pectoris I25.119 [place] vs. transplanted heart: [place] heart Associated angina: with unspecified angina AAA (abdominal aortic aneurysm) without rupture I71.4 Essential hypertension I10 Hypertension type: essential hypertension Chronic systolic congestive heart failure I50.22 COPD (chronic obstructive pulmonary disease) with emphysema J43.9 Ischemic cardiomyopathy I25.5 HFrEF (heart failure with reduced ejection fraction) I50.20 (2) CAD (coronary artery disease), [place] coronary artery [place] vs. transplanted heart: [place] heart Associated angina: with unspecified angina Qualified Code(s): I25.119 - Atherosclerotic heart disease of [place] coronary artery with unspecified angina pectoris (4) Hypertension Hypertension type: essential hypertension Qualified Code(s): I10 - Essential (primary) hypertension"
[2023-06-26] MEDS: ROSUVASTATIN CALCIUM 10 MG TAB PO SCH (20:32)
[2023-06-27 06:15] LABS: Basophils # (auto) 0.03 K/uL (0.00-0.20); Basophils % (auto) 0.4 %; Eosinophils # (auto) 0.06 K/uL (0.00-0.50); Eosinophils % (auto) 0.8 %; Hematocrit (blood only) 43.2 % (37.0-47.0); Hemoglobin 14.4 g/dl (12.0-16.0); Immature Granulocytes # (auto) 0.02 K/uL (0.01-0.20); Immature Granulocytes % (auto) 0.3 %; Lymphocytes # (auto) 1.46 K/uL (1.20-3.40); Lymphocytes % (auto) 19.9 %; Mean Corpuscular Hgb Conc 33.3 g/dL (32.0-36.0); Mean Platelet Volume 10.1 fL (9.4-12.4); Monocytes % (auto) 6.8 %; Neutrophils # (auto) 5.27 K/uL (1.40-6.50); Neutrophils % (auto) 71.8 %; Platelet Count 183 K/uL (130-400); RDW Coefficient of Variation 15.8 % (11.5-14.5); RDW Standard Deviation 56.2 fL (36.4-46.3); White Blood Count 7.34 K/ul (4.8-10.8)
[2023-06-27 06:31] LABS: BUN Creatinine Ratio 20.4 (10-20); Calcium 8.4 mg/dl (8.6-10.3); Creatinine Clr Calc Pharmacy 34.1 ml/min; Est GFR (African American) 60.5 ml/min; Est GFR (Non-African American) 52.2 ml/min; Potassium 4.2 mmol/L (3.5-5.1)
[2023-06-27] MEDS: UMECLIDINIUM BROMIDE 62.5MCG/BLISTER 7 PUFFS/INHALER INH SCH (08:44)
[2023-06-27] MEDS: HEPARIN SOD 5,000 UNIT/0.5 ML VIAL SQ SCH (08:45)
[2023-06-27] MEDS: CLOPIDOGREL BISULFATE 75 MG TAB PO SCH (08:45)
[2023-06-27] MEDS: ASPIRIN 81 MG ECTAB PO SCH (08:45)
[2023-06-27] MEDS: PANTOprazole 40 MG TAB PO SCH (08:46)
[2023-06-27] MEDS: ISOSORBIDE MONO EXTENDED REL 60 MG TABCR PO SCH (10:12)
--- NOTE | 2023-06-27 10:56 | Discharge Summary ---
Date of Service June 27, 2023 Admission HPI Per Admitting Provider Genny Martinez is a 88-year-old female with a history significant for HFrEF, CAD status post CABG x4 in 1998, dyslipidemia, hypertension, AAA and bilateral iliac artery aneurysms (followed by Dr. 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 She states that for several weeks she has had worsening exertional dyspnea, this got even worse on Thanksgiving but he daughter gave her a nebulized treatment of albuterol and her breathing improved. Today she presented to her PCP due to the ongoing shortness of breath and was found to have an O2 sat of 88-89%, was encouraged to go to the ED. She denies chest pain, fever, body aches, or chills but states she had a bad cough several weeks ago. She notes that she did cough up thick yellow mucus on several occasions but her cough has improved improved since then. Patient lives at home independently, she cooks/prepares her own meals. Patient and he daughter state that she follows her sodium intake without issue: she states she eats yogurt and cereal in the morning and will have cereal in the evening as well, but also will sometimes have [employer] soup, grilled cheese, or Burger Ankit. She weighs herself daily and states she has not been up more than 1-2 pounds from her "dry weight". Her daughter states that she was previously on Lasix PRN but has not been prescribed this for a long time (per daughter this was d/c due to hypotension) until her PCP sent a prescription for her to take last night and again this morning. She denies an dysuria, does note some intermittent diarrhea for the past month which has also made her bottom sore. She uses a cane to ambulate at home. Discussed code status with patient and her daughter, they confirm her wishes are DNR/DNI. Patient previously declined interventions like heart cath but now states she would consider a cath if intervention could improve her quality of life. ED Course: IV Lasix 40 Admission Exam Per Admitting Provider Constitutional: WD/WN, vitals as above Eyes: + anicteric sclerae; no conjunctival abn ormality ENMT: Ears: no external ear abnormality Nose: no external nose abnormality Moist mucous membranes Respiratory: normal respiratory effort; no labored breathing and does not use accessory muscles Auscultation: no crackles, no rales and no rhonchi Cardiovascular: Rate/Rhythm: regular rate and regular rhythm Mild lower extremity pretibial edema bilaterally Gastrointestinal (Abdomen): Abdomen soft, nontender and nondistended. Musculoskeletal: Moves limbs independently Skin: Ecchymosis at left lower extremity Psychiatric: Orientation: alert, oriented to person and oriented to place Genitourinary: External catheter in place Principal Diagnosis Acute on chronic systolic congestive heart failure, likely due to dietary noncompliance Discharge Exam General: Awake, conversant Heart: S1, S2/regular rate and rhythm, no murmur rubs or gallops Lungs: Minimal bibasilar crackles. Normal effort Abdomen: Soft/nontender/nondistended. No hepatosplenomegaly Extremities: No clubbing/cyanosis. No ankle edema. Behavior: Appropriate, cooperative Discharge Data Allergies Allergy/AdvReac Type Severity Reaction Status Date / Time potassium chloride AdvReac Intermediate Vomiting Verified 06/24/23 15:21 Sulfa (Sulfonamide AdvReac Intermediate NAUSEA/VOMI Verified 06/24/23 15:21 Antibiotics) TING sulfamethoxazole AdvReac Intermediate Vomiting Verified 06/24/23 15:21 [From Bactrim] trimethoprim [From Bactrim] AdvReac Intermediate Vomiting Verified 06/24/23 15:21 lisinopril AdvReac Unknown NAUSEA Verified 06/24/23 15:21 VOMITING sulfasalazine AdvReac Unknown NAUSEA-COULDN'T Verified 06/24/23 15:21 EAT UNKNOWN INHALER PRIOR TO AdvReac Intermediate GI Uncoded 06/24/23 15:25 SPIRIVA UPSET/DIARRHEA Consultations 06/24/23 14:28 ED Decision to Admit Stat Hospital Course (1) CKD (chronic kidney disease), stage III: (2) CAD (coronary artery disease), [place] coronary artery: (3) AAA (abdominal aortic aneurysm) without rupture: (4) Hypertension: (5) Chronic systolic congestive heart failure: (6) COPD (chronic obstructive pulmonary disease) with emphysema: (7) Ischemic cardiomyopathy: (8) HFrEF (heart failure with reduced ejection fraction): Ashvin Martinez is a 88-year-old female with a history significant for HFrEF, CAD status post CABG x4 in 1998, dyslipidemia, hypertension, AAA and bilateral iliac artery aneurysms (followed by Dr. 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 Shortness of Breath | Heart Failure with Reduced Ejection Fraction (HFrEF)/acute on chronic systolic congestive heart failure -Ongoing shortness of breath for several weeks, significantly worsened on Thanksgiving and again this morning -BNP: >4700 -Chest XR: Cardiomegaly without pulmonary edema. Small right with [id number] left pleural effusions and mild left basilar consolidation. -Follows with [facility] [place] [facility], per chart review dry weight is ~125 lb -Last Echo (01/16/2023) Mildly dilated LV. EF 20 to 25%. Akinesis of the basal inferoseptum, basal inferior wall, and inferolateral wall. Otherwise global hypokinesis. Severe left atrial dilation. Sclerotic aortic valve. Mild to moderate MR. -Repeat limited echo this hospitalization showed no significant change - she got 2 doses of Lasix 40 mg IV during this hospital stay She is no more short of breath or fluid overloaded We will hold off on further diuretics -Currently not needing oxygen -Continue Metoprolol succinate 50mg QD -Continue Entresto 97-103mg 1/2 tab BID patient does not use Lasix on a regular basis at home. Discharged on Lasix as needed COPD -Currently on Spiriva CAD | S/P CABG -Continue home Plavix, aspirin CKD Stage III -Cr 1.03 on admission. creatinine down today. Urinary Urgency -Continue home tolterodine GERD -Continue home PPI Home health services arranged Diet: Heart Healthy, Low Sodium VTE Prophylaxis: Heparin Code Status: DNR/DNI Total Time Total Time Spent Total Time Spent (In Minutes): 35 Discharge Plan Discharge Items Patient Disposition: Home - Home Health Services Reason For Visit: CHF EXACERBATION Discharge Diagnosis: Acute on chronic systolic congestive heart failure, likely due to dietary noncompliance Activity: Resume your previous activity Non-emergency contact: Primary Care Provider Call non-emergency contact if: you have any medication questions and your symptoms worsen Follow-up/Referrals: Ling James PA-C [Physician Economic Forecaster] - 07/03/23 11:00 am Dale Barrios DO [Primary Care Provider] - 07/04/23 1:00 pm Diet: Heart Healthy and Low Sodium (2gm) Addtl Attending Provider Instructions: Advised to follow-up with PCP in 1 week Advised to follow-up with heart failure clinic in 1 week Pending Studies at Discharge: No Stand-Alone Forms: My [facility] Medications and DC Order Prescriptions: Continued clopidogrel 75 mg tablet 75 mg PO QAM 90 Days Qty: 90 3RF rosuvastatin 20 mg tablet 30 mg PO HS Qty: 145 3RF Rx Instructions: 1.5 TABS HS isosorbide mononitrate 120 mg tablet extended release 24 hr 120 mg PO BID 30 Days Qty: 180 3RF Entresto 97-103 mg tablet 0.5 tab PO BID Qty: 60 2RF Rx Instructions: TAKES QDL & HS furosemide [Lasix] 20 mg tablet 20 mg PO DAILY PRN (Reason: weight gain or sob) Qty: 30 0RF nitroglycerin 0.4 mg tablet, sublingual 0.4 mg sublingual UD PRN (Reason: Chest Pain) Qty: 25 5RF Rx Instructions: 1 tablet sublingual every 5 min for chest pain, up to 3 doses. call 911 if pain persists after 1st tablet. tolterodine 4 mg capsule,extended release 24hr 4 mg PO QDL Dose Instruction: TAKE 1 CAPSULE DAILY Rx Instructions: TAKE 1 CAPSULE DAILY ascorbic acid (vitamin C) 1,000 mg tablet 1 gm PO QDL acetaminophen [Tylenol Extra Strength] 500 mg Tablet 1,000 mg PO TID PRN (Reason: Pain) cholecalciferol (vitamin D3) [Vitamin D3] 1,000 unit Capsule 1,000 unit PO QPM metoprolol succinate 50 mg tablet extended release 24 hr 50 mg PO QDL pantoprazole 40 mg tablet,delayed release (DR/EC) 40 mg PO QAM Rx Instructions: TAKE 1 TABLET DAILY Spiriva Respimat 2.5 mcg/actuation mist 2 inh inhalation QAM Rx Instructions: USE 2 INHALATIONS DAILY Discharge Orders: Discharge Order- CHF (Routine); Ordered 06/27/23 Ordered By: Emilie Mcnulty Admission Data Admit Date/Time: 06/24/23 16:43 Attending Provider: Emilie Mcnulty Admit Provider: Emmie Taylor Primary Care Provider: Dale Barrios Other Providers: Sandeep Pandey Other Interventions: Discharge Summary Assessment (RN) Last Done: 06/27/23 11:13 Coding Level of Care Code 64397 INP/OBS DISCH >30 MIN Diagnoses CKD (chronic kidney disease), stage III N18.30 Coronary artery disease involving [place] coronary artery of [place] heart with angina pectoris I25.119 Associated angina: with unspecified angina [place] vs. transplanted heart: [place] heart AAA (abdominal aortic aneurysm) without rupture I71.4 Essential hypertension I10 Hypertension type: essential hypertension Chronic systolic congestive heart failure I50.22 COPD (chronic obstructive pulmonary disease) with emphysema J43.9 Ischemic cardiomyopathy I25.5 HFrEF (heart failure with reduced ejection fraction) I50.20
== END 2023-06-27 11:34 | disposition home health service (06) | DRG 291 ==
LOC: ED 11:49 → SUATTDRO 16:43 → EDINP 16:43 → 2W 06-25 18:15

== ENCOUNTER 2023-07-16 14:18 | Inpatient (IN) ==
[2023-07-16 14:58] LABS: Appearance Urine Turbid (Clear); Bacteria Urine Automated 2+ (Negative); Bilirubin Urine Negative (Negative); Blood Urine 2+ (Negative); Color Urine Yellow; Epithelial Cell Urine Auto >30 /lpf (0-5); Glucose Urine UA Negative (Negative); Ketones Urine Negative (Negative); Leukocyte Esterase Urine 3+ (Negative); Nitrite Urine Positive (Negative); Protein Urine 2+ (Negative); Specific Gravity Urine 1.017 (1.000-1.030); Urobilinogen Urine Negative (Negative); WBC Urine Automated >30 /hpf (0-5)
[2023-07-16] MEDS ORDERED: cefTRIAXone SODIUM 2,000 MG/50 ML BAG IV STA (15:12)
--- NOTE | 2023-07-16 15:24 | Emergency Department Note ---
History of Present Illness General Chief complaint: Shortness of Breath/Dyspnea Stated complaint: SOB, CONFUSION, DIZZY, WEAKNESS Time Seen by Provider: 07/16/23 14:48 History of Present Illness 88-year-old female presents emergency department a few day history of burning with urination and foul-smelling urine and some confusion in the evenings according to family at bedside. Patient also is currently on diuretic and had some shortness of breath. Patient currently spoke with cardiology and due to the fact that she had some leg edema and some potential for urinary tract infection she was sent in for further evaluation. Patient denies any cough cold congestion. Patient denies fever. Patient denies headache slurred speech blurred vision. Patient has not been prone to urinary tract infections in the past. There are no other mitigating or alleviating factors. Home Medications Medication Instructions Recorded Confirmed Type cholecalciferol (vitamin D3) 25 1,000 unit PO QPM 11/05/18 07/16/23 History mcg (1,000 unit) capsule (Vitamin D3) ascorbic acid (vitamin C) 1,000 mg 1 gm PO QDL 12/30/19 07/16/23 History tablet acetaminophen 500 mg tablet 1,000 mg PO TID PRN Pain 08/15/20 07/16/23 History (Tylenol Extra Strength) nitroglycerin 0.4 mg sublingual 0.4 mg sublingual UD PRN Chest 07/25/22 07/16/23 Rx tablet Pain #25 tabs clopidogrel 75 mg tablet 75 mg PO QAM 90 days #90 tabs 08/30/22 07/16/23 Rx rosuvastatin 20 mg tablet 30 mg (1.5 x 20 mg) PO HS #145 tabs 10/17/22 07/16/23 Rx isosorbide mononitrate 120 mg 120 mg PO BID 30 days #180 tabs 04/10/23 07/16/23 Rx tablet,extended release 24 hr sacubitril 97 mg-valsartan 103 mg 0.5 tab PO BID #60 tabs 06/06/23 07/16/23 Rx tablet (Entresto) furosemide 20 mg tablet (Lasix) 20 mg PO DAILY PRN weight gain or 06/23/23 07/16/23 Rx sob #30 tabs pantoprazole 40 mg tablet,delayed 40 mg PO QAM 06/24/23 07/16/23 History release tiotropium bromide 2.5 2 inh inhalation QAM 06/24/23 07/16/23 History mcg/actuation mist for inhalation (Spiriva Respimat) tolterodine 4 mg capsule,extended 4 mg PO QDL 06/24/23 07/16/23 History release 24 hr metoprolol succinate 50 mg 50 mg PO DAILY 07/04/23 07/16/23 History tablet,extended release 24 hr Allergies Allergy/AdvReac Type Severity Reaction Status Date / Time fluticasone furoate AdvReac Intermediate Abdominal Verified 07/16/23 16:33 [From Trelegy Ellipta] Pain lisinopril AdvReac Intermediate NAUSEA Verified 07/16/23 16:33 VOMITING potassium chloride AdvReac Intermediate Vomiting Verified 07/16/23 16:33 Sulfa (Sulfonamide AdvReac Intermediate NAUSEA/VOMI Verified 07/16/23 16:33 Antibiotics) TING sulfamethoxazole AdvReac Intermediate Vomiting Verified 07/16/23 16:33 [From Bactrim] sulfasalazine AdvReac Intermediate NAUSEA-COULDN'T Verified 07/16/23 16:33 EAT trimethoprim [From Bactrim] AdvReac Intermediate Vomiting Verified 07/16/23 16:33 umeclidinium AdvReac Intermediate Abdominal Verified 07/16/23 16:33 [From Trelegy Ellipta] Pain vilanterol AdvReac Intermediate Abdominal Verified 07/16/23 16:33 [From Trelegy Ellipta] Pain UNKNOWN INHALER PRIOR TO AdvReac Intermediate GI Uncoded 07/16/23 16:33 SPIRIVA UPSET/DIARRHEA Past Med/Surg History Medical History Chronic knee pain after total replacement of right knee joint Chronic SI joint pain Lumbar compression fracture (09/20/20) L4 compression fracture Diabetes mellitus Type 2 "Borderline" per patient. Diet controlled NSTEMI (non-ST elevated myocardial infarction) 07/2020 per cardiac records/reports. no cardiac cath done. Treated with medications and inpatient at [facility]. 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 There is intervertebral dilatation of the internal iliac arteries which measure up to 1.5 cm. LBBB (left bundle branch block) Osteoporosis with fracture (~11/11/19) Ulcerative colitis Stable Peripheral arterial disease Hyperlipidemia CAD (coronary artery disease) S/p CABG x 4 vessel (1998) Dyspnea on exertion No oxygen use No recent issues Clostridium 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 pt denies Hypertension Has had hypotension episodes in the past- cardio aware and pt monitoring at home Abdominal aneurysm Per 08/15/20 CT scan "There is diffuse aneurysmal dilatation of the abdominal aorta which measures up to 3.4 cm in diameter. Surgical History History of tooth extraction History of incision and drainage right knee History of revision of total replacement of right knee joint "multiple" r/t post op fall. History of right knee joint replacement S/P hardware removal right hip History of revision of total replacement of right hip joint History of right hip replacement History of left hip replacement History of blepharoplasty bilateral History of cataract surgery bilateral S/P CABG (coronary artery bypass graft) (~1997) x4 vessels at [facility] History of open reduction and internal fixation (ORIF) procedure right proximal femur 2006 H/O esophagogastroduodenoscopy H/O colonoscopy Hx of tonsillectomy Family History Mother Leukemia Brother Aortic aneurysm Father Aortic aneurysm Stroke syndrome Tuberculosis Daughter Coronary heart disease Heart problem Grandfather Tuberculosis Uncle Tuberculosis Denies family history of Ovarian cancer Prostate cancer Breast cancer Lung cancer Colorectal cancer Social History Smoking Status: Former smoker Tobacco Type: Cigarettes Age Started Using Tobacco: 19; Age Quit Using Tobacco: 64; packs per day: 1; Cigarettes Per Day: 20; Second Hand Exposure: Yes; Do You Dip or Chew Tobacco: No; Hx Alcohol Use: No Hx Substance Use: No Preferred Language: Chinese Communication Ability: Effective Visual Impairment: No Limitations Hearing Ability: Hard of Hearing Sales Advisory Manager Required: Yes Beliefs That Will Affect Care: None marital status: / Current Living Situation: Alone current occupational status: retired How many Children do You have: 3 Feels Safe at Home: Yes Childhood Exposure to Second-Hand Smoke: Yes Diet: regular caffeine: Yes Dental Care, Regularly: No Physical Activity Frequency: Does not Exercise Seatbelt Use: always Sunscreen Use: No Assistive Devices: Walker Review of Systems A total of 10 systems reviewed and were otherwise negative Constitutional: no fever Cardiovascular: no chest pain Gastrointestinal: no abdominal pain Physical Exam Vital Signs Vital Signs - 24 hr 07/16/23 14:33 07/16/23 15:46 07/16/23 15:50 Temperature 37.0 C Temperature Source Temporal Artery Scan Pulse Rate 75 Respiratory Rate 18 Respiratory Effort / Characteristics Non-Labored Spontaneous Respiratory Depth Normal Respiratory Pattern Regular Blood Pressure 144/83 H Blood Pressure Mean 103 Blood Pressure Position Sitting Pulse Oximetry 92 88 L 92 Oxygen Delivery Method Room Air Room Air Nasal Cannula Oxygen Flow Rate 0 Sepsis Recent Fever Within 48 Hours No Sepsis New/Unexplained Change in Mental Status N/A Sepsis Action Taken by Nursing No Action Required Oxygen Flow Rate - Titration 2 2 Pulse Oximetry Post Tiitration 95 98 07/16/23 16:13 Temperature Temperature Source Pulse Rate 72 Respiratory Rate Respiratory Effort / Characteristics Respiratory Depth Respiratory Pattern Blood Pressure Blood Pressure Mean Blood Pressure Position Pulse Oximetry Oxygen Delivery Method Oxygen Flow Rate Sepsis Recent Fever Within 48 Hours Sepsis New/Unexplained Change in Mental Status Sepsis Action Taken by Nursing Oxygen Flow Rate - Titration Pulse Oximetry Post Tiitration GENERAL: Patient is awake alert in no acute distress patient is resting comfortably and showing no signs of anxiety EYES: The conjunctivae are clear. The pupils are round and reactive. EARS, NOSE, MOUTH AND THROAT: The nose is without any evidence of any deformity. Mucous membranes are moist. Tongue is midline. NECK: The neck is nontender and supple. RESPIRATORY: Normal respiratory effort is noted there is no evidence of wheezing rhonchi or rales CARDIOVASCULAR: Regular rate and rhythm noted there no murmurs rubs or gallops normal S1 normal S2. GASTROINTESTINAL: The abdomen is soft. Abdomen is nontender. BACK: No midline tenderness or or step-off noted range of motion in flexion extension as well as rotation no signs of muscle spasm noted MUSCULOSKELETAL/EXTREMITIES: There is no evidence of gross deformity full range of motion is noted in the hips and shoulders. There is no significant edema bilaterally in the lower extremities SKIN: There is no obvious evidence of any rash. There are no petechiae, pallor or cyanosis noted. NEUROLOGIC: Patient is awake alert and oriented x3 strength is symmetric; NIH of 0 Course Reevaluation(s) Reevaluation #1: Patient was started on IV Rocephin. Patient is resting in no distress. Time: 17:35 Consultations Consultation #1: Case was discussed with the [facility]ist for admission for urinary tract infection with some associated shortness of breath and confusion Time: 17:36 Administered Medications Discontinued Medications Ceftriaxone Sodium (Rocephin) 2,000 mg in 50 mls @ 100 mls/hr IV NOW STA Stop: 07/16/23 15:41 Last Admin: 07/16/23 16:51 Dose: 100 mls/hr Documented By: BAIRON Medical Decision Making Medical Records Attestation: I reviewed the patient's medical records. Home Medications Current Medication List: was personally reviewed by me Laboratory Data Attestation: I reviewed the patient's lab results. Lab results interpreted by me positive for a urinalysis that shows a urinary tract infection, CBC was normal metabolic panel is normal 07/16/23 15:00 07/16/23 15:00 Lab Results 07/16/23 07/16/23 07/16/23 Range/Units 15:00 15:17 Unknown WBC 7.55 (4.8-10.8) K/ul RBC 4.45 (4.20-5.40) M/uL Hgb 13.9 (12.0-16.0) g/dl Hct 42.4 (37.0-47.0) % MCV 95.3 (80.0-100.0) fL MCH 31.2 (25.0-34.0) pg MCHC 32.8 (32.0-36.0) g/dL RDW Std Deviation 53.6 H (36.4-46.3) fL RDW Coeff of Elif 15.1 H (11.5-14.5) % Plt Count 202 (130-400) K/uL MPV 10.2 (9.4-12.4) fL Immature Gran % (Auto) 0.3 % Neut % (Auto) 69.4 % Lymph % (Auto) 20.8 % [place] % (Auto) 7.3 % Eos % (Auto) 1.5 % Baso % (Auto) 0.7 % Neut # (Auto) 5.25 (1.40-6.50) K/uL Lymph # (Auto) 1.57 (1.20-3.40) K/uL [place] # (Auto) 0.55 (0.11-0.59) K/uL Eos # (Auto) 0.11 (0.00-0.50) K/uL Baso # (Auto) 0.05 (0.00-0.20) K/uL Immature Gran # (Auto) 0.02 (0.01-0.20) K/uL PT 13.0 H (9.0-12.0) Seconds INR 1.2 H (0.9-1.1) APTT 30 (21-31) Seconds PTT Ratio 1.1 Sodium 137 (136-145) mmol/L Potassium 3.6 (3.5-5.1) mmol/L Chloride 102 (98-107) mmol/L Carbon Dioxide 27 (21-32) mmol/L Anion Gap 8 (3-11) BUN 19 (6-23) mg/dl Creatinine 0.97 (0.6-1.2) mg/dl Est Cr Clr Drug Dosing Not Reportable Est GFR ( Amer) 61.3 ml/min Est GFR (Non-Af Amer) 52.9 ml/min BUN/Creatinine Ratio 19.6 (10-20) Glucose 114 H (70-99(Fasting)) mg/dl Calcium 9.0 (8.6-10.3) mg/dl Total Bilirubin 0.9 (0.2-1.0) mg/dl AST 21 (13-39) U/L ALT 12 (7-52) U/L Alkaline Phosphatase 63 (34-104) U/L Troponin I High Sens 41.6 H (0-14) pg/ml Total Protein 6.5 (6.0-8.3) gm/dl Albumin 3.8 (3.4-5.0) gm/dl Globulin 2.7 (2.5-4.0) gm/dl Albumin/Globulin Ratio 1.4 (0.9-2) Urine Color Yellow Urine Appearance Turbid A (Clear) Urine pH 7.0 (4.5-7.5) Ur Specific [place] 1.017 (1.000-1.030) Urine Protein 2+ H (Negative) Urine Glucose (UA) Negative (Negative) Urine Ketones Negative (Negative) Urine Blood 2+ H (Negative) Urine Nitrite Positive A (Negative) Urine Bilirubin Negative (Negative) Urine Urobilinogen Negative (Negative) Ur Leukocyte Esterase 3+ H (Negative) Urine WBC (Auto) >30 H (0-5) /hpf Urine RBC (Auto) 10-30 H (0-4) /hpf U Hyaline Cast (Auto) 1-5 (0-5) /lpf U Epithel Cells (Auto) >30 H (0-5) /lpf Urine Bacteria (Auto) 2+ H (Negative) Urine Crystals Not Reportable Calcium Oxalate Crystal Present A (None Prsent) SARS-CoV-2 (PCR) NEGATIVE (Negative) Influenza Type A (PCR) Negative (Neg) Influenza Type B (PCR) Negative (Neg) RSV (RT-PCR) Negative (Neg) Imaging Data Attestation: I personally reviewed and interpreted this imaging study as follows: My Impression: Chest x-ray interpreted by me negative for infiltrate Radiologist's Impression: Chest X-Ray 07/16/23 14:40 XR chest 1V portable CLINICAL HISTORY: Chest pain, nonspecific TECHNIQUE: Single frontal radiograph of the chest was obtained. Comparison: Comparison is made to chest radiograph 06/16/2023 FINDINGS: Median sternotomy wires are unchanged. Cardiomegaly is noted. Reticular interstitial opacities are seen. Left retrocardiac opacity is seen. Small left pleural effusion. IMPRESSION: Redemonstration of a small left pleural effusion with retrocardiac opacity likely representing atelectasis with or without superimposed aspiration/pneumonia. ACT 112: Negative or not required by law. Electronically signed by: Grover Sood M.D. 07/16/2023 3:36 PM Abdomen/Pelvis CT 07/16/23 15:42 CT abd pelvis wo con CLINICAL HISTORY: flank pain TECHNIQUE: Helical axial images of the abdomen and pelvis were obtained. Automated dose lowering techniques and/or adjustment according to patient size were utilized for this exam. This exam was performed without intravenous contrast. CT DOSE: 536.51 mGy.cm COMPARISON: Comparison is made to chest radiograph 07/16/[address] abdomen pelvis 02/05/2021 FINDINGS: Lower chest: There is a small left pleural effusion with underlying atelectasis. Trace right pleural effusion. Cardiomegaly is seen. Liver: Unremarkable. No focal lesions are seen. Gallbladder and biliary tree: No calcified gallstones. Normal caliber wall. No intra- or extrahepatic biliary ductal dilation. Pancreas: No acute abnormalities. Punctate calcification in the pancreatic head is unchanged. Spleen: Unremarkable. Adrenals: Unremarkable. Kidneys and ureters: Left pelviectasis is seen. Nonobstructive stones are seen bilaterally. No hydronephrosis. Evaluation for ureteric stones is limited by streak artifact, however no definite stones are seen. Bladder: Unremarkable. Reproductive organs: Unremarkable. Bowel: A hiatal hernia is seen. Lymph nodes Retroperitoneal: Unremarkable. Pelvic: Unremarkable. Mesenteric: Unremarkable. Peritoneum: Normal. Vessels: Prominent atherosclerotic changes are seen. Aortobiiliac stent is seen. Abdominal wall: Unremarkable. Bones: Degenerative changes are noted in the spine. There are bilateral total hip arthroplasties. IMPRESSION: 1. No acute abnormality to explain flank pain. In particular, although there is chronic left-sided pelviectasis, no hydronephrosis or obstructive stones are seen within the limits of streak artifact. Nonobstructive stones are seen bilaterally. 2. Aortobiiliac stent graft repair is again seen. 3. Small left pleural effusion with underlying atelectasis. Prominent cardiomegaly. 4. Additional findings as above. ACT 112: Negative or not required by law. Electronically signed by: Grover Sood M.D. 07/16/2023 4:22 PM ECG Data Attestation: I personally reviewed and interpreted this ECG as follows: Additional Comments: EKG interpreted by me normal sinus rhythm rate of 71, left bundle branch block, no obvious ST segment elevation or depression, poor R wave progression the precordium MDM Narrative Medical Decision making differential diagnosis includes urinary tract infection, CHF, metabolic derangement, electrolyte abnormality Plan is to check labs, EKG, chest x-ray, urinalysis Family is at bedside and provide me history of the patient having increased confusion at night and increased shortness of breath and was evaluated by home health today. The cardiology group center in thinking that she might have a urinary tract infection Patient has evidence of a urinary tract infection did have calcium oxalate crystals in her urine but does not have a kidney stone on CT abdomen/pelvis. Patient has an elevated troponin but it was elevated 2 weeks ago and seems to be decreasing. I do not suspect ischemia at this time. The case was discussed with the [facility] hospitalist for admission. Patient septic shock at the time of admission at 1740 Impression & Plan Acute UTI (urinary tract infection), Elevated troponin Discharge Plan Visit Data Chief Complaint: Shortness of Breath/Dyspnea Stated Complaint: SOB, CONFUSION, DIZZY, WEAKNESS ED Provider: Carson Calvo Discharge Problem: Acute UTI (urinary tract infection), Elevated troponin Patient Disposition: Admitted As Inpatient Forms Stand Alone Forms: My [facility] Prescriptions Prescriptions: No Action clopidogrel 75 mg tablet 75 mg PO QAM 90 Days Qty: 90 3RF rosuvastatin 20 mg tablet 30 mg PO HS Qty: 145 3RF Rx Instructions: 1.5 TABS HS isosorbide mononitrate 120 mg tablet extended release 24 hr 120 mg PO BID 30 Days Qty: 180 3RF Entresto 97-103 mg tablet 0.5 tab PO BID Qty: 60 2RF Rx Instructions: TAKES QDL & HS furosemide [Lasix] 20 mg tablet 20 mg PO DAILY PRN (Reason: weight gain or sob) Qty: 30 0RF nitroglycerin 0.4 mg tablet, sublingual 0.4 mg sublingual UD PRN (Reason: Chest Pain) Qty: 25 5RF Rx Instructions: 1 tablet sublingual every 5 min for chest pain, up to 3 doses. call 911 if pain persists after 1st tablet. tolterodine 4 mg capsule,extended release 24hr 4 mg PO QDL Dose Instruction: TAKE 1 CAPSULE DAILY Rx Instructions: TAKE 1 CAPSULE DAILY ascorbic acid (vitamin C) 1,000 mg tablet 1 gm PO QDL acetaminophen [Tylenol Extra Strength] 500 mg Tablet 1,000 mg PO TID PRN (Reason: Pain) cholecalciferol (vitamin D3) [Vitamin D3] 1,000 unit Capsule 1,000 unit PO QPM pantoprazole 40 mg tablet,delayed release (DR/EC) 40 mg PO QAM Rx Instructions: TAKE 1 TABLET DAILY Spiriva Respimat 2.5 mcg/actuation mist 2 inh inhalation QAM Rx Instructions: USE 2 INHALATIONS DAILY metoprolol succinate 50 mg tablet extended release 24 hr 50 mg PO DAILY Referrals Referrals: Dale Barrios DO [Primary Care Provider] -
[2023-07-16 15:28] LABS: Basophils # (auto) 0.05 K/uL (0.00-0.20); Basophils % (auto) 0.7 %; Eosinophils # (auto) 0.11 K/uL (0.00-0.50); Eosinophils % (auto) 1.5 %; Hematocrit (blood only) 42.4 % (37.0-47.0); Hemoglobin 13.9 g/dl (12.0-16.0); Immature Granulocytes # (auto) 0.02 K/uL (0.01-0.20); Immature Granulocytes % (auto) 0.3 %; Lymphocytes # (auto) 1.57 K/uL (1.20-3.40); Lymphocytes % (auto) 20.8 %; Mean Corpuscular Hemoglobin 31.2 pg (25.0-34.0); Mean Corpuscular Hgb Conc 32.8 g/dL (32.0-36.0); Mean Corpuscular Volume 95.3 fL (80.0-100.0); Mean Platelet Volume 10.2 fL (9.4-12.4); Monocytes # (auto) 0.55 K/uL (0.11-0.59); Monocytes % (auto) 7.3 %; Neutrophils # (auto) 5.25 K/uL (1.40-6.50); Neutrophils % (auto) 69.4 %; Platelet Count 202 K/uL (130-400); RDW Coefficient of Variation 15.1 % (11.5-14.5); RDW Standard Deviation 53.6 fL (36.4-46.3); Red Blood Count 4.45 M/uL (4.20-5.40); White Blood Count 7.55 K/ul (4.8-10.8)
[2023-07-16 15:29] LABS: Calcium Oxalate Crystals Urine Present (None Prsent)
--- NOTE | 2023-07-16 15:37 | XRay Report ---
XR chest 1V portable CLINICAL HISTORY: Chest pain, nonspecific TECHNIQUE: Single frontal radiograph of the chest was obtained. Comparison: Comparison is made to chest radiograph 06/16/2023 FINDINGS: Median sternotomy wires are unchanged. Cardiomegaly is noted. Reticular interstitial opacities are se en. Left retrocardiac opacity is seen. Small left pleural effusion. IMPRESSION: Redemonstration of a small left pleural effusion with retrocardiac opacity likely representing atelec tasis with or without superimposed aspiration/pneumonia. ACT 112: Negative or not required by law. Electronically signed by: Grover Sood M.D. 07/16/2023 3:36 PM
[2023-07-16 15:54] LABS: Alanine Aminotransferase 12 U/L (7-52); Albumin Globulin Ratio 1.4 (0.9-2); Albumin Level 3.8 gm/dl (3.4-5.0); Alkaline Phosphatase 63 U/L (34-104); Anion Gap 8 (3-11); Aspartate Aminotransferase 21 U/L (13-39); BUN Creatinine Ratio 19.6 (10-20); Bilirubin,Total 0.9 mg/dl (0.2-1.0); Blood Urea Nitrogen 19 mg/dl (6-23); Carbon Dioxide 27 mmol/L (21-32); Chloride 102 mmol/L (98-107); Est GFR (African American) 61.3 ml/min; Est GFR (Non-African American) 52.9 ml/min; Globulin 2.7 gm/dl (2.5-4.0); Glucose 114 mg/dl (70-99(Fasting)); Potassium 3.6 mmol/L (3.5-5.1); Sodium 137 mmol/L (136-145); Total Protein 6.5 gm/dl (6.0-8.3); Troponin I High Sensitivity 41.6 pg/ml (0-14)
[2023-07-16 16:05] LABS: INR 1.2 (0.9-1.1); Partial Thromboplastin Ratio 1.1; Partial Thromboplastin Time 30 Seconds (21-31)
[2023-07-16 16:12] LABS: Influenza A virus by PCR Negative (Neg); Influenza B virus by PCR Negative (Neg); RSV by PCR Negative (Neg); SARS CoV2 RNA(COVID-19) Ceph NEGATIVE (Negative)
--- NOTE | 2023-07-16 16:24 | CT Scan Report ---
CT abd pelvis wo con CLINICAL HISTORY: flank pain TECHNIQUE: Helical axial images of the abdomen and pelvis were obtained. Automated dose lowering tech niques and/or adjustment according to patient size were utilized for this exam. This exam was perfor med without intravenous contrast. CT DOSE: 536.51 mGy.cm COMPARISON: Comparison is made to chest radiograph 07/16/[address] abdomen pelvis 02/05/2021 FINDINGS: Lower chest: There is a small left pleural effusion with underlying atelectasis. Trace right pleural effusion. Cardiomegaly is seen. Liver: Unremarkable. No focal lesions are seen. Gallbladder and biliary tree: No calcified gallstones. Normal caliber wall. No intra- or extrahepatic biliary ductal dilation. Pancreas: No acute abnormalities. Punctate calcification in the pancreatic head is unchanged. Spleen: Unremarkable. Adrenals: Unremarkable. Kidneys and ureters: Left pelviectasis is seen. Nonobstructive stones are seen bilaterally. No hydron ephrosis. Evaluation for ureteric stones is limited by streak artifact, however no definite stones ar e seen. Bladder: Unremarkable. Reproductive organs: Unremarkable. Bowel: A hiatal hernia is seen. Lymph nodes Retroperitoneal: Unremarkable. Pelvic: Unremarkable. Mesenteric: Unremarkable. Peritoneum: Normal. Vessels: Prominent atherosclerotic changes are seen. Aortobiiliac stent is seen. Abdominal wall: Unremarkable. Bones: Degenerative changes are noted in the spine. There are bilateral total hip arthroplasties. IMPRESSION: 1. No acute abnormality to explain flank pain. In particular, although there is chronic left-sided p elviectasis, no hydronephrosis or obstructive stones are seen within the limits of streak artifact. N onobstructive stones are seen bilaterally. 2. Aortobiiliac stent graft repair is again seen. 3. Small left pleural effusion with underlying atelectasis. Prominent cardiomegaly. 4. Additional findings as above. ACT 112: Negative or not required by law. Electronically signed by: Grover Sood M.D. 07/16/2023 4:22 PM
--- NOTE | 2023-07-16 16:50 | History & Physical Report ---
Date of Service July 16, 2023 Assessment & Plan (1) Acute exacerbation of CHF (congestive heart failure): Plan: Intermittent worsening of CH since hospital discharge on 06/27 Patient has home Lasix 20 mg p.o. as needed; she took 1 tablet the morning of 07/16, however she has not been taking over the past few months Flu, COVID, RSV negative EKG NSR at 71 bpm CXR on arrival revealed small left pleural effusion with or without superimposed aspiration/pneumonia [facility] hospitalization from 06/24 - 06/27 for SOB/HFrEF BNP on 06/24 was >4700 Last echo on 06/25 revealed LVEF at 20-25% BNP ordered, pending Daily weights Continuous telemetry monitoring Fluid restriction 1800 mL Lasix 20 mg IV BID17 while inpatient Continue Entresto Supplemental oxygen as needed to maintain SpO2 >94% Upon discharge, may need to consider long-term management with Lasix A.m. CBC, BMP (2) Acute UTI (urinary tract infection): Plan: Clinically, patient endorses burning with urination Increased confusion over the past couple days UA positive on arrival Calcium oxalate crystals present Abdomen/pelvis CT revealed small left pleural effusion with underlying atelectasis; no obstructive stones Patient received ceftriaxone 2000 mg IV in the ED Prior urine culture on 08/15/2020 grew Pseudomonas Urine culture ordered, pending Will cover with cefepime 2000 mg IV q12h x 5 days (3) Elevated troponin: Plan: Troponin 41.6 on arrival, repeat pending Clinically, patient denies chest pain Continuous telemetry monitoring (4) Confusion: Plan: Likely secondary to acute UTI, or hypoxia secondary to CHF A&O x 3 on arrival; continue to monitor (5) CKD (chronic kidney disease), stage III: Plan: BUN 19, creatinine 0.97 (around baseline), EGFR 52.9 on arrival Avoid nephrotoxic agents when possible (6) COPD (chronic obstructive pulmonary disease) with emphysema: Plan: Continue Spiriva (7) S/P CABG (coronary artery bypass graft): Plan: CABG x 4 in 1997 Continue Plavix (8) Hypertension: Plan: BP 144/83 on arrival Continue isosorbide mononitrate, metoprolol (9) GERD (gastroesophageal reflux disease): Plan: Continue pantoprazole (10) Urinary symptom or sign: Plan: Continue tolterodine for urinary urgency Plan Disposition: Obs - Admit to MedSurg telemetry DNR/DNI AHA, low-sodium diet (1800 mL fluid restriction) VTE PPx: Teds, heparin 5000u SQ q12h History of Present Illness Chief Complaint: SOB/dyspnea Primary Care Provider: Dale Barrios DO Genny is a pleasant 88-year-old female with PMH of CKD stage III, CAD s/p CABG x 4 in 1998, spinal stenosis, AAA and bilateral iliac artery aneurysms (follows with Dr. Osborne), HTN, HFrEF, COPD, ischemic cardiomyopathy, urinary urgency, and GERD. She was referred in from her home health nurse for worsening SOB, lightheadedness, diarrhea, and dysuria that have been intermittent, but acutely worsened the past week. Patient lives alone, but her daughter (Daina) helps. Her daughter is present at the bedside and provides additional history. Daughter was concerned with worsening confusion over the past couple days. The patient endorses CH with acute worsening x 2 months. She was recently admitted at [facility] from 06/24 - 06/27 for similar symptoms. She denies SOB at rest. No at home oxygen use. She reports breathing is better when she lays on her left side. She denies recent falls. She was also had intermittent diarrhea x 1 week; however this is largely resolved, and while the stool is loose it is more formed now. She also endorses burning with urination this past week. She took her morning medications today. She reports she took Lasix 20 mg p.o. this morning, but that she does not usually take it; it is only as needed and she has not been taking it over the past few months. Last BM on 07/16 at 1600. No sick contacts. Former tobacco cigarette smoker; quit at age 68; formerly 1 PPD. Patient exhibits mild hypertension at 144/83 at time of admission. ED course: Rocephin 2000 mg IV ROS: Patient endorses CH, loss of appetite, weight loss (5lb over past month), burning with urination, dysuria, back pain (from spinal stenosis), and chest palpitations (when climbing steps), Patient denies fever, sweating, chills, chest pain, pleuritic CP, abdominal pain, N/V, or numbness/tingling in legs or arms. Allergies Allergy/AdvReac Type Severity Reaction Status Date / Time fluticasone furoate AdvReac Intermediate Abdominal Verified 07/16/23 16:33 [From Trelegy Ellipta] Pain lisinopril AdvReac Intermediate NAUSEA Verified 07/16/23 16:33 VOMITING potassium chloride AdvReac Intermediate Vomiting Verified 07/16/23 16:33 Sulfa (Sulfonamide AdvReac Intermediate NAUSEA/VOMI Verified 07/16/23 16:33 Antibiotics) TING sulfamethoxazole AdvReac Intermediate Vomiting Verified 07/16/23 16:33 [From Bactrim] sulfasalazine AdvReac Intermediate NAUSEA-COULDN'T Verified 07/16/23 16:33 EAT trimethoprim [From Bactrim] AdvReac Intermediate Vomiting Verified 07/16/23 16:33 umeclidinium AdvReac Intermediate Abdominal Verified 07/16/23 16:33 [From Trelegy Ellipta] Pain vilanterol AdvReac Intermediate Abdominal Verified 07/16/23 16:33 [From Trelegy Ellipta] Pain UNKNOWN INHALER PRIOR TO AdvReac Intermediate GI Uncoded 07/16/23 16:33 SPIRIVA UPSET/DIARRHEA Home Medications Medication Instructions Recorded Confirmed Type cholecalciferol (vitamin D3) 25 1,000 unit PO QPM 11/05/18 07/16/23 History mcg (1,000 unit) capsule (Vitamin D3) ascorbic acid (vitamin C) 1,000 mg 1 gm PO QDL 12/30/19 07/16/23 History tablet acetaminophen 500 mg tablet 1,000 mg PO TID PRN Pain 08/15/20 07/16/23 History (Tylenol Extra Strength) nitroglycerin 0.4 mg sublingual 0.4 mg sublingual UD PRN Chest 07/25/22 07/16/23 Rx tablet Pain #25 tabs clopidogrel 75 mg tablet 75 mg PO QAM 90 days #90 tabs 08/30/22 07/16/23 Rx rosuvastatin 20 mg tablet 30 mg (1.5 x 20 mg) PO HS #145 tabs 10/17/22 07/16/23 Rx isosorbide mononitrate 120 mg 120 mg PO BID 30 days #180 tabs 04/10/23 07/16/23 Rx tablet,extended release 24 hr sacubitril 97 mg-valsartan 103 mg 0.5 tab PO BID #60 tabs 06/06/23 07/16/23 Rx tablet (Entresto) furosemide 20 mg tablet (Lasix) 20 mg PO DAILY PRN weight gain or 06/23/23 07/16/23 Rx sob #30 tabs pantoprazole 40 mg tablet,delayed 40 mg PO QAM 06/24/23 07/16/23 History release tiotropium bromide 2.5 2 inh inhalation QAM 06/24/23 07/16/23 History mcg/actuation mist for inhalation (Spiriva Respimat) tolterodine 4 mg capsule,extended 4 mg PO QDL 06/24/23 07/16/23 History release 24 hr metoprolol succinate 50 mg 50 mg PO DAILY 07/04/23 07/16/23 History tablet,extended release 24 hr Past Med/Surg History Medical History (Updated 07/16/23 @ 17:54 by Noam Fu PA-C) Acute exacerbation of CHF (congestive heart failure) Chronic knee pain after total replacement of right knee joint Chronic SI joint pain Lumbar compression fracture (09/20/20) L4 compression fracture Diabetes mellitus Type 2 "Borderline" per patient. Diet controlled NSTEMI (non-ST elevated myocardial infarction) 07/2020 per cardiac records/reports. no cardiac cath done. Treated with medications and inpatient at [facility]. 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 There is intervertebral dilatation of the internal iliac arteries which measure up to 1.5 cm. LBBB (left bundle branch block) Osteoporosis with fracture (~11/11/19) Ulcerative colitis Stable Peripheral arterial disease Hyperlipidemia CAD (coronary artery disease) S/p CABG x 4 vessel (1998) Dyspnea on exertion No oxygen use No recent issues Clostridium 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 pt denies Hypertension Has had hypotension episodes in the past- cardio aware and pt monitoring at home Abdominal aneurysm Per 08/15/20 CT scan "There is diffuse aneurysmal dilatation of the abdominal aorta which measures up to 3.4 cm in diameter. Surgical History History of tooth extraction History of incision and drainage right knee History of revision of total replacement of right knee joint "multiple" r/t post op fall. History of right knee joint replacement S/P hardware removal right hip History of revision of total replacement of right hip joint History of right hip replacement History of left hip replacement History of blepharoplasty bilateral History of cataract surgery bilateral S/P CABG (coronary artery bypass graft) (~1997) x4 vessels at [facility] History of open reduction and internal fixation (ORIF) procedure right proximal femur 2006 H/O esophagogastroduodenoscopy H/O colonoscopy Hx of tonsillectomy Family History Mother Leukemia Brother Aortic aneurysm Father Aortic aneurysm Stroke syndrome Tuberculosis Daughter Coronary heart disease Heart problem Grandfather Tuberculosis Uncle Tuberculosis Denies family history of Ovarian cancer Prostate cancer Breast cancer Lung cancer Colorectal cancer Social History Smoking Status: Former smoker Tobacco Type: Cigarettes Age Started Using Tobacco: 19; Age Quit Using Tobacco: 64; packs per day: 1; Cigarettes Per Day: 20; Second Hand Exposure: Yes; Do You Dip or Chew Tobacco: No; Hx Alcohol Use: No Hx Substance Use: No Preferred Language: Korean Communication Ability: Effective Visual Impairment: No Limitations Hearing Ability: Hard of Hearing Master Welder Required: No Beliefs That Will Affect Care: None marital status: / Current Living Situation: Alone current occupational status: retired How many Children do You have: 3 Feels Safe at Home: Yes Safety Concerns: Feels Safe At This Time Childhood Exposure to Second-Hand Smoke: Yes Diet: regular caffeine: Yes Dental Care, Regularly: No Physical Activity Frequency: Does not Exercise Seatbelt Use: always Sunscreen Use: No Assistive Devices: Cane and Walker Review of Systems Review of Systems: See HPI above Physical Exam Physical Exam: General: no acute distress; pleasant affect; non-toxic appearing; frail; cooperative; SpO2 100% on 2L NC HEENT: normocephalic, atraumatic; no scleral icterus; PERRLA w/ EOMs intact; dry mucus membrane; vision and hearing intact Neck: supple; no JVD; no lymphadenopathy; trachea midline Skin: warm, dry without signs of tenting; no cyanosis; no rashes, bruising, lesions, or erythema noted CV: chest wall NTP; RRR; S1/S2 normal; no murmurs/rubs/gallops; pulses intact and symmetric at radial, DP, and PT Lungs: no acute respiratory distress; symmetrical chest wall expansion; minimally decreased breath sounds in the LLL auscultated posteriorly; no wheezing ABD: Soft, NTP; BS present; no rebound/guarding; no ascites; no distention; negative CVA tenderness MSK: no tics or fasciculations; no edema noted in the LEs b/l, nonerythematous Neuro: A&Ox3; normal mood and affect; fluent speech; no focal deficits; sensation grossly intact in the LEs B/L Results & Data Results & Data Vital Signs (Past 12 Hours) Vital Signs Temp Pulse Resp BP Pulse Ox O2 Del Method O2 Flow Rate 07/16/23 16:13 72 07/16/23 15:50 92 Nasal Cannula 0 07/16/23 15:46 88 L Room Air 07/16/23 14:33 37.0 C 75 18 144/83 H 92 Room Air Laboratory Results Abnormal lab results 07/16/23 07/16/23 Range/Units 15:00 Unknown RDW Std Deviation 53.6 H (36.4-46.3) fL RDW Coeff of Elif 15.1 H (11.5-14.5) % PT 13.0 H (9.0-12.0) Seconds INR 1.2 H (0.9-1.1) Glucose 114 H (70-99(Fasting)) mg/dl Troponin I High Sens 41.6 H (0-14) pg/ml Urine Appearance Turbid A (Clear) Urine Protein 2+ H (Negative) Urine Blood 2+ H (Negative) Urine Nitrite Positive A (Negative) Ur Leukocyte Esterase 3+ H (Negative) Urine WBC (Auto) >30 H (0-5) /hpf Urine RBC (Auto) 10-30 H (0-4) /hpf U Epithel Cells (Auto) >30 H (0-5) /lpf Urine Bacteria (Auto) 2+ H (Negative) Calcium Oxalate Crystal Present A (None Prsent) Diagnostic Findings Chest X-Ray 07/16/23 14:40 XR chest 1V portable CLINICAL HISTORY: Chest pain, nonspecific TECHNIQUE: Single frontal radiograph of the chest was obtained. Comparison: Comparison is made to chest radiograph 06/16/2023 FINDINGS: Median sternotomy wires are unchanged. Cardiomegaly is noted. Reticular interstitial opacities are seen. Left retrocardiac opacity is seen. Small left pleural effusion. IMPRESSION: Redemonstration of a small left pleural effusion with retrocardiac opacity likely representing atelectasis with or without superimposed aspiration/pneumonia. ACT 112: Negative or not required by law. Electronically signed by: Grover Sood M.D. 07/16/2023 3:36 PM Abdomen/Pelvis CT 07/16/23 15:42 CT abd pelvis wo con CLINICAL HISTORY: flank pain TECHNIQUE: Helical axial images of the abdomen and pelvis were obtained. Automated dose lowering techniques and/or adjustment according to patient size were utilized for this exam. This exam was performed without intravenous contrast. CT DOSE: 536.51 mGy.cm COMPARISON: Comparison is made to chest radiograph 07/16/[address] abdomen pelvis 02/05/2021 FINDINGS: Lower chest: There is a small left pleural effusion with underlying atelectasis. Trace right pleural effusion. Cardiomegaly is seen. Liver: Unremarkable. No focal lesions are seen. Gallbladder and biliary tree: No calcified gallstones. Normal caliber wall. No intra- or extrahepatic biliary ductal dilation. Pancreas: No acute abnormalities. Punctate calcification in the pancreatic head is unchanged. Spleen: Unremarkable. Adrenals: Unremarkable. Kidneys and ureters: Left pelviectasis is seen. Nonobstructive stones are seen bilaterally. No hydronephrosis. Evaluation for ureteric stones is limited by streak artifact, however no definite stones are seen. Bladder: Unremarkable. Reproductive organs: Unremarkable. Bowel: A hiatal hernia is seen. Lymph nodes Retroperitoneal: Unremarkable. Pelvic: Unremarkable. Mesenteric: Unremarkable. Peritoneum: Normal. Vessels: Prominent atherosclerotic changes are seen. Aortobiiliac stent is seen. Abdominal wall: Unremarkable. Bones: Degenerative changes are noted in the spine. There are bilateral total hip arthroplasties. IMPRESSION: 1. No acute abnormality to explain flank pain. In particular, although there is chronic left-sided pelviectasis, no hydronephrosis or obstructive stones are seen within the limits of streak artifact. Nonobstructive stones are seen b ilaterally. 2. Aortobiiliac stent graft repair is again seen. 3. Small left pleural effusion with underlying atelectasis. Prominent cardiomegaly. 4. Additional findings as above. ACT 112: Negative or not required by law. Electronically signed by: Grover Sood M.D. 07/16/2023 4:22 PM Code Status & VTE Plan Code Status DNR/DNI VTE Prophylaxis Plan VTE Prophylaxis will be ordered: Yes Supervising Physician Co-Signing Physician Notes Patient seen and examined, chart reviewed, case discussed with Noam Fu PA-C and I agree with the assessment and plan as above except as otherwise noted Labs and images reviewed 88yo F with a PMHx of CKD3, CAD s/p CABG, AAA followed by vascular, COPD who presents with dysuria and weakness and confusion. Recommended for inpatient evaluation and treatment of UTI due to high comorbidity and mildly elevated Trope without EKG changes. EKG without acute ischemic change. Chest x-ray with small left pleural effusion, no overt volume overload/pulmonary edema. BNP is pending. Agree with treatment for underlying UTI with Rocephin. ?Deep B lines, +O2 requirement, +mild crackles --> Lasix 20mg IV BID17 and follow I&Os. Low sodium diet. PT/OT pending. Agree w/ above PG Care Time/CCT Total # of Minutes Spent Total Time Spent with Patient: Total time spent is greater than 50% in coordination of care (as documented) at patient's floor/unit and/or counseling patient: Coding [place] [address] INT INP/OBS CARE 3/75MIN Patient Type Established History Comprehensive Exam Comprehensive Medical Decision Making High Complexity Diagnoses Acute exacerbation of CHF (congestive heart failure) I50.9 Acute UTI (urinary tract infection) N39.0 Elevated troponin R79.89 Confusion R41.0 CKD (chronic kidney disease), stage III N18.30 COPD (chronic obstructive pulmonary disease) with emphysema J43.9 S/P CABG (coronary artery bypass graft) Z95.1 Essential hypertension I10 Hypertension type: essential hypertension GERD (gastroesophageal reflux disease) K21.9 Urinary symptom or sign R39.9 (8) Hypertension Hypertension type: essential hypertension Qualified Code(s): I10 - Essential (primary) hypertension
[2023-07-16] MEDS ORDERED: ACETAMINOPHEN 325 MG TAB PO PRN (19:10)
[2023-07-16] MEDS ORDERED: NITROGLYCERIN SL 0.4 MG/TAB TAB SL PRN (19:10)
[2023-07-16] MEDS: CEFEPIME 2,000 MG in SYRINGE 0 ML IV SCH (21:19)
[2023-07-16] MEDS: VALSARTAN/SACUBITRIL 103/97MG TAB PO SCH (21:19)
[2023-07-16] MEDS: HEPARIN SOD 5,000 UNIT/0.5 ML VIAL SQ SCH (21:19)
[2023-07-16] MEDS: ISOSORBIDE MONO EXTENDED REL 60 MG TABCR PO SCH (21:20)
[2023-07-16] MEDS: ROSUVASTATIN CALCIUM 10 MG TAB PO SCH (21:20)
[2023-07-16] MEDS: FUROSEMIDE INJ 20 MG/2 ML VIAL IV SCH (21:21)
[2023-07-17 07:38] LABS: Basophils # (auto) 0.05 K/uL (0.00-0.20); Basophils % (auto) 0.6 %; Eosinophils % (auto) 1.2 %; Hemoglobin 13.7 g/dl (12.0-16.0); Immature Granulocytes # (auto) 0.03 K/uL (0.01-0.20); Immature Granulocytes % (auto) 0.4 %; Lymphocytes # (auto) 0.82 K/uL (1.20-3.40); Mean Corpuscular Hemoglobin 30.8 pg (25.0-34.0); Mean Corpuscular Hgb Conc 31.9 g/dL (32.0-36.0); Mean Corpuscular Volume 96.6 fL (80.0-100.0); Mean Platelet Volume 9.9 fL (9.4-12.4); Monocytes # (auto) 0.54 K/uL (0.11-0.59); Monocytes % (auto) 6.6 %; Neutrophils # (auto) 6.69 K/uL (1.40-6.50); Neutrophils % (auto) 81.2 %; Platelet Count 191 K/uL (130-400); RDW Coefficient of Variation 14.8 % (11.5-14.5); RDW Standard Deviation 52.6 fL (36.4-46.3); Red Blood Count 4.45 M/uL (4.20-5.40); White Blood Count 8.23 K/ul (4.8-10.8)
[2023-07-17 08:03] LABS: BUN Creatinine Ratio 16.7 (10-20); Calcium 8.4 mg/dl (8.6-10.3); Creatinine Clr Calc Pharmacy 29.6 ml/min; Est GFR (African American) 53.8 ml/min; Est GFR (Non-African American) 46.4 ml/min; Potassium 3.3 mmol/L (3.5-5.1)
[2023-07-17] MEDS: CLOPIDOGREL BISULFATE 75 MG TAB PO SCH (09:19)
[2023-07-17] MEDS: FUROSEMIDE INJ 20 MG/2 ML VIAL IV SCH ×2 (09:19→17:36)
[2023-07-17] MEDS: CEFEPIME 2,000 MG in SYRINGE 0 ML IV SCH ×2 (09:19→22:25)
[2023-07-17] MEDS: METOPROLOL SUCC 50MG EXT REL TAB PO SCH (09:21)
[2023-07-17] MEDS: HEPARIN SOD 5,000 UNIT/0.5 ML VIAL SQ SCH ×2 (09:21→20:04)
[2023-07-17] MEDS: UMECLIDINIUM BROMIDE 62.5MCG/BLISTER 7 PUFFS/INHALER INH SCH (09:21)
[2023-07-17] MEDS: PANTOprazole 40 MG TAB PO SCH (09:21)
[2023-07-17] MEDS: ISOSORBIDE MONO EXTENDED REL 60 MG TABCR PO SCH ×2 (09:22→22:25)
[2023-07-17] MEDS ORDERED: POTASSIUM CHLORIDE CRTAB 20 MEQ TABCR PO STA (09:59)
--- NOTE | 2023-07-17 10:15 | CT Scan Report ---
CT chest diagnostic wo con CT DOSE: 295.95 mGy.cm HISTORY: Shortness of breath. TECHNIQUE: Multiaxial CT images of the chest were performed without contrast. A dose lowering techni que was utilized adhering to the principles of ALARA. COMPARISON: Abdomen and pelvis CT 07/16/2023. Chest CTA 08/23/2020. FINDINGS: The central airways are patent. No pneumothorax. Moderate emphysema again noted. There is a 4 mm nodule within the left upper lobe on image 120. This is similar to the prior study. There are f aint nodular groundglass densities within the right lung most pronounced within the right upper lobe. This is new from the prior study and may represent an atypical/viral pneumonia. Developing asymmetri c pulmonary edema could also have a similar appearance. A small left pleural effusion is again noted. There is a trace right pleural effusions. Bilateral lower lobe densities are nonspecific but favor c ompressive atelectasis from the pleural effusions. A superimposed pneumonia is also considered in the differential diagnosis. Mild body wall edema. Mild mediastinal lymphadenopathy, unchanged. Normal es ophagus. The abdominal structures are better appreciated on the recent abdomen and pelvis CT. Partial ly visualized left sided hydronephrosis again noted. Right-sided nephrolithiasis. An ectatic ascendin g thoracic aorta measuring up to 3.8 cm in diameter. This remains unchanged. The main pulmonary arter y is dilated up to 3.4 cm consistent with pulmonary arterial hypertension. This is also unchanged. No pericardial effusion. There are poststernotomy changes. No acute fractures within the chest. Partial ly visualized abdominal aortic aneurysm again noted. IMPRESSION: 1. Cardiomegaly and a small left pleural effusion again noted. 2. Moderate emphysema. 3. There are faint nodular groundglass densities within the right lung most pronounced within the rig ht upper lobe. This is new from the prior study and may represent an atypical/viral pneumonia. Develo ping asymmetric pulmonary edema could also have a similar appearance. 4. Mild mediastinal lymphadenopathy, unchanged. 5. Additional findings as described above. ACT 112: Negative or not required by law. Electronically signed by: Noam Finch M.D. 07/17/2023 10:12 AM
[2023-07-17] MEDS: VALSARTAN/SACUBITRIL 103/97MG TAB PO SCH ×2 (10:51→20:05)
[2023-07-17] MEDS: OXYBUTYNIN CHLORIDE XL 5 MG TABCR PO SCH (10:51)
--- NOTE | 2023-07-17 16:22 | Hospitalist Progress Note ---
Date of Service July 17, 2023 Assessment & Plan (1) Acute exacerbation of CHF (congestive heart failure): Plan: Acute hypoxic respiratory failure,? CHF versus viral pneumonia Patient is chronically with BNP >4700; Chest CT does show small left pleural effusion and some nodular groundglass densities? Asymmetric pulmonary edema versus viral pneumonia although no overt pulmonary edema. Legs are dry and without edema. Creatinine is normal and ratio is not contracted. Will continue diuresis, hold if creatinine up trends. Patient has had a chronic cough since having COVID several weeks ago, thinks this may have increased recently and did have several days of diarrhea which is now improving.? Viral URI, procalcitonin is negative and no signs of bacterial pneumonia; bio fire is pending and Legionella antigen also pending (2) Acute UTI (urinary tract infection): Plan: Several days of urinary symptoms in addition to confusion UA infected appearing GNB pending speciation, patient covered for Pseudomonas given past culture positive for this in 2020 Follow for speciation and narrow antibiotics as appropriate (3) Elevated troponin: Plan: Troponin 41.6 on arrival, repeat pending Clinically, patient denies chest pain Continuous telemetry monitoring (4) Confusion: Plan: Suspect metabolic encephalopathy of UTI, greatly improved 07/17 (5) CKD (chronic kidney disease), stage III: Plan: Creatinine at baseline, trend daily while diuresing (6) COPD (chronic obstructive pulmonary disease) with emphysema: Plan: Continue Spiriva (7) S/P CABG (coronary artery bypass graft): Plan: CABG x 4 in 1997 Continue Plavix (8) Hypertension: Plan: Continue isosorbide mononitrate, metoprolol (9) GERD (gastroesophageal reflux disease): Plan: Continue pantoprazole (10) Urinary symptom or sign: Plan: Continue tolterodine for urinary urgency. Treatment of UTI as noted Plan Disposition: Obs - Admit to [facility] telemetry DNR/DNI AHA, low-sodium diet (1800 mL fluid restriction) VTE PPx: Teds, heparin 5000u SQ q12h Admission and Anticipated Discharge Date Admission Date: July 16, 2023 Jimmie Royal seen at the bedside with her daughter present. She is feeling better but not yet back to her normal baseline. She reports she does not have home oxygen and has never needed home oxygen. She has had a persistent cough since COVID several weeks ago, thinks this may be a little worse in the last week although has not had any sputum production or sputum change. She did have increased diarrhea in the last week which is now improving and is more of a soft/loose stool without blood or melena. Denies abdominal pain. No fever chills or sweats. Physical Exam Physical Exam: General: alert and oriented to name place and year. NAD. Cooperative. HEENT: Atraumatic, normocephalic. Vision/hearing grossly intact Pulm: Bibasilar crackles otherwise without wheezing/rales symmetrical chest rise. No increased work of breathing. No respiratory distress. Cardiac: RRR, -mrg. Radial pulses intact and symmetrical. No lower extremity edema. No JVD Abdominal: Nontender, nondistended, soft. BS present. Results & Data Results & Data Vital Signs (Past 12 Hours) Vital Signs Temp Pulse Pulse Resp BP Pulse Ox O2 Del Method 07/17/23 15:40 36.7 C 72 18 132/72 88 L Room Air 07/17/23 11:47 36.6 C 75 18 138/78 94 Nasal Cannula 07/17/23 08:31 37.2 C 73 18 159/86 H 97 Nasal Cannula 07/17/23 08:22 Nasal Cannula 07/17/23 07:40 79 O2 Flow Rate 07/17/23 15:40 07/17/23 11:47 2 07/17/23 08:31 2 07/17/23 08:22 07/17/23 07:40 PG Care Time/CCT Total # of Minutes Spent Total Time Spent with Patient: Total time spent is greater than 50% in coordination of care (as documented) at patient's floor/unit and/or counseling patient: Coding Level of Care Code 13722 SUB INP/OBS CARE 3/50MIN Diagnoses Acute exacerbation of CHF (congestive heart failure) I50.9 Acute UTI (urinary tract infection) N39.0 Elevated troponin R79.89 Confusion R41.0 CKD (chronic kidney disease), stage III N18.30 COPD (chronic obstructive pulmonary disease) with emphysema J43.9 S/P CABG (coronary artery bypass graft) Z95.1 Essential hypertension I10 Hypertension type: essential hypertension GERD (gastroesophageal reflux disease) K21.9 Urinary symptom or sign R39.9 (8) Hypertension Hypertension type: essential hypertension Qualified Code(s): I10 - Essential (primary) hypertension
[2023-07-17] MEDS: ROSUVASTATIN CALCIUM 10 MG TAB PO SCH (20:04)
[2023-07-17] MEDS: POTASSIUM CHLORIDE CRTAB 20 MEQ TABCR PO SCH (20:05)
[2023-07-17 21:33] LABS: Adenovirus PCR Not Detected (NotDetected); Bordetella parapertussis PCR Not Detected (NotDetected); Bordetella pertussis PCR Not Detected (NotDetected); Chlamydia pneumoniae PCR Not Detected (NotDetected); Coronavirus 229E PCR Not Detected (NotDetected); Coronavirus CoV-2 (COVID19)PCR Not Detected (NotDetected); Coronavirus HKU1 PCR Not Detected (NotDetected); Coronavirus NL63 PCR Not Detected (NotDetected); Coronavirus OC43PCR Not Detected (NotDetected); Human Metapneumovirus PCR Not Detected (NotDetected); Influenza A PCR Not Detected (NotDetected); Influenza B PCR Not Detected (NotDetected); Mycoplasma pneumoniae PCR Not Detected (NotDetected); Parainfluenza Virus 1 PCR Not Detected (NotDetected); Parainfluenza Virus 2 PCR Not Detected (NotDetected); Parainfluenza Virus 3 PCR Not Detected (NotDetected); Parainfluenza Virus 4 PCR Not Detected (NotDetected); Respiratory Syncytial VirusPCR Not Detected (NotDetected); Rhinovirus/Enterovirus PCR Not Detected (NotDetected)
[2023-07-18 07:55] LABS: Basophils # (auto) 0.06 K/uL (0.00-0.20); Eosinophils # (auto) 0.18 K/uL (0.00-0.50); Eosinophils % (auto) 3.1 %; Hematocrit (blood only) 42.8 % (37.0-47.0); Immature Granulocytes # (auto) 0.02 K/uL (0.01-0.20); Immature Granulocytes % (auto) 0.3 %; Lymphocytes # (auto) 0.98 K/uL (1.20-3.40); Lymphocytes % (auto) 16.9 %; Mean Corpuscular Hgb Conc 32.7 g/dL (32.0-36.0); Mean Corpuscular Volume 94.9 fL (80.0-100.0); Monocytes # (auto) 0.52 K/uL (0.11-0.59); Neutrophils # (auto) 4.04 K/uL (1.40-6.50); Neutrophils % (auto) 69.7 %; Platelet Count 198 K/uL (130-400); RDW Coefficient of Variation 14.8 % (11.5-14.5); RDW Standard Deviation 51.7 fL (36.4-46.3); Red Blood Count 4.51 M/uL (4.20-5.40)
[2023-07-18 08:00] LABS: BUN Creatinine Ratio 14.9 (10-20); Calcium 8.2 mg/dl (8.6-10.3); Creatinine Clr Calc Pharmacy 26.4 ml/min; Est GFR (African American) 46.9 ml/min; Est GFR (Non-African American) 40.5 ml/min
[2023-07-18] MEDS: ISOSORBIDE MONO EXTENDED REL 60 MG TABCR PO SCH ×2 (10:09→21:14)
[2023-07-18] MEDS: CLOPIDOGREL BISULFATE 75 MG TAB PO SCH (10:09)
[2023-07-18] MEDS: METOPROLOL SUCC 50MG EXT REL TAB PO SCH (10:09)
[2023-07-18] MEDS: HEPARIN SOD 5,000 UNIT/0.5 ML VIAL SQ SCH ×2 (10:09→21:19)
[2023-07-18] MEDS: POTASSIUM CHLORIDE CRTAB 20 MEQ TABCR PO SCH ×2 (10:11→21:14)
[2023-07-18] MEDS: UMECLIDINIUM BROMIDE 62.5MCG/BLISTER 7 PUFFS/INHALER INH SCH (10:11)
[2023-07-18] MEDS: PANTOprazole 40 MG TAB PO SCH (10:11)
[2023-07-18] MEDS: CEFEPIME 2,000 MG in SYRINGE 0 ML IV SCH (10:37)
[2023-07-18 12:05] LABS: Magnesium 1.7 mg/dl (1.7-2.4)
[2023-07-18] MEDS: MAGNESIUM OXIDE 400 MG TAB PO SCH (12:36)
[2023-07-18] MEDS: CALCIUM CARBONATE 1250MG TAB PO SCH ×2 (12:36→21:17)
[2023-07-18] MEDS: OXYBUTYNIN CHLORIDE XL 5 MG TABCR PO SCH (12:36)
[2023-07-18] MEDS: VALSARTAN/SACUBITRIL 103/97MG TAB PO SCH ×2 (12:36→21:14)
[2023-07-18] MEDS: MAGNESIUM SULFATE / D5W 1 GM/100 ML BAG IV SCH ×2 (13:09→14:50)
--- NOTE | 2023-07-18 14:56 | Hospitalist Progress Note ---
Date of Service July 18, 2023 Assessment & Plan (1) Acute exacerbation of CHF (congestive heart failure): Plan: Acute hypoxic respiratory failure,? CHF versus viral pneumonia Patient is chronically with BNP >4700; Chest CT does show small left pleural effusion and some nodular groundglass densities? Asymmetric pulmonary edema versus viral pneumonia although no overt pulmonary edema. Legs are dry and without edema. Creatinine is normal and ratio is not contracted. Will continue diuresis, hold if creatinine up trends. Patient has had a chronic cough since having COVID several weeks ago, thinks this may have increased recently and did have several days of diarrhea which is now improving.? Viral URI, procalcitonin is negative and no signs of bacterial pneumonia; bio fire is negative Legionella antigen remains pending Creatinine bumped from -08.17, patient does not appear clinically volume overloaded either on exam or on auscultation. Do not feel she is currently in an acute exacerbation of CHF. Her UTI has been inadequately treated and has not speciated for 2 organisms with resistance; but she does not look septic or with critical illness respiratory failure. No additional diuresis at this time. Has not improved with recruitment strategies/spirometer. She does have underlying emphysema and may have progression of lung disease requiring a two-step; she is not wheezing at time of admitting exam or on reassessment. Additionally had a short run of nonsustained VT today in the setting of low magnesium and metoprolol had not yet been given with EF of around 25%; magnesium optimized and metoprolol were given. Given persistent hypoxia and NSVT will obtain D-dimer and follow-up CTA for PE rule out if elevated. (2) Acute UTI (urinary tract infection): Plan: Several days of urinary symptoms in addition to confusion UA infected appearing UCx positive for Proteus mirabilis and Citrobacter. Proteus is cefepime intermediate sensitivity, Citrobacter is resistant to Rocephin. Patient will require switch from cefepime. Ciprofloxacin not recommended due to prolonged QT and episodes of NSVT; patient transitioned to ertapenem daily. (3) Elevated troponin: Plan: Troponin 41.6 on arrival, repeat downtrended to 38 with no ischedmic EKG changes on admit Patient denies chest pain both preceding admit, at time of admit, and during hospitalization. She has not had chest pressure or shoulder/jaw pain. Denies pain or pressure with activity or exertion, although note where her heart does tend to race when she tries to exert herself or go up stairs Inconsistent with ACS, minimally elevated troponin suspect due to demand in the setting of UTI (4) Confusion: Plan: Suspect metabolic encephalopathy of UTI, greatly improved 07/17 (5) CKD (chronic kidney disease), stage III: Plan: Creatinine at baseline on admission, has risen acutely on 07/18 Lasix held clinically dry. (6) COPD (chronic obstructive pulmonary disease) with emphysema: Plan: Continue Spiriva No wheezing on exam, low suspicion for acute exacerbation (7) S/P CABG (coronary artery bypass graft): Plan: CABG x 4 in 1997 Continue Plavix (8) Hypertension: Plan: Continue isosorbide mononitrate, metoprolol (9) GERD (gastroesophageal reflux disease): Plan: Continue pantoprazole (10) Urinary symptom or sign: Plan: Continue tolterodine for urinary urgency. Treatment of UTI as noted Plan Disposition: Admit to [facility] telemetry DNR/DNI AHA, low-sodium diet (1800 mL fluid restriction) VTE PPx: Teds, heparin 5000u SQ q12h Admission and Anticipated Discharge Date Admission Date: July 16, 2023 Subjective Patient reports she clinically feels well. She is not short of breath while on oxygen, but still requires oxygen to maintain O2 sats in the 90s. She has had no fever, chills, sweats. Urinary symptoms have mostly improved, she has no abdominal pain. No lightheadedness or dizziness. No sputum production, does have an intermittent dry cough. Has been using her incentive spirometer at least every hour reliably. Has not noticed a difference using this Physical Exam Physical Exam: General: alert and oriented to name place and year. NAD. Cooperative. HEENT: Atraumatic, normocephalic. Vision/hearing grossly intact Pulm: Bibasilar crackles similar to prior which clear on deep inspiration. No increased work of breathing. No respiratory distress. Cardiac: RRR, -mrg. Radial pulses intact and symmetrical. No lower extremity edema. Abdominal: Nontender, nondistended, soft. BS present. Results & Data Results & Data Vital Signs (Past 12 Hours) Vital Signs Temp Pulse Pulse Resp BP Pulse Ox O2 Del Method 07/18/23 08:25 37.0 C 57 L 18 108/66 96 Nasal Cannula 07/18/23 08:00 64 07/18/23 04:14 94 Nasal Cannula 07/18/23 04:14 80 L Room Air 07/18/23 04:00 36.7 C 85 18 126/70 93 Nasal Cannula O2 Flow Rate 07/18/23 08:25 2 07/18/23 08:00 07/18/23 04:14 2 07/18/23 04:14 07/18/23 04:00 2 PG Care Time/CCT Total # of Minutes Spent Total Time Spent with Patient: Total time spent is greater than 50% in coordination of care (as documented) at patient's floor/unit and/or counseling patient: Coding Level of Care Code 70517 SUB INP/OBS CARE 3/50MIN Diagnoses Acute exacerbation of CHF (congestive heart failure) I50.9 Acute UTI (urinary tract infection) N39.0 Elevated troponin R79.89 Confusion R41.0 CKD (chronic kidney disease), stage III N18.30 COPD (chronic obstructive pulmonary disease) with emphysema J43.9 S/P CABG (coronary artery bypass graft) Z95.1 Essential hypertension I10 Hypertension type: essential hypertension GERD (gastroesophageal reflux disease) K21.9 Urinary symptom or sign R39.9 (8) Hypertension Hypertension type: essential hypertension Qualified Code(s): I10 - Essential (primary) hypertension
[2023-07-18 16:25] LABS: D Dimer 8690 ug/L FEU (0-500)
[2023-07-18] MEDS ORDERED: PLASMA-LYTE A 500 ML IV ONE (16:26)
[2023-07-18] MEDS: PLASMA-LYTE A 500 ML IV SCH ×3 (16:36→17:03)
[2023-07-18] MEDS ORDERED: OPTIRAY 320 125ml IV ONE (17:22)
--- NOTE | 2023-07-18 18:16 | CT Scan Report ---
CT angio chest PE protocol CLINICAL HISTORY: PE TECHNIQUE: Multidetector row helical CT of the chest was performed with angiographic protocol. Taylor l and sagittal reformations were obtained. Coronal and sagittal MIPS were obtained from the axial etelvina a set and were submitted for review. Automated dose lowering techniques and/or adjustment according to patient size were utilized for this exam. CT DOSE: 391.97 mGy.cm Comparison: Comparison is made to CT chest 07/17/2023 FINDINGS: Lungs and pleura: Emphysema and bronchial wall thickening are seen. There is a small left pleural eff usion. Heart and pericardium: Cardiomegaly is seen with biatrial enlargement. Vessels: No evidence of pulmonary embolism. Pulmonary trunk measures 32 mm. Mediastinum and linda: Patulous esophagus is seen. Chest wall and lower neck: Unremarkable. Abdomen: Partial visualization of a aortic stent. Bones: Degenerative changes in the thoracic spine. IMPRESSION: 1. No acute abnormality and in particular no evidence of pulmonary embolus. Pulmonary hypertension i s seen. 2. Emphysema and bronchial wall thickening which is likely infectious/inflammatory. 3. Small left pleural effusion. ACT 112: Negative or not required by law. Electronically signed by: Grover Sood M.D. 07/18/2023 6:14 PM
--- NOTE | 2023-07-18 19:14 | Electrocardiogram Report ---
Test Reason : Blood Pressure : / mmHG Vent. Rate : 071 BPM Atrial Rate : 071 BPM P-R Int : 164 ms QRS Dur : 152 ms QT Int : 458 ms P-R-T Axes : 033 097 126 degrees QTc Int : 497 ms Normal sinus rhythm Possible Left atrial enlargement Left bundle branch block Abnormal ECG When compared with ECG of 24-JUN-2023 21:40, Premature ventricular complexes are no longer Present QRS voltage has decreased Confirmed by Maik Norris ([id number]) on 07/18/2023 7:14:10 PM Referred By: Confirmed By:Maik Norris
[2023-07-18] MEDS: ERTAPENEM SODIUM 500 MG in SYRINGE 0 ML IV SCH (21:12)
[2023-07-18] MEDS: ROSUVASTATIN CALCIUM 10 MG TAB PO SCH (21:17)
[2023-07-19 06:03] LABS: Basophils # (auto) 0.04 K/uL (0.00-0.20); Basophils % (auto) 0.6 %; Eosinophils # (auto) 0.26 K/uL (0.00-0.50); Eosinophils % (auto) 4.1 %; Hematocrit (blood only) 43.8 % (37.0-47.0); Hemoglobin 13.7 g/dl (12.0-16.0); Immature Granulocytes # (auto) 0.02 K/uL (0.01-0.20); Immature Granulocytes % (auto) 0.3 %; Lymphocytes # (auto) 1.24 K/uL (1.20-3.40); Lymphocytes % (auto) 19.4 %; Mean Corpuscular Hemoglobin 30.4 pg (25.0-34.0); Mean Corpuscular Hgb Conc 31.3 g/dL (32.0-36.0); Mean Corpuscular Volume 97.1 fL (80.0-100.0); Monocytes # (auto) 0.55 K/uL (0.11-0.59); Monocytes % (auto) 8.6 %; Neutrophils # (auto) 4.27 K/uL (1.40-6.50); Platelet Count 206 K/uL (130-400); RDW Coefficient of Variation 14.7 % (11.5-14.5); Red Blood Count 4.51 M/uL (4.20-5.40); White Blood Count 6.38 K/ul (4.8-10.8)
[2023-07-19 06:13] LABS: BUN Creatinine Ratio 16.2 (10-20); Calcium 8.3 mg/dl (8.6-10.3); Creatinine Clr Calc Pharmacy 28.8 ml/min; Est GFR (African American) 52.1 ml/min; Est GFR (Non-African American) 44.9 ml/min; Magnesium 2.1 mg/dl (1.7-2.4); Potassium 4.6 mmol/L (3.5-5.1)
--- NOTE | 2023-07-19 07:48 | Hospitalist Progress Note ---
Date of Service July 19, 2023 Assessment & Plan (1) Acute exacerbation of CHF (congestive heart failure): Plan: Although proBNP has been elevated on admission, patient seems to be feeling better at this time. No significant lower extremity edema Good urinary output Echocardiogram 06/25/2023 with reduced ejection fraction of 20 to 25%. Patient does not have a LifeVest or defibrillator. She does follow with cardiology Outpatient follow-up with the CHF clinic on discharge (2) Elevated troponin: Plan: Patient had recent non-ST elevated IL Currently troponin has been trending downward No chest pain or tightness 11 beat run of SVT. Otherwise, no arrhythmias Continue to monitor on telemetry (3) Acute UTI (urinary tract infection): Plan: Patient admitted 07/16/2023 and started on ceftriaxone for urinary tract infection urine culture with Proteus Mirabella's and Citrobacter freuendii. Patient changed to cefepime. Patient then changed to ertapenem due to intermediate coverage of cefepime. Today is day 4 of 5 for IV antibiotics patient is now asymptomatic. Will plan on administering IV antibiotics tomorrow and then discharged home check urine culture next week as an outpatient (4) CKD (chronic kidney disease), stage III: Plan: Creatinine stable at 1.11 Strict I&Os (5) Hypertension: Plan: Hemodynamically stable Continue with home medications (6) Non-ST elevation (NSTEMI) myocardial infarction: Plan: Status post CABG Peripheral artery disease EKG with QTc of 497 ms. 11 beat run of V. tach Continue home antitetanus of medications including metoprolol succinate and monitor on telemetry Plan Patient is currently day 4 of 5 for IV antibiotics. Will plan on giving day 5 tomorrow and discharge home Patient's daughter is very active in the patient's care and lives nearby No other home health needs identified at this time is Continue clopidogrel DVT prophylaxis with increased activity as tolerated Admission and Anticipated Discharge Date Admission Date: July 16, 2023 Subjective Attending: Dr. Booth This is an 88-year-old female that was admitted 07/16/2023 with acute exacerbation of CHF. Patient was also found to have acute UTI. Patient was started on ceftriaxone in the emergency department and then converted to cefepime 2000 mg IV every 12 hours x 5 days. Patient also was found to have brian vated troponin on admission. This was 41.6 on admission and is now trending downward and was 38 on 07/16/2023. It should be noted the patient did also have elevated troponin 06/25/2023 of 115.6. Echocardiogram performed 06/25/2023 showed reduced ejection fraction of 20 to 25% with global hypokinesis with dyskinesis of the interventricular septum. She was noted to have a moderate size left pleural effusion at that time. She did have follow-up with the heart failure clinic on 07/01/2023 and saw her primary care provider 07/04/2023. D-dimer was elevated to 8690. CTA of the chest was completed 07/18/2023 and showed no acute abnormality per to currently with no evidence of pulmonary emboli. There is now a small left pleural effusion identified on CT. Laboratory values were reviewed today. Patient has hypokalemia has corrected to 4.6. Creatinine is stable at 1.11. Magnesium is 2.1 proBNP was elevated on admission at greater than 4700. It appears as though patient is only on 20 mg of furosemide as needed as an outpatient. Patient is currently 2.6 L positive fluids this admission. Patient reports she clinically feels well. She reports that she has been walking the hallway but still requires supplemental oxygen to maintain O2 sats in the 90s. She has had no fever, chills, sweats. Urinary symptoms have resolved. No lightheadedness or dizziness. No sputum production, does have an intermittent dry cough. Has been using her incentive spirometer at least every hour reliably. No conversational dyspnea Review of Systems Review of Systems: A total of 10 systems was reviewed and is negative other than as listed in the HPI Physical Exam Physical Exam: GENERAL : No acute distress EYES: No icterus, gaze conjugate NOSE: No evidence of epistaxis MOUTH: No lesions or candidiasis NECK: Supple LUNGS: CTA B/L, no wheezes, rales or rhonchi HEART: Regular, rate controlled ABDOMEN: Soft, NT, ND, BS Present EXTREMITIES: No LE edema, pedal pulses intact NEURO: A&OX3 Results & Data Results & Data Vital Signs (Past 12 Hours) Vital Signs Temp Pulse Pulse Resp BP BP Pulse Ox 07/19/23 07:28 66 07/19/23 04:57 36.6 C 71 18 116/64 97 07/19/23 00:12 36.5 C 65 18 118/68 93 07/18/23 22:42 66 07/18/23 20:50 07/18/23 19:56 36.3 C L 73 18 116/70 93 O2 Del Method O2 Flow Rate 07/19/23 07:28 07/19/23 04:57 Nasal Cannula 2 07/19/23 00:12 Room Air 07/18/23 22:42 07/18/23 20:50 Nasal Cannula 2 07/18/23 19:56 Nasal Cannula 2 Laboratory Results Abnormal lab results 07/18/23 07/18/23 07/19/23 Range/Units 07:25 15:15 05:38 MCHC 31.3 L (32.0-36.0) g/dL RDW Std Deviation 51.7 H 53.0 H (36.4-46.3) fL RDW Coeff of Elif 14.8 H 14.7 H (11.5-14.5) % Lymph # (Auto) 0.98 L (1.20-3.40) K/uL D-Dimer 8690 H* (0-500) ug/L FEU Carbon Dioxide 33 H (21-32) mmol/L Creatinine 1.21 H (0.6-1.2) mg/dl Calcium 8.2 L 8.3 L (8.6-10.3) mg/dl PG Care Time/CCT Total # of Minutes Spent Total Time Spent with Patient: Total time spent is greater than 50% in coordination of care (as documented) at patient's floor/unit and/or counseling patient: 60 minutes spent with patient and daughter in discussion about disease care and discharge planning Coding Level of Care Code 43146 SUB INP/OBS CARE 3/50MIN Diagnoses Acute exacerbation of CHF (congestive heart failure) I50.9 Elevated troponin R79.89 Acute UTI (urinary tract infection) N39.0 CKD (chronic kidney disease), stage III N18.30 Essential hypertension I10 Hypertension type: essential hypertension Non-ST elevation (NSTEMI) myocardial infarction I21.4 Time Spent (min) 75 (5) Hypertension Hypertension type: essential hypertension Qualified Code(s): I10 - Essential (primary) hypertension
[2023-07-19] MEDS: CALCIUM CARBONATE 1250MG TAB PO SCH ×2 (08:27→20:24)
[2023-07-19] MEDS: CLOPIDOGREL BISULFATE 75 MG TAB PO SCH (08:27)
[2023-07-19] MEDS: HEPARIN SOD 5,000 UNIT/0.5 ML VIAL SQ SCH ×2 (08:27→20:25)
[2023-07-19] MEDS: MAGNESIUM OXIDE 400 MG TAB PO SCH (08:27)
[2023-07-19] MEDS: PANTOprazole 40 MG TAB PO SCH (08:27)
[2023-07-19] MEDS: POTASSIUM CHLORIDE CRTAB 20 MEQ TABCR PO SCH ×2 (08:27→20:24)
[2023-07-19] MEDS: ISOSORBIDE MONO EXTENDED REL 60 MG TABCR PO SCH ×2 (08:27→20:23)
[2023-07-19] MEDS: UMECLIDINIUM BROMIDE 62.5MCG/BLISTER 7 PUFFS/INHALER INH SCH (08:27)
[2023-07-19] MEDS: METOPROLOL SUCC 50MG EXT REL TAB PO SCH (08:27)
[2023-07-19] MEDS: VALSARTAN/SACUBITRIL 103/97MG TAB PO SCH ×2 (12:37→20:21)
[2023-07-19] MEDS: OXYBUTYNIN CHLORIDE XL 5 MG TABCR PO SCH (12:37)
[2023-07-19] MEDS: ROSUVASTATIN CALCIUM 10 MG TAB PO SCH (20:23)
[2023-07-19] MEDS: ERTAPENEM SODIUM 500 MG in SYRINGE 0 ML IV SCH (20:25)
[2023-07-20 07:16] LABS: Basophils # (auto) 0.05 K/uL (0.00-0.20); Basophils % (auto) 0.8 %; Eosinophils # (auto) 0.26 K/uL (0.00-0.50); Hematocrit (blood only) 44.1 % (37.0-47.0); Hemoglobin 14.3 g/dl (12.0-16.0); Immature Granulocytes # (auto) 0.03 K/uL (0.01-0.20); Immature Granulocytes % (auto) 0.5 %; Lymphocytes # (auto) 1.31 K/uL (1.20-3.40); Lymphocytes % (auto) 20.2 %; Mean Corpuscular Hemoglobin 30.8 pg (25.0-34.0); Mean Corpuscular Hgb Conc 32.4 g/dL (32.0-36.0); Monocytes # (auto) 0.53 K/uL (0.11-0.59); Monocytes % (auto) 8.2 %; Neutrophils # (auto) 4.32 K/uL (1.40-6.50); Neutrophils % (auto) 66.3 %; Platelet Count 230 K/uL (130-400); RDW Coefficient of Variation 14.6 % (11.5-14.5); RDW Standard Deviation 51.4 fL (36.4-46.3); Red Blood Count 4.64 M/uL (4.20-5.40)
[2023-07-20 07:35] LABS: BUN Creatinine Ratio 16.5 (10-20); Calcium 8.9 mg/dl (8.6-10.3); Creatinine Clr Calc Pharmacy 31.9 ml/min; Est GFR (African American) 61.3 ml/min; Est GFR (Non-African American) 52.9 ml/min; Potassium 4.5 mmol/L (3.5-5.1)
[2023-07-20] MEDS: UMECLIDINIUM BROMIDE 62.5MCG/BLISTER 7 PUFFS/INHALER INH SCH (08:06)
[2023-07-20] MEDS: ISOSORBIDE MONO EXTENDED REL 60 MG TABCR PO SCH (08:06)
[2023-07-20] MEDS: MAGNESIUM OXIDE 400 MG TAB PO SCH (08:07)
[2023-07-20] MEDS: HEPARIN SOD 5,000 UNIT/0.5 ML VIAL SQ SCH (08:07)
[2023-07-20] MEDS: POTASSIUM CHLORIDE CRTAB 20 MEQ TABCR PO SCH (08:07)
[2023-07-20] MEDS: CLOPIDOGREL BISULFATE 75 MG TAB PO SCH (08:07)
[2023-07-20] MEDS: METOPROLOL SUCC 50MG EXT REL TAB PO SCH (08:08)
[2023-07-20] MEDS: PANTOprazole 40 MG TAB PO SCH (08:08)
[2023-07-20] MEDS: CALCIUM CARBONATE 1250MG TAB PO SCH (08:09)
[2023-07-20] MEDS: OXYBUTYNIN CHLORIDE XL 5 MG TABCR PO SCH (10:57)
[2023-07-20] MEDS: VALSARTAN/SACUBITRIL 103/97MG TAB PO SCH (10:57)
[2023-07-20] MEDS: ERTAPENEM SODIUM 500 MG in SYRINGE 0 ML IV SCH (12:48)
--- NOTE | 2023-07-20 13:54 | Discharge Summary ---
Date of Service July 20, 2023 Admission HPI Per Admitting Provider Genny is a pleasant 88-year-old female with PMH of CKD stage III, CAD s/p CABG x 4 in 1998, spinal stenosis, AAA and bilateral iliac artery aneurysms (follows with Dr. Osborne), HTN, HFrEF, COPD, ischemic cardiomyopathy, urinary urgency, and GERD. She was referred in from her home health nurse for worsening SOB, lightheadedness, diarrhea, and dysuria that have been intermittent, but acutely worsened the past week. Patient lives alone, but her daughter (Daina) helps. Her daughter is present at the bedside and provides additional history. Daughter was concerned with worsening confusion over the past couple days. The patient endorses CH with acute worsening x 2 months. She was recently admitted at [facility] from 06/24 - 06/27 for similar symptoms. She denies SOB at rest. No at home oxygen use. She reports breathing is better when she lays on her left side. She denies recent falls. She was also had intermittent diarrhea x 1 week; however this is largely resolved, and while the stool is loose it is more formed now. She also endorses burning with urination this past week. She took her morning medications today. She reports she took Lasix 20 mg p.o. this morning, but that she does not usually take it; it is only as needed and she has not been taking it over the past few months. Last BM on 07/16 at 1600. No sick contacts. Former tobacco cigarette smoker; quit at age 68; formerly 1 PPD. Negrito meza exhibits mild hypertension at 144/83 at time of admission. ED course: Rocephin 2000 mg IV ROS: Patient endorses CH, loss of appetite, weight loss (5lb over past month), burning with urination, dysuria, back pain (from spinal stenosis), and chest palpitations (when climbing steps), Patient denies fever, sweating, chills, chest pain, pleuritic CP, abdominal pain, N/V, or numbness/tingling in legs or arms. Admission Exam Per Admitting Provider Physical Exam: General: no acute distress; pleasant affect; non-toxic appearing; frail; cooperative; SpO2 100% on 2L NC HEENT: normocephalic, atraumatic; no scleral icterus; PERRLA w/ EOMs intact; dry mucus membrane; vision and hearing intact Neck: supple; no JVD; no lymphadenopathy; trachea midline Skin: warm, dry without signs of tenting; no cyanosis; no rashes, bruising, lesions, or erythema noted CV: chest wall NTP; RRR; S1/S2 normal; no murmurs/rubs/gallops; pulses intact and symmetric at radial, DP, and PT Lungs: no acute respiratory distress; symmetrical chest wall expansion; minimally decreased breath sounds in the LLL auscultated posteriorly; no wheezing ABD: Soft, NTP; BS present; no rebound/guarding; no ascites; no distention; negative CVA tenderness MSK: no tics or fasciculations; no edema noted in the LEs b/l, nonerythematous Neuro: A&Ox3; normal mood and affect; fluent speech; no focal deficits; sensation grossly intact in the LEs B/L Principal Diagnosis CHF exacerbation, acute urinary tract infection Discharge Exam GENERAL : No acute distress. Pleasant no conversational dyspnea EYES: No icterus, gaze conjugate NOSE: No evidence of epistaxis MOUTH: No lesions or candidiasis NECK: Supple LUNGS: CTA B/L, no wheezes, rales or rhonchi HEART: Regular, rate controlled ABDOMEN: Soft, NT, ND, BS Present. No suprapubic pain with palpation EXTREMITIES: No LE edema, pedal pulses intact NEURO: A&OX3 Discharge Data Allergies Allergy/AdvReac Type Severity Reaction Status Date / Time fluticasone furoate AdvReac Intermediate Abdominal Verified 07/16/23 16:33 [From Trelegy Ellipta] Pain lisinopril AdvReac Intermediate NAUSEA Verified 07/16/23 16:33 VOMITING potassium chloride AdvReac Intermediate Vomiting Verified 07/16/23 16:33 Sulfa (Sulfonamide AdvReac Intermediate NAUSEA/VOMI Verified 07/16/23 16:33 Antibiotics) TING sulfamethoxazole AdvReac Intermediate Vomiting Verified 07/16/23 16:33 [From Bactrim] sulfasalazine AdvReac Intermediate NAUSEA-COULDN'T Verified 07/16/23 16:33 EAT trimethoprim [From Bactrim] AdvReac Intermediate Vomiting Verified 07/16/23 16:33 umeclidinium AdvReac Intermediate Abdominal Verified 07/16/23 16:33 [From Trelegy Ellipta] Pain vilanterol AdvReac Intermediate Abdominal Verified 07/16/23 16:33 [From Mignon Hennessy] Pain Consultations 07/16/23 16:59 ED Decision to Admit Stat Ordered Studies 07/16/23 15:42 CT abd pelvis wo con Stat 07/17/23 07:26 CT chest diagnostic wo con Routine 07/18/23 16:26 CT angio chest PE protocol Stat Hospital Course (1) Respiratory failure with hypoxia: Patient with history of COPD and emphysema Continue with usual home inhalers as there is no evidence of COPD exacerbation this admission Patient did have two-step performed and required supplemental oxygen with exertion only Will discharge home on 2 L/min via nasal cannula with exertion. Patient may benefit from outpatient pulmonary function testing. Will defer to primary care provider (2) Electrolyte imbalance: Borderline low potassium on admission. Patient received oral potassium replacement. Potassium on day of discharge was 4.5 mmol/L Magnesium on admission was 1.7 mg/Isael. Received IV replacement and discharged on magnesium oxide 400 mg daily Outpatient follow-up per primary care provider (3) Acute exacerbation of CHF (congestive heart failure): Although proBNP has been elevated on admission, patient seems to be feeling better at this time. No significant lower extremity edema Good urinary output Echocardiogram 06/25/2023 with reduced ejection fraction of 20 to 25%. Patient does not have a LifeVest or defibrillator. She does follow with cardiology Outpatient follow-up with the CHF clinic on discharge Continue with as needed furosemide on discharge Patient advised to call cardiology with any weight gain that is unexplained (4) Elevated troponin: Patient had recent non-ST elevated TX Currently troponin has been trending downward No chest pain or tightness 11 beat run of SVT. Otherwise, no arrhythmias Continue to monitor on telemetry while inpatient and follow-up with cardiology within the next 2 to 3 weeks (5) Acute UTI (urinary tract infection): Patient admitted 07/16/2023 and started on ceftriaxone for urinary tract infection urine culture with Proteus Mirabella's and Citrobacter freuendii. Patient changed to cefepime. Patient then changed to ertapenem due to intermediate coverage of cefepime. Today is day 5 of 5 for IV antibiotics patient is now asymptomatic. check urine culture next week as an outpatient. Copy results to Dr. Barrios (6) CKD (chronic kidney disease), stage III: Creatinine stable at 1.11 Patient advised to call if she has any decreased urine output or develops hematuria (7) Hypertension: Hemodynamically stable Continue with home medications (8) Non-ST elevation (NSTEMI) myocardial infarction: Status post CABG Peripheral artery disease EKG with QTc of 497 ms. 11 beat run of Afshin tach Continue home antihypertensive medications including metoprolol succinate and monitor on telemetry Plan Discharge home today Patient's daughter is very active in the patient's care and lives nearby No other home health needs identified at this time is Follow-up with primary care provider and cardiology in the next 2 to 3 weeks Total Time Total Time Spent Total Time Spent (In Minutes): 40 Discharge Plan Discharge Items Patient Disposition: Home - Self-Care Reason For Visit: CH, UTI Discharge Diagnosis: Urinary tract infection, CHF exacerbation Activity: Resume your previous activity Lifting: Gradually increase as tolerated Bathing: No limitations Exercise/Sports: Gradually increase as tolerated Weightbearing: Full weightbearing Non-emergency contact: Primary Care Provider Call non-emergency contact if: you have any medication questions and you have a fever Follow-up/Referrals: Dale Barrios DO [Primary Care Provider] - 07/30/23 11:30 am Diet: Carb Consistent or DM2 and Heart Healthy Addtl Attending Provider Instructions: * You were admitted with shortness of breath as well as an acute urinary tract infection. * You were placed on IV antibiotics and receive these for 5 days. This should be adequate to treat your urinary tract infection. However, we will order an outpatient urine culture to be followed up by your primary care physician. * Your nurse will give you a collection cup and instruct you on clean collection before you leave. The urine sample does not need to be refrigerated but should be delivered to our main lab within 2 hours of collection. You can take your specimen to the senior front end engineer of the hospital and they will coordinate with the laboratory staff to receive your sample. * Please call with any fever or new symptoms. * You were also in acute exacerbation of your congested heart failure. You appeared dry clinically so you were not given any additional diuretics. Please continue to take your furosemide (Lasix) as prescribed and follow up with your solar energy engineer/heart failure clinic. * You have emphysema and had low oxygen levels on admission. At rest these corrected but you still had low oxygen levels with exertion. Supplemental oxygen has been ordered for you. It should be used with a nasal cannula at 2 liters per minute with activity. Please check your pulseoximetery with your fingertip monitor if you feel short of breath and keep a log of what you were doing and what the percent of oxygenation was at the time. Your goal is to keep your oxygen levels between 88-92%. Dr. Barrios may decide to order pulmonary function testing for you if you continue to need extra oxygen. * Your potassium and magnesium were a little low. You should continue to take oral magnesium daily. A prescription has been transmitted to [facility] for you. * Please continue to take all of your regular home medications as prescribed by your other doctors Pending Studies at Discharge: No Stand-Alone Forms: My [facility] Medications and DC Order Prescriptions: New magnesium oxide 400 mg (241.3 mg magnesium) Tablet 400 mg PO QAM Qty: 30 2RF Continued clopidogrel 75 mg tablet 75 mg PO QAM 90 Days Qty: 90 3RF rosuvastatin 20 mg tablet 30 mg PO HS Qty: 145 3RF Rx Instructions: 1.5 TABS HS isosorbide mononitrate 120 mg tablet extended release 24 hr 120 mg PO BID 30 Days Qty: 180 3RF Entresto 97-103 mg tablet 0.5 tab PO BID Qty: 60 2RF Rx Instructions: TAKES QDL & HS furosemide [Lasix] 20 mg tablet 20 mg PO DAILY PRN (Reason: weight gain or sob) Qty: 30 0RF nitroglycerin 0.4 mg tablet, sublingual 0.4 mg sublingual UD PRN (Reason: Chest Pain) Qty: 25 5RF Rx Instructions: 1 tablet sublingual every 5 min for chest pain, up to 3 doses. call 911 if pain persists after 1st tablet. tolterodine 4 mg capsule,extended release 24hr 4 mg PO QDL Dose Instruction: TAKE 1 CAPSULE DAILY Rx Instructions: TAKE 1 CAPSULE DAILY ascorbic acid (vitamin C) 1,000 mg tablet 1 gm PO QDL acetaminophen [Tylenol Extra Strength] 500 mg Tablet 1,000 mg PO TID PRN (Reason: Pain) cholecalciferol (vitamin D3) [Vitamin D3] 1,000 unit Capsule 1,000 unit PO QPM pantoprazole 40 mg tablet,delayed release (DR/EC) 40 mg PO QAM Rx Instructions: TAKE 1 TABLET DAILY Spiriva Respimat 2.5 mcg/actuation mist 2 inh inhalation QAM Rx Instructions: USE 2 INHALATIONS DAILY metoprolol succinate 50 mg tablet extended release 24 hr 50 mg PO DAILY Discharge Orders: Discharge Order- CHF (Routine); Ordered 07/20/23 Ordered By: Yoan Aponte Admission Data Admit Date/Time: 07/19/23 08:14 Attending Provider: Dale Booth Admit Provider: Sandeep Pandey Primary Care Provider: Dale Barrios Other Providers: Sandeep Pandey Other Interventions: Discharge Summary Assessment (RN) Last Done: 07/20/23 13:59 Coding Level of Care Code 18487 IN/OBS DISCH 30 MIN/LESS Diagnoses Respiratory failure with hypoxia J96.91 Electrolyte imbalance E87.8 Acute exacerbation of CHF (congestive heart failure) I50.9 Elevated troponin R79.89 Acute UTI (urinary tract infection) N39.0 CKD (chronic kidney disease), stage III N18.30 Essential hypertension I10 Hypertension type: essential hypertension Non-ST elevation (NSTEMI) myocardial infarction I21.4
== END 2023-07-20 16:32 | disposition home health service (06) | DRG 291 ==
LOC: 2N 14:18 → ED 14:18 → SUATTDRO 17:40 → 2N 18:10